=== PATIENT | female | born 1990 | race African-American/Black ===

== ENCOUNTER 2016-09-05 14:21 | Inpatient (IN) | payer OTHER ==
[~2016-09-05] VITALS: Ht 170.2 cm; Wt 63.5 kg
[~2016-09-05 14:21] MED LIST: ACETAMINOPHEN-1 EAC1 ORAL; BENAZEPRIL HCL10 MG ORAL; CIPROFLOXACIN500 M2 ORAL; CYCLOBENZAPRINE10 MG ORAL; DICLOFENAC SODI75 MG ORAL; FERROUS SULFAT325 MG ORAL; FUROSEMIDE20 M1 ORAL; HTN MED; HYDROCHLOROTH12.5 M2 ORAL; HYDROXYCHLOROQ200 M1 PO; IBUPROFEN200 MG ORAL; IBUPROFEN400 MG ORAL; IBUPROFEN600 MG ORAL; IMURAN50 MG PO; LOSARTAN POTASS50 MG ORAL; POTASSIUM CHLO20 ME1 ORAL; POTASSIUM99 M3 PO; PREDNISONE10 MG ORAL; PREDNISONE20 MG ORAL; RANITIDINE HCL150 MG ORAL; VITAMIN D1000 UNI1 ORAL
--- NOTE | 2016-09-05 14:58 | Emergency Room Report ---
History of Present Illness General Chief Complaint: Chest Pain Source: Patient, Family Member Present Illness HPI Patient presents with complaints of chest pain Midsternal Reports that she has a history of lupus and feels that this is flaring up patient also has increased swelling of her feet She has some shortness of breath associated with this Denies any back or flank pain Denies any dysuria frequency denies any recent travel or pleurisy Pain and heaviness is a 4/10 denies any change with exertion or position Allergies: Coded Allergies: SULFA (SULFONAMIDE ANTIBIOTICS) (Verified Allergy, Mild, 05/27/15) Patient History Past Medical History: see triage record Pertinent Family History: none Last Menstrual Period: 2 years ago Reviewed Nursing Documentation: PMH: Agreed, PSxH: Agreed Nursing Documentation-PMH Past Medical History: No History, Except For Hx Hypertension: Yes Hx Cancer: No Hx Gastrointestinal Problems: No Hx Dialysis: Yes - Kidney failure Hx Neurological Problems: No Review of Systems All Other Systems: negative except mentioned in HPI Physical Exam Vital Signs Date Time Temp Pulse Resp B/P Pulse Ox O2 Delivery O2 Flow Rate FiO2 09/05/16 14:28 99.0 109 18 176/111 99 Room Air Sp02 EP Interpretation: reviewed, normal General Appearance: mild distress - Appears uncomfortable and in some pain Head: normocephalic, atraumatic Eyes: bilateral eye EOMI, bilateral eye PERRL ENT: hearing grossly normal, normal pharynx, TMs + canals normal, uvula midline Neck: full range of motion, supple, no meningismus, no bony tend Respiratory: lungs clear, normal breath sounds, no rhonchi, no respiratory distress, no retraction, no accessory muscle use Cardiovascular #1: normal peripheral pulses, regular rate, rhythm, no gallop, no JVD, no murmur Gastrointestinal: normal bowel sounds, non tender, soft, no mass, no organomegaly, non-distended, no guarding, no hernia, no pulsatile mass, no rebound Genitourinary: no CVA tenderness Musculoskeletal: normal inspection Neurologic: oriented x3, responsive, post closing specialist III-XII nml as tested, motor strength/ tone normal, sensory intact Psychiatric: mood/affect normal Skin: warm/dry, other - Minimal dependent edema in both lower extremities Lymphatic: normal inspection, no adenopathy Procedures Critical Care Time Critical Care Time 45 minutes for multiple critical findings Findings concerning for end organ injury and life-threatening pathology Speaking to consultants not including any procedural time Medical Decision Making Diagnostic Impression: Primary Impression: Non-STEMI (non-ST elevated myocardial infarction) Additional Impressions: Lupus Renal failure Hyperkalemia CHF (congestive heart failure) ER Course Patient is a fairly complex patient with multiple differential to consideration including but not limited to cardiac cardiopulmonary and vascular emergencies Patient has risk factors including lupus At this time the patient's blood work is also fairly abnormal with elevated troponin Kidney function is also significantly elevated from previous Potassium was high Patient has required multiple interventions The platelets are low In discussion with cardiology heparin bolus and drip will be held off at this time Patient also received aspirin and is doing better symptomatically Chest x-ray shows some questionable congestion And patient admitted for further inpatient care Labs Test 09/05/16 15:00 White Blood Count 7.8 K/UL (4.8-10.8) Red Blood Count 3.17 M/UL (4.20-5.40) Hemoglobin 7.9 G/DL (12.0-16.0) Hematocrit 26.3 % (37.0-47.0) Mean Corpuscular Volume 83 FL (80-99) Mean Corpuscular Hemoglobin 24.9 PG (27.0-31.0) Mean Corpuscular Hemoglobin Concent 30.1 G/DL (32.0-36.0) Red Cell Distribution Width 20.6 % (11.6-14.8) Platelet Count 127 K/UL (150-450) Mean Platelet Volume 7.2 FL (6.5-10.1) Neutrophils (%) (Auto) % (45.0-75.0) Lymphocytes (%) (Auto) % (20.0-45.0) Monocytes (%) (Auto) % (1.0-10.0) Eosinophils (%) (Auto) % (0.0-3.0) Basophils (%) (Auto) % (0.0-2.0) Differential Total Cells Counted 100 Neutrophils % (Manual) 73 % (45-75) Lymphocytes % (Manual) 23 % (20-45) Monocytes % (Manual) 4 % (1-10) Eosinophils % (Manual) 0 % (0-3) Basophils % (Manual) 0 % (0-2) Band Neutrophils 0 % (0-8) Platelet Estimate Decreased Platelet Morphology Normal Hypochromasia 1+ Anisocytosis 1+ Prothrombin Time 10.7 SEC (9.30-11.50) Prothromb Time International Ratio 1.1 (0.9-1.1) Activated Partial Thromboplast Time 30 SEC (23-33) Sodium Level 132 mEQ/L (135-145) Potassium Level 6.2 mEQ/L (3.4-4.9) Chloride Level 98 mEQ/L (98-107) Carbon Dioxide Level 16 mEQ/L (20-30) Anion Gap 18 (5-15) Blood Urea Nitrogen 73 mg/dL (7-23) Creatinine 4.7 mg/dL (0.5-0.9) Estimat Glomerular Filtration Rate 13.5 mL/min (>60) Glucose Level 80 mg/dL (74-106) Calcium Level 8.4 mg/dL (8.6-10.2) Total Bilirubin 0.3 mg/dL (0.0-1.2) Aspartate Amino Transf (AST/SGOT) 166 U/L (5-40) Alanine Aminotransferase (ALT/SGPT) 108 U/L (3-33) Alkaline Phosphatase 78 U/L (35-104) Total Creatine Kinase 6816 U/L (26-140) Creatine Kinase MB 276.2 ng/mL (< 3.8) Creatine Kinase MB Relative Index 4.0 Troponin I 0.57 ng/mL (<=0.30) Pro-B-Type Natriuretic Peptide 77091 pg/mL (0-125) Total Protein 8.6 g/dL (6.6-8.7) Albumin 2.6 g/dL (3.5-5.2) Globulin 6.0 g/dL Albumin/Globulin Ratio 0.4 (1.0-2.7) Lipase 110 U/L (< 60) EKG Diagnostic Results Rate: normal Rhythm: NSR ST Segments: other Rhythm Strip Diag. Results EP Interpretation: yes Rate: 88 Rhythm: NSR, no PVC's, no ectopy Chest X-Ray Diagnostic Results EP Interpretation: Yes Findings: no pneumothorax, other - Cardiomegaly, pulmonary congestion, right lower lobe increased haziness cannot rule out infiltrate Number of Views: 1 Last Vital Signs Date Time Temp Pulse Resp B/P Pulse Ox O2 Delivery O2 Flow Rate FiO2 09/05/16 14:42 109 18 Room Air 09/05/16 14:28 99.0 176/111 99 Status: improved Disposition: ADMITTED INPATIENT Condition: Critical Referrals: NON PHYSICIAN (PCP) FRANTZ GRUBER D.O. Sep 05, 2016 14:58
[2016-09-05] MEDS ORDERED: DiphenhydrAMINE 50mg/ml Inj IVP ONE (15:00)
[2016-09-05] MEDS ORDERED: HYDROmorphone 1mg/ml Carpuject IVP ONE (15:00)
[2016-09-05 15:05] VITALS: BP 171/118
[2016-09-05 15:11] LABS: MEAN CORPUSCULAR HEMOGLOBIN 24.9 PG (27.0-31.0); MEAN CORPUSCULAR HGB CONC 30.1 G/DL (32.0-36.0); MEAN CORPUSCULAR VOLUME 83 FL (80-99); MEAN PLATELET VOLUME 7.2 FL (6.5-10.1); PLATELET COUNT 127 K/UL (150-450); RED BLOOD COUNT 3.17 M/UL (4.20-5.40); RED CELL DISTRIBUTION WIDTH 20.6 % (11.6-14.8); WHITE BLOOD COUNT 7.8 K/UL (4.8-10.8)
--- NOTE | 2016-09-05 15:14 | Diagnostic Imaging Report ---
Indications: Chest pain Technique: Portable AP chest Findings: Comparison: 10/25/15 Cardiac silhouette has increased in size. Increased interstitial markings have developed in the right lung. Superimposed patchy ovular opacity has developed in the right lung base. Linear densities have developed in both lung bases. Left costophrenic angle now blunted. Right remain sharp. IMPRESSION: Findings most compatible with development of asymmetric congestive heart failure. Superimposed pneumonia right lung base not excludable.
[2016-09-05 15:18] LABS: INR 1.1 (0.9-1.1); PROTHROMBIN TIME 10.7 SEC (9.30-11.50)
[2016-09-05 15:34] LABS: ALBUMIN/GLOBULIN RATIO 0.4 (1.0-2.7); CALCIUM 8.4 mg/dL (8.6-10.2); CREATININE 4.7 mg/dL (0.5-0.9); GLOMERULAR FILTRATION RATE 13.5 mL/min (>60); TOTAL PROTEIN 8.6 g/dL (6.6-8.7)
[2016-09-05 15:43] LABS: TROPONIN I 0.57 ng/mL (<=0.30)
[2016-09-05 15:49] LABS: CKMB 276.2 ng/mL (< 3.8)
[2016-09-05 15:52] LABS: POTASSIUM 6.2 mEQ/L (3.4-4.9)
[2016-09-05] MEDS ORDERED: AMLODIPINE BES2.5 MG ORAL (15:52)
[2016-09-05 15:56] LABS: ANISOCYTOSIS 1+; LYMPHOCYTES % (MANUAL) 23 % (20-45); NEUTROPHILS % (MANUAL) 73 % (45-75); TOTAL CELLS COUNTED 100
[2016-09-05 15:57] LABS: BAND NEUTROPHILS % (MANUAL) 0 % (0-8); BASOPHILS % (MANUAL) 0 % (0-2); EOSINOPHILS % (MANUAL) 0 % (0-3); HYPOCHROMASIA 1+; PLATELET ESTIMATE DECREASED; PLATELET MORPHOLOGY NORMAL
[2016-09-05] MEDS ORDERED: Heparin 5000 units/ml inj IV ONE (16:00)
[2016-09-05] MEDS ORDERED: Heparin 25,000u/D5W 500ml 500 ML IV SCH (16:00)
[2016-09-05] MEDS ORDERED: Sodium Polystyrene Sulfonate 15gm Powder ORAL ONE (16:15)
[2016-09-05] MEDS ORDERED: ALBUTEROL 4 MG ORAL ONE (16:15)
[2016-09-05] MEDS ORDERED: Nitroglycerin 2% oint pkt TOPIC ONE (16:45)
[2016-09-05 17:23] VITALS: BP 171/112
--- NOTE | 2016-09-05 18:13 | History and Physical ---
History of Present Illness General Date patient seen: Sep 05, 2016 Reason for Hospitalization: Chest Pain Present Illness HPI 26 year old female with hx of SLE and recently diagnosed renal disease and chronic pleuritic chest pain presented with complaints of chest pain. She has some shortness of breath associated with this Denies any dysuria frequency denies any recent travel or pleurisy Pain and heaviness is a 4/10 denies any change with exertion or position. She had a positive troponin and hyperkalemia, therefore she is admitted to [facility] for further work up. Allergies: Coded Allergies: SULFA (SULFONAMIDE ANTIBIOTICS) (Verified Allergy, Mild, 05/27/15) Medication History Scheduled Amlodipine Besylate* (Amlodipine Besylate*), 5 MG ORAL DAILY, (Reported) Azathioprine (Azathioprine), 50 MG PO DAILY, (Reported) Benazepril Hcl* (Benazepril Hcl*), 10 MG ORAL DAILY, (Reported) Cholecalciferol (Vitamin D3)* (Vitamin D*), 5,000 UNIT ORAL DAILY, (Reported) Cyclobenzaprine Hcl* (Flexeril*), 10 MG ORAL BID Diclofenac Sod* (Voltaren*), 75 MG ORAL DAILY, (Reported) Ferrous Sulfate* (Ferrous Sulfate*), 325 MG ORAL TWICE A DAY Furosemide* (Lasix*), 20 MG ORAL DAILY, (Reported) Hydrochlorothiazide* (Hydrochlorothiazide*), 12.5 MG ORAL DAILY, (Reported) Hydroxychloroquine Sulfate (Hydroxychloroquine Sulfate), 200 MG PO BID, ( Reported) Losartan Potassium* (Losartan Potassium*), 50 MG ORAL DAILY, (Reported) Potassium Chloride* (K-Dur*), 20 MEQ ORAL DAILY, (Reported) Prednisone* (Prednisone*), 10 MG ORAL DAILY, (Reported) Ranitidine Hcl* (Zantac*), 150 MG ORAL TWICE A DAY Scheduled PRN Acetaminophen With Codeine (T#3) (Tylenol #3 Tab*), 1 TAB ORAL Q4H PRN for For Pain Ibuprofen* (Motrin*), 400 MG ORAL Q8H PRN for For Pain Patient History Healthcare decision maker Resuscitation status Advanced Directive on File Past Medical/Surgical History Past Medical/Surgical History: (1) Polyarticular arthritis (2) Lupus Review of Systems Cardiovascular: Reports: chest pain All Other Systems: negative except mentioned in HPI Physical Exam Lines, tubes and drains: peripheral HEENT: normocephalic, anicteric Neck: non-tender, normal alignment Respiratory/Chest: chest wall non-tender, lungs clear Cardiovascular/Chest: normal peripheral pulses, normal rate Genitourinary/Rectal: normal genital exam Extremities: normal range of motion Last 24 Hour Vital Signs Date Time Temp Pulse Resp B/P Pulse Ox O2 Delivery O2 Flow Rate FiO2 09/05/16 17:23 98.1 108 18 171/112 98 Room Air 09/05/16 17:10 105 09/05/16 16:56 108 29 174/118 99 Room Air 09/05/16 16:50 174/118 09/05/16 15:40 98.9 09/05/16 15:05 105 25 171/118 98 Room Air 09/05/16 14:42 109 18 Room Air 09/05/16 14:28 99.0 109 18 176/111 99 Room Air Laboratory Tests Test 09/05/16 15:00 White Blood Count 7.8 K/UL (4.8-10.8) Red Blood Count 3.17 M/UL (4.20-5.40) L Hemoglobin 7.9 G/DL (12.0-16.0) L Hematocrit 26.3 % (37.0-47.0) L Mean Corpuscular Volume 83 FL (80-99) Mean Corpuscular Hemoglobin 24.9 PG (27.0-31.0) L Mean Corpuscular Hemoglobin Concent 30.1 G/DL (32.0-36.0) L Red Cell Distribution Width 20.6 % (11.6-14.8) H Platelet Count 127 K/UL (150-450) L Mean Platelet Volume 7.2 FL (6.5-10.1) Neutrophils (%) (Auto) % (45.0-75.0) Lymphocytes (%) (Auto) % (20.0-45.0) Monocytes (%) (Auto) % (1.0-10.0) Eosinophils (%) (Auto) % (0.0-3.0) Basophils (%) (Auto) % (0.0-2.0) Differential Total Cells Counted 100 Neutrophils % (Manual) 73 % (45-75) Lymphocytes % (Manual) 23 % (20-45) Monocytes % (Manual) 4 % (1-10) Eosinophils % (Manual) 0 % (0-3) Basophils % (Manual) 0 % (0-2) Band Neutrophils 0 % (0-8) Platelet Estimate Decreased L Platelet Morphology Normal Hypochromasia 1+ Anisocytosis 1+ Prothrombin Time 10.7 SEC (9.30-11.50) Prothromb Time International Ratio 1.1 (0.9-1.1) Activated Partial Thromboplast Time 30 SEC (23-33) Sodium Level 132 mEQ/L (135-145) L Potassium Level 6.2 mEQ/L (3.4-4.9) *H Chloride Level 98 mEQ/L (98-107) Carbon Dioxide Level 16 mEQ/L (20-30) L Anion Gap 18 (5-15) H Blood Urea Nitrogen 73 mg/dL (7-23) H Creatinine 4.7 mg/dL (0.5-0.9) H Estimat Glomerular Filtration Rate 13.5 mL/min (>60) Glucose Level 80 mg/dL (74-106) Calcium Level 8.4 mg/dL (8.6-10.2) L Total Bilirubin 0.3 mg/dL (0.0-1.2) Aspartate Amino Transf (AST/SGOT) 166 U/L (5-40) H Alanine Aminotransferase (ALT/SGPT) 108 U/L (3-33) H Alkaline Phosphatase 78 U/L (35-104) Total Creatine Kinase 6816 U/L (26-140) H Creatine Kinase MB 276.2 ng/mL (< 3.8) H Creatine Kinase MB Relative Index 4.0 Troponin I 0.57 ng/mL (<=0.30) *H Pro-B-Type Natriuretic Peptide 22143 pg/mL (0-125) H Total Protein 8.6 g/dL (6.6-8.7) Albumin 2.6 g/dL (3.5-5.2) L Globulin 6.0 g/dL Albumin/Globulin Ratio 0.4 (1.0-2.7) L Lipase 110 U/L (< 60) H Height (Feet): 5 Height (Inches): 7.00 Weight (Pounds): 140 Medications Current Medications Medications (Trade) Dose Ordered Sig/Brad Route PRN Reason Start Time Stop Time Status Last Admin Dose Admin Acetaminophen (Tylenol) 650 mg Q4H PRN ORAL FEVER 09/05/16 18:15 10/05/16 18:14 UNV Acetaminophen/ Codeine Phosphate (Tylenol #3) 1 tab Q4H PRN ORAL For Pain 09/05/16 18:15 09/12/16 18:14 UNV Albuterol/ Ipratropium (DuoNeb 0.5-3(2.5)mg/3ml) 3 ml EVERY 4 HOURS PRN HHN Shortness of Breath 09/05/16 18:15 09/10/16 18:14 UNV Amlodipine Besylate (Norvasc) 5 mg DAILY ORAL 09/06/16 09:00 10/06/16 08:59 UNV Aspirin (ASA) 162 mg DAILY ORAL 09/06/16 09:00 10/06/16 08:59 UNV Azathioprine (Imuran) 50 mg DAILY ORAL 09/06/16 09:00 10/06/16 08:59 UNV Benazepril HCl (Lotensin) 10 mg DAILY ORAL 09/06/16 09:00 10/06/16 08:59 UNV Diltiazem HCl (Cardizem) 10 mg EVERY HOUR PRN IV heart rate more than 120, 09/05/16 18:15 10/05/16 18:14 UNV Enalaprilat (Vasotec) 2.5 mg EVERY 6 HOURS PRN IV sbp more than 160 09/05/16 18:15 10/05/16 18:14 UNV Heparin Sodium (Porcine) (Heparin 5000 units/ml) 5,000 units EVERY 12 HOURS SUBQ 09/05/16 21:00 10/05/16 20:59 UNV Heparin Sodium/ Dextrose (Heparin) 500 ml @ 15.241 mls/ hr adjust per protocol IV 09/05/16 16:00 10/05/16 15:59 Hydrochlorothiazide (Hydrodiuril) 12.5 mg DAILY ORAL 09/06/16 09:00 10/06/16 08:59 UNV Ketorolac Tromethamine (Toradol 30mg) 30 mg Q6HR PRN IV moderate pain ( 4-6) 09/05/16 18:15 09/10/16 18:14 UNV Morphine Sulfate (Morphine Sulfate) 2 mg EVERY 4 HOURS PRN IVP severe Pain (Pain Scale 7-10) 09/05/16 18:15 09/12/16 18:14 UNV Nitroglycerin (Ntg) 0.4 mg Every 5 Minutes PRN SL Prn Chest Pain 09/05/16 18:15 10/05/16 18:14 UNV Ondansetron HCl (Zofran) 4 mg Q6H PRN IVP Nausea & Vomiting 09/05/16 18:15 10/05/16 18:14 UNV Pantoprazole (Protonix) 40 mg DAILY ORAL 09/06/16 09:00 10/06/16 08:59 UNV Polyethylene Glycol (Miralax) 17 gm DAILYPRN PRN ORAL Constipation 09/05/16 18:15 10/05/16 18:14 UNV Temazepam (Restoril) 15 mg HSPRN PRN ORAL Insomnia 09/05/16 18:15 09/12/16 18:14 UNV Assessment/Plan Problem List: (1) Lupus ICD Codes: M32.9 - Systemic lupus erythematosus, unspecified SNOMED: 82040388 Qualifiers: (2) Non-STEMI (non-ST elevated myocardial infarction) ICD Codes: I21.4 - Non-ST elevation (NSTEMI) myocardial infarction SNOMED: 63809950 (3) Renal failure ICD Codes: N19 - Unspecified kidney failure SNOMED: 55111819 (4) CHF (congestive heart failure) ICD Codes: I50.9 - Heart failure, unspecified SNOMED: 08280098 Qualifiers: Qualified Codes: I50.9 - Heart failure, unspecified Assessment/Plan renal evaluation IV fluids renal us Rheumatology to see echo check electrolytes cardiology to see. PANCHITO BARBOSA Sep 05, 2016 18:13
[2016-09-05] MEDS ORDERED: Tylenol #3 tab (300mg/30mg) ORAL PRN (18:15)
[2016-09-05] MEDS ORDERED: Ketorolac 30mg Inj IV PRN (18:15)
[2016-09-05] MEDS ORDERED: Diltiazem 25mg/5ml IV PRN (18:15)
[2016-09-05] MEDS ORDERED: Nitroglycerin Subl 0.4mg tab (Bottle Of 25) SL PRN (18:15)
[2016-09-05] MEDS ORDERED: Morphine Sulfate 2mg/ml Inj IVP PRN (18:15)
[2016-09-05] MEDS ORDERED: DuoNeb 0.5-3(2.5)mg/3ml neb HHN PRN (18:15)
[2016-09-05] MEDS ORDERED: Enalaprilat 2.5mg/2ml Inj IV PRN (18:15)
[2016-09-05] MEDS ORDERED: Miralax 17gm pkt ORAL PRN (18:15)
[2016-09-05 20:00] VITALS: BP 154/111
[2016-09-05 20:19] LABS: FREE T3 1.4 pg/mL (2.3-4.2); THYROID STIMULATING HORMONE 1.84 uIU/mL (0.300-4.500)
[2016-09-05] MEDS: Heparin 5000 units/ml inj SUBQ SCH (20:50)
[2016-09-05 21:58] LABS: APPEARANCE,URINE CLEAR; KETONES,URINE NEGATIVE (NEGATIVE); LEUKOCYTE ESTERASE ,URINE NEGATIVE (NEGATIVE); NITRITE,URINE NEGATIVE (NEGATIVE); PH,URINE 6 (4.5-8.0); PROTEIN,URINE 4+ (NEGATIVE); UROBILINOGEN,URINE NORMAL MG/DL (0.0-1.0)
[2016-09-05] MEDS ORDERED: Benazepril 10mg tab ORAL SCH (22:00)
[2016-09-05 22:17] LABS: ALANINE AMINOTRANSFERASE 94 U/L (3-33); ALBUMIN/GLOBULIN RATIO 0.4 (1.0-2.7); ANION GAP 18 (5-15); ASPARTATE AMINO TRANSFERASE 141 U/L (5-40); CALCIUM 7.5 mg/dL (8.6-10.2); CARBON DIOXIDE 14 mEQ/L (20-30); CHLORIDE 102 mEQ/L (98-107); CREATININE 4.7 mg/dL (0.5-0.9); GLOMERULAR FILTRATION RATE 13.5 mL/min (>60); HEMOLYSIS 5; MAGNESIUM 1.8 mg/dL (1.7-2.5); PHOSPHORUS 5.4 mg/dL (2.5-4.8); POTASSIUM 5.5 mEQ/L (3.4-4.9); SODIUM 134 mEQ/L (135-145); TOTAL PROTEIN 7.7 g/dL (6.6-8.7)
[2016-09-05 22:19] LABS: TROPONIN I 0.5 ng/mL (<=0.30)
[2016-09-05] MEDS: Benazepril 10mg tab ORAL SCH (22:19)
[2016-09-05 22:21] LABS: BACTERIA,URINE FEW /HPF; SQUAMOUS EPITHELIAL CELL,UR FEW /LPF (NONE/OCC); WBC,URINE 0-2 /HPF (0 - 2)
[2016-09-05 22:23] LABS: CORTISOL 24.6 ug/dL
[2016-09-05 23:34] VITALS: BP 166/108
[2016-09-06] VITALS (7 sets, daily range): BP systolic 155–165; BP diastolic 106–118
[2016-09-06 08:08] LABS: BASOPHILS % (AUTO) 0.6 % (0.0-2.0); EOSINOPHILS % (AUTO) 0.2 % (0.0-3.0); LYMPHOCYTES % (AUTO) 20.2 % (20.0-45.0); MEAN CORPUSCULAR HEMOGLOBIN 25.6 PG (27.0-31.0); MEAN CORPUSCULAR HGB CONC 31.4 G/DL (32.0-36.0); MEAN CORPUSCULAR VOLUME 82 FL (80-99); MEAN PLATELET VOLUME 9.5 FL (6.5-10.1); MONOCYTES % (AUTO) 4.7 % (1.0-10.0); NEUTROPHILS % (AUTO) 74.4 % (45.0-75.0); PLATELET COUNT 113 K/UL (150-450); RED CELL DISTRIBUTION WIDTH 20.9 % (11.6-14.8); WHITE BLOOD COUNT 5.4 K/UL (4.8-10.8)
[2016-09-06] MEDS: Aspirin Baby 81mg ORAL SCH (08:10)
[2016-09-06] MEDS: azaTHIOprine 50 MG TAB ORAL SCH (08:11)
[2016-09-06] MEDS: Benazepril 10mg tab ORAL SCH (08:12)
[2016-09-06] MEDS: Heparin 5000 units/ml inj SUBQ SCH ×2 (08:13→21:00)
[2016-09-06 08:31] LABS: TROPONIN I 0.35 ng/mL (<=0.30)
[2016-09-06 08:32] LABS: CHOLESTEROL/HDL RATIO 6.3 (3.3-4.4); CRP QUANT 5.4 mg/dL (< 0.5)
[2016-09-06 08:36] LABS: INR 1.1 (0.9-1.1); PROTHROMBIN TIME 10.7 SEC (9.30-11.50)
[2016-09-06 08:42] LABS: THYROID STIMULATING HORMONE 1.32 uIU/mL (0.300-4.500)
[2016-09-06] MEDS ORDERED: Benazepril 10mg tab ORAL SCH (09:00)
[2016-09-06] MEDS ORDERED: Pneumococcal Vaccine 25mcg/0.5ml IM ONE (09:00)
[2016-09-06] MEDS ORDERED: Influenza Virus Vaccine 0.5ml IM ONE (09:00)
--- NOTE | 2016-09-06 11:11 | Pulmonology Progress Note ---
Assessment/Plan Problems: (1) Non-STEMI (non-ST elevated myocardial infarction) (2) Hyperkalemia (3) Renal failure (4) Lupus (5) CHF (congestive heart failure) Assessment/Plan K better Dr. Chou has seen the patient Echo, renal us pending DEMETRIA pending symptomatic treatment Subjective ROS Limited/Unobtainable: No Constitutional: Reports: no symptoms HEENT: Repors: no symptoms Allergies: Coded Allergies: SULFA (SULFONAMIDE ANTIBIOTICS) (Verified Allergy, Mild, 05/27/15) Objective Last 24 Hour Vital Signs Date Time Temp Pulse Resp B/P Pulse Ox O2 Delivery O2 Flow Rate FiO2 09/06/16 08:33 97.7 111 18 160/112 96 Room Air 09/06/16 08:12 160/112 09/06/16 08:12 111 160/112 09/06/16 08:00 103 09/06/16 07:55 110 18 Room Air 21 09/06/16 05:00 106 157/111 09/06/16 04:39 98.1 110 20 164/112 94 Room Air 09/06/16 04:00 102 09/06/16 00:15 98.6 114 20 159/106 96 Room Air 09/06/16 00:00 111 09/05/16 23:34 98.8 116 22 166/108 93 Room Air 09/05/16 22:19 166/114 09/05/16 22:13 118 18 Room Air 21 09/05/16 22:00 166/114 09/05/16 21:49 122 166/114 09/05/16 20:00 109 09/05/16 20:00 98.4 114 20 154/111 97 Room Air 09/05/16 18:45 167/110 09/05/16 17:23 98.1 108 18 171/112 98 Room Air 09/05/16 17:10 105 09/05/16 16:56 108 29 174/118 99 Room Air 09/05/16 16:50 174/118 09/05/16 15:40 98.9 09/05/16 15:05 105 25 171/118 98 Room Air 09/05/16 14:42 109 18 Room Air 09/05/16 14:28 99.0 109 18 176/111 99 Room Air Intake and Output 09/05/16 09/06/16 19:00 07:00 Intake Total 550 ml 180 ml Balance 550 ml 180 ml Intake Oral 50 ml 180 ml IV Total 500 ml # Voids 4 General Appearance: WD/WN HEENT: normocephalic Respiratory/Chest: chest wall non-tender, normal breath sounds Cardiovascular: normal peripheral pulses, normal rate Abdomen: normal bowel sounds, soft, non tender Genitourinary: normal external genitalia Extremities: no cyanosis Neurologic/Psychiatric: indian trader II-XII grossly normal Laboratory Tests 09/05/16 15:00: White Blood Count 7.8, Red Blood Count 3.17L, Hemoglobin 7.9L, Hematocrit 26.3L , Mean Corpuscular Volume 83, Mean Corpuscular Hemoglobin 24.9L, Mean Corpuscular Hemoglobin Concent 30.1L, Red Cell Distribution Width 20.6H, Platelet Count 127L, Mean Platelet Volume 7.2, Neutrophils (%) (Auto) , Lymphocytes (%) (Auto) , Monocytes (%) (Auto) , Eosinophils (%) (Auto) , Basophils (%) (Auto) , Differential Total Cells Counted 100, Neutrophils % ( Manual) 73, Lymphocytes % (Manual) 23, Monocytes % (Manual) 4, Eosinophils % ( Manual) 0, Basophils % (Manual) 0, Band Neutrophils 0, Platelet Estimate DecreasedL, Platelet Morphology Normal, Hypochromasia 1+, Anisocytosis 1+, Prothrombin Time 10.7, Prothromb Time International Ratio 1.1, Activated Partial Thromboplast Time 30, Sodium Level 132L, Potassium Level 6.2*H, Chloride Level 98, Carbon Dioxide Level 16L, Anion Gap 18H, Blood Urea Nitrogen 73H, Creatinine 4.7H, Estimat Glomerular Filtration Rate 13.5, Glucose Level 80 , Calcium Level 8.4L, Total Bilirubin 0.3, Aspartate Amino Transf (AST/SGOT) 166H, Alanine Aminotransferase (ALT/SGPT) 108H, Alkaline Phosphatase 78, Total Creatine Kinase 6816H, Creatine Kinase MB 276.2H, Creatine Kinase MB Relative Index 4.0, Troponin I 0.57*H, Pro-B-Type Natriuretic Peptide 68144P, Total Protein 8.6, Albumin 2.6L, Globulin 6.0, Albumin/Globulin Ratio 0.4L, Lipase 110H, Thyroid Stimulating Hormone (TSH) 1.840, Free Thyroxine 0.88, Free Triiodothyronine 1.4L 09/05/16 21:00: Urine Color Pale yellow, Urine Appearance Clear, Urine pH 6, Urine Specific [place] 1.015, Urine Protein 4+H, Urine Glucose (UA) Negative, Urine Ketones Negative, Urine Occult Blood 5+H, Urine Nitrite Negative, Urine Bilirubin Negative, Urine Urobilinogen Normal, Urine Leukocyte Esterase Negative, Urine RBC 2-4H, Urine WBC 0-2, Urine Squamous Epithelial Cells Few, Urine Bacteria Few , Urine Eosinophils None seen, Urine Osmolality [Pending], Urine Random Sodium 61, Urine Random Chloride 44, Urine Potassium Timed 38 09/05/16 21:25: Sodium Level 134L, Potassium Level 5.5H, Chloride Level 102, Carbon Dioxide Level 14L, Anion Gap 18H, Blood Urea Nitrogen 71H, Creatinine 4.7H, Estimat Glomerular Filtration Rate 13.5, Glucose Level 69L, Calcium Level 7.5L, Total Bilirubin 0.3, Aspartate Amino Transf (AST/SGOT) 141H, Alanine Aminotransferase (ALT/SGPT) 94H, Alkaline Phosphatase 69, Total Creatine Kinase 5956H, Troponin I 0.50*H, Total Protein 7.7, Albumin 2.3L, Globulin 5.4, Albumin/Globulin Ratio 0.4L, Osmolality [Pending], Uric Acid 10.0H, Phosphorus Level 5.4H, Magnesium Level 1.8, Cortisol 24.6 09/06/16 07:15: White Blood Count 5.4, Red Blood Count 3.20L, Hemoglobin 8.2L, Hematocrit 26.2L , Mean Corpuscular Volume 82, Mean Corpuscular Hemoglobin 25.6L, Mean Corpuscular Hemoglobin Concent 31.4L, Red Cell Distribution Width 20.9H, Platelet Count 113L, Mean Platelet Volume 9.5, Neutrophils (%) (Auto) 74.4, Lymphocytes (%) (Auto) 20.2, Monocytes (%) (Auto) 4.7, Eosinophils (%) (Auto) 0.2, Basophils (%) (Auto) 0.6, Prothrombin Time 10.7, Prothromb Time International Ratio 1.1, Activated Partial Thromboplast Time 32, Troponin I 0.35 *H, Thyroid Stimulating Hormone (TSH) 1.320, Erythrocyte Sedimentation Rate 119H , C-Reactive Protein, Quantitative 5.4H, Triglycerides Level 234H, Cholesterol Level 133, LDL Cholesterol 65, HDL Cholesterol 21, Cholesterol/HDL Ratio 6.3H, Anti-Nuclear Antibody Screen [Pending] Current Medications Medications (Trade) Dose Ordered Sig/Brad Route PRN Reason Start Time Stop Time Status Last Admin Dose Admin Acetaminophen (Tylenol) 650 mg Q4H PRN ORAL T>100.5 09/05/16 18:15 10/05/16 18:14 09/05/16 21:58 Acetaminophen/ Codeine Phosphate (Tylenol #3) 1 tab Q4H PRN ORAL Moderate Pain (Pain Scale 4-6) 09/05/16 18:15 09/12/16 18:14 Albuterol/ Ipratropium (DuoNeb 0.5-3(2.5)mg/3ml) 3 ml Q4H PRN HHN Shortness of Breath 09/05/16 18:15 09/10/16 18:14 Amlodipine Besylate (Norvasc) 5 mg DAILY ORAL 09/06/16 09:00 10/06/16 08:59 09/06/16 08:12 Aspirin (ASA) 162 mg DAILY ORAL 09/06/16 09:00 10/06/16 08:59 09/06/16 08:10 Azathioprine (Imuran) 50 mg DAILY ORAL 09/06/16 09:00 10/06/16 08:59 09/06/16 08:11 Diltiazem HCl (Cardizem) 10 mg EVERY HOUR PRN IV heart rate more than 120 BPM 09/05/16 18:15 10/05/16 18:14 09/05/16 21:49 Heparin Sodium (Porcine) (Heparin 5000 units/ml) 5,000 units EVERY 12 HOURS SUBQ 09/05/16 21:00 10/05/16 20:59 Morphine Sulfate (Morphine Sulfate) 2 mg EVERY 3 HOURS PRN IVP Severe Pain (Pain Scale 7-10) 09/06/16 12:00 09/13/16 11:59 UNV Nitroglycerin (Ntg) 0.4 mg Q5MIN X 3 DOSES PRN SL Prn Chest Pain 09/05/16 18:15 10/05/16 18:14 Ondansetron HCl (Zofran) 4 mg Q6H PRN IVP Nausea & Vomiting 09/05/16 18:15 10/05/16 18:14 Pantoprazole (Protonix) 40 mg DAILY ORAL 09/06/16 09:00 10/06/16 08:59 09/06/16 08:13 Polyethylene Glycol (Miralax) 17 gm DAILYPRN PRN ORAL Constipation 09/05/16 18:15 10/05/16 18:14 Temazepam (Restoril) 15 mg HSPRN PRN ORAL Insomnia 09/05/16 21:00 09/12/16 20:59 PANCHITO BARBOSA Sep 06, 2016 11:11
--- NOTE | 2016-09-06 12:17 | Consultation ---
DATE OF CONSULTATION: 09/05/2016 NOTE: VERY POOR AUDIO QUALITY RHEUMATOLOGICAL CONSULTATION the patient is a 26-year-old lady because of systemic lupus erythematosus. HISTORY OF PRESENT ILLNESS: The patient is known to me and followed by me in my office. The last time I saw the patient was 22 months ago. Over the last two months according to the patient has been in and out of the hospital. Her last admission was acute renal failure in 06/2016. The patient was discharged on prednisone and Plaquenil as well as diuretics. She was also two days prior to the present admission then she developed exertional angina. Initially, it was tolerable and the patient could control the symptom by cessation of ambulation. However, on the day of admission, she developed severe and sharp knife like that led to severe shortness of breath. She came to [facility] where she was found to have acute renal failure, hyperkalemia, and elevated troponin and the patient was admitted. PAST MEDICAL HISTORY: She is known to have systemic lupus erythematosus for several years, but she has not been followed by director of social work for a long time. Neither was she immunosuppressed for a long time. MEDICATIONS: The patient is on amlodipine 5 mg daily, Imuran 50 mg daily, benazepril 10 mg daily, hydrochlorothiazide 12.5 mg daily, aspirin 162 mg daily, pantoprazole 40 mg daily, temazepam 50 mg daily, heparin 5000 units subcutaneous , albuterol sulfate, ipratropium bromide inhalation therapy every four hours. p.r.n. basis, she is on morphine sulfate 2 mg IV push every 4 hours. She is on ondansetron 4 mg IV push for nausea and vomiting. She is on enalapril IV. She is on diltiazem 10 mg IV every hour for heart rate above 120. ALLERGIES: The patient is allergic to sulfonamide antibiotic. SOCIAL HISTORY: She is single. She was born in [place] for the last 20 years . The patient does not smoke, drink, or use illicit drugs. FAMILY HISTORY: Both parents are alive and in good health. connective tissue disease. She has one sister and two brothers in good health. She has one daughter age 8 in good health. REVIEW OF SYSTEMS: Cardiovascular: The patient has severe retrosternal chest pain as well as . She has no palpitation or dizziness. Pulmonary: The patient has dry cough. No wheezing. No expectoration. GI: Her appetite is moderate. Her weight is stable. She has no dysphagia or dyspepsia. No bowel movement disorder. : The patient denied any dysuria, frequency, incontinence, or nocturia. . She several days. She has no numbness, tingling, seizure disorder, and has no headache. PHYSICAL EXAMINATION: VITAL SIGNS: Blood pressure is 154/111. Her pulse is . Respirations 20, and temperature 98.4 degrees. HEENT: Eyes were normal. Pupils were round, equal, and reactive to light. Sclerae was white. Conjunctiva was pink. Extraocular movements were normal. Temporal arteries were palpable bilaterally. There was no bilateral temporal wasting. Visual mckeon to confrontation were normal and sign was negative. ENT, mucous membranes were not dehydrated. Auditory canals were clear and tympanic membranes could not be visualized. Nasal cavity was not congested. Nasal septum was intact. Soft palate was free of ulceration. free from tonsillar hypertrophy. Uvula agus to phonation. Tongue was moist, midline, and normally . NECK: Supple. There was no goiter. No mass. No lymphadenopathy. There was no jugular venous distention. No bruits. Carotid upstroke was 2+. HEART: PMI was fifth left intercostal space in midclavicular line. There was normal S1 and normal S2. There was no murmur. No arrhythmia. No S3. No S4. No pericardial rub. ABDOMEN: Soft and nontender without organomegaly. There were normal bowel sounds without bruits. There was no guarding. No rebound tenderness. No ascites. No hernia. No CVA tenderness. Liver span was 8 cm, smooth, and nontender, but the patient tenderness more on the right than on the left. EXTREMITIES: No cyanosis. No clubbing. Extremities were warm. There is 0 to 1+ edema. NEUROLOGIC: Reflexes in biceps, triceps, and brachioradialis were present. Patellar retinaculum were present. Plantar were in flexion. symmetric and equal. Cerebellar function, gait . [id number] rapid alternating movements were normal. Romberg sign was negative. There was no tremor. No nystagmus. No extrapyramidal rigidity. Sensory exam to pinprick, cotton touch was grossly normal. Motor strength was 5/5 against resistance in upper and lower extremities in proximal and distal muscles. LABORATORY DATA: Hemoglobin is 7.9, hematocrit 26.3 with MCV of 93, WBC of 7.8, and platelet is 127,000. Her BUN and creatinine 73 and 4.7 respectively. Sodium is 132, potassium is 6.4, chloride 98, CO2 is 16, and glucose . Calcium was 8.4. SGOT and SGPT were respectively. Total CK was 6816 and CK was 276.2. Troponin was 0.67. ProBNP was 21,416. Albumin is 2.6 and total protein of 8.6. Her 110. TSH and free T4 were all normal. INR was 1.1. Chest x-ray showed congestive heart failure and superimposed pneumonia cannot be excluded. IMPRESSION AND PLAN: 1. Unstable angina positive troponin . 2. The patient has hyperkalemia with chronic renal failure. Nephrology consult to be in the management of this case. 3. The patient has pneumonia. Infectious Disease consult was called to assist in the management of this case. 4. The patient autoimmune will be taken. The patient currently is on moderate immunosuppression. Imuran will be increased to 100 mg daily. antibiotic administration and Combivent will be ordered. If the patient did not have she should have renal biopsy. The case will be discussed with the primary care physician. Alisa Chou M.D. DR: RADHA JOB#: [id number] CC:
--- NOTE | 2016-09-06 13:58 | Consultation ---
Consult Note Consult Note Cardiology for Dr. Kelsey full note dictated # [id number] BILL JERNIGAN Sep 06, 2016 13:58
[2016-09-06] MEDS: Metoprolol 25mg tab ORAL SCH ×2 (14:43→21:31)
--- NOTE | 2016-09-06 15:39 | Consultation ---
Consult Note Assessment/Plan Renal consult dictated # [id number] ROSANNE JOHNSON Sep 06, 2016 15:39
[2016-09-06] MEDS: Morphine Sulfate 2mg/ml Inj IVP PRN (16:13)
--- NOTE | 2016-09-06 19:38 | Consultation ---
DATE OF CONSULTATION: 09/06/2016 CARDIOLOGY CONSULTATION REQUESTING PHYSICIAN: Elias Claros M.D. REASON FOR CONSULT: Chest pain. HISTORY OF PRESENT ILLNESS: The patient is a 26-year-old, woman with a history of lupus diagnosed in 2013, treated in the past with prednisone and Plaquenil. She states that prednisone had been stopped about 6 months ago and Plaquenil was to be started on 08/30, however, she did not fill the prescription. She states that over about the past 1 week, she has had episodes of sharp chest pain worse with lying down, improved with sitting, and worse with deep inspiration. The chest pain as described at times as heaviness. She has had no shortness of breath, orthopnea, or PND. She presented to the emergency room where troponin was noted to be mildly elevated at 0.5. EKG showed nonspecific lateral T-wave changes. She was also anemic with a hemoglobin of 7.9, and renal failure with a BUN of 73, creatinine of 4.7, and potassium of 6.2. She was admitted for further treatment. PAST MEDICAL HISTORY: As noted above. Also history of hypertension. MEDICATIONS: Currently Morphine 2 mg q.3 hours p.r.n., amlodipine 5 mg daily, aspirin 162 mg daily, Protonix 40 mg daily, Restoril 15 mg q.h.s. p.r.n., subcutaneous heparin 5000 units q.12 hours, nitroglycerin p.r.n., Tylenol p.r.n., and diltiazem IV p.r.n. ALLERGIES: Sulfa. SOCIAL HISTORY: The patient has previously smoked less than 1 pack per day, but stopped smoking a month ago. There is no history of alcohol or drug use. FAMILY HISTORY: Negative for lupus positive for hypertension in the patient's maternal. REVIEW OF SYSTEMS: As noted per history of present illness. Also history of recent headache. No recent weight gain or loss. History of intermittent heat and cold sensations, but no documented fever. PHYSICAL EXAMINATION: VITAL SIGNS: Blood pressure is 155/108, pulse 116 regular, respiration 18, and afebrile. GENERAL: The patient is a well-developed, female, complaining of pleuritic chest pain. HEENT: Normocephalic and atraumatic. Pupils are equal, round, and reactive to light. Sclerae anicteric. Oral mucosa are moist. NECK: Supple. There is no thyromegaly. No jugular venous distention. Carotid pulses are 2+ bilateral without bruits. LUNGS: Clear to auscultation bilaterally. HEART: Regular. Tachycardic. S1 and S2 with no murmurs, rubs, S3, or S4. PMI is not felt. ABDOMEN: Soft and nontender. No organomegaly or mass. EXTREMITIES: No cyanosis, clubbing, or edema. SKIN: No rashes or lesions. NEUROLOGIC: No focal motor deficits. LABORATORY DATA: Potassium 6.2, sodium 132, chloride 98, bicarbonate 16, BUN 73, and creatinine 4.7. Troponin is 0.5 repeat 0.57, 0.50, and 0.35. Hemoglobin 8.2, hematocrit 26, white blood count 5400, and platelets 113,000. EKG on admission showed sinus tachycardia, rate of 100 beats per minute, low voltage QRS, axis +10 degrees, poor R-wave progression V1 to V3, left atrial enlargement and inverted T-waves in leads 1, aVL, V5, and V6 consistent with repolarization changes. Chest x-ray shows cardiomegaly with no infiltrates, effusions, or edema. ASSESSMENT AND RECOMMENDATIONS: The patient is a 26-year-old woman with a history of lupus, who presents with episodes of sharp pleuritic chest pain over the past several days. She is anemic and in renal failure. Her troponin is mildly elevated, which may be due to renal failure. Her EKG does not show any acute ischemic changes. Her presentation is most consistent with pericarditis in the setting of a lupus flare. She will be evaluated by rheumatology and started on immunosuppressive therapy. With regard to her pericarditis, we will start ibuprofen if approved with nephrology. Colchicine will also be started. An echo will be obtained to evaluate left ventricular function and possible pericardial effusion. Further treatment recommendations will be made based on her clinical course. Her renal failure will be managed per nephrology. Kayexalate will be given for hyperkalemia. Belkis Pryro M.D. DR: CIERRA JOB#: [id number] CC: Elias Claros M.D.; Fax#: [phone]
--- NOTE | 2016-09-06 22:17 | Consultation ---
DATE OF CONSULTATION: NEPHROLOGY CONSULTATION CONSULTING PHYSICIAN: Davi Chris M.D. REFERRING PHYSICIAN: Crystal Woody M.d. REASON FOR CONSULTATION: Renal failure with hyperkalemia. HISTORY OF PRESENT ILLNESS: This is a 26-year-old female, with history of lupus. Apparently, this was diagnosed about a year ago. She had a biopsy in [facility]. She does not know the results. She said that there was no specific treatment initiated. She was followed by an outside flanging operator, but she does not know her baseline serum creatinine. She does not know if she had progressive disease or not. She was admitted with a BUN of 73 and creatinine 4.7 with potassium 6.2 and received some Kayexalate. The repeat potassium yesterday was 5.5, though we do not have any laboratories today. This consultation is for Dr. Wild, who I am covering today. PAST MEDICAL HISTORY: The patient has history of hypertension, lupus, and also Raynaud's phenomenon. She was admitted for chest pain. ALLERGIES: No known drug allergies. SOCIAL HISTORY: The patient lives at home with daughter. No history of smoking or alcohol abuse. REVIEW OF SYSTEMS: The patient says that she makes still a fair amount of urine. PHYSICAL EXAMINATION: GENERAL: The patient is a 26-year-old female, in no acute distress. VITAL SIGNS: Blood pressure is 165/105, pulse 116, temperature 98.2 degrees, and respiratory rate is 18. HEENT: Pale conjunctivae. Anicteric sclerae. NECK: Supple. LUNGS: Clear to auscultation. HEART: S1 and S2 without murmurs or rubs. ABDOMEN: Soft and nontender. EXTREMITIES: No cyanosis or edema. LABORATORY FINDINGS: The CBC as of yesterday shows a WBC of 5.4, hematocrit 26.2, hemoglobin is 8.2, and platelets 113,000. Chemistry panel shows a serum sodium 134, potassium 5.5, chloride 102, BUN 71, creatinine 4.7, calcium 7.5, phosphorus 5.4, and uric acid 10. ASSESSMENT: This is a 26-year-old female, who has a history of lupus, who presents with chest pain. I just had the discussion with Dr. Pryor, who thinks that the patient has pericarditis. 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 Unfortunately, she does not know the original diagnosis. She may have membranous nephropathy or focal proliferative or diffuse proliferative. My guess is membranous nephropathy as her urinalysis does not show any active sediment and just has positive proteinuria. PLAN: The patient's chemistry panels will be repeated. If there is a progression of her renal function, she may need a repeat biopsy. Also if her urine output drops significantly, she may need dialysis. This was all discussed with the patient. We have to check urine output closely. In terms of CKD, she is hypocalcemic and very likely she has vitamin D deficiency. I will start the patient on Rocaltrol. Possibly she is anemic, she will likely need to be on Epogen as an outpatient. Thank you very much for this consultation. Davi Chris M.D. DR: CAITLYN JOB#: [id number] CC: ROSIE
[2016-09-07] VITALS (7 sets, daily range): BP systolic 150–159; BP diastolic 91–108
[2016-09-07 07:32] LABS: MEAN CORPUSCULAR HEMOGLOBIN 25.6 PG (27.0-31.0); MEAN CORPUSCULAR HGB CONC 31.3 G/DL (32.0-36.0); MEAN CORPUSCULAR VOLUME 82 FL (80-99); MEAN PLATELET VOLUME 8.3 FL (6.5-10.1); PLATELET COUNT 114 K/UL (150-450); RED BLOOD COUNT 3.07 M/UL (4.20-5.40); RED CELL DISTRIBUTION WIDTH 21.2 % (11.6-14.8)
[2016-09-07 07:58] LABS: CALCIUM 8.3 mg/dL (8.6-10.2); CREATININE 5.7 mg/dL (0.5-0.9); GLOMERULAR FILTRATION RATE 10.8 mL/min (>60); POTASSIUM 5.6 mEQ/L (3.4-4.9)
[2016-09-07 08:02] LABS: CHOLESTEROL/HDL RATIO 7.8 (3.3-4.4); CRP QUANT 4.7 mg/dL (< 0.5); MAGNESIUM 1.9 mg/dL (1.7-2.5)
[2016-09-07 08:09] LABS: HEMOLYSIS 12; IRON 48 ug/dL (37-145); TOTAL IRON BINDING CAPACITY 160 ug/dL (250-400)
[2016-09-07 08:22] LABS: TROPONIN I < 0.30 ng/mL (<=0.30)
[2016-09-07 08:24] LABS: ANISOCYTOSIS 2+; BAND NEUTROPHILS % (MANUAL) 0 % (0-8); BASOPHILS % (MANUAL) 0 % (0-2); EOSINOPHILS % (MANUAL) 1 % (0-3); HYPOCHROMASIA 1+; LYMPHOCYTES % (MANUAL) 14 % (20-45); NEUTROPHILS % (MANUAL) 80 % (45-75); PLATELET ESTIMATE DECREASED; PLATELET MORPHOLOGY NORMAL; TOTAL CELLS COUNTED 100
[2016-09-07] MEDS: Metoprolol 25mg tab ORAL SCH ×2 (08:50→21:53)
[2016-09-07] MEDS: Aspirin Baby 81mg ORAL SCH (08:53)
[2016-09-07] MEDS: Heparin 5000 units/ml inj SUBQ SCH (08:54)
[2016-09-07 08:56] LABS: ERYTHROCYTE SEDIMENTATION RATE 122 MM/HR (0-20)
[2016-09-07] MEDS ORDERED: Calcitriol 0.5mcg Cap ORAL SCH (09:00)
[2016-09-07] MEDS: azaTHIOprine 50 MG TAB ORAL SCH (09:00)
[2016-09-07] MEDS ORDERED: Sodium Polystyrene Sulfonate 15gm Powder ORAL ONE ×2 (10:00→19:00)
--- NOTE | 2016-09-07 10:16 | Diagnostic Imaging Report ---
Indication: Abnormal renal function tests Technique: Grayscale and duplex images of the kidneys, retroperitoneum, and bladder were obtained. Comparison: Findings: Right kidney measures 11.8 cm in length. Left kidney measures 10.6 cm in length. Both kidneys demonstrate markedly increased echogenicity. Is bilateral renal collecting system fullness, bordering on mild hydronephrosis. No focal abnormality. Normal inferior vena cava. Bladder is empty, demonstrates questionable wall thickening. Trace ascites fluid is demonstrated Impression: Bilateral echogenic kidneys, consistent with medical renal disease. 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 Etiology/significance uncertain, downstream obstruction not excludable. Possible bladder wall thickening, most likely an artifact of under distention, but cystitis not excludable. On clinical findings Trace ascites
--- NOTE | 2016-09-07 14:02 | Cardiology Report ---
APPROVED REPORT EKG Measurement Heart [id number] Sinus tachycardia Possible Left atrial enlargement Anterior infarct, age undetermined T wave abnormality, consider lateral ischemia Abnormal ECG
--- NOTE | 2016-09-07 14:46 | Pulmonology Progress Note ---
Assessment/Plan Problems: (1) Non-STEMI (non-ST elevated myocardial infarction) (2) Hyperkalemia (3) Renal failure (4) Lupus (5) CHF (congestive heart failure) Assessment/Plan renal function worsening check electrolytes chest pain better. Subjective ROS Limited/Unobtainable: No Interval Events: less chest pain Allergies: Coded Allergies: SULFA (SULFONAMIDE ANTIBIOTICS) (Verified Allergy, Mild, 05/27/15) Objective Last 24 Hour Vital Signs Date Time Temp Pulse Resp B/P Pulse Ox O2 Delivery O2 Flow Rate FiO2 09/07/16 14:32 106 18 Room Air 21 09/07/16 12:00 97.9 97 20 152/99 99 Room Air 09/07/16 11:45 98 09/07/16 08:50 96 150/105 09/07/16 08:50 96 150/105 09/07/16 08:19 99 21 Nasal Cannula 2.0 28 09/07/16 08:19 99 21 95 Nasal Cannula 2.0 28 09/07/16 08:04 98 22 95 Nasal Cannula 2.0 28 09/07/16 08:04 28 09/07/16 08:00 97.9 96 20 150/105 100 Room Air 09/07/16 07:46 102 09/07/16 04:00 90 09/07/16 04:00 98.1 94 20 159/91 100 Room Air 09/07/16 00:00 98.2 101 16 150/94 99 Room Air 09/07/16 00:00 101 09/06/16 21:31 99 159/118 09/06/16 20:00 99 09/06/16 20:00 97.8 65 21 159/118 98 Room Air 09/06/16 19:07 172/106 09/06/16 19:00 101 14 Room Air 21 09/06/16 16:43 98.1 09/06/16 16:00 98.1 53 22 165/112 97 Room Air 09/06/16 16:00 94 Intake and Output 09/06/16 09/07/16 19:00 07:00 Intake Total 120 ml 570 ml Output Total 350 ml Balance 120 ml 220 ml Intake Oral 120 ml 570 ml Output Urine Total 350 ml # Voids 2 1 HEENT: normocephalic Respiratory/Chest: chest wall non-tender, normal breath sounds Breasts: no masses Abdomen: normal bowel sounds, soft, non tender Genitourinary: normal external genitalia Skin: no rash Laboratory Tests 09/07/16 05:50: White Blood Count 7.0, Red Blood Count 3.07L, Hemoglobin 7.9L, Hematocrit 25.1L , Mean Corpuscular Volume 82, Mean Corpuscular Hemoglobin 25.6L, Mean Corpuscular Hemoglobin Concent 31.3L, Red Cell Distribution Width 21.2H, Platelet Count 114L, Mean Platelet Volume 8.3, Neutrophils (%) (Auto) , Lymphocytes (%) (Auto) , Monocytes (%) (Auto) , Eosinophils (%) (Auto) , Basophils (%) (Auto) , Differential Total Cells Counted 100, Neutrophils % ( Manual) 80H, Lymphocytes % (Manual) 14L, Monocytes % (Manual) 5, Eosinophils % ( Manual) 1, Basophils % (Manual) 0, Band Neutrophils 0, Platelet Estimate DecreasedL, Platelet Morphology Normal, Hypochromasia 1+, Anisocytosis 2+, Erythrocyte Sedimentation Rate 122H, Sodium Level 134L, Potassium Level 5.6H, Chloride Level 99, Carbon Dioxide Level 13L, Anion Gap 22H, Blood Urea Nitrogen 81H, Creatinine 5.7H, Estimat Glomerular Filtration Rate 10.8, Glucose Level 55L , Calcium Level 8.3L, Calcium (Send out) [Pending], Phosphorus Level 8.0H, Magnesium Level 1.9, Iron Level 48, Total Iron Binding Capacity 160L, Percent Iron Saturation 30, Unsaturated Iron Binding 112, Troponin I < 0.30, C-Reactive Protein, Quantitative 4.7H, Triglycerides Level 271H, Cholesterol Level 156, LDL Cholesterol 82, HDL Cholesterol 20, Cholesterol/HDL Ratio 7.8H, Vitamin D 25 -Hydroxy [Pending], 25-Hydroxy Vitamin D2 [Pending], 25-Hydroxy Vitamin D3 [ Pending], Parathyroid Hormone (Intact) [Pending] Current Medications Medications (Trade) Dose Ordered Sig/Brad Route PRN Reason Start Time Stop Time Status Last Admin Dose Admin Acetaminophen (Tylenol) 650 mg Q4H PRN ORAL T>100.5 09/05/16 18:15 10/05/16 18:14 09/05/16 21:58 Acetaminophen/ Codeine Phosphate (Tylenol #3) 1 tab Q4H PRN ORAL Moderate Pain (Pain Scale 4-6) 12/28/16 18:15 09/12/16 18:14 Albuterol/ Ipratropium (DuoNeb 0.5-3(2.5)mg/3ml) 3 ml Q4H PRN HHN Shortness of Breath 09/05/16 18:15 09/10/16 18:14 Amlodipine Besylate (Norvasc) 10 mg DAILY ORAL 09/07/16 09:00 10/07/16 08:59 09/07/16 08:50 Aspirin (ASA) 162 mg DAILY ORAL 09/06/16 09:00 10/06/16 08:59 09/07/16 08:53 Azathioprine (Imuran) 50 mg DAILY ORAL 09/06/16 09:00 10/06/16 08:59 09/07/16 09:00 Calcitriol (Rocaltrol) 0.5 mcg DAILY ORAL 09/07/16 09:00 10/07/16 08:59 09/07/16 08:50 Clonidine HCl (Catapres) 0.1 mg Q8H PRN ORAL SBP OVER 170 09/06/16 14:00 10/06/16 13:59 09/06/16 19:07 Colchicine (Colchicine) 0.6 mg Q12HR ORAL 09/06/16 14:00 10/06/16 13:59 09/07/16 08:50 Heparin Sodium (Porcine) (Heparin 5000 units/ml) 5,000 units EVERY 12 HOURS SUBQ 09/05/16 21:00 10/05/16 20:59 Metoprolol Tartrate (Lopressor) 25 mg Q12HR ORAL 09/06/16 15:00 10/06/16 14:59 09/07/16 08:50 Morphine Sulfate (Morphine Sulfate) 2 mg Q3H PRN IVP Severe Pain (Pain Scale 7-10) 09/06/16 12:00 09/13/16 11:59 09/06/16 16:13 Nitroglycerin (Ntg) 0.4 mg Q5MIN X 3 DOSES PRN SL Prn Chest Pain 09/05/16 18:15 10/05/16 18:14 Ondansetron HCl (Zofran) 4 mg Q6H PRN IVP Nausea & Vomiting 09/05/16 18:15 10/05/16 18:14 Pantoprazole (Protonix) 40 mg DAILY ORAL 09/06/16 09:00 10/06/16 08:59 09/07/16 08:50 Polyethylene Glycol (Miralax) 17 gm DAILYPRN PRN ORAL Constipation 09/05/16 18:15 10/05/16 18:14 Temazepam (Restoril) 15 mg HSPRN PRN ORAL Insomnia 09/05/16 21:00 09/12/16 20:59 PANCHITO BARBOSA Sep 07, 2016 14:46
[2016-09-07] MEDS: Morphine Sulfate 2mg/ml Inj IVP PRN (16:09)
--- NOTE | 2016-09-07 16:10 | Nephrology Progress Note ---
Assessment/Plan Problem List: (1) Lupus (2) Chest pain (3) CKD (chronic kidney disease) Assessment: with ARF worse Plan follow BMP may need HD soon Check PTH Subjective Subjective In NAD Objective Objective Last 24 Hour Vital Signs Date Time Temp Pulse Resp B/P Pulse Ox O2 Delivery O2 Flow Rate FiO2 09/07/16 14:32 106 18 Room Air 21 09/07/16 12:00 97.9 97 20 152/99 99 Room Air 09/07/16 11:45 98 09/07/16 08:50 96 150/105 09/07/16 08:50 96 150/105 09/07/16 08:19 99 21 Nasal Cannula 2.0 28 09/07/16 08:19 99 21 95 Nasal Cannula 2.0 28 09/07/16 08:04 98 22 95 Nasal Cannula 2.0 28 09/07/16 08:04 28 09/07/16 08:00 97.9 96 20 150/105 100 Room Air 09/07/16 07:46 102 09/07/16 04:00 90 09/07/16 04:00 98.1 94 20 159/91 100 Room Air 09/07/16 00:00 98.2 101 16 150/94 99 Room Air 09/07/16 00:00 101 09/06/16 21:31 99 159/118 09/06/16 20:00 99 09/06/16 20:00 97.8 65 21 159/118 98 Room Air 09/06/16 19:07 172/106 09/06/16 19:00 101 14 Room Air 21 09/06/16 16:43 98.1 Intake and Output 09/06/16 09/07/16 19:00 07:00 Intake Total 120 ml 570 ml Output Total 350 ml Balance 120 ml 220 ml Intake Oral 120 ml 570 ml Output Urine Total 350 ml # Voids 2 1 Laboratory Tests 09/07/16 05:50: White Blood Count 7.0, Red Blood Count 3.07L, Hemoglobin 7.9L, Hematocrit 25.1L , Mean Corpuscular Volume 82, Mean Corpuscular Hemoglobin 25.6L, Mean Corpuscular Hemoglobin Concent 31.3L, Red Cell Distribution Width 21.2H, Platelet Count 114L, Mean Platelet Volume 8.3, Neutrophils (%) (Auto) , Lymphocytes (%) (Auto) , Monocytes (%) (Auto) , Eosinophils (%) (Auto) , Basophils (%) (Auto) , Differential Total Cells Counted 100, Neutrophils % ( Manual) 80H, Lymphocytes % (Manual) 14L, Monocytes % (Manual) 5, Eosinophils % ( Manual) 1, Basophils % (Manual) 0, Band Neutrophils 0, Platelet Estimate DecreasedL, Platelet Morphology Normal, Hypochromasia 1+, Anisocytosis 2+, Erythrocyte Sedimentation Rate 122H, Sodium Level 134L, Potassium Level 5.6H, Chloride Level 99, Carbon Dioxide Level 13L, Anion Gap 22H, Blood Urea Nitrogen 81H, Creatinine 5.7H, Estimat Glomerular Filtration Rate 10.8, Glucose Level 55L , Calcium Level 8.3L, Calcium (Send out) [Pending], Phosphorus Level 8.0H, Magnesium Level 1.9, Iron Level 48, Total Iron Binding Capacity 160L, Percent Iron Saturation 30, Unsaturated Iron Binding 112, Troponin I < 0.30, C-Reactive Protein, Quantitative 4.7H, Triglycerides Level 271H, Cholesterol Level 156, LDL Cholesterol 82, HDL Cholesterol 20, Cholesterol/HDL Ratio 7.8H, Vitamin D 25 -Hydroxy [Pending], 25-Hydroxy Vitamin D2 [Pending], 25-Hydroxy Vitamin D3 [ Pending], Parathyroid Hormone (Intact) [Pending] Height (Feet): 5 Height (Inches): 7.00 Weight (Pounds): 140 Cardiovascular: normal rate Respiratory/Chest: lungs clear Extremities: trace edema ROSANNE JOHNSON Sep 07, 2016 16:10
[2016-09-07] MEDS ORDERED: Nitroglycerin Subl 0.4mg tab (Bottle Of 25) SL PRN (17:45)
[2016-09-07] MEDS ORDERED: DuoNeb 0.5-3(2.5)mg/3ml neb HHN PRN (18:15)
--- NOTE | 2016-09-07 18:32 | Cardiology Progress Note ---
Assessment/Plan Status: stable, unchanged Status Narrative Pt w/ pleuritic CP - c/w pericarditis in setting of active SLE Mild troponin elevation may be due to pericarditis/myocarditis or renal failure. Renal parameters worsening Hyperkalemia due to RF Assessment/Plan Continue colchicine for pericarditis. No NSAIDS in view of renal failure. D/w Dr Chris Agree w/ kayexelate. Management of SLE per Dr. Chou. Subjective ROS Limited/Unobtainable: No Subjective Chest pain is improving. No dyspnea. Events noted. Objective Last 24 Hour Vital Signs Date Time Temp Pulse Resp B/P Pulse Ox O2 Delivery O2 Flow Rate FiO2 09/07/16 16:39 97.9 09/07/16 16:00 98.1 92 14 159/106 98 Room Air 09/07/16 14:32 106 18 Room Air 21 09/07/16 12:00 97.9 97 20 152/99 99 Room Air 09/07/16 11:45 98 09/07/16 08:50 96 150/105 09/07/16 08:50 96 150/105 09/07/16 08:19 99 21 Nasal Cannula 2.0 28 09/07/16 08:19 99 21 95 Nasal Cannula 2.0 28 09/07/16 08:04 98 22 95 Nasal Cannula 2.0 28 09/07/16 08:04 28 09/07/16 08:00 97.9 96 20 150/105 100 Room Air 09/07/16 07:46 102 09/07/16 04:00 90 09/07/16 04:00 98.1 94 20 159/91 100 Room Air 09/07/16 00:00 98.2 101 16 150/94 99 Room Air 09/07/16 00:00 101 09/06/16 21:31 99 159/118 09/06/16 20:00 99 09/06/16 20:00 97.8 65 21 159/118 98 Room Air 09/06/16 19:07 172/106 09/06/16 19:00 101 14 Room Air 21 General Appearance: WD/WN, no apparent distress, alert EENT: PERRL/EOMI Neck: supple, no JVD Rhythm: NSR, ST Cardiovascular: regular rhythm, no gallop/murmur, tachycardia Respiratory/Chest: lungs clear, normal breath sounds Abdomen: non tender, soft Extremities: trace edema - 1+ pedal edema bilat Intake and Output 09/06/16 09/07/16 19:00 07:00 Intake Total 120 ml 570 ml Output Total 350 ml Balance 120 ml 220 ml Intake Oral 120 ml 570 ml Output Urine Total 350 ml # Voids 2 1 Laboratory Tests Test 09/07/16 05:50 White Blood Count 7.0 K/UL (4.8-10.8) Red Blood Count 3.07 M/UL (4.20-5.40) L Hemoglobin 7.9 G/DL (12.0-16.0) L Hematocrit 25.1 % (37.0-47.0) L Mean Corpuscular Volume 82 FL (80-99) Mean Corpuscular Hemoglobin 25.6 PG (27.0-31.0) L Mean Corpuscular Hemoglobin Concent 31.3 G/DL (32.0-36.0) L Red Cell Distribution Width 21.2 % (11.6-14.8) H Platelet Count 114 K/UL (150-450) L Mean Platelet Volume 8.3 FL (6.5-10.1) Neutrophils (%) (Auto) % (45.0-75.0) Lymphocytes (%) (Auto) % (20.0-45.0) Monocytes (%) (Auto) % (1.0-10.0) Eosinophils (%) (Auto) % (0.0-3.0) Basophils (%) (Auto) % (0.0-2.0) Differential Total Cells Counted 100 Neutrophils % (Manual) 80 % (45-75) H Lymphocytes % (Manual) 14 % (20-45) L Monocytes % (Manual) 5 % (1-10) Eosinophils % (Manual) 1 % (0-3) Basophils % (Manual) 0 % (0-2) Band Neutrophils 0 % (0-8) Platelet Estimate Decreased L Platelet Morphology Normal Hypochromasia 1+ Anisocytosis 2+ Erythrocyte Sedimentation Rate 122 MM/HR (0-20) H Sodium Level 134 mEQ/L (135-145) L Potassium Level 5.6 mEQ/L (3.4-4.9) H Chloride Level 99 mEQ/L (98-107) Carbon Dioxide Level 13 mEQ/L (20-30) L Anion Gap 22 (5-15) H Blood Urea Nitrogen 81 mg/dL (7-23) H Creatinine 5.7 mg/dL (0.5-0.9) H Estimat Glomerular Filtration Rate 10.8 mL/min (>60) Glucose Level 55 mg/dL (74-106) L Calcium Level 8.3 mg/dL (8.6-10.2) L Calcium (Send out) Pending Phosphorus Level 8.0 mg/dL (2.5-4.8) H Magnesium Level 1.9 mg/dL (1.7-2.5) Iron Level 48 ug/dL (37-145) Total Iron Binding Capacity 160 ug/dL (250-400) L Percent Iron Saturation 30 % (15-50) Unsaturated Iron Binding 112 ug/dL (112-346) Troponin I < 0.30 ng/mL (<=0.30) C-Reactive Protein, Quantitative 4.7 mg/dL (< 0.5) H Triglycerides Level 271 mg/dL (< 150) H Cholesterol Level 156 mg/dL (< 200) LDL Cholesterol 82 mg/dL (60-99) HDL Cholesterol 20 mg/dL (> 60) Cholesterol/HDL Ratio 7.8 (3.3-4.4) H Vitamin D 25-Hydroxy Pending 25-Hydroxy Vitamin D2 Pending 25-Hydroxy Vitamin D3 Pending Parathyroid Hormone (Intact) Pending BILL JERNIGAN Sep 07, 2016 18:32
[2016-09-07] MEDS ORDERED: Morphine Sulfate 2mg/ml Inj IVP PRN (19:00)
[2016-09-07] MEDS ORDERED: Metoprolol 25mg tab ORAL SCH (21:00)
[2016-09-07] MEDS ORDERED: Heparin 5000 units/ml inj SUBQ SCH (21:00)
--- NOTE | 2016-09-07 23:58 | Progress Note ---
DATE: 09/07/2016 SUBJECTIVE: The patient is afebrile, tachycardic, and short of breath at rest. PHYSICAL EXAMINATION: VITAL SIGNS: Blood pressure 159/106, pulse 97, respirations were 20, and temperature was 98.1 degrees. HEENT: Eyes were normal. ENT, mucous membranes were moist and intact. NECK: Supple. JVD was dilated to 6 cm in the supraclavicular fossa. LUNGS: Clear without rhonchi, rales, or wheezing. HEART: Normal sounds with regular beats. There is tachycardia at rest. ABDOMEN: Soft and nontender with normal bowel sounds. EXTREMITIES: Warm without cyanosis or clubbing. There is 1+ to 2+ edema in lower extremity, which she did not have with . LABORATORY DATA: Hemoglobin 7.9, hematocrit 25.9 with MCV of 82, WBC of 7.0, and platelets is 114,000. Her BUN and creatinine is 81 and 5.7 respectively. Her sodium is 134, potassium 5.6, chloride 99, CO2 was 13, and glucose is 55. Her calcium is 8.2. Her phosphorus is 8. Total bilirubin is 1.9. Iron 248. Her INR capacity is 160 and saturation is 30. Repeat renal ultrasound demonstrated substernal increase in the kidney associated with mild bilateral hydronephrosis. The etiology of the communication system is not clear. Cystitis or expected. The patient underwent 24 hours urine collection today show occult blood 5+; however, urine microscopy revealed RBC 2 to 4 and WBCs of 2. Eosinophils not seen. Sodium is 61, chloride is 44, and potassium is 38. DEMETRIA was 43 and anti-DNA antibody are not available. IMPRESSION: The patient has lupus nephritis. She has hyperkalemia, hypovolemia, thrombocytopenia, and anemia. Renal biopsy should be considered and immunosuppression as well if there is any any reversibility of the process. Repeat laboratory tests will be done in the morning. Alisa Chou M.D. DR: SERGIO JOB#: [id number] CC:
[2016-09-08] VITALS: BP 153/99
[2016-09-08 04:00] VITALS: BP 150/98
[2016-09-08 08:00] VITALS: BP 147/100
[2016-09-08] MEDS ORDERED: Calcitriol 0.5mcg Cap ORAL SCH (09:00)
[2016-09-08] MEDS: azaTHIOprine 50 MG TAB ORAL SCH (09:49)
[2016-09-08] MEDS: Aspirin Baby 81mg ORAL SCH (09:49)
[2016-09-08] MEDS: Metoprolol 25mg tab ORAL SCH ×2 (09:50→21:06)
[2016-09-08 11:09] LABS: CALCIUM 8.2 mg/dL (8.7-10.2); PTH INTACT 84 pg/mL (15-65)
--- NOTE | 2016-09-08 11:28 | Cardiology Progress Note ---
Assessment/Plan Status Narrative Pt w/ pleuritic CP - c/w pericarditis in setting of active SLE. Symptoms have resolved. Mild troponin elevation may be due to pericarditis/myocarditis or renal failure. Renal failure - w/o improvement in parameters since adm Hyperkalemia due to RF Assessment/Plan Continue colchicine for pericarditis. No NSAIDS in view of renal failure. ? need for dialysis - plan per Dr. Aries Ortiz for hyperkalemia - repeat labs pending for today ECHO - results pending. Management of SLE per Dr. Chou. Subjective ROS Limited/Unobtainable: No Subjective Pleuritic CP has resolved. no c/o dyspnea or palpitations Objective Last 24 Hour Vital Signs Date Time Temp Pulse Resp B/P Pulse Ox O2 Delivery O2 Flow Rate FiO2 09/08/16 09:50 85 147/100 09/08/16 09:50 85 147/100 09/08/16 08:00 97.9 85 20 147/100 95 Room Air 09/08/16 07:30 98 18 Room Air 09/08/16 04:00 97.9 89 18 150/98 99 Room Air 09/08/16 00:00 98.1 94 18 153/99 99 Room Air 09/07/16 21:53 103 157/108 09/07/16 21:00 98.1 103 16 157/108 97 Room Air 09/07/16 19:33 95 18 Room Air 09/07/16 17:15 98.1 92 16 156/102 100 Nasal Cannula 2.0 09/07/16 16:39 97.9 09/07/16 16:00 98.1 92 14 159/106 98 Room Air 09/07/16 14:32 106 18 Room Air 21 09/07/16 12:00 97.9 97 20 152/99 99 Room Air 09/07/16 11:45 98 General Appearance: WD/WN, no apparent distress, alert Neck: supple, no JVD Rhythm: NSR Cardiovascular: normal rate, regular rhythm, no gallop/murmur Respiratory/Chest: lungs clear Abdomen: non tender, soft, no mass Extremities: other - pedal edema, 1+ bilat Intake and Output 09/07/16 09/08/16 19:00 07:00 Intake Total 240 ml 1300 ml Output Total 550 ml Balance 240 ml 750 ml Intake Oral 240 ml 1300 ml Output Urine Total 550 ml # Voids 2 2 BILL JERNIGAN Sep 08, 2016 11:28
[2016-09-08 12:00] VITALS: BP 139/94
--- NOTE | 2016-09-08 14:38 | Cardiology Report ---
APPROVED REPORT EXAM: Two-dimensional and M-mode echocardiogram with Doppler and color Doppler. INDICATION LV function M-Mode DIMENSIONS IVSd1.3 (0.7-1.1cm)Aortic Root3.5 (2.0-3.7cm) LVDd4.4 (3.5-5.6cm)Aortic Cusp Exc.1.8 (1.5-2.0cm) IVSs1.8 cm LVDs3.0 (2.5-4.0cm) PWs1.9 cm Normal left ventricular chamber size, systolic function and wall motion. Left ventricular ejection fraction estimated to be 60 %. Borderline mild left ventricular hypertrophy. Anterior Echo-free space, may be due to pericardial fat or effusion. Moderate left atrial enlargement. Right cardiac chamber sizes are within normal limits. Mild focal aortic valve sclerosis with adequate cusp excursion. Mildly thickened mitral valve leaflets with normal excursion. Mild mitral annulus and aortic root calcification. Normal pulmonic valve structure. Normal tricuspid valve structure. IVC at normal size with physiologic collapse. A color flow and spectral Doppler study was performed and revealed: Mild aortic regurgitation. No aortic stenosis. Mild to moderate mitral regurgitation. No mitral stenosis. Mitral inflow indicates normal left ventricular diastolic function. Mild tricuspid regurgitation. Tricuspid systolic velocities suggests peak right ventricular systolic pressure of 50 mmHg, consistent with moderate pulmonary hypertension. No pulmonic regurgitation present.
[2016-09-08 14:39] LABS: ALBUMIN/GLOBULIN RATIO 0.4 (1.0-2.7); CALCIUM 7.9 mg/dL (8.6-10.2); CREATININE 6.4 mg/dL (0.5-0.9); GLOMERULAR FILTRATION RATE 9.5 mL/min (>60); POTASSIUM 4.8 mEQ/L (3.4-4.9); TOTAL PROTEIN 7.3 g/dL (6.6-8.7)
--- NOTE | 2016-09-08 15:30 | General Progress Note ---
Assessment/Plan Status: deteriorating Assessment/Plan Status: (1) Acute on Chronic renal failure- worsening serum Cr ( refer to Dr Davi Chris's consult note) (2) Hyperkalemia on presentation (3) Non-STEMI (non-ST elevated myocardial infarction) (4) Lupus (5) CHF (congestive heart failure) Plan: Phos binder- Adjust BP meds- Monitor renal parameters- laxatives- Avoid nephrotoxics- need HD if Cr rise further Urine for eos Subjective ROS Limited/Unobtainable: No Constitutional: Reports: malaise, weakness Allergies: Coded Allergies: SULFA (SULFONAMIDE ANTIBIOTICS) (Verified Allergy, Mild, 05/27/15) Objective Last 24 Hour Vital Signs Date Time Temp Pulse Resp B/P Pulse Ox O2 Delivery O2 Flow Rate FiO2 09/08/16 12:00 97.7 84 18 139/94 94 Room Air 09/08/16 09:50 85 147/100 09/08/16 09:50 85 147/100 09/08/16 08:00 97.9 85 20 147/100 95 Room Air 09/08/16 07:30 98 18 Room Air 21 09/08/16 04:00 97.9 89 18 150/98 99 Room Air 09/08/16 00:00 98.1 94 18 153/99 99 Room Air 09/07/16 21:53 103 157/108 09/07/16 21:00 98.1 103 16 157/108 97 Room Air 09/07/16 19:33 95 18 Room Air 09/07/16 17:15 98.1 92 16 156/102 100 Nasal Cannula 2.0 09/07/16 16:39 97.9 09/07/16 16:00 98.1 92 14 159/106 98 Room Air Intake and Output 09/07/16 09/08/16 19:00 07:00 Intake Total 240 ml 1300 ml Output Total 550 ml Balance 240 ml 750 ml Intake Oral 240 ml 1300 ml Output Urine Total 550 ml # Voids 2 2 Laboratory Tests 09/08/16 14:00: Sodium Level 132L, Potassium Level 4.8, Chloride Level 97L, Carbon Dioxide Level 17L, Anion Gap 18H, Blood Urea Nitrogen 83H, Creatinine 6.4H, Estimat Glomerular Filtration Rate 9.5, Glucose Level 93, Calcium Level 7.9L, Total Bilirubin 0.2, Aspartate Amino Transf (AST/SGOT) 120H, Alanine Aminotransferase (ALT/SGPT) 89H, Alkaline Phosphatase 65, Total Protein 7.3, Albumin 2.3L, Globulin 5.0, Albumin/Globulin Ratio 0.4L Height (Feet): 5 Height (Inches): 7.00 Weight (Pounds): 140 General Appearance: no apparent distress Cardiovascular: normal rate Respiratory/Chest: lungs clear Abdomen: soft Edema: no edema noted Arm (L), no edema noted Arm (R), no edema noted Leg (L), no edema noted Leg (R), no edema noted Pedal (L), no edema noted Pedal (R), no edema noted Generalized JAMES MONTES Sep 08, 2016 15:30
--- NOTE | 2016-09-08 15:32 | Internal Med Progress Note ---
Subjective Date of Service: Sep 08, 2016 Physician Name Salazar Melton Attending Physician Elias Claros Current Medications Medications (Trade) Dose Ordered Sig/Brad Route PRN Reason Start Time Stop Time Status Last Admin Dose Admin Acetaminophen (Tylenol) 650 mg Q4H PRN ORAL T>100.5 09/07/16 18:15 10/07/16 18:14 Acetaminophen/ Codeine Phosphate (Tylenol #3) 1 tab Q4H PRN ORAL Moderate Pain (Pain Scale 4-6) 09/07/16 18:15 09/14/16 18:14 Albuterol/ Ipratropium (DuoNeb 0.5-3(2.5)mg/3ml) 3 ml Q4H PRN HHN Shortness of Breath 09/07/16 18:15 09/12/16 18:14 Amlodipine Besylate (Norvasc) 10 mg DAILY ORAL 09/08/16 09:00 10/08/16 08:59 09/08/16 09:50 Aspirin (ASA) 162 mg DAILY ORAL 09/08/16 09:00 10/08/16 08:59 09/08/16 09:49 Azathioprine (Imuran) 50 mg DAILY ORAL 09/08/16 09:00 10/08/16 08:59 09/08/16 09:49 Clonidine HCl (Catapres) 0.1 mg EVERY 8 HOURS ORAL 09/08/16 22:00 10/08/16 21:59 UNV Clonidine HCl (Catapres) 0.1 mg Q6H PRN ORAL SBP OVER 170 09/08/16 16:07 10/08/16 16:06 UNV Colchicine (Colchicine) 0.6 mg Q12HR ORAL 09/07/16 21:00 10/07/16 20:59 09/08/16 09:49 Docusate Sodium (Colace) 100 mg THREE TIMES A DAY ORAL 09/08/16 18:00 10/08/16 17:59 UNV Metoprolol Tartrate (Lopressor) 50 mg Q12HR ORAL 09/07/16 21:00 10/07/16 20:59 09/08/16 09:50 Morphine Sulfate (Morphine Sulfate) 2 mg Q3H PRN IVP Severe Pain (Pain Scale 7-10) 09/07/16 19:00 09/14/16 18:59 Nitroglycerin (Ntg) 0.4 mg Q5MIN X 3 DOSES PRN SL Prn Chest Pain 09/07/16 17:45 10/07/16 17:44 Ondansetron HCl (Zofran) 4 mg Q6H PRN IVP Nausea & Vomiting 09/07/16 18:15 10/07/16 18:14 Pantoprazole (Protonix) 40 mg DAILY ORAL 09/08/16 09:00 10/08/16 08:59 09/08/16 09:50 Polyethylene Glycol (Miralax) 17 gm DAILYPRN PRN ORAL Constipation 09/07/16 18:15 10/07/16 18:14 Sevelamer HCl (Renagel) 1,600 mg THREE TIMES A DAY ORAL 09/08/16 18:00 10/08/16 17:59 UNV Temazepam (Restoril) 15 mg HSPRN PRN ORAL Insomnia 09/07/16 21:00 09/14/16 20:59 Allergies: Coded Allergies: SULFA (SULFONAMIDE ANTIBIOTICS) (Verified Allergy, Mild, 05/27/15) ROS Limited/Unobtainable: No Constitutional: Reports: no symptoms HEENT: Reports: no symptoms Cardiovascular: Reports: chest pain Respiratory: Reports: no symptoms Gastrointestinal/Abdominal: Reports: no symptoms Genitourinary: Reports: no symptoms Neurologic/Psychiatric: Reports: no symptoms Subjective Cover for Int Med-Dr Claros Objective Last Vital Signs Date Time Temp Pulse Resp B/P Pulse Ox O2 Delivery O2 Flow Rate FiO2 09/08/16 12:00 97.7 84 18 139/94 94 Room Air 09/08/16 07:30 21 09/07/16 17:15 2.0 General Appearance: WD/WN, no apparent distress, alert EENT: PERRL/EOMI, normal ENT inspection, TMs normal Neck: non-tender, normal alignment, supple Cardiovascular: normal peripheral pulses, normal rate, regular rhythm Respiratory/Chest: chest wall non-tender, lungs clear, normal breath sounds, no respiratory distress, no accessory muscle use Abdomen: normal bowel sounds, non tender, soft, no organomegaly, no mass Extremities: normal range of motion, non-tender Neurologic: atm servicer II-XII grossly normal, no motor/sensory deficits Skin: normal pigmentation, warm/dry Laboratory Tests Test 09/08/16 14:00 Sodium Level 132 mEQ/L (135-145) L Potassium Level 4.8 mEQ/L (3.4-4.9) Chloride Level 97 mEQ/L (98-107) L Carbon Dioxide Level 17 mEQ/L (20-30) L Anion Gap 18 (5-15) H Blood Urea Nitrogen 83 mg/dL (7-23) H Creatinine 6.4 mg/dL (0.5-0.9) H Estimat Glomerular Filtration Rate 9.5 mL/min (>60) Glucose Level 93 mg/dL (74-106) Calcium Level 7.9 mg/dL (8.6-10.2) L Total Bilirubin 0.2 mg/dL (0.0-1.2) Aspartate Amino Transf (AST/SGOT) 120 U/L (5-40) H Alanine Aminotransferase (ALT/SGPT) 89 U/L (3-33) H Alkaline Phosphatase 65 U/L (35-104) Total Protein 7.3 g/dL (6.6-8.7) Albumin 2.3 g/dL (3.5-5.2) L Globulin 5.0 g/dL Albumin/Globulin Ratio 0.4 (1.0-2.7) L Intake and Output 09/07/16 09/08/16 19:00 07:00 Intake Total 240 ml 1300 ml Output Total 550 ml Balance 240 ml 750 ml Intake Oral 240 ml 1300 ml Output Urine Total 550 ml # Voids 2 2 Assessment/Plan Problem List: (1) Elevated troponin (2) Chest pain Assessment & Plan: Pleuritic; concerning for pericarditis in setting of Lupus. See cardiology note. Cont colchicine. (3) Renal failure Assessment & Plan: See nephrology note. (4) CHF (congestive heart failure) Assessment & Plan: Echo EF=60% (5) Lupus (6) Hyperkalemia Assessment & Plan: S/P kayexalate. Status: progressing SALAZAR MELTON Sep 08, 2016 15:32
[2016-09-08 16:00] VITALS: BP 139/84
[2016-09-08] MEDS: Renagel 400mg cap ORAL SCH (17:15)
[2016-09-08] MEDS: Docusate 100mg cap ORAL SCH (17:15)
[2016-09-08 20:00] VITALS: BP 143/75
[2016-09-09] VITALS (9 sets, daily range): BP systolic 130–145; BP diastolic 70–98
[2016-09-09 07:04] LABS: MEAN CORPUSCULAR HGB CONC 30.8 G/DL (32.0-36.0); MEAN CORPUSCULAR VOLUME 81 FL (80-99); MEAN PLATELET VOLUME 8.2 FL (6.5-10.1); PLATELET COUNT 100 K/UL (150-450); RED BLOOD COUNT 2.58 M/UL (4.20-5.40); RED CELL DISTRIBUTION WIDTH 22.2 % (11.6-14.8); WHITE BLOOD COUNT 4.5 K/UL (4.8-10.8)
[2016-09-09 07:06] LABS: ALBUMIN/GLOBULIN RATIO 0.3 (1.0-2.7); CALCIUM 7.9 mg/dL (8.6-10.2); CREATININE 6.5 mg/dL (0.5-0.9); GLOMERULAR FILTRATION RATE 9.2 mL/min (>60); HEMOGLOBIN A1C 4.2 % (< 6.0); POTASSIUM 4.9 mEQ/L (3.4-4.9); TOTAL PROTEIN 7.1 g/dL (6.6-8.7)
[2016-09-09 07:16] LABS: CRP QUANT 2.6 mg/dL (< 0.5); MAGNESIUM 1.8 mg/dL (1.7-2.5); PHOSPHORUS 8.9 mg/dL (2.5-4.8); URIC ACID 12.9 mg/dL (3.0-7.5)
[2016-09-09 08:45] LABS: LYMPHOCYTES % (MANUAL) 20 % (20-45); NEUTROPHILS % (MANUAL) 71 % (45-75); TOTAL CELLS COUNTED 100
[2016-09-09 08:46] LABS: ANISOCYTOSIS 2+; BAND NEUTROPHILS % (MANUAL) 0 % (0-8); BASOPHILS % (MANUAL) 0 % (0-2); EOSINOPHILS % (MANUAL) 0 % (0-3); HYPOCHROMASIA 1+; PLATELET ESTIMATE DECREASED; PLATELET MORPHOLOGY NORMAL
[2016-09-09] MEDS: Aspirin Baby 81mg ORAL SCH (09:20)
[2016-09-09] MEDS: Docusate 100mg cap ORAL SCH ×3 (09:20→17:54)
[2016-09-09] MEDS: Metoprolol 25mg tab ORAL SCH ×2 (09:21→20:55)
[2016-09-09] MEDS: azaTHIOprine 50 MG TAB ORAL SCH (09:21)
[2016-09-09] MEDS: Renagel 400mg cap ORAL SCH (09:22)
[2016-09-09] MEDS ORDERED: Solu-MEDROL 125mg Inj IVP ONE (10:15)
--- NOTE | 2016-09-09 10:25 | Nephrology Progress Note ---
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 Nephrotic syndrome ? (4) Secondary hyperparathyroidism (of renal origin) Plan solumedrol 1 gm IV PermCath for dialysis KEEP ON ROCALTROL Discussed with RN Subjective Subjective In NAD Objective Objective Last 24 Hour Vital Signs Date Time Temp Pulse Resp B/P Pulse Ox O2 Delivery O2 Flow Rate FiO2 09/09/16 09:21 86 133/86 09/09/16 09:00 97.3 86 18 133/84 98 Room Air 09/09/16 07:55 85 20 Room Air 09/09/16 06:07 139/73 09/09/16 04:00 98.2 86 21 135/79 92 Room Air 09/09/16 00:40 97.0 83 18 133/77 100 Room Air 09/08/16 21:06 148/85 09/08/16 21:06 62 148/85 09/08/16 20:00 99.3 86 17 143/75 95 Room Air 09/08/16 19:00 96 18 Room Air 21 09/08/16 16:00 98.2 91 20 139/84 97 Nasal Cannula 2.0 09/08/16 12:00 97.7 84 18 139/94 94 Room Air Intake and Output 09/08/16 09/09/16 19:00 07:00 Intake Total 150 ml 700 ml Output Total 200 ml 400 ml Balance -50 ml 300 ml Intake Oral 150 ml 700 ml Output Urine Total 200 ml 400 ml # Voids 2 # Bowel Movements 1 Laboratory Tests 09/08/16 14:00: Sodium Level 132L, Potassium Level 4.8, Chloride Level 97L, Carbon Dioxide Level 17L, Anion Gap 18H, Blood Urea Nitrogen 83H, Creatinine 6.4H, Estimat Glomerular Filtration Rate 9.5, Glucose Level 93, Calcium Level 7.9L, Total Bilirubin 0.2, Aspartate Amino Transf (AST/SGOT) 120H, Alanine Aminotransferase (ALT/SGPT) 89H, Alkaline Phosphatase 65, Total Protein 7.3, Albumin 2.3L, Globulin 5.0, Albumin/Globulin Ratio 0.4L 09/09/16 03:30: Urine Eosinophils None seen 09/09/16 05:10: Sodium Level 133L, Potassium Level 4.9, Chloride Level 100, Carbon Dioxide Level 17L, Anion Gap 16H, Blood Urea Nitrogen 82H, Creatinine 6.5H, Estimat Glomerular Filtration Rate 9.2, Glucose Level 97, Calcium Level 7.9L, Total Bilirubin 0.2, Aspartate Amino Transf (AST/SGOT) 118H, Alanine Aminotransferase (ALT/SGPT) 84H, Alkaline Phosphatase 61, Total Protein 7.1, Albumin 1.9L, Globulin 5.2, Albumin/Globulin Ratio 0.3L, White Blood Count 4.5L, Red Blood Count 2.58L, Hemoglobin 6.4*L, Hematocrit 20.9L, Mean Corpuscular Volume 81, Mean Corpuscular Hemoglobin 25.0L, Mean Corpuscular Hemoglobin Concent 30.8L, Red Cell Distribution Width 22.2H, Platelet Count 100L, Mean Platelet Volume 8.2 , Neutrophils (%) (Auto) , Lymphocytes (%) (Auto) , Monocytes (%) (Auto) , Eosinophils (%) (Auto) , Basophils (%) (Auto) , Differential Total Cells Counted 100, Neutrophils % (Manual) 71, Lymphocytes % (Manual) 20, Monocytes % ( Manual) 9, Eosinophils % (Manual) 0, Basophils % (Manual) 0, Band Neutrophils 0 , Platelet Estimate DecreasedL, Platelet Morphology Normal, Hypochromasia 1+, Anisocytosis 2+, Hemoglobin A1c 4.2, Uric Acid 12.9H, Phosphorus Level 8.9H, Magnesium Level 1.8, C-Reactive Protein, Quantitative 2.6H, Pro-B-Type Natriuretic Peptide [id number], Vitamin B12 Level 550, Folate [Pending] Height (Feet): 5 Height (Inches): 7.00 Weight (Pounds): 140 Cardiovascular: normal rate Respiratory/Chest: lungs clear Extremities: trace edema ROSANNE JOHNSON Sep 09, 2016 10:25
[2016-09-09] MEDS ORDERED: Calcitriol 0.5mcg Cap ORAL SCH (11:30)
--- NOTE | 2016-09-09 11:38 | Progress Note ---
DATE: 09/08/2016 SUBJECTIVE: The patient's symptoms have improved. Her chest pain resolved. Her sleep is interrupted. She is not short of breath, however, she does have intense dysuria in the end of urination. Her urine volume is now reduced of 550 mL a day. OBJECTIVE: VITAL SIGNS: She is afebrile 2 blood pressure is 147/100, pulse is 85, respirations were 18, and temperature 97.7 degrees. HEENT: Eyes were normal. ENT, mucous membranes were moist and intact. NECK: Supple with no JVD without lymph nodes. LUNGS: Clear. There is no pericardial rub. There is no pleural rub. ABDOMEN: Soft and nontender with normal bowel sounds. EXTREMITIES: Warm without cyanosis, clubbing, or edema. LABORATORY DATA: Hemoglobin is 7.9 and hematocrit 25.9 with MCV. Repeat laboratory tests are not available as they have been taken only recently. since admission has been between 119 to 122. ASSESSMENT AND PLAN: The patient yesterday had hyperkalemia and mild hyponatremia. We will await for the result of the BMP prior to issue from a chronological order. Repeat laboratory tests will be done in the morning. The decision regarding the treatment management is still dependent on the patient's response to . We will have to do possible biopsy and CellCept. Alisa Chou M.D. DR: SERGIO JOB#: [id number] CC:
[2016-09-09] MEDS ORDERED: Renagel 400mg cap ORAL SCH (13:00)
[2016-09-09] MEDS ORDERED: Sodium Polystyrene Sulfonate 15gm Powder ORAL ONE (13:00)
--- NOTE | 2016-09-09 15:27 | Cardiology Progress Note ---
Assessment/Plan Problem List: (1) Hyperkalemia (2) Anemia (3) Tachycardia (4) Renal failure (5) CKD (chronic kidney disease) (6) Elevated troponin (7) Lupus (systemic lupus erythematosus) (8) Chest pain Status: not improved, unchanged Status Narrative Pt w/ pleuritic CP - c/w pericarditis in setting of active SLE. This has resolved with steroids, colchicine Mild troponin elevation may be due to pericarditis/myocarditis or renal failure. Renal failure - worsening renal parameters Hyperkalemia due to RF severe anemia - due to CKD and lupus Assessment/Plan Continue colchicine Kayexelate for hyperkalemia and repeat labs in am Transfuse PRBCs Plan for placement of HD access noted. Immuran, steroids for SLE per Rheumatology. Subjective ROS Limited/Unobtainable: No Subjective Ms. Leonard has no further CP. Objective Last 24 Hour Vital Signs Date Time Temp Pulse Resp B/P Pulse Ox O2 Delivery O2 Flow Rate FiO2 09/09/16 13:14 139/81 09/09/16 12:00 98.1 86 18 139/81 98 Room Air 09/09/16 09:21 86 133/86 09/09/16 09:00 97.3 86 18 133/84 98 Room Air 09/09/16 07:55 85 20 Room Air 09/09/16 06:07 139/73 09/09/16 04:00 98.2 86 21 135/79 92 Room Air 09/09/16 00:40 97.0 83 18 133/77 100 Room Air 09/08/16 21:06 148/85 09/08/16 21:06 62 148/85 09/08/16 20:00 99.3 86 17 143/75 95 Room Air 09/08/16 19:00 96 18 Room Air 21 09/08/16 16:00 98.2 91 20 139/84 97 Nasal Cannula 2.0 General Appearance: WD/WN, no apparent distress, alert EENT: PERRL/EOMI Neck: non-tender, supple, no JVD Rhythm: NSR Cardiovascular: normal rate, regular rhythm, no gallop/murmur Respiratory/Chest: lungs clear Abdomen: non tender, soft Extremities: no swelling Intake and Output 09/08/16 09/09/16 19:00 07:00 Intake Total 150 ml 700 ml Output Total 200 ml 400 ml Balance -50 ml 300 ml Intake Oral 150 ml 700 ml Output Urine Total 200 ml 400 ml # Voids 2 # Bowel Movements 1 Laboratory Tests Test 09/09/16 03:30 09/09/16 05:10 Urine Eosinophils None seen White Blood Count 4.5 K/UL (4.8-10.8) L Red Blood Count 2.58 M/UL (4.20-5.40) L Hemoglobin 6.4 G/DL (12.0-16.0) *L Hematocrit 20.9 % (37.0-47.0) L Mean Corpuscular Volume 81 FL (80-99) Mean Corpuscular Hemoglobin 25.0 PG (27.0-31.0) L Mean Corpuscular Hemoglobin Concent 30.8 G/DL (32.0-36.0) L Red Cell Distribution Width 22.2 % (11.6-14.8) H Platelet Count 100 K/UL (150-450) L Mean Platelet Volume 8.2 FL (6.5-10.1) Neutrophils (%) (Auto) % (45.0-75.0) Lymphocytes (%) (Auto) % (20.0-45.0) Monocytes (%) (Auto) % (1.0-10.0) Eosinophils (%) (Auto) % (0.0-3.0) Basophils (%) (Auto) % (0.0-2.0) Differential Total Cells Counted 100 Neutrophils % (Manual) 71 % (45-75) Lymphocytes % (Manual) 20 % (20-45) Monocytes % (Manual) 9 % (1-10) Eosinophils % (Manual) 0 % (0-3) Basophils % (Manual) 0 % (0-2) Band Neutrophils 0 % (0-8) Platelet Estimate Decreased L Platelet Morphology Normal Hypochromasia 1+ Anisocytosis 2+ Sodium Level 133 mEQ/L (135-145) L Potassium Level 4.9 mEQ/L (3.4-4.9) Chloride Level 100 mEQ/L (98-107) Carbon Dioxide Level 17 mEQ/L (20-30) L Anion Gap 16 (5-15) H Blood Urea Nitrogen 82 mg/dL (7-23) H Creatinine 6.5 mg/dL (0.5-0.9) H Estimat Glomerular Filtration Rate 9.2 mL/min (>60) Glucose Level 97 mg/dL (74-106) Hemoglobin A1c 4.2 % (< 6.0) Uric Acid 12.9 mg/dL (3.0-7.5) H Calcium Level 7.9 mg/dL (8.6-10.2) L Phosphorus Level 8.9 mg/dL (2.5-4.8) H Magnesium Level 1.8 mg/dL (1.7-2.5) Total Bilirubin 0.2 mg/dL (0.0-1.2) Aspartate Amino Transf (AST/SGOT) 118 U/L (5-40) H Alanine Aminotransferase (ALT/SGPT) 84 U/L (3-33) H Alkaline Phosphatase 61 U/L (35-104) C-Reactive Protein, Quantitative 2.6 mg/dL (< 0.5) H Pro-B-Type Natriuretic Peptide 50791 pg/mL (0-125) H Total Protein 7.1 g/dL (6.6-8.7) Albumin 1.9 g/dL (3.5-5.2) L Globulin 5.2 g/dL Albumin/Globulin Ratio 0.3 (1.0-2.7) L Vitamin B12 Level 550 pg/mL (211-946) Folate Pending BILL JERNIGAN Sep 09, 2016 15:27
--- NOTE | 2016-09-09 17:49 | Internal Med Progress Note ---
Subjective Date of Service: Sep 09, 2016 Physician Name Melton,Christa Attending Physician Elias Claros Current Medications Medications (Trade) Dose Ordered Sig/Brad Route PRN Reason Start Time Stop Time Status Last Admin Dose Admin Acetaminophen (Tylenol) 650 mg Q4H PRN ORAL T>100.5 09/07/16 18:15 10/07/16 18:14 Acetaminophen/ Codeine Phosphate (Tylenol #3) 1 tab Q4H PRN ORAL Moderate Pain (Pain Scale 4-6) 09/07/16 18:15 09/14/16 18:14 Albuterol/ Ipratropium (DuoNeb 0.5-3(2.5)mg/3ml) 3 ml Q4H PRN HHN Shortness of Breath 09/07/16 18:15 09/12/16 18:14 Amlodipine Besylate (Norvasc) 10 mg DAILY ORAL 09/08/16 09:00 10/08/16 08:59 09/08/16 09:50 Aspirin (ASA) 162 mg DAILY ORAL 09/08/16 09:00 10/08/16 08:59 09/09/16 09:20 Azathioprine (Imuran) 100 mg DAILY ORAL 09/10/16 09:00 10/10/16 08:59 Clonidine HCl (Catapres) 0.1 mg EVERY 8 HOURS ORAL 09/08/16 22:00 10/08/16 21:59 09/09/16 13:14 Clonidine HCl (Catapres) 0.1 mg Q6H PRN ORAL SBP > 170 09/08/16 15:45 10/08/16 15:44 Docusate Sodium (Colace) 100 mg THREE TIMES A DAY ORAL 09/08/16 18:00 10/08/16 17:59 09/09/16 13:12 Epoetin Pelon (Procrit (for non ESRD use)) 5,000 units SAT-SAT-SAT SUBQ 09/10/16 21:00 10/10/16 20:59 Metoprolol Tartrate (Lopressor) 50 mg Q12HR ORAL 09/07/16 21:00 10/07/16 20:59 09/09/16 09:21 Morphine Sulfate (Morphine Sulfate) 2 mg Q3H PRN IVP Severe Pain (Pain Scale 7-10) 09/07/16 19:00 09/14/16 18:59 Nitroglycerin (Ntg) 0.4 mg Q5MIN X 3 DOSES PRN SL Prn Chest Pain 09/07/16 17:45 10/07/16 17:44 Ondansetron HCl (Zofran) 4 mg Q6H PRN IVP Nausea & Vomiting 09/07/16 18:15 10/07/16 18:14 Pantoprazole (Protonix) 40 mg DAILY ORAL 09/08/16 09:00 10/08/16 08:59 09/09/16 09:21 Polyethylene Glycol (Miralax) 17 gm DAILYPRN PRN ORAL Constipation 09/07/16 18:15 10/07/16 18:14 Sevelamer Carbonate (Renvela) 2,400 mg THREE TIMES A DAY ORAL 09/09/16 18:00 10/09/16 12:59 Temazepam (Restoril) 15 mg HSPRN PRN ORAL Insomnia 09/07/16 21:00 09/14/16 20:59 Allergies: Coded Allergies: SULFA (SULFONAMIDE ANTIBIOTICS) (Verified Allergy, Mild, 05/27/15) ROS Limited/Unobtainable: No Constitutional: Reports: no symptoms HEENT: Reports: no symptoms Cardiovascular: Reports: chest pain Respiratory: Reports: no symptoms Gastrointestinal/Abdominal: Reports: no symptoms Genitourinary: Reports: no symptoms Neurologic/Psychiatric: Reports: no symptoms Subjective Cover for Int Med-Dr Claros. S/P transfusion Objective Last Vital Signs Date Time Temp Pulse Resp B/P Pulse Ox O2 Delivery O2 Flow Rate FiO2 09/09/16 17:03 98.4 72 18 136/98 98 Room Air 09/08/16 19:00 21 09/08/16 16:00 2.0 Laboratory Tests Test 09/09/16 03:30 09/09/16 05:10 Urine Eosinophils None seen White Blood Count 4.5 K/UL (4.8-10.8) L Red Blood Count 2.58 M/UL (4.20-5.40) L Hemoglobin 6.4 G/DL (12.0-16.0) *L Hematocrit 20.9 % (37.0-47.0) L Mean Corpuscular Volume 81 FL (80-99) Mean Corpuscular Hemoglobin 25.0 PG (27.0-31.0) L Mean Corpuscular Hemoglobin Concent 30.8 G/DL (32.0-36.0) L Red Cell Distribution Width 22.2 % (11.6-14.8) H Platelet Count 100 K/UL (150-450) L Mean Platelet Volume 8.2 FL (6.5-10.1) Neutrophils (%) (Auto) % (45.0-75.0) Lymphocytes (%) (Auto) % (20.0-45.0) Monocytes (%) (Auto) % (1.0-10.0) Eosinophils (%) (Auto) % (0.0-3.0) Basophils (%) (Auto) % (0.0-2.0) Differential Total Cells Counted 100 Neutrophils % (Manual) 71 % (45-75) Lymphocytes % (Manual) 20 % (20-45) Monocytes % (Manual) 9 % (1-10) Eosinophils % (Manual) 0 % (0-3) Basophils % (Manual) 0 % (0-2) Band Neutrophils 0 % (0-8) Platelet Estimate Decreased L Platelet Morphology Normal Hypochromasia 1+ Anisocytosis 2+ Sodium Level 133 mEQ/L (135-145) L Potassium Level 4.9 mEQ/L (3.4-4.9) Chloride Level 100 mEQ/L (98-107) Carbon Dioxide Level 17 mEQ/L (20-30) L Anion Gap 16 (5-15) H Blood Urea Nitrogen 82 mg/dL (7-23) H Creatinine 6.5 mg/dL (0.5-0.9) H Estimat Glomerular Filtration Rate 9.2 mL/min (>60) Glucose Level 97 mg/dL (74-106) Hemoglobin A1c 4.2 % (< 6.0) Uric Acid 12.9 mg/dL (3.0-7.5) H Calcium Level 7.9 mg/dL (8.6-10.2) L Phosphorus Level 8.9 mg/dL (2.5-4.8) H Magnesium Level 1.8 mg/dL (1.7-2.5) Total Bilirubin 0.2 mg/dL (0.0-1.2) Aspartate Amino Transf (AST/SGOT) 118 U/L (5-40) H Alanine Aminotransferase (ALT/SGPT) 84 U/L (3-33) H Alkaline Phosphatase 61 U/L (35-104) C-Reactive Protein, Quantitative 2.6 mg/dL (< 0.5) H Pro-B-Type Natriuretic Peptide 49669 pg/mL (0-125) H Total Protein 7.1 g/dL (6.6-8.7) Albumin 1.9 g/dL (3.5-5.2) L Globulin 5.2 g/dL Albumin/Globulin Ratio 0.3 (1.0-2.7) L Vitamin B12 Level 550 pg/mL (211-946) Folate Pending Intake and Output 09/08/16 09/09/16 19:00 07:00 Intake Total 150 ml 700 ml Output Total 200 ml 400 ml Balance -50 ml 300 ml Intake Oral 150 ml 700 ml Output Urine Total 200 ml 400 ml # Voids 2 # Bowel Movements 1 Objective General Appearance: WD/WN, no apparent distress, alert EENT: PERRL/EOMI, normal ENT inspection, TMs normal Neck: non-tender, normal alignment, supple Cardiovascular: normal peripheral pulses, normal rate, regular rhythm Respiratory/Chest: chest wall non-tender, lungs clear, normal breath sounds, no respiratory distress, no accessory muscle use Abdomen: normal bowel sounds, non tender, soft, no organomegaly, no mass Extremities: normal range of motion, non-tender 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 See cardiology note. Cont colchicine. (3) Renal failure Assessment & Plan: See nephrology note. (4) CHF (congestive heart failure) Assessment & Plan: Echo EF=60% (5) Lupus (6) Hyperkalemia Assessment & Plan: S/P kayexalate. (7) Anemia Assessment & Plan: S/P transfusion today Status: not improved CHRISTA MELTON Sep 09, 2016 17:49
[2016-09-10] VITALS: BP 141/88
[2016-09-10 04:00] VITALS: BP 136/77
--- NOTE | 2016-09-10 04:28 | Progress Note ---
DATE: 09/09/2016 SUBJECTIVE: The patient is awake, alert, afebrile, and hemodynamically stable. She denied any chest pain, shortness of breath, palpitations, or dizziness. She thinks that the urine volume is find out the total urine volume yesterday was 600 mL. PHYSICAL EXAMINATION: VITAL SIGNS: Blood pressure is 139/81, pulse is 86, respirations were 18, and temperature 98.1 degrees. HEENT: Eyes were normal. ENT, mucous membranes were moist and intact. NECK: Supple with no JVD without lymph nodes. LUNGS: Clear. HEART: Normal sounds with regular beats. There is no pericardial rub. There is no pleural rub. ABDOMEN: Soft and nontender with normal bowel sounds. EXTREMITIES: Warm without cyanosis or clubbing. There is 0 to 1+ edema. LABORATORY DATA: Hemoglobin is 6.4, hematocrit 20.9 with MCV of 81, WBC of 4.5, and platelets is 100,000. Her BUN and creatinine is 82 and 6.5 respectively. Her sodium is 133, potassium 4.9, chloride 100, and CO2 is 17. Her glucose is 97. Her calcium is 7.9. Her phosphorus is 8.9. Her uric acid is 12.9. Her CRP is 2.6. Her ProBNP is 16,000. Urinalysis shows 0.2 WBC per high-power field and 2.4 RBC per high-power field, however, she has 4+ proteinuria. IMPRESSION: The patient had systemic lupus erythematosus at the present time manifested by anemia, leukopenia, thrombocytopenia, and renal failure. At the present time, the is reduced. However, she does have 4+ proteinuria . The patient has nephrotic syndrome or membranous nephropathy. The patient at the present time had dropped her hemoglobin and hematocrit and will need two units of packed RBCs. In addition, heptoglobin will need to be assessed as well as reticulocyte count. The patient's immunosuppressant at the present time include methylprednisolone 1 mg a day and 50 mg a day. This can be done to 100 mg daily and exploration of the mechanism of drop in hemoglobin and hematocrit should be requested as well. Repeat laboratory tests will be done in the morning. Alisa Chou M.D. DR: KLAUS JOB#: [id number] CC:
[2016-09-10 07:35] LABS: BASOPHILS % (AUTO) 0.3 % (0.0-2.0); LYMPHOCYTES % (AUTO) 22.5 % (20.0-45.0); MEAN CORPUSCULAR HEMOGLOBIN 27.1 PG (27.0-31.0); MEAN CORPUSCULAR HGB CONC 32.1 G/DL (32.0-36.0); MEAN CORPUSCULAR VOLUME 84 FL (80-99); MEAN PLATELET VOLUME 7.9 FL (6.5-10.1); MONOCYTES % (AUTO) 1.4 % (1.0-10.0); NEUTROPHILS % (AUTO) 75.7 % (45.0-75.0); PLATELET COUNT 121 K/UL (150-450); RED CELL DISTRIBUTION WIDTH 20.1 % (11.6-14.8); WHITE BLOOD COUNT 3.6 K/UL (4.8-10.8)
[2016-09-10 07:57] LABS: ALANINE AMINOTRANSFERASE 93 U/L (3-33); ALBUMIN/GLOBULIN RATIO 0.3 (1.0-2.7); ANION GAP 20 (5-15); ASPARTATE AMINO TRANSFERASE 116 U/L (5-40); CALCIUM 8.1 mg/dL (8.6-10.2); CARBON DIOXIDE 16 mEQ/L (20-30); CHLORIDE 95 mEQ/L (98-107); CREATININE 7.1 mg/dL (0.5-0.9); GLOMERULAR FILTRATION RATE 8.4 mL/min (>60); HEMOLYSIS 6; POTASSIUM 5.3 mEQ/L (3.4-4.9); SODIUM 131 mEQ/L (135-145); TOTAL PROTEIN 8.2 g/dL (6.6-8.7)
[2016-09-10 08:00] VITALS: BP 143/88
[2016-09-10 08:03] LABS: HEMOLYSIS 7; IRON 48 ug/dL (37-145); TOTAL IRON BINDING CAPACITY 158 ug/dL (250-400)
[2016-09-10] MEDS: Docusate 100mg cap ORAL SCH ×3 (08:34→17:43)
[2016-09-10] MEDS: Metoprolol 25mg tab ORAL SCH ×2 (08:34→21:05)
[2016-09-10] MEDS: Aspirin Baby 81mg ORAL SCH (08:35)
[2016-09-10] MEDS: azaTHIOprine 50 MG TAB ORAL SCH (08:35)
[2016-09-10 10:05] LABS: OSMOLALITY SERUM 313 mOsm/kg (278-305)
--- NOTE | 2016-09-10 11:51 | General Progress Note ---
Assessment/Plan Status: stable Assessment/Plan Status: (1) Acute on Chronic renal failure- worsening serum Cr ( refer to Dr Davi Chris's consult note) (2) Hyperkalemia on presentation (3) Non-STEMI (non-ST elevated myocardial infarction) (4) Lupus (5) CHF (congestive heart failure) Plan: discussed the need for HD - Patient egreeable- Acess in am- HD in am- Kayexelate now- Change Norvasc to Procardia Phos binder- Adjust BP meds- Monitor renal parameters- laxatives- Avoid nephrotoxics- need HD if Cr rise further Urine for eos Subjective ROS Limited/Unobtainable: No Constitutional: Reports: malaise, weakness Allergies: Coded Allergies: SULFA (SULFONAMIDE ANTIBIOTICS) (Verified Allergy, Mild, 05/27/15) Objective Last 24 Hour Vital Signs Date Time Temp Pulse Resp B/P Pulse Ox O2 Delivery O2 Flow Rate FiO2 09/10/16 08:35 72 143/88 09/10/16 08:34 73 145/88 09/10/16 08:00 97.3 72 18 143/88 95 Room Air 09/10/16 07:35 84 16 Room Air 09/10/16 06:11 143/86 09/10/16 04:00 97.7 65 20 136/77 100 09/10/16 00:00 97.3 77 18 141/88 98 Room Air 09/09/16 22:30 145/94 09/09/16 22:27 72 145/94 09/09/16 20:55 82 130/70 09/09/16 20:32 97.9 82 18 130/70 96 Room Air 09/09/16 19:10 87 20 Room Air 09/09/16 17:03 98.4 72 18 136/98 98 Room Air 09/09/16 16:32 98.1 86 20 136/88 98 Room Air 09/09/16 16:20 98.1 81 19 135/86 95 Room Air 09/09/16 13:14 139/81 09/09/16 12:00 98.1 86 18 139/81 98 Room Air Intake and Output 09/09/16 09/10/16 19:00 07:00 Intake Total 200 ml 400 ml Output Total 180 ml 430 ml Balance 20 ml -30 ml Intake Oral 200 ml 400 ml Output Urine Total 180 ml 430 ml # Voids 2 3 Laboratory Tests 09/10/16 04:00: Urine Eosinophils None seen 09/10/16 05:50: White Blood Count 3.6L, Red Blood Count 3.50L, Hemoglobin 9.5#L, Hematocrit 29.5 #L, Mean Corpuscular Volume 84, Mean Corpuscular Hemoglobin 27.1, Mean Corpuscular Hemoglobin Concent 32.1, Red Cell Distribution Width 20.1H, Platelet Count 121L, Mean Platelet Volume 7.9, Neutrophils (%) (Auto) 75.7H, Lymphocytes (%) (Auto) 22.5, Monocytes (%) (Auto) 1.4, Eosinophils (%) (Auto) 0.0, Basophils (%) (Auto) 0.3, Reticulocyte Count 1.3, Haptoglobin 147, Sodium Level 131L, Potassium Level 5.3H, Chloride Level 95L, Carbon Dioxide Level 16L, Anion Gap 20H, Blood Urea Nitrogen 89H, Creatinine 7.1H, Estimat Glomerular Filtration Rate 8.4, Glucose Level 119H, Calcium Level 8.1L, Iron Level 48, Total Iron Binding Capacity 158L, Percent Iron Saturation 30, Unsaturated Iron Binding 110L, Ferritin 169H, Total Bilirubin < 0.2, Aspartate Amino Transf (AST/ SGOT) 116H, Alanine Aminotransferase (ALT/SGPT) 93H, Alkaline Phosphatase 66, Total Protein 8.2, Albumin 2.2L, Globulin 6.0, Albumin/Globulin Ratio 0.3L Height (Feet): 5 Height (Inches): 7.00 Weight (Pounds): 140 General Appearance: no apparent distress JAMES MONTES Sep 10, 2016 11:51
[2016-09-10 12:00] VITALS: BP 139/72
[2016-09-10] MEDS ORDERED: Sodium Polystyrene Sulfonate 15gm Powder ORAL ONE (12:30)
--- NOTE | 2016-09-10 15:18 | Pulmonology Progress Note ---
Assessment/Plan Problems: (1) Non-STEMI (non-ST elevated myocardial infarction) (2) Hyperkalemia (3) Renal failure (4) Lupus (5) CHF (congestive heart failure) Assessment/Plan renal function worsening Hd access in am HD in am check electrolytes chest pain better. all notes reviewed. Subjective ROS Limited/Unobtainable: No Allergies: Coded Allergies: SULFA (SULFONAMIDE ANTIBIOTICS) (Verified Allergy, Mild, 05/27/15) Objective Last 24 Hour Vital Signs Date Time Temp Pulse Resp B/P Pulse Ox O2 Delivery O2 Flow Rate FiO2 09/10/16 14:17 139/72 09/10/16 12:00 97.3 76 16 139/72 100 Room Air 09/10/16 08:35 72 143/88 09/10/16 08:34 73 145/88 09/10/16 08:00 97.3 72 18 143/88 95 Room Air 09/10/16 07:35 84 16 Room Air 09/10/16 06:11 143/86 09/10/16 04:00 97.7 65 20 136/77 100 09/10/16 00:00 97.3 77 18 141/88 98 Room Air 09/09/16 22:30 145/94 09/09/16 22:27 72 145/94 09/09/16 20:55 82 130/70 09/09/16 20:32 97.9 82 18 130/70 96 Room Air 09/09/16 19:10 87 20 Room Air 09/09/16 17:03 98.4 72 18 136/98 98 Room Air 09/09/16 16:32 98.1 86 20 136/88 98 Room Air 09/09/16 16:20 98.1 81 19 135/86 95 Room Air Intake and Output 09/09/16 09/10/16 19:00 07:00 Intake Total 200 ml 400 ml Output Total 180 ml 430 ml Balance 20 ml -30 ml Intake Oral 200 ml 400 ml Output Urine Total 180 ml 430 ml # Voids 2 3 General Appearance: WD/WN HEENT: normocephalic, atraumatic Respiratory/Chest: chest wall non-tender, lungs clear Breasts: no masses Cardiovascular: normal peripheral pulses Abdomen: normal bowel sounds, no scars Skin: no rash 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 Laboratory Tests 09/10/16 04:00: Urine Eosinophils None seen 09/10/16 05:50: White Blood Count 3.6L, Red Blood Count 3.50L, Hemoglobin 9.5#L, Hematocrit 29.5 #L, Mean Corpuscular Volume 84, Mean Corpuscular Hemoglobin 27.1, Mean Corpuscular Hemoglobin Concent 32.1, Red Cell Distribution Width 20.1H, Platelet Count 121L, Mean Platelet Volume 7.9, Neutrophils (%) (Auto) 75.7H, Lymphocytes (%) (Auto) 22.5, Monocytes (%) (Auto) 1.4, Eosinophils (%) (Auto) 0.0, Basophils (%) (Auto) 0.3, Reticulocyte Count 1.3, Haptoglobin 147, Sodium Level 131L, Potassium Level 5.3H, Chloride Level 95L, Carbon Dioxide Level 16L, Anion Gap 20H, Blood Urea Nitrogen 89H, Creatinine 7.1H, Estimat Glomerular Filtration Rate 8.4, Glucose Level 119H, Calcium Level 8.1L, Phosphorus Level 10.9H, Iron Level 48, Total Iron Binding Capacity 158L, Percent Iron Saturation 30, Unsaturated Iron Binding 110L, Ferritin 169H, Total Bilirubin < 0.2, Aspartate Amino Transf (AST/SGOT) 116H, Alanine Aminotransferase (ALT/SGPT) 93H , Alkaline Phosphatase 66, Total Protein 8.2, Albumin 2.2L, Globulin 6.0, Albumin/Globulin Ratio 0.3L Current Medications Medications (Trade) Dose Ordered Sig/Brad Route PRN Reason Start Time Stop Time Status Last Admin Dose Admin Acetaminophen (Tylenol) 650 mg Q4H PRN ORAL T>100.5 09/07/16 18:15 10/07/16 18:14 Acetaminophen/ Codeine Phosphate (Tylenol #3) 1 tab Q4H PRN ORAL Moderate Pain (Pain Scale 4-6) 09/07/16 18:15 09/14/16 18:14 Albuterol/ Ipratropium (DuoNeb 0.5-3(2.5)mg/3ml) 3 ml Q4H PRN HHN Shortness of Breath 09/07/16 18:15 09/12/16 18:14 Aspirin (ASA) 162 mg DAILY ORAL 09/08/16 09:00 10/08/16 08:59 09/10/16 08:35 Azathioprine (Imuran) 100 mg DAILY ORAL 09/10/16 09:00 10/10/16 08:59 09/10/16 08:35 Clonidine HCl (Catapres) 0.1 mg EVERY 8 HOURS ORAL 09/08/16 22:00 10/08/16 21:59 09/10/16 14:17 Clonidine HCl (Catapres) 0.1 mg Q6H PRN ORAL SBP > 170 09/08/16 15:45 10/08/16 15:44 Docusate Sodium (Colace) 100 mg THREE TIMES A DAY ORAL 09/08/16 18:00 10/08/16 17:59 09/10/16 12:38 Epoetin Pelon (Procrit (for non ESRD use)) 5,000 units SAT- SUBQ 09/10/16 21:00 10/10/16 20:59 Metoprolol Tartrate (Lopressor) 50 mg Q12HR ORAL 09/07/16 21:00 10/07/16 20:59 09/10/16 08:34 Morphine Sulfate (Morphine Sulfate) 2 mg Q3H PRN IVP Severe Pain (Pain Scale 7-10) 09/07/16 19:00 09/14/16 18:59 Nifedipine (Procardia XL) 60 mg BID ORAL 09/10/16 18:00 10/10/16 17:59 Nitroglycerin (Ntg) 0.4 mg Q5MIN X 3 DOSES PRN SL Prn Chest Pain 09/07/16 17:45 10/07/16 17:44 Ondansetron HCl (Zofran) 4 mg Q6H PRN IVP Nausea & Vomiting 09/07/16 18:15 10/07/16 18:14 Pantoprazole (Protonix) 40 mg DAILY ORAL 09/08/16 09:00 10/08/16 08:59 09/10/16 08:34 Polyethylene Glycol (Miralax) 17 gm DAILYPRN PRN ORAL Constipation 09/07/16 18:15 10/07/16 18:14 Sevelamer Carbonate (Renvela) 2,400 mg THREE TIMES A DAY ORAL 09/09/16 18:00 10/09/16 12:59 09/10/16 12:53 Temazepam (Restoril) 15 mg HSPRN PRN ORAL Insomnia 09/07/16 21:00 09/14/16 20:59 PANCHITO BARBOSA Sep 10, 2016 15:18
[2016-09-10 16:14] VITALS: BP 139/72
[2016-09-10] MEDS ORDERED: Tubing IV Secondary IV ONE (17:01)
[2016-09-10] MEDS ORDERED: NS 275ml ONE (17:01)
[2016-09-10] MEDS ORDERED: Tubing Blood Filter IV ONE (17:01)
--- NOTE | 2016-09-10 17:24 | Cardiology Progress Note ---
Assessment/Plan Assessment/Plan Hyperkalemia Anemia Tachycardia Lupus (systemic lupus erythematosus) Chest pain c/w pericarditis in setting of active SLE. This has resolved with steroids, colchicine Mild troponin elevation may be due to renal failure. Renal failure - worsening renal parameters Hyperkalemia due to RF severe anemia - due to CKD and lupus not aon any steroids and colchisine nwo dialsysis planned for tomorrow sister had questions not seem to have rub and any pain at this time ekg noted Subjective Cardiovascular: Denies: chest pain Respiratory: Reports: shortness of breath, Denies: orthopnea Gastrointestinal/Abdominal: Denies: abdominal pain Genitourinary: Denies: burning Objective Last 24 Hour Vital Signs Date Time Temp Pulse Resp B/P Pulse Ox O2 Delivery O2 Flow Rate FiO2 09/10/16 16:14 97.3 77 19 139/72 98 Nasal Cannula 2.0 09/10/16 14:17 139/72 09/10/16 12:00 97.3 76 16 139/72 100 Room Air 09/10/16 08:35 72 143/88 09/10/16 08:34 73 145/88 09/10/16 08:00 97.3 72 18 143/88 95 Room Air 09/10/16 07:35 84 16 Room Air 09/10/16 06:11 143/86 09/10/16 04:00 97.7 65 20 136/77 100 09/10/16 00:00 97.3 77 18 141/88 98 Room Air 09/09/16 22:30 145/94 09/09/16 22:27 72 145/94 09/09/16 20:55 82 130/70 09/09/16 20:32 97.9 82 18 130/70 96 Room Air 09/09/16 19:10 87 20 Room Air General Appearance: alert Neck: no JVD Cardiovascular: normal rate, regular rhythm Respiratory/Chest: lungs clear, normal breath sounds Abdomen: normal bowel sounds, non tender, soft Extremities: trace edema Intake and Output 09/09/16 09/10/16 19:00 07:00 Intake Total 200 ml 400 ml Output Total 180 ml 430 ml Balance 20 ml -30 ml Intake Oral 200 ml 400 ml Output Urine Total 180 ml 430 ml # Voids 2 3 Laboratory Tests Test 09/10/16 04:00 09/10/16 05:50 Urine Eosinophils None seen White Blood Count 3.6 K/UL (4.8-10.8) L Red Blood Count 3.50 M/UL (4.20-5.40) L Hemoglobin 9.5 G/DL (12.0-16.0) #L Hematocrit 29.5 % (37.0-47.0) #L Mean Corpuscular Volume 84 FL (80-99) Mean Corpuscular Hemoglobin 27.1 PG (27.0-31.0) Mean Corpuscular Hemoglobin Concent 32.1 G/DL (32.0-36.0) Red Cell Distribution Width 20.1 % (11.6-14.8) H Platelet Count 121 K/UL (150-450) L Mean Platelet Volume 7.9 FL (6.5-10.1) Neutrophils (%) (Auto) 75.7 % (45.0-75.0) H Lymphocytes (%) (Auto) 22.5 % (20.0-45.0) Monocytes (%) (Auto) 1.4 % (1.0-10.0) Eosinophils (%) (Auto) 0.0 % (0.0-3.0) Basophils (%) (Auto) 0.3 % (0.0-2.0) Reticulocyte Count 1.3 % (0.0-2.0) Haptoglobin 147 mg/dL (30-200) Sodium Level 131 mEQ/L (135-145) L Potassium Level 5.3 mEQ/L (3.4-4.9) H Chloride Level 95 mEQ/L (98-107) L Carbon Dioxide Level 16 mEQ/L (20-30) L Anion Gap 20 (5-15) H Blood Urea Nitrogen 89 mg/dL (7-23) H Creatinine 7.1 mg/dL (0.5-0.9) H Estimat Glomerular Filtration Rate 8.4 mL/min (>60) Glucose Level 119 mg/dL (74-106) H Calcium Level 8.1 mg/dL (8.6-10.2) L Phosphorus Level 10.9 mg/dL (2.5-4.8) H Iron Level 48 ug/dL (37-145) Total Iron Binding Capacity 158 ug/dL (250-400) L Percent Iron Saturation 30 % (15-50) Unsaturated Iron Binding 110 ug/dL (112-346) L Ferritin 169 ng/mL (13-150) H Total Bilirubin < 0.2 mg/dL (0.0-1.2) Aspartate Amino Transf (AST/SGOT) 116 U/L (5-40) H Alanine Aminotransferase (ALT/SGPT) 93 U/L (3-33) H Alkaline Phosphatase 66 U/L (35-104) Total Protein 8.2 g/dL (6.6-8.7) Albumin 2.2 g/dL (3.5-5.2) L Globulin 6.0 g/dL Albumin/Globulin Ratio 0.3 (1.0-2.7) L RADHA LEONARD Sep 10, 2016 17:24
[2016-09-10] MEDS: Miralax 17gm pkt ORAL PRN (17:47)
[2016-09-10 20:30] VITALS: BP 140/70
[2016-09-10] MEDS: Epogen (for non ESRD use) SUBQ SCH (21:06)
[2016-09-11] VITALS (13 sets, daily range): BP systolic 119–138; BP diastolic 55–83
--- NOTE | 2016-09-11 05:28 | Progress Note ---
DATE: 09/10/2016 SUBJECTIVE: The patient is afebrile, hemodynamically stable, and denied any pain. She appeared depressed and has no appetite. PHYSICAL EXAMINATION: VITAL SIGNS: Blood pressure 140/70, pulse is 77, respirations were 20, and temperature 98.1 degrees. HEENT: Eyes were normal. ENT, mucous membranes were moist and intact. NECK: Supple with no JVD without lymph nodes. LUNGS: Clear. HEART: Normal sounds with regular beats. There is no pleural rub or pericardial rub. ABDOMEN: Soft and nontender with normal bowel sounds. EXTREMITIES: Warm without cyanosis, clubbing, or edema. Her urine output yesterday was 660, which has had increased as compared to previous days. LABORATORY DATA: Her hemoglobin is 9.5, hematocrit 29.5, MCV of 84, WBC of 3.6, and platelets 121,000. Her BUN and creatinine is 89 and 7.1 respectively. Her sodium is 131, potassium 5.3, chloride 95, and CO2 is 16. Her calcium was 8.1. Her iron saturation is . Her phosphorus increased to 10.9. IMPRESSION: The patient has had progressive decline in renal function associated with hyperuricemia and . The patient was found to have non-ST elevation myocardial infarction. She is scheduled to undergo renal biopsy in the morning. Perm-A-Cath will be inserted in the morning and the patient will undergo dialysis in the morning. Repeat laboratory tests will be done in the morning. Alisa Chou M.D. DR: SERGIO JOB#: [id number] CC:
[2016-09-11 07:18] LABS: PROTHROMBIN TIME 10.5 SEC (9.30-11.50)
[2016-09-11 07:26] LABS: BASOPHILS % (AUTO) 0.4 % (0.0-2.0); LYMPHOCYTES % (AUTO) 10.1 % (20.0-45.0); MEAN CORPUSCULAR VOLUME 84 FL (80-99); MEAN PLATELET VOLUME 8.5 FL (6.5-10.1); NEUTROPHILS % (AUTO) 83.4 % (45.0-75.0); PLATELET COUNT 180 K/UL (150-450); RED BLOOD COUNT 3.39 M/UL (4.20-5.40); RED CELL DISTRIBUTION WIDTH 19.8 % (11.6-14.8); WHITE BLOOD COUNT 8.8 K/UL (4.8-10.8)
[2016-09-11 07:35] LABS: ALANINE AMINOTRANSFERASE 81 U/L (3-33); ALBUMIN/GLOBULIN RATIO 0.4 (1.0-2.7); ANION GAP 22 (5-15); ASPARTATE AMINO TRANSFERASE 86 U/L (5-40); CALCIUM 7.8 mg/dL (8.6-10.2); CARBON DIOXIDE 16 mEQ/L (20-30); CHLORIDE 92 mEQ/L (98-107); CREATININE 7.6 mg/dL (0.5-0.9); CRP QUANT 1.4 mg/dL (< 0.5); GLOMERULAR FILTRATION RATE 7.8 mL/min (>60); HEMOLYSIS 7; MAGNESIUM 1.8 mg/dL (1.7-2.5); PHOSPHORUS 11.2 mg/dL (2.5-4.8); POTASSIUM 4.5 mEQ/L (3.4-4.9); SODIUM 130 mEQ/L (135-145); TOTAL PROTEIN 7.6 g/dL (6.6-8.7); URIC ACID 15.8 mg/dL (3.0-7.5)
[2016-09-11] MEDS: Metoprolol 25mg tab ORAL SCH ×2 (09:00→21:09)
[2016-09-11] MEDS: Aspirin Baby 81mg ORAL SCH (09:00)
[2016-09-11] MEDS: azaTHIOprine 50 MG TAB ORAL SCH (09:00)
[2016-09-11] MEDS: Docusate 100mg cap ORAL SCH ×3 (09:00→17:57)
[2016-09-11] MEDS ORDERED: Heparin Sod 1000 units/ml 10ml INJ ONE (10:00)
[2016-09-11] MEDS ORDERED: Sodium Bicarbonate 8.4% 50ml Inj IV ONE (10:00)
[2016-09-11] MEDS ORDERED: ceFAZolin 1gm/50ml Premix 50 ML IV ONE ×2 (10:00→10:10)
[2016-09-11] MEDS ORDERED: Lidocaine 2% 20mg/ml/Epi 0.005mg/ml 20ml vial INJ ONE (10:00)
[2016-09-11] MEDS ORDERED: Heparin 2000 units/Ns 1000ml INJ ONE (10:00)
[2016-09-11] MEDS ORDERED: Heparin 2000 units/Ns 1000ml 1,000 ML ONE (10:10)
[2016-09-11] MEDS ORDERED: LORazepam Inj 2mg/ml 1ml IV ONE (10:30)
--- NOTE | 2016-09-11 14:52 | Diagnostic Imaging Report ---
Indication: Patient requires long-term hemodialysis. Findings: After the indications, procedure, risks, complications, and alternatives of the procedure were explained, written informed consent was obtained. Patient was brought to the angio-fluoroscopic suite and placed supine on the table. All elements of maximum sterile barrier technique were followed including use of a cap and mask, sterile gown, sterile gloves, and a large sterile sheet. Alcohol used to prep the skin. 1% lidocaine was used to anesthetize the skin and subcutaneous tissue. Sonographic evaluation of the the right jugular vein was performed demonstrating a patent and compressible vein. Access using an 18 gauge needle was obtained under real-time ultrasound guidance and digital image was saved in archive. An 035 wire was then advanced into the vein and negotiated fluoroscopically into the inferior vena cava. Lidocaine infiltration of the right anterior chest wall was then performed followed by dermatotomy. A tunnel of lidocaine was then made between this site and the venous puncture site. A 14.5 bhutanese 19 cm dual-lumen catheter was then tunneled through the tract. The wire within the jugular vein was then exchanged for a dilator. Serial dilatations were performed. The catheter was then inserted into the last dilator/peel-away sheath such that the tip resides in the SVC. The dilator/peel-away sheath and wire were removed and the catheter was completely buried under the skin. Proximal portion of the catheter was secured to the skin using 2-0 Prolene suture. Both ports aspirate and flush easily. Both dermatotomy sites were closed with Dermabond. Total fluoroscopic time 1.2 minutes Impression: Successful placement of tunneled right jugular hemodialysis catheter. No complications.
--- NOTE | 2016-09-11 15:17 | General Progress Note ---
Assessment/Plan Status: unchanged, deteriorating Status Narrative currently on HD tolerating well. Assessment/Plan Status: (1) Acute on Chronic renal failure- worsening serum Cr ( refer to Dr Davi Chris's consult note) (2) Hyperkalemia on presentation (3) Non-STEMI (non-ST elevated myocardial infarction) (4) Lupus (5) CHF (congestive heart failure) Plan: discussed the need for HD - Patient egreeable- currently on HD Change Norvasc to Procardia- adjust BP meds- Phos binder- Monitor renal parameters- laxatives- Avoid nephrotoxics- Urine for eos Hepatitis Panel Subjective ROS Limited/Unobtainable: No Constitutional: Reports: malaise, weakness Allergies: Coded Allergies: SULFA (SULFONAMIDE ANTIBIOTICS) (Verified Allergy, Mild, 05/27/15) Objective Last 24 Hour Vital Signs Date Time Temp Pulse Resp B/P Pulse Ox O2 Delivery O2 Flow Rate FiO2 09/11/16 13:51 Room Air 2.0 21 09/11/16 13:37 Room Air 09/11/16 13:27 119/67 09/11/16 12:45 97.7 78 25 119/67 98 Room Air 2.0 21 09/11/16 11:39 78 25 119/67 98 Room Air 09/11/16 11:35 78 21 126/68 99 Room Air 09/11/16 11:30 76 12 124/68 99 Room Air 09/11/16 11:25 75 15 129/83 100 Room Air 09/11/16 11:20 72 15 131/81 97 09/11/16 11:15 73 12 122/80 100 09/11/16 11:10 73 12 09/11/16 09:00 73 119/55 09/11/16 09:00 73 119/55 09/11/16 07:37 97.7 73 20 119/55 98 Room Air 09/11/16 05:47 128/61 09/11/16 05:25 97.5 72 18 128/61 98 Room Air 09/11/16 00:00 97.5 69 18 133/63 98 Room Air 09/10/16 21:05 140/70 09/10/16 21:05 80 140/70 09/10/16 20:30 98.1 80 20 140/70 97 Room Air 09/10/16 19:00 77 14 Room Air 09/10/16 17:44 77 139/72 09/10/16 16:14 97.3 77 19 139/72 98 Nasal Cannula 2.0 Intake and Output 09/10/16 09/11/16 18:59 06:59 Intake Total 650 ml 540 ml Output Total 200 ml 350 ml Balance 450 ml 190 ml Intake Oral 650 ml 540 ml Output Urine Total 200 ml 350 ml # Voids 2 1 Laboratory Tests 09/11/16 05:30: Urine Eosinophils None seen 09/11/16 05:45: White Blood Count 8.8#, Red Blood Count 3.39L, Hemoglobin 9.2L, Hematocrit 28.6L , Mean Corpuscular Volume 84, Mean Corpuscular Hemoglobin 27.0, Mean Corpuscular Hemoglobin Concent 32.0, Red Cell Distribution Width 19.8H, Platelet Count 180, Mean Platelet Volume 8.5, Neutrophils (%) (Auto) 83.4H, Lymphocytes (%) (Auto) 10.1L, Monocytes (%) (Auto) 6.0, Eosinophils (%) (Auto) 0.0, Basophils (%) (Auto) 0.4, Prothrombin Time 10.5, Prothromb Time International Ratio 1.0, Activated Partial Thromboplast Time 27, Sodium Level 130L, Potassium Level 4.5, Chloride Level 92L, Carbon Dioxide Level 16L, Anion Gap 22H, Blood Urea Nitrogen 100H, Creatinine 7.6H, Estimat Glomerular Filtration Rate 7.8, Glucose Level 86, Uric Acid 15.8H, Calcium Level 7.8L, Phosphorus Level 11.2H, Magnesium Level 1.8, Total Bilirubin < 0.2, Gamma Glutamyl Transpeptidase 23, Aspartate Amino Transf (AST/SGOT) 86H, Alanine Aminotransferase (ALT/SGPT) 81H, Alkaline Phosphatase 59, C-Reactive Protein, Quantitative 1.4H, Pro-B-Type Natriuretic Peptide 93771F, Total Protein 7.6, Albumin 2.2L, Globulin 5.4, Albumin/Globulin Ratio 0.4L, Human Chorionic Gonadotropin, Quant 2 Height (Feet): 5 Height (Inches): 7.00 Weight (Pounds): 140 General Appearance: no apparent distress Objective other PE not changed JAMES MONTES Sep 11, 2016 15:17
--- NOTE | 2016-09-11 17:45 | Pulmonology Progress Note ---
Assessment/Plan Problems: (1) Non-STEMI (non-ST elevated myocardial infarction) (2) Hyperkalemia (3) Renal failure (4) Lupus (5) CHF (congestive heart failure) Assessment/Plan renal function worsening Hd access in am HD in am check electrolytes chest pain better. all notes reviewed. Subjective Constitutional: Reports: anorexia, fatigue Allergies: Coded Allergies: SULFA (SULFONAMIDE ANTIBIOTICS) (Verified Allergy, Mild, 05/27/15) Objective Last 24 Hour Vital Signs Date Time Temp Pulse Resp B/P Pulse Ox O2 Delivery O2 Flow Rate FiO2 09/11/16 16:18 Room Air 09/11/16 16:00 98.1 80 21 138/75 97 Room Air 09/11/16 15:18 71 18 Room Air 21 09/11/16 13:51 Room Air 2.0 09/11/16 13:37 Room Air 09/11/16 13:27 119/67 09/11/16 12:45 97.7 78 25 119/67 98 Room Air 2.0 09/11/16 11:39 78 25 119/67 98 Room Air 09/11/16 11:35 78 21 126/68 99 Room Air 09/11/16 11:30 76 12 124/68 99 Room Air 09/11/16 11:25 75 15 129/83 100 Room Air 09/11/16 11:20 72 15 131/81 97 Room Air 09/11/16 11:15 73 12 122/80 100 Room Air 09/11/16 11:10 73 12 09/11/16 09:00 73 119/55 09/11/16 09:00 73 119/55 09/11/16 07:37 97.7 73 20 119/55 98 Room Air 09/11/16 05:47 128/61 09/11/16 05:25 97.5 72 18 128/61 98 Room Air 09/11/16 00:00 97.5 69 18 133/63 98 Room Air 09/10/16 21:05 140/70 09/10/16 21:05 80 140/70 09/10/16 20:30 98.1 80 20 140/70 97 Room Air 09/10/16 19:00 77 14 Room Air Intake and Output 09/10/16 09/11/16 19:00 07:00 Intake Total 650 ml 540 ml Output Total 200 ml 350 ml Balance 450 ml 190 ml Intake Oral 650 ml 540 ml Output Urine Total 200 ml 350 ml # Voids 2 1 General Appearance: no acute distress HEENT: normocephalic, atraumatic, PERRL Respiratory/Chest: chest wall non-tender, lungs clear, normal breath sounds Breasts: no masses Cardiovascular: normal peripheral pulses, normal rate, regular rhythm, no JVD Abdomen: normal bowel sounds, soft, non tender, no organomegaly, non distended , no mass Genitourinary: normal external genitalia Extremities: no cyanosis Skin: no rash 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, no motor/sensory deficits Laboratory Tests 09/11/16 05:30: Urine Eosinophils None seen 09/11/16 05:45: White Blood Count 8.8#, Red Blood Count 3.39L, Hemoglobin 9.2L, Hematocrit 28.6L , Mean Corpuscular Volume 84, Mean Corpuscular Hemoglobin 27.0, Mean Corpuscular Hemoglobin Concent 32.0, Red Cell Distribution Width 19.8H, Platelet Count 180, Mean Platelet Volume 8.5, Neutrophils (%) (Auto) 83.4H, Lymphocytes (%) (Auto) 10.1L, Monocytes (%) (Auto) 6.0, Eosinophils (%) (Auto) 0.0, Basophils (%) (Auto) 0.4, Prothrombin Time 10.5, Prothromb Time International Ratio 1.0, Activated Partial Thromboplast Time 27, Sodium Level 130L, Potassium Level 4.5, Chloride Level 92L, Carbon Dioxide Level 16L, Anion Gap 22H, Blood Urea Nitrogen 100H, Creatinine 7.6H, Estimat Glomerular Filtration Rate 7.8, Glucose Level 86, Uric Acid 15.8H, Calcium Level 7.8L, Phosphorus Level 11.2H, Magnesium Level 1.8, Total Bilirubin < 0.2, Gamma Glutamyl Transpeptidase 23, Aspartate Amino Transf (AST/SGOT) 86H, Alanine Aminotransferase (ALT/SGPT) 81H, Alkaline Phosphatase 59, C-Reactive Protein, Quantitative 1.4H, Pro-B-Type Natriuretic Peptide 78672I, Total Protein 7.6, Albumin 2.2L, Globulin 5.4, Albumin/Globulin Ratio 0.4L, Human Chorionic Gonadotropin, Quant 2, Hepatitis B Surface Antigen [Pending], Hepatitis B Surface Antibody, Quant [Pending], Hepatitis C Antibody [Pending] Current Medications Medications (Trade) Dose Ordered Sig/Brad Route PRN Reason Start Time Stop Time Status Last Admin Dose Admin Acetaminophen (Tylenol) 650 mg Q4H PRN ORAL T>100.5 09/07/16 18:15 10/07/16 18:14 Acetaminophen/ Codeine Phosphate (Tylenol #3) 1 tab Q4H PRN ORAL Moderate Pain (Pain Scale 4-6) 09/07/16 18:15 09/14/16 18:14 Albuterol/ Ipratropium (DuoNeb 0.5-3(2.5)mg/3ml) 3 ml Q4H PRN HHN Shortness of Breath 09/07/16 18:15 09/12/16 18:14 Aspirin (ASA) 162 mg DAILY ORAL 09/08/16 09:00 10/08/16 08:59 09/10/16 08:35 Azathioprine (Imuran) 100 mg DAILY ORAL 09/10/16 09:00 10/10/16 08:59 09/10/16 08:35 Clonidine HCl (Catapres) 0.1 mg EVERY 8 HOURS ORAL 09/08/16 22:00 10/08/16 21:59 09/11/16 05:47 Clonidine HCl (Catapres) 0.1 mg Q6H PRN ORAL SBP > 170 09/08/16 15:45 10/08/16 15:44 Docusate Sodium (Colace) 100 mg THREE TIMES A DAY ORAL 09/08/16 18:00 10/08/16 17:59 09/10/16 17:43 Epoetin Pelon (Procrit (for non ESRD use)) 5,000 units SAT-SAT-SAT SUBQ 09/10/16 21:00 10/10/16 20:59 09/10/16 21:06 Hydromorphone HCl (Dilaudid) 1 mg ONCE ONCE IVP 09/11/16 17:45 09/11/16 17:46 UNV Metoprolol Tartrate (Lopressor) 50 mg Q12HR ORAL 09/07/16 21:00 10/07/16 20:59 09/10/16 21:05 Morphine Sulfate (Morphine Sulfate) 2 mg Q3H PRN IVP Severe Pain (Pain Scale 7-10) 09/07/16 19:00 09/14/16 18:59 Nifedipine (Procardia XL) 30 mg DAILY ORAL 09/12/16 09:00 10/12/16 08:59 Nitroglycerin (Ntg) 0.4 mg Q5MIN X 3 DOSES PRN SL Prn Chest Pain 09/07/16 17:45 10/07/16 17:44 Ondansetron HCl (Zofran) 4 mg Q6H PRN IVP Nausea & Vomiting 09/07/16 18:15 10/07/16 18:14 Pantoprazole (Protonix) 40 mg DAILY ORAL 09/08/16 09:00 10/08/16 08:59 09/10/16 08:34 Polyethylene Glycol (Miralax) 17 gm DAILYPRN PRN ORAL Constipation 09/07/16 18:15 10/07/16 18:14 09/10/16 17:47 Sevelamer Carbonate (Renvela) 2,400 mg THREE TIMES A DAY ORAL 09/09/16 18:00 10/09/16 12:59 09/10/16 17:44 Temazepam (Restoril) 15 mg HSPRN PRN ORAL Insomnia 09/07/16 21:00 09/14/16 20:59 PANCHITO BARBOSA Sep 11, 2016 17:45
[2016-09-11] MEDS ORDERED: HYDROmorphone 1mg/ml Carpuject IVP ONE (18:00)
--- NOTE | 2016-09-11 20:18 | Progress Note ---
DATE: 09/11/2016 SUBJECTIVE: The patient is in pain and underwent renal biopsy. She will receive Dilaudid 1 mg IV push. PHYSICAL EXAMINATION: VITAL SIGNS: Blood pressure is 138/75, pulse 80, respirations 21, and temperature 98.1. HEENT: Eyes were normal. ENT, mucous membranes were moist and intact. NECK: Supple with no JVD without lymph nodes. LUNGS: Clear. HEART: Normal sounds with regular beats. ABDOMEN: Soft and nontender with normal bowel sounds. EXTREMITIES: Warm without cyanosis, clubbing, or edema. LABORATORY DATA: Hemoglobin is 9.2, hematocrit 28.3 with MCV of 84, WBC of 8.8, and platelet is 180,000. Her BUN and creatinine is 100 and 7.6 respectively. Her sodium is 130, potassium 4.5, chloride 92, CO2 was 16, uric acid is 15.8, calcium is 7.8, phosphorus is 11.2, CRP is 1.4, proBNP is 15,235. Albumin is 2.2. Total protein is 7.6. Urinalysis . IMPRESSION: Procedure was uneventful. The patient tolerated the procedure well. The patient underwent hemodialysis today as well. repeat laboratory test will be done in the a.m. Alisa Chou M.D. DR: Heather JOB#: [id number] CC:
[2016-09-11] MEDS: HYDROmorphone 1mg/ml Carpuject IVP PRN (23:04)
[2016-09-12] VITALS: BP 130/74
[2016-09-12 04:00] VITALS: BP 130/82
[2016-09-12 06:27] LABS: BASOPHILS % (AUTO) 0.3 % (0.0-2.0); EOSINOPHILS % (AUTO) 0.2 % (0.0-3.0); LYMPHOCYTES % (AUTO) 11.8 % (20.0-45.0); MEAN CORPUSCULAR HGB CONC 31.2 G/DL (32.0-36.0); MEAN CORPUSCULAR VOLUME 87 FL (80-99); MEAN PLATELET VOLUME 8.4 FL (6.5-10.1); MONOCYTES % (AUTO) 6.9 % (1.0-10.0); NEUTROPHILS % (AUTO) 80.7 % (45.0-75.0); PLATELET COUNT 144 K/UL (150-450); RED BLOOD COUNT 3.01 M/UL (4.20-5.40); RED CELL DISTRIBUTION WIDTH 20.8 % (11.6-14.8)
[2016-09-12 06:34] LABS: ALANINE AMINOTRANSFERASE 68 U/L (3-33); ALBUMIN/GLOBULIN RATIO 0.4 (1.0-2.7); ANION GAP 14 (5-15); ASPARTATE AMINO TRANSFERASE 78 U/L (5-40); CALCIUM 7.3 mg/dL (8.6-10.2); CARBON DIOXIDE 25 mEQ/L (20-30); CHLORIDE 96 mEQ/L (98-107); CREATININE 5.6 mg/dL (0.5-0.9); CRP QUANT 1.2 mg/dL (< 0.5); HEMOLYSIS 4; MAGNESIUM 1.7 mg/dL (1.7-2.5); PHOSPHORUS 6.6 mg/dL (2.5-4.8); POTASSIUM 3.7 mEQ/L (3.4-4.9); SODIUM 135 mEQ/L (135-145); TOTAL PROTEIN 6.9 g/dL (6.6-8.7); URIC ACID 10.1 mg/dL (3.0-7.5)
[2016-09-12 07:38] LABS: FOLIC ACID 15.9 ng/mL (3.1-17.5)
[2016-09-12 08:00] VITALS: BP 130/85
--- NOTE | 2016-09-12 08:07 | Cardiology Report ---
APPROVED REPORT EXAM: Two-dimensional and M-mode echocardiogram with Doppler and color Doppler. INDICATION Acute pericarditis M-Mode DIMENSIONS IVSd1.1 (0.7-1.1cm)Left Atrium (MM)4.1 (1.6-4.0cm) LVDd5.3 (3.5-5.6cm)Aortic Root2.6 (2.0-3.7cm) PWd1.2 (0.7-1.1cm)Aortic Cusp Exc.1.9 (1.5-2.0cm) LVDs3.3 (2.5-4.0cm) PWs1.2 cm Normal left ventricular chamber size, systolic function and wall motion. Left ventricular ejection fraction estimated to be 60-65 %. Moderate left ventricular hypertrophy. No evidence of pericardial fat or effusion. Mild left atrial enlargement by 2D. Right cardiac chamber sizes are within normal limits. Focal aortic valve sclerosis with adequate cusp excursion Mildly thickened mitral valve leaflets with normal excursion. Mild mitral annulus and aortic root calcification. Pulmonic valve is well visualized. Normal tricuspid valve structure. IVC is normal in size with physiologic collapse. No pericardial effusion. A color flow and spectral Doppler study was performed and revealed: No aortic regurgitation. Mild mitral regurgitation. Normal left ventricular diastolic dysfunction. Moderate tricuspid regurgitation. Tricuspid systolic velocities suggests peak right ventricular systolic pressure of 40 mmHg Consistent with mild pulmonary hypertension.
[2016-09-12] MEDS: Docusate 100mg cap ORAL SCH ×3 (08:26→17:17)
[2016-09-12] MEDS: Aspirin Baby 81mg ORAL SCH (08:27)
[2016-09-12] MEDS: Metoprolol 25mg tab ORAL SCH ×2 (08:27→22:10)
[2016-09-12] MEDS: azaTHIOprine 50 MG TAB ORAL SCH (08:31)
[2016-09-12 10:32] LABS: VITAMIN D 25-OH TOTAL 15 ng/mL (.)
[2016-09-12 11:15] VITALS: BP 128/81
--- NOTE | 2016-09-12 12:50 | General Progress Note ---
Assessment/Plan Status: unchanged Assessment/Plan Status: (1) Acute on Chronic renal failure- worsening serum Cr ( refer to Dr Davi Chris's consult note) (2) Hyperkalemia on presentation (3) Non-STEMI (non-ST elevated myocardial infarction) (4) Lupus (5) CHF (congestive heart failure) Plan: next HD 09/13 Change Norvasc to Procardia- adjust BP meds- Phos binder- Monitor renal parameters- laxatives- Avoid nephrotoxics- Urine for eos Hepatitis Panel Subjective ROS Limited/Unobtainable: No Constitutional: Reports: malaise, weakness Allergies: Coded Allergies: SULFA (SULFONAMIDE ANTIBIOTICS) (Verified Allergy, Mild, 05/27/15) Objective Last 24 Hour Vital Signs Date Time Temp Pulse Resp B/P Pulse Ox O2 Delivery O2 Flow Rate FiO2 09/12/16 11:15 97.9 63 20 128/81 95 Room Air 09/12/16 09:45 80 18 Room Air 21 09/12/16 08:27 69 130/85 09/12/16 08:26 69 130/85 09/12/16 08:00 97.9 69 20 130/85 97 Room Air 09/12/16 05:38 131/81 09/12/16 04:00 98.1 76 18 130/82 99 Room Air 09/12/16 00:00 97.5 73 18 130/74 99 Room Air 09/11/16 21:09 130/75 09/11/16 21:09 76 130/75 09/11/16 20:02 97.5 76 20 130/75 94 Room Air 09/11/16 19:59 76 18 Room Air 21 09/11/16 16:18 Room Air 09/11/16 16:00 98.1 80 21 138/75 97 Room Air 09/11/16 15:18 71 18 Room Air 21 09/11/16 13:51 Room Air 2.0 21 09/11/16 13:37 Room Air 09/11/16 13:27 119/67 Intake and Output 09/11/16 09/12/16 19:00 07:00 Intake Total 320 ml 540 ml Output Total 1300 ml 550 ml Balance -980 ml -10 ml Intake Oral 320 ml 540 ml Output Urine Total 150 ml 550 ml Hemodialysis UF 1150 ml # Voids 3 Laboratory Tests 09/12/16 05:10: White Blood Count 8.0, Red Blood Count 3.01L, Hemoglobin 8.1L, Hematocrit 26.0L , Mean Corpuscular Volume 87, Mean Corpuscular Hemoglobin 27.0, Mean Corpuscular Hemoglobin Concent 31.2L, Red Cell Distribution Width 20.8H, Platelet Count 144L, Mean Platelet Volume 8.4, Neutrophils (%) (Auto) 80.7H, Lymphocytes (%) (Auto) 11.8L, Monocytes (%) (Auto) 6.9, Eosinophils (%) (Auto) 0.2, Basophils (%) (Auto) 0.3, Erythrocyte Sedimentation Rate 117H, Sodium Level 135, Potassium Level 3.7, Chloride Level 96L, Carbon Dioxide Level 25, Anion Gap 14, Blood Urea Nitrogen 66#H, Creatinine 5.6H, Estimat Glomerular Filtration Rate 11.0, Glucose Level 78, Uric Acid 10.1H, Calcium Level 7.3L, Phosphorus Level 6.6H, Magnesium Level 1.7, Total Bilirubin < 0.2, Gamma Glutamyl Transpeptidase 22, Aspartate Amino Transf (AST/SGOT) 78H, Alanine Aminotransferase (ALT/SGPT) 68H, Alkaline Phosphatase 59, C-Reactive Protein, Quantitative 1.2H, Pro-B-Type Natriuretic Peptide 15233Q, Total Protein 6.9, Albumin 2.0L, Globulin 4.9, Albumin/Globulin Ratio 0.4L Height (Feet): 5 Height (Inches): 7.00 Weight (Pounds): 140 General Appearance: no apparent distress Objective other PE not changed JAMES MONTES Sep 12, 2016 12:50
[2016-09-12 16:00] VITALS: BP 135/79
[2016-09-12] MEDS: Miralax 17gm pkt ORAL PRN (17:17)
--- NOTE | 2016-09-12 18:15 | Pulmonology Progress Note ---
Assessment/Plan Problems: (1) Non-STEMI (non-ST elevated myocardial infarction) (2) Hyperkalemia (3) Renal failure (4) Lupus (5) CHF (congestive heart failure) Assessment/Plan renal function worsening Hd access in am HD in am check electrolytes chest pain better. all notes reviewed. Subjective ROS Limited/Unobtainable: No Constitutional: Reports: anorexia, fatigue Allergies: Coded Allergies: SULFA (SULFONAMIDE ANTIBIOTICS) (Verified Allergy, Mild, 05/27/15) Objective Last 24 Hour Vital Signs Date Time Temp Pulse Resp B/P Pulse Ox O2 Delivery O2 Flow Rate FiO2 09/12/16 16:00 98.2 20 135/79 99 Room Air 09/12/16 13:48 128/81 09/12/16 11:15 97.9 63 20 128/81 95 Room Air 09/12/16 09:45 80 18 Room Air 21 09/12/16 08:27 69 130/85 09/12/16 08:26 69 130/85 09/12/16 08:00 97.9 69 20 130/85 97 Room Air 09/12/16 05:38 131/81 09/12/16 04:00 98.1 76 18 130/82 99 Room Air 09/12/16 00:00 97.5 73 18 130/74 99 Room Air 09/11/16 21:09 130/75 09/11/16 21:09 76 130/75 09/11/16 20:02 97.5 76 20 130/75 94 Room Air 09/11/16 19:59 76 18 Room Air 21 Intake and Output 09/11/16 09/12/16 19:00 07:00 Intake Total 320 ml 540 ml Output Total 1300 ml 550 ml Balance -980 ml -10 ml Intake Oral 320 ml 540 ml Output Urine Total 150 ml 550 ml Hemodialysis UF 1150 ml # Voids 3 General Appearance: no acute distress HEENT: normocephalic, atraumatic, anicteric, PERRL Respiratory/Chest: chest wall non-tender, lungs clear Breasts: no masses Cardiovascular: normal peripheral pulses, normal rate, regular rhythm Abdomen: normal bowel sounds, soft, non tender, no organomegaly Genitourinary: normal external genitalia Extremities: no cyanosis Skin: no rash, no lesions 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, no motor/sensory deficits Laboratory Tests 09/12/16 05:10: White Blood Count 8.0, Red Blood Count 3.01L, Hemoglobin 8.1L, Hematocrit 26.0L , Mean Corpuscular Volume 87, Mean Corpuscular Hemoglobin 27.0, Mean Corpuscular Hemoglobin Concent 31.2L, Red Cell Distribution Width 20.8H, Platelet Count 144L, Mean Platelet Volume 8.4, Neutrophils (%) (Auto) 80.7H, Lymphocytes (%) (Auto) 11.8L, Monocytes (%) (Auto) 6.9, Eosinophils (%) (Auto) 0.2, Basophils (%) (Auto) 0.3, Erythrocyte Sedimentation Rate 117H, Sodium Level 135, Potassium Level 3.7, Chloride Level 96L, Carbon Dioxide Level 25, Anion Gap 14, Blood Urea Nitrogen 66#H, Creatinine 5.6H, Estimat Glomerular Filtration Rate 11.0, Glucose Level 78, Uric Acid 10.1H, Calcium Level 7.3L, Phosphorus Level 6.6H, Magnesium Level 1.7, Total Bilirubin < 0.2, Gamma Glutamyl Transpeptidase 22, Aspartate Amino Transf (AST/SGOT) 78H, Alanine Aminotransferase (ALT/SGPT) 68H, Alkaline Phosphatase 59, C-Reactive Protein, Quantitative 1.2H, Pro-B-Type Natriuretic Peptide 25659T, Total Protein 6.9, Albumin 2.0L, Globulin 4.9, Albumin/Globulin Ratio 0.4L Current Medications Medications (Trade) Dose Ordered Sig/Brad Route PRN Reason Start Time Stop Time Status Last Admin Dose Admin Acetaminophen (Tylenol) 650 mg Q4H PRN ORAL T>100.5 09/07/16 18:15 10/07/16 18:14 Acetaminophen/ Codeine Phosphate (Tylenol #3) 1 tab Q4H PRN ORAL Moderate Pain (Pain Scale 4-6) 09/07/16 18:15 09/14/16 18:14 Aspirin (ASA) 162 mg DAILY ORAL 09/08/16 09:00 10/08/16 08:59 09/12/16 08:27 Azathioprine (Imuran) 100 mg DAILY ORAL 09/10/16 09:00 10/10/16 08:59 09/12/16 08:31 Clonidine HCl (Catapres) 0.1 mg EVERY 8 HOURS ORAL 09/08/16 22:00 10/08/16 21:59 09/12/16 13:48 Clonidine HCl (Catapres) 0.1 mg Q6H PRN ORAL SBP > 170 09/08/16 15:45 10/08/16 15:44 Docusate Sodium (Colace) 100 mg THREE TIMES A DAY ORAL 09/08/16 18:00 10/08/16 17:59 09/12/16 17:17 Epoetin Pelon (Procrit (for non ESRD use)) 5,000 units SAT-SAT-SAT SUBQ 09/10/16 21:00 10/10/16 20:59 09/10/16 21:06 Hydromorphone HCl (Dilaudid) 1 mg EVERY 4 HOURS PRN IVP Severe Pain (Pain Scale 7-10) 09/11/16 22:00 09/18/16 21:59 09/11/16 23:04 Metoprolol Tartrate (Lopressor) 50 mg Q12HR ORAL 09/07/16 21:00 10/07/16 20:59 09/12/16 08:27 Nifedipine (Procardia XL) 30 mg DAILY ORAL 09/12/16 09:00 10/12/16 08:59 09/12/16 08:26 Nitroglycerin (Ntg) 0.4 mg Q5MIN X 3 DOSES PRN SL Prn Chest Pain 09/07/16 17:45 10/07/16 17:44 Ondansetron HCl (Zofran) 4 mg Q6H PRN IVP Nausea & Vomiting 09/07/16 18:15 10/07/16 18:14 Pantoprazole (Protonix) 40 mg DAILY ORAL 09/08/16 09:00 10/08/16 08:59 09/12/16 08:27 Polyethylene Glycol (Miralax) 17 gm DAILYPRN PRN ORAL Constipation 09/07/16 18:15 10/07/16 18:14 09/12/16 17:17 Sevelamer Carbonate (Renvela) 2,400 mg THREE TIMES A DAY ORAL 09/09/16 18:00 10/09/16 12:59 09/12/16 17:17 Temazepam (Restoril) 15 mg HSPRN PRN ORAL Insomnia 09/07/16 21:00 09/14/16 20:59 PANCHITO BARBOSA Sep 12, 2016 18:15
[2016-09-12] MEDS: HYDROmorphone 1mg/ml Carpuject IVP PRN (18:25)
[2016-09-12 20:00] VITALS: BP 123/68
[2016-09-12] MEDS: Epogen (for non ESRD use) SUBQ SCH (22:15)
[2016-09-13] VITALS (7 sets, daily range): BP systolic 129–146; BP diastolic 68–87
[2016-09-13 04:58] LABS: ALBUMIN/GLOBULIN RATIO 0.4 (1.0-2.7); CALCIUM 7.8 mg/dL (8.6-10.2); CREATININE 6.1 mg/dL (0.5-0.9); GLOMERULAR FILTRATION RATE 9.9 mL/min (>60); PHOSPHORUS 6.5 mg/dL (2.5-4.8); POTASSIUM 3.7 mEQ/L (3.4-4.9); TOTAL PROTEIN 7.4 g/dL (6.6-8.7); URIC ACID 10.5 mg/dL (3.0-7.5)
[2016-09-13 05:05] LABS: MEAN CORPUSCULAR HEMOGLOBIN 27.9 PG (27.0-31.0); MEAN CORPUSCULAR VOLUME 87 FL (80-99); MEAN PLATELET VOLUME 8.3 FL (6.5-10.1); PLATELET COUNT 128 K/UL (150-450); RED BLOOD COUNT 2.81 M/UL (4.20-5.40); RED CELL DISTRIBUTION WIDTH 20.5 % (11.6-14.8); WHITE BLOOD COUNT 6.8 K/UL (4.8-10.8)
[2016-09-13 05:28] LABS: ANISOCYTOSIS 2+; BAND NEUTROPHILS % (MANUAL) 0 % (0-8); BASOPHILS % (MANUAL) 1 % (0-2); EOSINOPHILS % (MANUAL) 0 % (0-3); HYPOCHROMASIA 3+; LYMPHOCYTES % (MANUAL) 12 % (20-45); NEUTROPHILS % (MANUAL) 83 % (45-75); PLATELET ESTIMATE DECREASED; PLATELET MORPHOLOGY NORMAL; TOTAL CELLS COUNTED 100
[2016-09-13] MEDS: HYDROmorphone 1mg/ml Carpuject IVP PRN (05:47)
[2016-09-13] MEDS: Aspirin Baby 81mg ORAL SCH (08:33)
[2016-09-13] MEDS: Docusate 100mg cap ORAL SCH ×3 (08:34→17:52)
--- NOTE | 2016-09-13 09:57 | Progress Note ---
DATE: 09/12/2016 NOTE: POOR AUDIO QUALITY SUBJECTIVE: The patient is awake, alert, afebrile, and in pain because of the dialysis catheter that was inserted in the test. She did not have any renal biopsy. The patient currently is insufficiently immunosuppressed. PHYSICAL EXAMINATION: VITAL SIGNS: Blood pressure 135/79, her pulse is 63, respirations were 20, and temperature 98.2 degrees. HEENT: Eyes were normal. ENT, mucous membranes were moist and intact. NECK: Supple with no JVD without lymph nodes. LUNGS: Clear. HEART: Normal sounds with regular beat. There is no S3, S4, or pericardial rub. ABDOMEN: Soft and nontender with normal bowel sounds. EXTREMITIES: Warm without cyanosis, clubbing, or edema. LABORATORY DATA: Hemoglobin is 8.1, hematocrit 26.2 with MCV of 87, WBC 8.0, and platelets are 144,000. Sed rate remained above 100 to 117 even though the patient is on Imuran 100 mg daily. Her BUN and creatinine is 66 and 5.6 respectively. Her sodium is 135, potassium 3.7, chloride 96, and CO2 is 25. Her uric acid is 10.1. It was 15.8 on 09/11/2016. Her phosphorus was 6.6. It was 11.2 on 09/11/2016. The liver function tests are elevated. SGOT is 78 and SGPT is 68. Her BNP is 11,306, was 15,000 yesterday. IMAGING STUDIES: There was no new imaging study. IMPRESSION AND PLAN: The patient is now on dialysis. Her urine output is 500 to 700 a day lesion in the kidney, it can be suppressed. The patient was scheduled to undergo renal biopsy yesterday immunosuppression. The patient permanently end-stage renal failure. Repeat laboratory tests will be done in the morning. Alisa Chou M.D. DR: SERGIO JOB#: [id number] CC:
--- NOTE | 2016-09-13 10:08 | General Progress Note ---
Assessment/Plan Status: unchanged Assessment/Plan Status: (1) Acute on Chronic renal failure- worsening serum Cr ( refer to Dr Davi Chris's consult note) (2) Hyperkalemia on presentation (3) Non-STEMI (non-ST elevated myocardial infarction) (4) Lupus (5) CHF (congestive heart failure) Plan: next HD 09/13 due shortly Change Norvasc to Procardia- adjust BP meds- Phos binder- Monitor renal parameters- laxatives- Avoid nephrotoxics- Urine for eos Hepatitis Panel Subjective ROS Limited/Unobtainable: No Constitutional: Reports: malaise, weakness Allergies: Coded Allergies: SULFA (SULFONAMIDE ANTIBIOTICS) (Verified Allergy, Mild, 05/27/15) Objective Last 24 Hour Vital Signs Date Time Temp Pulse Resp B/P Pulse Ox O2 Delivery O2 Flow Rate FiO2 09/13/16 07:30 98.1 72 18 130/83 93 Room Air 09/13/16 05:46 141/85 09/13/16 04:00 98.1 64 22 141/85 95 Room Air 09/13/16 00:00 98.2 71 20 129/77 100 Room Air 09/12/16 22:10 123/68 09/12/16 22:10 69 123/68 09/12/16 20:49 65 16 Room Air 21 09/12/16 20:00 98.1 20 123/68 100 Room Air 09/12/16 16:00 98.2 75 20 135/79 99 Room Air 09/12/16 13:48 128/81 09/12/16 11:15 97.9 63 20 128/81 95 Room Air Intake and Output 09/12/16 09/13/16 19:00 07:00 Intake Total 350 ml 440 ml Output Total 100 ml 110 ml Balance 250 ml 330 ml Intake Oral 350 ml 440 ml Output Urine Total 100 ml 110 ml # Voids 2 1 Laboratory Tests 09/13/16 04:00: White Blood Count 6.8, Red Blood Count 2.81L, Hemoglobin 7.8L, Hematocrit 24.5L , Mean Corpuscular Volume 87, Mean Corpuscular Hemoglobin 27.9, Mean Corpuscular Hemoglobin Concent 32.0, Red Cell Distribution Width 20.5H, Platelet Count 128L, Mean Platelet Volume 8.3, Neutrophils (%) (Auto) , Lymphocytes (%) (Auto) , Monocytes (%) (Auto) , Eosinophils (%) (Auto) , Basophils (%) (Auto) , Differential Total Cells Counted 100, Neutrophils % ( Manual) 83H, Lymphocytes % (Manual) 12L, Monocytes % (Manual) 4, Eosinophils % ( Manual) 0, Basophils % (Manual) 1, Band Neutrophils 0, Platelet Estimate DecreasedL, Platelet Morphology Normal, Hypochromasia 3+, Anisocytosis 2+, Sodium Level 132L, Potassium Level 3.7, Chloride Level 95L, Carbon Dioxide Level 25, Anion Gap 12, Blood Urea Nitrogen 67H, Creatinine 6.1H, Estimat Glomerular Filtration Rate 9.9, Glucose Level 83, Uric Acid 10.5H, Calcium Level 7.8L, Phosphorus Level 6.5H, Total Bilirubin 0.2, Aspartate Amino Transf ( AST/SGOT) 82H, Alanine Aminotransferase (ALT/SGPT) 60H, Alkaline Phosphatase 61 , Total Protein 7.4, Albumin 2.2L, Globulin 5.2, Albumin/Globulin Ratio 0.4L Height (Feet): 5 Height (Inches): 7.00 Weight (Pounds): 140 General Appearance: no apparent distress Objective other PE not changed JAMES MONTES Sep 13, 2016 10:08
[2016-09-13 11:00] LABS: HEPATITIS C VIRUS AB/CEDARS 0.71 S/CO (<0.80)
[2016-09-13] MEDS: azaTHIOprine 50 MG TAB ORAL SCH (13:34)
[2016-09-13] MEDS: Tylenol #3 tab (300mg/30mg) ORAL PRN (15:29)
--- NOTE | 2016-09-13 18:46 | Pulmonology Progress Note ---
Assessment/Plan Problems: (1) Non-STEMI (non-ST elevated myocardial infarction) (2) Hyperkalemia (3) Renal failure (4) Lupus (5) CHF (congestive heart failure) Assessment/Plan renal function worsening Hd access in am HD in am check electrolytes chest pain better. all notes reviewed. Subjective ROS Limited/Unobtainable: Yes Constitutional: Reports: anorexia, fatigue Musculoskeletal: Reports: pain, stiffness Allergies: Coded Allergies: SULFA (SULFONAMIDE ANTIBIOTICS) (Verified Allergy, Mild, 05/27/15) Objective Last 24 Hour Vital Signs Date Time Temp Pulse Resp B/P Pulse Ox O2 Delivery O2 Flow Rate FiO2 09/13/16 17:53 97.9 09/13/16 16:01 97.9 78 19 146/87 98 Room Air 09/13/16 14:00 144/83 09/13/16 13:35 60 144/83 09/13/16 12:15 Room Air 09/13/16 12:15 98.0 60 18 144/83 98 Room Air 09/13/16 09:05 Room Air 09/13/16 09:05 98.1 68 18 137/85 98 Room Air 09/13/16 07:30 98.1 72 18 130/83 93 Room Air 09/13/16 05:46 141/85 09/13/16 04:00 98.1 64 22 141/85 95 Room Air 09/13/16 00:00 98.2 71 20 129/77 100 Room Air 09/12/16 22:10 123/68 09/12/16 22:10 69 123/68 09/12/16 20:49 65 16 Room Air 21 09/12/16 20:00 98.1 20 123/68 100 Room Air Intake and Output 09/12/16 09/13/16 19:00 07:00 Intake Total 350 ml 440 ml Output Total 100 ml 110 ml Balance 250 ml 330 ml Intake Oral 350 ml 440 ml Output Urine Total 100 ml 110 ml # Voids 2 1 General Appearance: WD/WN HEENT: normocephalic, atraumatic, PERRL Respiratory/Chest: chest wall non-tender, lungs clear, normal breath sounds Breasts: no masses Cardiovascular: normal peripheral pulses, normal rate, regular rhythm Abdomen: normal bowel sounds, soft, non tender, no organomegaly Genitourinary: normal external genitalia Extremities: no cyanosis Skin: no rash, lesions Neurologic/Psychiatric: design drafter II-XII grossly normal, no motor/sensory deficits Laboratory Tests 09/13/16 04:00: White Blood Count 6.8, Red Blood Count 2.81L, Hemoglobin 7.8L, Hematocrit 24.5L , Mean Corpuscular Volume 87, Mean Corpuscular Hemoglobin 27.9, Mean Corpuscular Hemoglobin Concent 32.0, Red Cell Distribution Width 20.5H, Platelet Count 128L, Mean Platelet Volume 8.3, Neutrophils (%) (Auto) , Lymphocytes (%) (Auto) , Monocytes (%) (Auto) , Eosinophils (%) (Auto) , Basophils (%) (Auto) , Differential Total Cells Counted 100, Neutrophils % ( Manual) 83H, Lymphocytes % (Manual) 12L, Monocytes % (Manual) 4, Eosinophils % ( Manual) 0, Basophils % (Manual) 1, Band Neutrophils 0, Platelet Estimate DecreasedL, Platelet Morphology Normal, Hypochromasia 3+, Anisocytosis 2+, Sodium Level 132L, Potassium Level 3.7, Chloride Level 95L, Carbon Dioxide Level 25, Anion Gap 12, Blood Urea Nitrogen 67H, Creatinine 6.1H, Estimat Glomerular Filtration Rate 9.9, Glucose Level 83, Uric Acid 10.5H, Calcium Level 7.8L, Phosphorus Level 6.5H, Total Bilirubin 0.2, Aspartate Amino Transf ( AST/SGOT) 82H, Alanine Aminotransferase (ALT/SGPT) 60H, Alkaline Phosphatase 61 , Total Protein 7.4, Albumin 2.2L, Globulin 5.2, Albumin/Globulin Ratio 0.4L Current Medications Medications (Trade) Dose Ordered Sig/Brad Route PRN Reason Start Time Stop Time Status Last Admin Dose Admin Acetaminophen (Tylenol) 650 mg Q4H PRN ORAL T>100.5 09/07/16 18:15 10/07/16 18:14 Acetaminophen/ Codeine Phosphate (Tylenol #3) 1 tab Q4H PRN ORAL Moderate Pain (Pain Scale 4-6) 09/07/16 18:15 09/14/16 18:14 09/13/16 15:29 Aspirin (ASA) 162 mg DAILY ORAL 09/08/16 09:00 10/08/16 08:59 09/13/16 08:33 Azathioprine (Imuran) 100 mg DAILY ORAL 09/10/16 09:00 10/10/16 08:59 09/13/16 13:34 Clonidine HCl (Catapres) 0.1 mg EVERY 8 HOURS ORAL 09/08/16 22:00 10/08/16 21:59 09/13/16 05:46 Clonidine HCl (Catapres) 0.1 mg Q6H PRN ORAL SBP > 170 09/08/16 15:45 10/08/16 15:44 Docusate Sodium (Colace) 100 mg THREE TIMES A DAY ORAL 09/08/16 18:00 10/08/16 17:59 09/13/16 17:52 Epoetin Pelon (Procrit (for non ESRD use)) 5,000 units SAT-SAT-SAT SUBQ 09/10/16 21:00 10/10/16 20:59 09/12/16 22:15 Metoprolol Tartrate (Lopressor) 25 mg Q12HR ORAL 09/13/16 21:00 10/13/16 20:59 Nifedipine (Procardia XL) 30 mg DAILY ORAL 09/12/16 09:00 10/12/16 08:59 09/13/16 13:35 Nitroglycerin (Ntg) 0.4 mg Q5MIN X 3 DOSES PRN SL Prn Chest Pain 09/07/16 17:45 10/07/16 17:44 Ondansetron HCl (Zofran) 4 mg Q6H PRN IVP Nausea & Vomiting 09/07/16 18:15 10/07/16 18:14 Pantoprazole (Protonix) 40 mg DAILY ORAL 09/08/16 09:00 10/08/16 08:59 09/13/16 08:33 Polyethylene Glycol (Miralax) 17 gm DAILYPRN PRN ORAL Constipation 09/07/16 18:15 10/07/16 18:14 09/12/16 17:17 Sevelamer Carbonate (Renvela) 2,400 mg THREE TIMES A DAY ORAL 09/09/16 18:00 10/09/16 12:59 09/13/16 17:53 Temazepam (Restoril) 15 mg HSPRN PRN ORAL Insomnia 09/07/16 21:00 09/14/16 20:59 PANCHITO BARBOSA Sep 13, 2016 18:46
[2016-09-13 20:23] LABS: MEAN CORPUSCULAR HEMOGLOBIN 27.2 PG (27.0-31.0); MEAN CORPUSCULAR HGB CONC 30.9 G/DL (32.0-36.0); MEAN CORPUSCULAR VOLUME 88 FL (80-99); MEAN PLATELET VOLUME 8.6 FL (6.5-10.1); PLATELET COUNT 137 K/UL (150-450); RED BLOOD COUNT 2.92 M/UL (4.20-5.40); RED CELL DISTRIBUTION WIDTH 20.3 % (11.6-14.8); WHITE BLOOD COUNT 6.7 K/UL (4.8-10.8)
[2016-09-13 20:29] LABS: BASOPHILS % (AUTO) 0.7 % (0.0-2.0); EOSINOPHILS % (AUTO) 0.3 % (0.0-3.0); LYMPHOCYTES % (AUTO) 13.3 % (20.0-45.0); MONOCYTES % (AUTO) 5.7 % (1.0-10.0); NEUTROPHILS % (AUTO) 80.1 % (45.0-75.0)
[2016-09-13] MEDS: Metoprolol 25mg tab ORAL SCH (21:12)
[2016-09-14] VITALS (7 sets, daily range): BP systolic 118–165; BP diastolic 65–98
--- NOTE | 2016-09-14 00:18 | Progress Note ---
DATE: 09/13/2016 SUBJECTIVE: The patient is awake, alert, afebrile, and feels better than in previous days. PHYSICAL EXAMINATION: VITAL SIGNS: Blood pressure 144/83, her pulse is 60, respirations were 18, and temperature was 98 degrees. HEENT: Eyes, were normal. ENT, mucous membranes were moist and intact. NECK: Supple with no JVD without lymph nodes. LUNGS: Clear. Hemodialysis catheter on the right chest, site is tender. ABDOMEN: Soft and nontender with normal bowel sounds. EXTREMITIES: Warm without cyanosis, clubbing, or edema. LABORATORY AND DIAGNOSTIC DATA: Hemoglobin is 7.8, hematocrit 24.5 with MCV of 87, WBC of 6.8 and platelets is 128,000. Platelets were 180,000 on September 10, 140,000 on September 12 and 120,000 on September 13. BUN and creatinine is 67 and 6.1 respectively. Sodium is 132, potassium 3.7, chloride 95, and CO2 is 25. Her uric acid is 10.5. Her calcium is 7.8. Phosphorus declined from 11.2 on 09/11/2016 to 6.5 on 09/13/2016. Magnesium was 1.8 and 1.7. SGOT and SGPT of 82 and 60 respectively. Her albumin is 2.2 and total protein is 7.4. IMPRESSION: The patient underwent hemodialysis every other day. The BUN and creatinine are improving. has remained below 10. This will put into question the need for renal biopsy, however, the patient's urine output was 500 to 600 about 48 hours ago and at least for a while being on dialysis. Repeat laboratory tests will be done in the morning. Alisa Chou M.D. DR: RUBIN JOB#: [id number] CC:
--- NOTE | 2016-09-14 08:12 | Pulmonology Progress Note ---
Assessment/Plan Assessment/Plan ASSESSMENT acute on chronic renal failure new start on HD SLE likely lupus nephritis mildly elevated troponin ( likely 2 to renal failure) HTN CHF mild pulmonary HTN moderate TR anemia of chronic disease elevated transaminase PLAN OF CARE MS floor monitor renal parameters, lytes started on HD as per nephro, follows avoid nephrotoxic acute renal failure likely 2 to lupus nephritis renal US with bilateral echogenic kidneys c/w medical renal disease cardio follows, mild elevation in troponin likely due to renal failure as r cardio ECHO with EF 60-65% and RVSP of 40 c/w mild pulmonary HTN, also evidence of moderate TR BP management with CCB ( procardia) and BB and optimize as needed monitor HH , transfuse prn,on EPO monitor LFT started on Imuran per animal biologist, follows GI prophylaxis O2, HHN prn, stable on RA case discussed and evaluated by supervising physician Subjective Allergies: Coded Allergies: SULFA (SULFONAMIDE ANTIBIOTICS) (Verified Allergy, Mild, 05/27/15) Subjective awake, alert, admits to generalized weakness started on HD no SOB, no chest pain, no palpitations, no dizziness Objective Last 24 Hour Vital Signs Date Time Temp Pulse Resp B/P Pulse Ox O2 Delivery O2 Flow Rate FiO2 09/14/16 05:29 141/98 09/14/16 04:00 97.9 72 18 141/98 95 Room Air 09/14/16 00:00 98.2 75 19 140/95 95 Room Air 09/13/16 22:24 132/68 09/13/16 21:12 80 132/68 09/13/16 20:37 98.8 80 18 132/68 95 Room Air 09/13/16 17:53 97.9 09/13/16 16:01 97.9 78 19 146/87 98 Room Air 09/13/16 14:00 144/83 09/13/16 13:35 60 144/83 09/13/16 12:15 Room Air 09/13/16 12:15 98.0 60 18 144/83 98 Room Air 09/13/16 09:05 Room Air 09/13/16 09:05 98.1 68 18 137/85 98 Room Air Intake and Output 09/13/16 09/14/16 19:00 07:00 Intake Total 360 ml 290 ml Output Total 1070 ml Balance -710 ml 290 ml Intake Oral 360 ml 290 ml Hemodialysis UF 1070 ml # Voids 1 2 # Bowel Movements 1 General Appearance: no acute distress HEENT: normocephalic, atraumatic, anicteric, mucous membranes moist Respiratory/Chest: chest wall non-tender, lungs clear, normal breath sounds, no accessory muscle use, other - R jugular HD catheter, intact Cardiovascular: regular rhythm, no JVD Abdomen: normal bowel sounds, soft, non tender, non distended Genitourinary: normal external genitalia Extremities: pedal pulses normal, other - tarce edema BLE Neurologic/Psychiatric: no motor/sensory deficits, alert, oriented x 3, responsive, normal mood/affect Lymphatic: no neck adenopathy Musculoskeletal: normal muscle bulk Laboratory Tests 09/13/16 19:50: White Blood Count 6.7, Red Blood Count 2.92L, Hemoglobin 7.9L, Hematocrit 25.7L , Mean Corpuscular Volume 88, Mean Corpuscular Hemoglobin 27.2, Mean Corpuscular Hemoglobin Concent 30.9L, Red Cell Distribution Width 20.3H, Platelet Count 137L, Mean Platelet Volume 8.6, Neutrophils (%) (Auto) 80.1H, Lymphocytes (%) (Auto) 13.3L, Monocytes (%) (Auto) 5.7, Eosinophils (%) (Auto) 0.3, Basophils (%) (Auto) 0.7 Current Medications Medications (Trade) Dose Ordered Sig/Brad Route PRN Reason Start Time Stop Time Status Last Admin Dose Admin Acetaminophen (Tylenol) 650 mg Q4H PRN ORAL T>100.5 09/07/16 18:15 10/07/16 18:14 Acetaminophen/ Codeine Phosphate (Tylenol #3) 1 tab Q4H PRN ORAL Moderate Pain (Pain Scale 4-6) 09/07/16 18:15 09/14/16 18:14 09/13/16 15:29 Aspirin (ASA) 162 mg DAILY ORAL 09/08/16 09:00 10/08/16 08:59 09/13/16 08:33 Azathioprine (Imuran) 100 mg DAILY ORAL 09/10/16 09:00 10/10/16 08:59 09/13/16 13:34 Clonidine HCl (Catapres) 0.1 mg EVERY 8 HOURS ORAL 09/08/16 22:00 10/08/16 21:59 09/14/16 05:29 Clonidine HCl (Catapres) 0.1 mg Q6H PRN ORAL SBP > 170 09/08/16 15:45 10/08/16 15:44 Docusate Sodium (Colace) 100 mg THREE TIMES A DAY ORAL 09/08/16 18:00 10/08/16 17:59 09/13/16 17:52 Epoetin Pelon (Procrit (for non ESRD use)) 5,000 units SAT-SAT-SAT SUBQ 09/10/16 21:00 10/10/16 20:59 09/12/16 22:15 Metoprolol Tartrate (Lopressor) 25 mg Q12HR ORAL 09/13/16 21:00 10/13/16 20:59 09/13/16 21:12 Nifedipine (Procardia XL) 30 mg DAILY ORAL 09/12/16 09:00 10/12/16 08:59 09/13/16 13:35 Nitroglycerin (Ntg) 0.4 mg Q5MIN X 3 DOSES PRN SL Prn Chest Pain 09/07/16 17:45 10/07/16 17:44 Ondansetron HCl (Zofran) 4 mg Q6H PRN IVP Nausea & Vomiting 09/07/16 18:15 10/07/16 18:14 Pantoprazole (Protonix) 40 mg DAILY ORAL 09/08/16 09:00 10/08/16 08:59 09/13/16 08:33 Polyethylene Glycol (Miralax) 17 gm DAILYPRN PRN ORAL Constipation 09/07/16 18:15 10/07/16 18:14 09/12/16 17:17 Sevelamer Carbonate (Renvela) 2,400 mg THREE TIMES A DAY ORAL 09/09/16 18:00 10/09/16 12:59 09/13/16 17:53 Temazepam (Restoril) 15 mg HSPRN PRN ORAL Insomnia 09/07/16 21:00 09/14/16 20:59 Zoe Lora NP (Vanchtein) Sep 14, 2016 08:12
[2016-09-14] MEDS: Docusate 100mg cap ORAL SCH ×3 (09:02→17:31)
[2016-09-14] MEDS: Metoprolol 25mg tab ORAL SCH ×2 (09:04→21:08)
[2016-09-14] MEDS: azaTHIOprine 50 MG TAB ORAL SCH (09:15)
[2016-09-14] MEDS: Aspirin Baby 81mg ORAL SCH (09:16)
[2016-09-14] MEDS: Tylenol #3 tab (300mg/30mg) ORAL PRN (09:18)
[2016-09-14 11:07] LABS: GLOMERULAR FILTRATION RATE 12.6 mL/min (>60); POTASSIUM 3.8 mEQ/L (3.4-4.9)
--- NOTE | 2016-09-14 13:06 | General Progress Note ---
Assessment/Plan Status: stable Assessment/Plan Status: (1) Acute on Chronic renal failure- worsening serum Cr ( refer to Dr Davi Chris's consult note) (2) Hyperkalemia on presentation (3) Non-STEMI (non-ST elevated myocardial infarction) (4) Lupus (5) CHF (congestive heart failure) Plan: Next HD 09/15 and DC - continue OP Dialysis M W Fr On Procardia- adjust BP meds- Phos binders- Monitor renal parameters- laxatives- Avoid nephrotoxics- Urine for eos Hepatitis Panel Subjective ROS Limited/Unobtainable: No Constitutional: Reports: malaise, weakness Allergies: Coded Allergies: SULFA (SULFONAMIDE ANTIBIOTICS) (Verified Allergy, Mild, 05/27/15) Objective Last 24 Hour Vital Signs Date Time Temp Pulse Resp B/P Pulse Ox O2 Delivery O2 Flow Rate FiO2 09/14/16 12:00 Nasal Cannula 2.0 09/14/16 12:00 96.4 76 18 127/65 Nasal Cannula 2.0 09/14/16 09:04 69 134/89 09/14/16 09:03 69 134/87 09/14/16 08:50 97.2 70 18 165/66 96 Nasal Cannula 2.0 09/14/16 08:00 97.9 69 20 134/89 95 Room Air 09/14/16 05:29 141/98 09/14/16 04:00 97.9 72 18 141/98 95 Room Air 09/14/16 00:00 98.2 75 19 140/95 95 Room Air 09/13/16 22:24 132/68 09/13/16 21:12 80 132/68 09/13/16 20:37 98.8 80 18 132/68 95 Room Air 09/13/16 17:53 97.9 09/13/16 16:01 97.9 78 19 146/87 98 Room Air 09/13/16 14:00 144/83 09/13/16 13:35 60 144/83 Intake and Output 09/13/16 09/14/16 19:00 07:00 Intake Total 360 ml 290 ml Output Total 1070 ml Balance -710 ml 290 ml Intake Oral 360 ml 290 ml Hemodialysis UF 1070 ml # Voids 1 2 # Bowel Movements 1 Current Medications Medications (Trade) Dose Ordered Sig/Brad Route PRN Reason Start Time Stop Time Status Last Admin Dose Admin Acetaminophen (Tylenol) 650 mg Q4H PRN ORAL T>100.5 09/07/16 18:15 10/07/16 18:14 Acetaminophen/ Codeine Phosphate (Tylenol #3) 1 tab Q4H PRN ORAL Moderate Pain (Pain Scale 4-6) 09/07/16 18:15 09/14/16 18:14 09/14/16 09:18 Aspirin (ASA) 162 mg DAILY ORAL 09/08/16 09:00 10/08/16 08:59 09/14/16 09:16 Azathioprine (Imuran) 100 mg DAILY ORAL 09/10/16 09:00 10/10/16 08:59 09/14/16 09:15 Clonidine HCl (Catapres) 0.1 mg EVERY 8 HOURS ORAL 09/08/16 22:00 10/08/16 21:59 09/14/16 05:29 Clonidine HCl (Catapres) 0.1 mg Q6H PRN ORAL SBP > 170 09/08/16 15:45 10/08/16 15:44 Docusate Sodium (Colace) 100 mg THREE TIMES A DAY ORAL 09/08/16 18:00 10/08/16 17:59 09/14/16 09:02 Epoetin Pelon (Procrit (for non ESRD use)) 5,000 units SAT-SAT-SAT SUBQ 09/10/16 21:00 10/10/16 20:59 09/12/16 22:15 Metoprolol Tartrate (Lopressor) 25 mg Q12HR ORAL 09/13/16 21:00 10/13/16 20:59 09/14/16 09:04 Nifedipine (Procardia XL) 30 mg DAILY ORAL 09/12/16 09:00 10/12/16 08:59 09/14/16 09:03 Nitroglycerin (Ntg) 0.4 mg Q5MIN X 3 DOSES PRN SL Prn Chest Pain 09/07/16 17:45 10/07/16 17:44 Ondansetron HCl (Zofran) 4 mg Q6H PRN IVP Nausea & Vomiting 09/07/16 18:15 10/07/16 18:14 Pantoprazole (Protonix) 40 mg DAILY ORAL 09/08/16 09:00 10/08/16 08:59 09/14/16 09:02 Polyethylene Glycol (Miralax) 17 gm DAILYPRN PRN ORAL Constipation 09/07/16 18:15 10/07/16 18:14 09/12/16 17:17 Sevelamer Carbonate (Renvela) 2,400 mg THREE TIMES A DAY ORAL 09/09/16 18:00 10/09/16 12:59 09/14/16 09:01 Temazepam (Restoril) 15 mg HSPRN PRN ORAL Insomnia 09/07/16 21:00 09/14/16 20:59 Laboratory Tests 09/13/16 19:50: White Blood Count 6.7, Red Blood Count 2.92L, Hemoglobin 7.9L, Hematocrit 25.7L , Mean Corpuscular Volume 88, Mean Corpuscular Hemoglobin 27.2, Mean Corpuscular Hemoglobin Concent 30.9L, Red Cell Distribution Width 20.3H, Platelet Count 137L, Mean Platelet Volume 8.6, Neutrophils (%) (Auto) 80.1H, Lymphocytes (%) (Auto) 13.3L, Monocytes (%) (Auto) 5.7, Eosinophils (%) (Auto) 0.3, Basophils (%) (Auto) 0.7 09/14/16 10:10: Sodium Level 132L, Potassium Level 3.8, Chloride Level 91L, Carbon Dioxide Level 26, Anion Gap 15, Blood Urea Nitrogen 43H, Creatinine 5.0H, Estimat Glomerular Filtration Rate 12.6, Glucose Level 143H, Calcium Level 8.0L Height (Feet): 5 Height (Inches): 7.00 Weight (Pounds): 140 General Appearance: no apparent distress Objective other PE not changed JAMES MONTES Sep 14, 2016 13:06
[2016-09-14] MEDS: Miralax 17gm pkt ORAL PRN (17:31)
[2016-09-14] MEDS: Epogen (for non ESRD use) SUBQ SCH (21:09)
--- NOTE | 2016-09-14 22:28 | Progress Note ---
DATE: 09/14/2016 SUBJECTIVE: The patient is awake, alert, afebrile, and hemodynamically stable. PHYSICAL EXAMINATION: VITAL SIGNS: Blood pressure 154/89, her pulse is 69, respirations were 18, and temperature 97.9 degrees. HEENT: Eyes were normal. ENT, mucous membranes were moist and intact. NECK: Supple with no JVD and without lymph nodes. LUNGS: Clear without rales. HEART: Normal sounds with regular beat. ABDOMEN: Soft and nontender with normal bowel sounds. EXTREMITIES: Warm without cyanosis, clubbing, or edema. LABORATORY DATA: Hemoglobin is 7.9, hematocrit 25.7, MCV of 88, WBC of 6.7 and platelet is 137,000. are still pending as well as BMP. IMPRESSION: The patient clinically has substantially improved with hemodialysis, lupus are now quiescent. However, due to indication of very high CRP and ESR, the patient will require renal biopsy the patient remain on hemodialysis . Repeat laboratory tests will be done in the morning. Alisa Chou M.D. DR: Kandice JOB#: [id number] CC:
[2016-09-15 06:24] VITALS: BP 120/72
[2016-09-15 06:49] LABS: MEAN CORPUSCULAR HEMOGLOBIN 27.3 PG (27.0-31.0); MEAN CORPUSCULAR HGB CONC 30.3 G/DL (32.0-36.0); MEAN CORPUSCULAR VOLUME 90 FL (80-99); MEAN PLATELET VOLUME 8.4 FL (6.5-10.1); PLATELET COUNT 164 K/UL (150-450); RED BLOOD COUNT 2.82 M/UL (4.20-5.40); RED CELL DISTRIBUTION WIDTH 20.2 % (11.6-14.8); WHITE BLOOD COUNT 6.5 K/UL (4.8-10.8)
[2016-09-15 07:02] LABS: CALCIUM 7.6 mg/dL (8.6-10.2); CREATININE 5.5 mg/dL (0.5-0.9); GLOMERULAR FILTRATION RATE 11.3 mL/min (>60)
[2016-09-15 08:00] VITALS: BP 113/80
[2016-09-15 09:05] LABS: ERYTHROCYTE SEDIMENTATION RATE 103 MM/HR (0-20)
[2016-09-15 09:36] LABS: LYMPHOCYTES % (MANUAL) 15 % (20-45); NEUTROPHILS % (MANUAL) 76 % (45-75); TOTAL CELLS COUNTED 100
[2016-09-15 09:37] LABS: ANISOCYTOSIS 2+; BAND NEUTROPHILS % (MANUAL) 0 % (0-8); BASOPHILS % (MANUAL) 0 % (0-2); EOSINOPHILS % (MANUAL) 0 % (0-3); HYPOCHROMASIA 1+; PLATELET ESTIMATE ADEQUATE; PLATELET MORPHOLOGY NORMAL
[2016-09-15 09:40] VITALS: BP 126/69
[2016-09-15] MEDS: Docusate 100mg cap ORAL SCH ×3 (09:52→17:40)
[2016-09-15] MEDS: Aspirin Baby 81mg ORAL SCH (09:53)
[2016-09-15] MEDS: Miralax 17gm pkt ORAL PRN (09:53)
--- NOTE | 2016-09-15 09:53 | General Progress Note ---
Assessment/Plan Status: stable Assessment/Plan Status: (1) Acute on Chronic renal failure- worsening serum Cr ( refer to Dr Davi Chris's consult note) (2) Hyperkalemia on presentation (3) Non-STEMI (non-ST elevated myocardial infarction) (4) Lupus (5) CHF (congestive heart failure) Plan: Next HD 09/15 and DC - continue OP Dialysis M W Fr Max UF due to swelling- On Procardia- adjust BP meds- Phos binders- Monitor renal parameters- laxatives- Avoid nephrotoxics- Urine for eos Hepatitis Panel Subjective ROS Limited/Unobtainable: No Constitutional: Reports: malaise, weakness Allergies: Coded Allergies: SULFA (SULFONAMIDE ANTIBIOTICS) (Verified Allergy, Mild, 05/27/15) Objective Last 24 Hour Vital Signs Date Time Temp Pulse Resp B/P Pulse Ox O2 Delivery O2 Flow Rate FiO2 09/15/16 06:24 97.5 18 120/72 94 Room Air 09/15/16 06:24 120/72 09/14/16 21:08 74 122/76 09/14/16 21:07 122/76 09/14/16 20:00 97.7 74 18 122/76 99 Nasal Cannula 2.0 09/14/16 16:00 98.1 75 18 118/67 100 Room Air 09/14/16 14:26 131/74 09/14/16 12:00 Nasal Cannula 2.0 09/14/16 12:00 96.4 76 18 127/65 Nasal Cannula 2.0 Intake and Output 09/14/16 09/15/16 19:00 07:00 Intake Total 680 ml 170 ml Output Total 2130 ml 0 ml Balance -1450 ml 170 ml Intake Oral 680 ml 170 ml Output Urine Total 70 ml 0 ml Hemodialysis UF 2060 ml # Voids 1 Current Medications Medications (Trade) Dose Ordered Sig/Brad Route PRN Reason Start Time Stop Time Status Last Admin Dose Admin Acetaminophen (Tylenol) 650 mg Q4H PRN ORAL T>100.5 09/07/16 18:15 10/07/16 18:14 Aspirin (ASA) 162 mg DAILY ORAL 09/08/16 09:00 10/08/16 08:59 09/14/16 09:16 Azathioprine (Imuran) 100 mg DAILY ORAL 09/10/16 09:00 10/10/16 08:59 09/14/16 09:15 Clonidine HCl (Catapres) 0.1 mg EVERY 8 HOURS ORAL 09/08/16 22:00 10/08/16 21:59 09/15/16 06:24 Clonidine HCl (Catapres) 0.1 mg Q6H PRN ORAL SBP > 170 09/08/16 15:45 10/08/16 15:44 Docusate Sodium (Colace) 100 mg THREE TIMES A DAY ORAL 09/08/16 18:00 10/08/16 17:59 09/14/16 17:31 Epoetin Pelon (Procrit (for non ESRD use)) 5,000 units SAT-SAT-SAT SUBQ 09/10/16 21:00 10/10/16 20:59 09/14/16 21:09 Metoprolol Tartrate (Lopressor) 25 mg Q12HR ORAL 09/13/16 21:00 10/13/16 20:59 09/14/16 21:08 Nifedipine (Procardia XL) 30 mg DAILY ORAL 09/12/16 09:00 10/12/16 08:59 09/14/16 09:03 Nitroglycerin (Ntg) 0.4 mg Q5MIN X 3 DOSES PRN SL Prn Chest Pain 09/07/16 17:45 10/07/16 17:44 Ondansetron HCl (Zofran) 4 mg Q6H PRN IVP Nausea & Vomiting 09/07/16 18:15 10/07/16 18:14 Pantoprazole (Protonix) 40 mg DAILY ORAL 09/08/16 09:00 10/08/16 08:59 09/14/16 09:02 Polyethylene Glycol (Miralax) 17 gm DAILYPRN PRN ORAL Constipation 09/07/16 18:15 10/07/16 18:14 09/14/16 17:31 Sevelamer Carbonate (Renvela) 2,400 mg THREE TIMES A DAY ORAL 09/09/16 18:00 10/09/16 12:59 09/14/16 17:31 Laboratory Tests 09/14/16 10:10: Sodium Level 132L, Potassium Level 3.8, Chloride Level 91L, Carbon Dioxide Level 26, Anion Gap 15, Blood Urea Nitrogen 43H, Creatinine 5.0H, Estimat Glomerular Filtration Rate 12.6, Glucose Level 143H, Uric Acid 7.4, Calcium Level 8.0L, Phosphorus Level 6.4H 09/15/16 06:20: Sodium Level 131L, Potassium Level 4.0, Chloride Level 92L, Carbon Dioxide Level 28, Anion Gap 11, Blood Urea Nitrogen 52H, Creatinine 5.5H, Estimat Glomerular Filtration Rate 11.3, Glucose Level 85, Calcium Level 7.6L, White Blood Count 6.5, Red Blood Count 2.82L, Hemoglobin 7.7L, Hematocrit 25.4L, Mean Corpuscular Volume 90, Mean Corpuscular Hemoglobin 27.3, Mean Corpuscular Hemoglobin Concent 30.3L, Red Cell Distribution Width 20.2H, Platelet Count 164 , Mean Platelet Volume 8.4, Neutrophils (%) (Auto) , Lymphocytes (%) (Auto) , Monocytes (%) (Auto) , Eosinophils (%) (Auto) , Basophils (%) (Auto) , Differential Total Cells Counted 100, Neutrophils % (Manual) 76H, Lymphocytes % (Manual) 15L, Monocytes % (Manual) 9, Eosinophils % (Manual) 0, Basophils % ( Manual) 0, Band Neutrophils 0, Platelet Estimate Adequate, Platelet Morphology Normal, Hypochromasia 1+, Anisocytosis 2+, Erythrocyte Sedimentation Rate 103H Height (Feet): 5 Height (Inches): 7.00 Weight (Pounds): 140 General Appearance: no apparent distress, lethargic Cardiovascular: normal rate Respiratory/Chest: lungs clear Abdomen: soft Edema: 2+ Arm (L), 2+ Arm (R), 2+ Leg (L), 2+ Leg (R), 2+ Pedal (L), 2+ Pedal ( R), 2+ Generalized Objective other PE not changed JAMES MONTES Sep 15, 2016 09:53
--- NOTE | 2016-09-15 10:57 | Pulmonology Progress Note ---
Assessment/Plan Assessment/Plan ASSESSMENT acute on chronic renal failure new start on HD SLE likely lupus nephritis mildly elevated troponin ( likely 2 to renal failure) HTN CHF mild pulmonary HTN moderate TR anemia of chronic disease elevated transaminase PLAN OF CARE MS floor monitor renal parameters, lytes started on HD as per nephro, nephro follows next HD today, 09/15 avoid nephrotoxic will need arrangement of outpt HD acute renal failure likely 2 to lupus nephritis renal US with bilateral echogenic kidneys c/w medical renal disease cardio follows, mild elevation in troponin likely due to renal failure as r cardio ECHO with EF 60-65% and RVSP of 40 c/w mild pulmonary HTN, also evidence of moderate TR BP management with CCB ( Procardia) and BB and optimize as needed monitor HH , transfuse today with HD on EPO monitor LFT on Imuran per it help desk manager, follows per rheumo due to high ESR and CRP recommends renal biopsy GI prophylaxis O2, HHN prn, stable on RA case discussed and evaluated by supervising physician Subjective Allergies: Coded Allergies: SULFA (SULFONAMIDE ANTIBIOTICS) (Verified Allergy, Mild, 05/27/15) Subjective awake, alert, admits to generalized weakness started on HD, next today, 09/15 no SOB, no chest pain, no palpitations, no dizziness Objective Last 24 Hour Vital Signs Date Time Temp Pulse Resp B/P Pulse Ox O2 Delivery O2 Flow Rate FiO2 09/15/16 06:24 97.5 18 120/72 94 Room Air 09/15/16 06:24 120/72 09/14/16 21:08 74 122/76 09/14/16 21:07 122/76 09/14/16 20:00 97.7 74 18 122/76 99 Nasal Cannula 2.0 09/14/16 16:00 98.1 75 18 118/67 100 Room Air 09/14/16 14:26 131/74 09/14/16 12:00 Nasal Cannula 2.0 09/14/16 12:00 96.4 76 18 127/65 Nasal Cannula 2.0 Intake and Output 09/14/16 09/15/16 19:00 07:00 Intake Total 680 ml 170 ml Output Total 2130 ml 0 ml Balance -1450 ml 170 ml Intake Oral 680 ml 170 ml Output Urine Total 70 ml 0 ml Hemodialysis UF 2060 ml # Voids 1 Objective General Appearance: no acute distress HEENT: normocephalic, atraumatic, anicteric, mucous membranes moist Respiratory/Chest: chest wall non-tender, lungs clear, normal breath sounds, no accessory muscle use, other - R jugular HD catheter, intact Cardiovascular: regular rhythm, no JVD Abdomen: normal bowel sounds, soft, non tender, non distended Genitourinary: normal external genitalia Extremities: pedal pulses normal, other - tarce edema BLE Neurologic/Psychiatric: no motor/sensory deficits, alert, oriented x 3, responsive, normal mood/affect Lymphatic: no neck adenopathy Musculoskeletal: normal muscle bulk Laboratory Tests 09/15/16 06:20: White Blood Count 6.5, Red Blood Count 2.82L, Hemoglobin 7.7L, Hematocrit 25.4L , Mean Corpuscular Volume 90, Mean Corpuscular Hemoglobin 27.3, Mean Corpuscular Hemoglobin Concent 30.3L, Red Cell Distribution Width 20.2H, Platelet Count 164, Mean Platelet Volume 8.4, Neutrophils (%) (Auto) , Lymphocytes (%) (Auto) , Monocytes (%) (Auto) , Eosinophils (%) (Auto) , Basophils (%) (Auto) , Differential Total Cells Counted 100, Neutrophils % ( Manual) 76H, Lymphocytes % (Manual) 15L, Monocytes % (Manual) 9, Eosinophils % ( Manual) 0, Basophils % (Manual) 0, Band Neutrophils 0, Platelet Estimate Adequate, Platelet Morphology Normal, Hypochromasia 1+, Anisocytosis 2+, Erythrocyte Sedimentation Rate 103H, Sodium Level 131L, Potassium Level 4.0, Chloride Level 92L, Carbon Dioxide Level 28, Anion Gap 11, Blood Urea Nitrogen 52H, Creatinine 5.5H, Estimat Glomerular Filtration Rate 11.3, Glucose Level 85 , Calcium Level 7.6L Current Medications Medications (Trade) Dose Ordered Sig/Brad Route PRN Reason Start Time Stop Time Status Last Admin Dose Admin Acetaminophen (Tylenol) 650 mg Q4H PRN ORAL T>100.5 09/07/16 18:15 10/07/16 18:14 Aspirin (ASA) 162 mg DAILY ORAL 09/08/16 09:00 10/08/16 08:59 09/15/16 09:53 Azathioprine (Imuran) 100 mg DAILY ORAL 09/10/16 09:00 10/10/16 08:59 09/14/16 09:15 Clonidine HCl (Catapres) 0.1 mg EVERY 12 HOURS ORAL 09/15/16 21:00 10/15/16 20:59 Clonidine HCl (Catapres) 0.1 mg Q6H PRN ORAL SBP > 170 09/08/16 15:45 10/08/16 15:44 Docusate Sodium (Colace) 100 mg THREE TIMES A DAY ORAL 09/08/16 18:00 10/08/16 17:59 09/15/16 09:52 Epoetin Pelon (Procrit (for non ESRD use)) 5,000 units SAT- SUBQ 09/10/16 21:00 10/10/16 20:59 09/14/16 21:09 Metoprolol Tartrate (Lopressor) 25 mg Q12HR ORAL 09/13/16 21:00 10/13/16 20:59 09/14/16 21:08 Nifedipine (Procardia XL) 30 mg DAILY ORAL 09/12/16 09:00 10/12/16 08:59 09/14/16 09:03 Nitroglycerin (Ntg) 0.4 mg Q5MIN X 3 DOSES PRN SL Prn Chest Pain 09/07/16 17:45 10/07/16 17:44 Ondansetron HCl (Zofran) 4 mg Q6H PRN IVP Nausea & Vomiting 09/07/16 18:15 10/07/16 18:14 Pantoprazole (Protonix) 40 mg DAILY ORAL 09/08/16 09:00 10/08/16 08:59 09/15/16 09:57 Polyethylene Glycol (Miralax) 17 gm DAILYPRN PRN ORAL Constipation 09/07/16 18:15 10/07/16 18:14 09/15/16 09:53 Sevelamer Carbonate (Renvela) 3,200 mg THREE TIMES A DAY ORAL 09/15/16 13:00 10/15/16 12:59 [facility] Hospital[facility] NP Sep 15, 2016 10:57
[2016-09-15 12:00] VITALS: BP 134/80
[2016-09-15] MEDS ORDERED: Docusate 100mg cap ORAL SCH (13:00)
[2016-09-15] MEDS: azaTHIOprine 50 MG TAB ORAL SCH (14:11)
[2016-09-15] MEDS: Metoprolol 25mg tab ORAL SCH ×2 (14:12→22:27)
[2016-09-15 16:00] VITALS: BP 146/90
[2016-09-15] MEDS: Norco 10mg/325mg tab ORAL PRN ×2 (17:40→22:29)
--- NOTE | 2016-09-15 19:17 | Progress Note ---
DATE: 09/15/2016 SUBJECTIVE: The patient is awake, alert, afebrile, and hemodynamically stable PHYSICAL EXAMINATION: VITAL SIGNS: Blood pressure 120/72, pulse 74, respirations 18, and temperature 97.5. HEENT: Eyes were normal. ENT, mucous membranes were moist and intact. NECK: Supple with no JVD and without lymph nodes. LUNGS: Clear. HEART: Normal sounds with regular beat. ABDOMEN: Soft and nontender with normal bowel sounds. EXTREMITIES: Warm without cyanosis, clubbing, or edema. LABORATORY DATA: Hemoglobin 7.7, hematocrit 25.4, WBC of 6.5, and platelet is 164,000. The patient was ordered type and cross of two units of packed RBCs however no blood matching at [facility] was found and the patient's request for blood was given to [place]. BUN and creatinine is 52 and 5.5 respectively. Sodium is 131, potassium 4.0, chloride 92, CO2 28. 76. Sedimentation rate 103. IMPRESSION: The patient is in stable condition, is scheduled to undergo hemodialysis today and plan of outpatient hemodialysis on Saturday, Saturday, and Saturday. The patient will be discharged. She will be followed by her regular brass sorter as an outpatient setting. The patient will be discharged mg daily. Alisa Chou M.D. DR: Radu JOB#: [id number] CC:
[2016-09-15 20:00] VITALS: BP 129/83
[2016-09-16] VITALS: BP 120/74
[2016-09-16 07:56] VITALS: BP 140/90
[2016-09-16] MEDS: Metoprolol 25mg tab ORAL SCH ×2 (08:50→20:26)
[2016-09-16] MEDS: azaTHIOprine 50 MG TAB ORAL SCH (08:51)
[2016-09-16] MEDS: Docusate 100mg cap ORAL SCH ×3 (08:51→17:42)
[2016-09-16] MEDS: Aspirin Baby 81mg ORAL SCH (08:51)
--- NOTE | 2016-09-16 09:48 | General Progress Note ---
Assessment/Plan Status: stable - from renal stand Assessment/Plan Status: (1) Acute on Chronic renal failure- worsening serum Cr ( refer to Dr Davi Chris's consult note) (2) Hyperkalemia on presentation (3) Non-STEMI (non-ST elevated myocardial infarction) (4) Lupus (5) CHF (congestive heart failure) Plan: HD 09/15 Done - continue OP Dialysis M W Fr when discharged Max UF due to swelling- On Procardia- adjust BP meds- Phos binders- Monitor renal parameters- laxatives- Avoid nephrotoxics- Urine for eos Hepatitis Panel Subjective ROS Limited/Unobtainable: No Constitutional: Reports: malaise, other - pain in legs, weakness Allergies: Coded Allergies: SULFA (SULFONAMIDE ANTIBIOTICS) (Verified Allergy, Mild, 05/27/15) Objective Last 24 Hour Vital Signs Date Time Temp Pulse Resp B/P Pulse Ox O2 Delivery O2 Flow Rate FiO2 09/16/16 08:51 140/90 09/16/16 08:50 78 140/90 09/16/16 08:50 78 140/90 09/16/16 07:56 97.9 78 17 140/90 99 Room Air 09/16/16 00:00 97.7 63 16 120/74 96 Room Air 09/15/16 23:28 97.9 09/15/16 22:28 128/63 09/15/16 22:27 74 128/63 09/15/16 20:00 97.7 74 20 129/83 96 Room Air 09/15/16 16:00 97.2 71 20 146/90 98 Room Air 09/15/16 14:12 56 134/80 09/15/16 13:33 Room Air 2.0 21 09/15/16 13:30 Room Air 2.0 21 09/15/16 12:00 97.9 56 18 134/80 97 Room Air Intake and Output 09/15/16 09/16/16 19:00 07:00 Intake Total 560 ml 440 ml Output Total 3300 ml 0 ml Balance -2740 ml 440 ml Intake Oral 560 ml 440 ml Output Urine Total 300 ml 0 ml Hemodialysis UF 3000 ml # Bowel Movements 2 1 Height (Feet): 5 Height (Inches): 7.00 Weight (Pounds): 140 General Appearance: no apparent distress Objective other PE not changed JAMES MONTES Sep 16, 2016 09:48
[2016-09-16 10:13] LABS: MEAN CORPUSCULAR HEMOGLOBIN 28.6 PG (27.0-31.0); MEAN CORPUSCULAR VOLUME 92 FL (80-99); MEAN PLATELET VOLUME 8.1 FL (6.5-10.1); PLATELET COUNT 116 K/UL (150-450); RED BLOOD COUNT 3.67 M/UL (4.20-5.40); RED CELL DISTRIBUTION WIDTH 18.5 % (11.6-14.8); WHITE BLOOD COUNT 8.1 K/UL (4.8-10.8)
[2016-09-16 10:35] LABS: ALBUMIN/GLOBULIN RATIO 0.4 (1.0-2.7); ANISOCYTOSIS 1+; BAND NEUTROPHILS % (MANUAL) 1 % (0-8); CREATININE 4.7 mg/dL (0.5-0.9); GLOMERULAR FILTRATION RATE 13.5 mL/min (>60); LYMPHOCYTES % (MANUAL) 6 % (20-45); NEUTROPHILS % (MANUAL) 89 % (45-75); PHOSPHORUS 4.7 mg/dL (2.5-4.8); POTASSIUM 3.7 mEQ/L (3.4-4.9); TOTAL CELLS COUNTED 100; TOTAL PROTEIN 7.4 g/dL (6.6-8.7)
[2016-09-16 10:36] LABS: BASOPHILS % (MANUAL) 0 % (0-2); EOSINOPHILS % (MANUAL) 0 % (0-3); HYPOCHROMASIA 1+; PLATELET ESTIMATE DECREASED; PLATELET MORPHOLOGY NORMAL
--- NOTE | 2016-09-16 11:38 | Pulmonology Progress Note ---
Assessment/Plan Assessment/Plan ASSESSMENT acute on chronic renal failure new start on HD SLE likely lupus nephritis mildly elevated troponin ( likely 2 to renal failure) HTN CHF mild pulmonary HTN moderate TR anemia of chronic disease s/p blood transfusion elevated transaminase PLAN OF CARE MS floor monitor renal parameters, lytes started on HD as per nephro, nephro follows avoid nephrotoxic will need arrangement of outpt HD acute renal failure likely 2 to lupus nephritis renal US with bilateral echogenic kidneys c/w medical renal disease cardio follows, mild elevation in troponin likely due to renal failure as r cardio ECHO with EF 60-65% and RVSP of 40 c/w mild pulmonary HTN, also evidence of moderate TR BP management with CCB ( Procardia) and BB and optimize as needed monitor HH , better after transfusion 09/15 on EPO monitor LFT , with trend up today, check in am on Imuran per tour driver, follows per rheumo due to high ESR and CRP recommends renal biopsy GI prophylaxis O2, HHN prn, stable on RA dc plan when outpt HD arranged and recommendation from rheumo re further management of lupus i.e ? continue Imuran case discussed and evaluated by supervising physician Subjective Allergies: Coded Allergies: SULFA (SULFONAMIDE ANTIBIOTICS) (Verified Allergy, Mild, 05/27/15) Subjective awake, alert, admits to generalized weakness started on HD, last HD 09/15 HH better after blood transfusion no SOB, no chest pain, no palpitations, no dizziness LFT trending up Objective Last 24 Hour Vital Signs Date Time Temp Pulse Resp B/P Pulse Ox O2 Delivery O2 Flow Rate FiO2 09/16/16 08:51 140/90 09/16/16 08:50 78 140/90 09/16/16 08:50 78 140/90 09/16/16 07:56 97.9 78 17 140/90 99 Room Air 09/16/16 00:00 97.7 63 16 120/74 96 Room Air 09/15/16 23:28 97.9 09/15/16 22:28 128/63 09/15/16 22:27 74 128/63 09/15/16 20:00 97.7 74 20 129/83 96 Room Air 09/15/16 16:00 97.2 71 20 146/90 98 Room Air 09/15/16 14:12 56 134/80 09/15/16 13:33 Room Air 2.0 21 09/15/16 13:30 Room Air 2.0 21 09/15/16 12:00 97.9 56 18 134/80 97 Room Air Intake and Output 09/15/16 09/16/16 19:00 07:00 Intake Total 560 ml 440 ml Output Total 3300 ml 0 ml Balance -2740 ml 440 ml Intake Oral 560 ml 440 ml Output Urine Total 300 ml 0 ml Hemodialysis UF 3000 ml # Bowel Movements 2 1 Objective General Appearance: no acute distress HEENT: normocephalic, atraumatic, anicteric, mucous membranes moist Respiratory/Chest: chest wall non-tender, lungs clear, normal breath sounds, no accessory muscle use, other - R jugular HD catheter, intact Cardiovascular: regular rhythm, no JVD Abdomen: normal bowel sounds, soft, non tender, non distended Genitourinary: normal external genitalia Extremities: pedal pulses normal, other - trace edema BLE Neurologic/Psychiatric: no motor/sensory deficits, alert, oriented x 3, responsive, normal mood/affect Lymphatic: no neck adenopathy Musculoskeletal: normal muscle bulk Laboratory Tests 09/16/16 09:45: White Blood Count 8.1, Red Blood Count 3.67L, Hemoglobin 10.5#L, Hematocrit 33.9 #L, Mean Corpuscular Volume 92, Mean Corpuscular Hemoglobin 28.6, Mean Corpuscular Hemoglobin Concent 31.0L, Red Cell Distribution Width 18.5H, Platelet Count 116L, Mean Platelet Volume 8.1, Neutrophils (%) (Auto) , Lymphocytes (%) (Auto) , Monocytes (%) (Auto) , Eosinophils (%) (Auto) , Basophils (%) (Auto) , Differential Total Cells Counted 100, Neutrophils % ( Manual) 89H, Lymphocytes % (Manual) 6L, Monocytes % (Manual) 4, Eosinophils % ( Manual) 0, Basophils % (Manual) 0, Band Neutrophils 1, Platelet Estimate DecreasedL, Platelet Morphology Normal, Hypochromasia 1+, Anisocytosis 1+, Sodium Level 133L, Potassium Level 3.7, Chloride Level 92L, Carbon Dioxide Level 31H, Anion Gap 10, Blood Urea Nitrogen 38H, Creatinine 4.7H, Estimat Glomerular Filtration Rate 13.5, Glucose Level 86, Calcium Level 8.0L, Phosphorus Level 4.7, Total Bilirubin 0.4, Aspartate Amino Transf (AST/SGOT) 123H, Alanine Aminotransferase (ALT/SGPT) 54H, Alkaline Phosphatase 65, Total Protein 7.4, Albumin 2.2L, Globulin 5.2, Albumin/Globulin Ratio 0.4L Current Medications Medications (Trade) Dose Ordered Sig/Brad Route PRN Reason Start Time Stop Time Status Last Admin Dose Admin Acetaminophen (Tylenol) 650 mg Q4H PRN ORAL T>100.5 09/07/16 18:15 10/07/16 18:14 Acetaminophen/ Hydrocodone Bitart ([place] 10/325) 1 ea Q4H PRN ORAL For Pain 09/15/16 17:00 09/22/16 16:59 09/15/16 22:29 Aspirin (ASA) 162 mg DAILY ORAL 09/08/16 09:00 10/08/16 08:59 09/16/16 08:51 Azathioprine (Imuran) 100 mg DAILY ORAL 09/10/16 09:00 10/10/16 08:59 09/16/16 08:51 Clonidine HCl (Catapres) 0.1 mg EVERY 12 HOURS ORAL 09/15/16 21:00 10/15/16 20:59 09/16/16 08:51 Clonidine HCl (Catapres) 0.1 mg Q6H PRN ORAL SBP > 170 09/08/16 15:45 10/08/16 15:44 Docusate Sodium (Colace) 100 mg THREE TIMES A DAY ORAL 09/08/16 18:00 10/08/16 17:59 09/16/16 08:51 Epoetin Pelon (Procrit (for non ESRD use)) 5,000 units SAT-SAT-SAT SUBQ 09/10/16 21:00 10/10/16 20:59 09/14/16 21:09 Metoprolol Tartrate (Lopressor) 25 mg Q12HR ORAL 09/13/16 21:00 10/13/16 20:59 09/16/16 08:50 Nifedipine (Procardia XL) 30 mg DAILY ORAL 09/12/16 09:00 10/12/16 08:59 09/16/16 08:50 Nitroglycerin (Ntg) 0.4 mg Q5MIN X 3 DOSES PRN SL Prn Chest Pain 09/07/16 17:45 10/07/16 17:44 Ondansetron HCl (Zofran) 4 mg Q6H PRN IVP Nausea & Vomiting 09/07/16 18:15 10/07/16 18:14 Pantoprazole (Protonix) 40 mg DAILY ORAL 09/08/16 09:00 10/08/16 08:59 09/16/16 08:51 Polyethylene Glycol (Miralax) 17 gm DAILYPRN PRN ORAL Constipation 09/07/16 18:15 10/07/16 18:14 09/15/16 09:53 Sevelamer Carbonate (Renvela) 3,200 mg THREE TIMES A DAY ORAL 09/15/16 13:00 10/15/16 12:59 09/16/16 08:50 Guido ([facility])Zoe NP Sep 16, 2016 11:38
[2016-09-16 12:00] VITALS: BP 136/72
[2016-09-16] MEDS: Norco 10mg/325mg tab ORAL PRN ×2 (12:11→20:25)
[2016-09-16 16:01] VITALS: BP 129/69
[2016-09-16] MEDS ORDERED: Tubing Blood Filter IV ONE (16:47)
[2016-09-16] MEDS ORDERED: NS 275ml ONE (16:47)
[2016-09-16 20:32] VITALS: BP 130/70
[2016-09-17] VITALS: BP 128/72
--- NOTE | 2016-09-17 02:38 | Progress Note ---
DATE: 09/16/2016 SUBJECTIVE: The patient is awake alert, afebrile, and hemodynamically stable. PHYSICAL EXAMINATION: VITAL SIGNS: Blood pressure 130/70, pulse is 80, respiration rate 19, and temperature of 97.9. EYES: Normal. ENT: Mucous membranes were moist and intact. NECK: Supple. No JVD without lymph nodes. LUNGS: Clear. HEART: Normal sounds with regular beats. ABDOMEN: Soft and nontender with normal bowel sounds. EXTREMITIES: Warm. No cyanosis, clubbing, or edema. LABORATORY DATA: Hemoglobin 10.5, hematocrit 33.9 with MCV of 92, WBC of 8.1, and platelet is 116,000. Her BUN and creatinine 38 and 4.7 respectively. Sodium is 133, potassium 3.7, chloride 92, and CO2 is 31, estimated GFR is 13.5. Potassium 6.0. Phosphorus is 4.7. SGPT 123, SGOT 54, albumin 2.2, and total protein is 7.4. IMPRESSION: The patient is not on hemodialysis. the patient to have chronic hemodialysis. A planned biopsy will be done during this admission . Her 2D echo revealed the patient has mild pulmonary hypertension. A ejection fraction of 55% to 60%. Repeat laboratory tests . Alisa Chou M.D. DR: Heather JOB#: [id number] CC:
[2016-09-17 08:00] VITALS: BP 153/92
[2016-09-17 08:20] LABS: MEAN CORPUSCULAR HEMOGLOBIN 30.1 PG (27.0-31.0); MEAN CORPUSCULAR HGB CONC 32.5 G/DL (32.0-36.0); MEAN CORPUSCULAR VOLUME 93 FL (80-99); MEAN PLATELET VOLUME 9.6 FL (6.5-10.1); PLATELET COUNT 114 K/UL (150-450); RED BLOOD COUNT 3.76 M/UL (4.20-5.40); RED CELL DISTRIBUTION WIDTH 18.2 % (11.6-14.8); WHITE BLOOD COUNT 9.1 K/UL (4.8-10.8)
[2016-09-17 08:41] LABS: ALBUMIN/GLOBULIN RATIO 0.4 (1.0-2.7); CALCIUM 8.6 mg/dL (8.6-10.2); CREATININE 5.8 mg/dL (0.5-0.9); GLOMERULAR FILTRATION RATE 10.7 mL/min (>60); POTASSIUM 3.5 mEQ/L (3.4-4.9); TOTAL PROTEIN 7.4 g/dL (6.6-8.7)
[2016-09-17] MEDS: Aspirin Baby 81mg ORAL SCH (08:43)
[2016-09-17] MEDS: Norco 10mg/325mg tab ORAL PRN ×2 (08:43→14:20)
[2016-09-17] MEDS: Docusate 100mg cap ORAL SCH ×3 (08:44→17:58)
[2016-09-17] MEDS: Metoprolol 25mg tab ORAL SCH ×2 (08:44→20:34)
[2016-09-17] MEDS: azaTHIOprine 50 MG TAB ORAL SCH (08:44)
[2016-09-17 10:10] VITALS: BP 149/88
--- NOTE | 2016-09-17 10:40 | General Progress Note ---
Assessment/Plan Status: stable Assessment/Plan Status: (1) Acute on Chronic renal failure- worsening serum Cr ( refer to Dr Davi Chris's consult note) (2) Hyperkalemia on presentation (3) Non-STEMI (non-ST elevated myocardial infarction) (4) Lupus (5) CHF (congestive heart failure) Plan: HD 09/15 Done - continue OP Dialysis M W Fr when discharged Due HD today- then ? DC- Max UF due to swelling- On Procardia- adjust BP meds- Phos binders- Monitor renal parameters- laxatives- Avoid nephrotoxics- Urine for eos Hepatitis Panel Subjective ROS Limited/Unobtainable: No Constitutional: Reports: malaise, weakness Allergies: Coded Allergies: SULFA (SULFONAMIDE ANTIBIOTICS) (Verified Allergy, Mild, 05/27/15) Objective Last 24 Hour Vital Signs Date Time Temp Pulse Resp B/P Pulse Ox O2 Delivery O2 Flow Rate FiO2 09/17/16 08:45 92 153/92 09/17/16 08:44 92 153/92 09/17/16 08:43 153/92 09/17/16 08:00 98.2 92 18 153/92 94 Nasal Cannula 2.0 09/17/16 00:00 98.1 77 18 128/72 97 Room Air 09/16/16 21:24 97.9 09/16/16 20:32 97.9 80 19 130/70 99 Room Air 09/16/16 20:26 80 130/70 09/16/16 17:42 129/69 09/16/16 16:01 98.6 74 18 129/69 98 Room Air 09/16/16 12:00 98.1 87 17 136/72 100 Room Air Intake and Output 09/16/16 09/17/16 19:00 07:00 Intake Total 260 ml 440 ml Output Total 200 ml 150 ml Balance 60 ml 290 ml Intake Oral 260 ml 440 ml Output Urine Total 100 ml 150 ml Emesis 100 ml # Voids 2 Laboratory Tests 09/17/16 07:35: White Blood Count 9.1, Red Blood Count 3.76L, Hemoglobin 11.3L, Hematocrit 34.9L , Mean Corpuscular Volume 93, Mean Corpuscular Hemoglobin 30.1, Mean Corpuscular Hemoglobin Concent 32.5, Red Cell Distribution Width 18.2H, Platelet Count 114L, Mean Platelet Volume 9.6, Neutrophils (%) (Auto) , Lymphocytes (%) (Auto) , Monocytes (%) (Auto) , Eosinophils (%) (Auto) , Basophils (%) (Auto) , Neutrophils % (Manual) [Pending], Lymphocytes % (Manual) [Pending], Platelet Estimate [Pending], Platelet Morphology [Pending], Sodium Level 132L, Potassium Level 3.5, Chloride Level 89L, Carbon Dioxide Level 27, Anion Gap 16H, Blood Urea Nitrogen 47H, Creatinine 5.8H, Estimat Glomerular Filtration Rate 10.7, Glucose Level 73L, Calcium Level 8.6, Total Bilirubin 0.4 , Aspartate Amino Transf (AST/SGOT) 120H, Alanine Aminotransferase (ALT/SGPT) 51H, Alkaline Phosphatase 68, Total Protein 7.4, Albumin 2.2L, Globulin 5.2, Albumin/Globulin Ratio 0.4L Height (Feet): 5 Height (Inches): 7.00 Weight (Pounds): 140 General Appearance: no apparent distress Objective other PE not changed JAMES MONTES Sep 17, 2016 10:40
[2016-09-17 11:28] LABS: ANISOCYTOSIS 2+; BAND NEUTROPHILS % (MANUAL) 0 % (0-8); BASOPHILS % (MANUAL) 0 % (0-2); EOSINOPHILS % (MANUAL) 0 % (0-3); HYPOCHROMASIA 1+; LYMPHOCYTES % (MANUAL) 8 % (20-45); NEUTROPHILS % (MANUAL) 90 % (45-75); PLATELET ESTIMATE DECREASED; PLATELET MORPHOLOGY NORMAL; TOTAL CELLS COUNTED 100
[2016-09-17] MEDS ORDERED: ASPIRIN81 MG ORAL (13:34)
[2016-09-17] MEDS ORDERED: NIFEDICAL XL30 MG ORAL (13:34)
[2016-09-17] MEDS ORDERED: LOPRESSOR25 M1 ORAL (13:34)
[2016-09-17] MEDS ORDERED: RENVELA800 MG ORAL (13:34)
[2016-09-17 15:01] VITALS: BP 138/88
[2016-09-17] MEDS: Morphine Sulfate 2mg/ml Inj SUBQ PRN ×2 (15:42→20:37)
[2016-09-17 16:00] VITALS: BP 155/93
[2016-09-17 20:00] VITALS: BP 160/114
[2016-09-17] MEDS: Epogen (for non ESRD use) SUBQ SCH (21:03)
[2016-09-18] VITALS: BP 151/82
[2016-09-18] MEDS: Norco 10mg/325mg tab ORAL PRN (00:27)
[2016-09-18 04:00] VITALS: BP 139/78
[2016-09-18 08:00] VITALS: BP 136/82
[2016-09-18] MEDS: Metoprolol 25mg tab ORAL SCH (09:00)
[2016-09-18] MEDS: Docusate 100mg cap ORAL SCH (09:00)
[2016-09-18] MEDS: Aspirin Baby 81mg ORAL SCH (09:00)
[2016-09-18] MEDS: azaTHIOprine 50 MG TAB ORAL SCH (09:00)
--- NOTE | 2016-09-18 14:43 | Pulmonology Progress Note ---
Assessment/Plan Problems: (1) Non-STEMI (non-ST elevated myocardial infarction) (2) Hyperkalemia (3) Renal failure (4) Lupus (5) CHF (congestive heart failure) Assessment/Plan renal function worsening Hd access in am HD in am check electrolytes chest pain better. all notes reviewed. Subjective ROS Limited/Unobtainable: Yes Cardiovascular: Reports: chest pain, palpitations Allergies: Coded Allergies: SULFA (SULFONAMIDE ANTIBIOTICS) (Verified Allergy, Mild, 05/27/15) Objective Last 24 Hour Vital Signs Date Time Temp Pulse Resp B/P Pulse Ox O2 Delivery O2 Flow Rate FiO2 09/18/16 08:00 98.2 78 17 136/82 96 Room Air 09/18/16 04:00 98.6 78 18 139/78 98 Room Air 09/18/16 00:00 99.5 79 18 151/82 95 Room Air 09/17/16 20:34 160/114 09/17/16 20:34 89 160/114 09/17/16 20:00 98.6 89 17 160/114 97 Room Air 09/17/16 16:00 99.1 88 17 155/93 97 Room Air 09/17/16 15:01 97.5 89 17 138/88 Room Air 09/17/16 14:58 Room Air 2.0 21 Intake and Output 09/17/16 09/18/16 19:00 07:00 Intake Total 200 ml 420 ml Output Total 3000 ml 100 ml Balance -2800 ml 320 ml Intake Oral 200 ml 420 ml Output Urine Total 0 ml Emesis 100 ml Hemodialysis UF 3000 ml # Voids 1 General Appearance: no acute distress HEENT: normocephalic, atraumatic, PERRL Respiratory/Chest: chest wall non-tender, decreased breath sounds, accessory muscle use Breasts: no masses Cardiovascular: normal peripheral pulses, normal rate, regular rhythm, no JVD Abdomen: normal bowel sounds, soft, non tender, no organomegaly, non distended Genitourinary: normal external genitalia Extremities: no cyanosis Skin: no rash Neurologic/Psychiatric: wood experimental mechanic II-XII grossly normal, no motor/sensory deficits PANCHITO BARBOSA Sep 18, 2016 14:43
--- NOTE | 2016-09-19 09:33 | Discharge Summary ---
Discharge Summary Hospital Course Date of Admission Sep 05, 2016 at 15:45 Date of Discharge Sep 18, 2016 at 10:55 Admitting Diagnosis ACS HPI Denae Leonard is a 26 year old female who was admitted on Sep 05, 2016 at 15: 45 for Acute Coronary Syndrome Hospital Course dc summary #[id number] Discharge Medications New Medications: Aspirin* (Aspirin*) 81 Mg Tab.chew 162 MG ORAL DAILY for 30 Days, TAB Metoprolol Tartrate (Metoprolol Tartrate) 25 Mg Tablet 25 MG ORAL Q12HR for 30 Days, TAB Nifedipine Xl* (Procardia Xl*) 30 Mg Tab.er.24 30 MG ORAL DAILY for 30 Days, TAB Sevelamer Carbonate (Renvela) 800 Mg Tablet 3200 MG ORAL THREE TIMES A DAY for 30 Days, TAB Continued Medications: Azathioprine (Azathioprine) 50 Mg Tab 50 MG PO DAILY, TAB Hydroxychloroquine Sulfate (Hydroxychloroquine Sulfate) 200 Mg Tablet 200 MG PO BID, TAB Prednisone* (Prednisone*) 10 Mg Tablet 10 MG ORAL DAILY, TAB 0 Refills Ranitidine Hcl* (Zantac*) 150 Mg Tab 150 MG ORAL TWICE A DAY, #60 TAB Discharge Discharge Disposition Patient was discharged to Home (01) Discharge Diagnoses: Guido ([facility])Zoe NP Sep 19, 2016 09:33
--- NOTE | 2016-09-20 06:07 | Discharge Summary 2 SIG ---
DATE OF ADMISSION: 09/05/2016 DATE OF DISCHARGE: 09/18/2016 REASON FOR HOSPITALIZATION: 26-year-old female with a history of lupus presented with complaint of the midsternal chest pain. The patient also reported increased swelling in her feet. She has associated shortness of breath. No back pain. No flank pain. No dysuria or frequency. No recent traveling. No abdominal pain. No fevers. No chills. Workup in the emergency room revealed elevated troponin, acute renal failure as well as hyperkalemia. The patient received aspirin. The emergency room doctor spoke with instructor watch assembly, heparin bolus and drip were hold at that time until cardiology would see the patient. The patient transferred to telemetry floor for further management. ADMITTING DIAGNOSES: Included: 1. Chest pain, r/o ACS 2. Lupus flare. 3. Acute renal failure. 4. Hyperkalemia. 5. Congestive heart failure. HOSPITAL STAY: Sand Screener Operator seen the patient. Per Cardiology, mild elevation in troponin likely secondary to renal failure as well as the description of chest pain is consistent with pleuritic chest pain consistent with pericarditis in setting of the acute exacerbation of subcutaneous lupus erythematosus. Chest pain resolved with the steroids and colchicine. Echocardiogram revealed preserved ejection fraction of 60% to 65%, right ventricular systolic pressure of 40 consistent with mild pulmonary hypertension and evidence of moderate tricuspid regurgitation. Pulmonary hypertension likely secondary to autoimmune disorder. Blood pressure was managed with calcium channel scooby and beta scooby. The patient required transfusion of packed red blood cells. The patient started on Epogen. Manager Of Software Development seen the patient. The patient is currently on Imuran. The renal function was not improving with IV hydration. Product Management Manager seen the patient. Hemodialysis catheter was placed, and the patient was started on hemodialysis. Supplemental oxygen and pulmonary toilet provided. Chest x-ray, prior to initiating hemodialysis revealed mild CHF. Per sample cutter, due to the high ESR and CRP, recommended renal biopsy and continue Imuran. The certified income tax preparer recommended to follow up with outpatient dialysis and avoid nephrotoxic. No further issues with the chest pain, resolved, again to reiterate - chest pain - pleuritic consistent with pericarditis and resolved with steroids and colchicine. The patient was stable for discharge. Follow up with the primary medical doctor, outpatient HD as arranged and sample cutter. . FINAL DIAGNOSES: Include: 1. Pleuritic chest pain, resolved. 2. Acute on chronic renal failure, new- started of hemodialysis. 3. 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 4. Likely lupus nephritis. 5. Hypertension. 6. Diastolic congestive heart failure. 7. Mild pulmonary hypertension 2 to autoimmune disease. 8. Moderate tricuspid regurgitation. 9. Anemia of chronic disease ,status post blood transfusion. 10.Elevated transaminase. DISCHARGE MEDICATIONS: see medications reconciliation list DISCHARGE INSTRUCTIONS: The patient discharged home. F Follow up with primary medical doctor , sample cutter and outpatient hemodialysis. Elias Claros M.D. I have been assigned to dictate discharge summary on this account and I was not involved in the patient's management. Zoe RodriguesSamaritan Medical Centerkeren N.PSamantha DR: ARIEL JOB#: [id number] CC: ROSIE
[2016-09-24 10:46] LABS: HEPATITIS BE ANTIGEN/CEDARS REACTIVE (NONREACTIVE)
== END 2016-09-18 10:55 | disposition home or self-care (01) | DRG 346 ==
LOC: ENRESERV → ENRESERVDT → ENRESERVTM → EMR 14:54 → EDBEDREQ 15:43 → 2W 15:45 → EDBEDREQ 15:55 → EDBEDREQTM 16:01 → EDBEDREQSVC 16:01 → EDBEDREQ 16:01 → 2E 23:54 → 3E 09-07 17:00
PROC: 30233N1 Transfusion of Nonautologous Red Blood Cells into Peripheral Vein, Percutaneous Approach (ICD-10-PCS; principal; 2016-09-09)
PROC: 05HM33Z Insertion of Infusion Device into Right Internal Jugular Vein, Percutaneous Approach (ICD-10-PCS; 2016-09-11)
PROC: B5131ZA Fluoroscopy of Right Jugular Veins using Low Osmolar Contrast, Guidance (ICD-10-PCS; 2016-09-11)
PROC: 5A1D60Z (ICD-10-PCS; 2016-09-12)
DX: M32.12 Pericarditis in systemic lupus erythematosus (principal); N17.9 Acute kidney failure, unspecified; I50.30 Unspecified diastolic (congestive) heart failure; N25.81 Secondary hyperparathyroidism of renal origin; D69.6 Thrombocytopenia, unspecified; I27.2 Other secondary pulmonary hypertension; E87.1 Hypo-osmolality and hyponatremia; E87.5 Hyperkalemia; I36.1 Nonrheumatic tricuspid (valve) insufficiency; M32.9 Systemic lupus erythematosus, unspecified; M32.14 Glomerular disease in systemic lupus erythematosus; D63.8 Anemia in other chronic diseases classified elsewhere; I12.9 Hypertensive chronic kidney disease with stage 1 through stage 4 chronic kidney disease, or unspecified chronic kidney disease; N18.9 Chronic kidney disease, unspecified; Z87.891 Personal history of nicotine dependence; D63.1 Anemia in chronic kidney disease
CPT/HCPCS: 36415; 71010; 76000; 76775; 80048; 80053; 80061; 81001; 82306; 82436; 82533; 82550; 82553; 82607; 82728; 82746; 82977; 83010; 83036; 83540; 83550; 83690; 83735; 83880; 83930; 83935; 83970; 84100; 84133; 84300; 84439; 84443; 84481; 84484; 84550; 84702; 85007; 85025; 85044; 85610; 85651; 85730; 86039; 86140; 86706; 86707; 86803; 86850; 86870; 86880; 86900; 86901; 86904; 86920; 87081; 89050; 93005; 93306; 94640; 94664; J2405

== ENCOUNTER 2016-11-05 12:33 | Inpatient (IN) | payer OTHER ==
[~2016-11-05] VITALS: Ht 170.2 cm; Wt 59.0 kg
[2016-11-05] VITALS (9 sets, daily range): BP systolic 178–197; BP diastolic 116–138
[~2016-11-05 12:33] MED LIST changes: +AMLODIPINE BES2.5 MG ORAL; +ASPIRIN81 MG ORAL; +LOPRESSOR25 M1 ORAL; +NIFEDICAL XL30 MG ORAL; +RENVELA800 MG ORAL
[2016-11-05] MEDS ORDERED: Morphine Sulfate 4mg/ml Inj IVP ONE (13:30)
[2016-11-05 14:19] LABS: BASOPHILS % (AUTO) 0.6 % (0.0-2.0); EOSINOPHILS % (AUTO) 0.2 % (0.0-3.0); LYMPHOCYTES % (AUTO) 18.5 % (20.0-45.0); MEAN CORPUSCULAR HEMOGLOBIN 27.7 PG (27.0-31.0); MEAN CORPUSCULAR HGB CONC 30.4 G/DL (32.0-36.0); MEAN CORPUSCULAR VOLUME 91 FL (80-99); MEAN PLATELET VOLUME 9.3 FL (6.5-10.1); MONOCYTES % (AUTO) 5.6 % (1.0-10.0); NEUTROPHILS % (AUTO) 75.1 % (45.0-75.0); PLATELET COUNT 182 K/UL (150-450); RED BLOOD COUNT 4.34 M/UL (4.20-5.40); RED CELL DISTRIBUTION WIDTH 16.2 % (11.6-14.8); WHITE BLOOD COUNT 8.6 K/UL (4.8-10.8)
[2016-11-05 14:35] LABS: ALBUMIN/GLOBULIN RATIO 0.5 (1.0-2.7); CALCIUM 9.5 mg/dL (8.6-10.2); CREATININE 8.4 mg/dL (0.5-0.9); GLOMERULAR FILTRATION RATE 6.9 mL/min (>60); POTASSIUM 5.3 mEQ/L (3.4-4.9); TOTAL PROTEIN 9.1 g/dL (6.6-8.7)
[2016-11-05 14:38] LABS: TROPONIN I 0.33 ng/mL (<=0.30)
--- NOTE | 2016-11-05 14:40 | Diagnostic Imaging Report ---
Indications: Chest pain, dizziness Technique: Portable AP chest Findings: Comparison: 08/28/16 Cardiomegaly, bilateral interstitial infiltrates, left and probable right basal pleural effusion is again noted. Right-sided hemodialysis catheter now in place. No other interval change. IMPRESSION: Findings most compatible with congestive heart failure, persistent versus recurrent since previous scan Interval placement of hemodialysis catheter
[2016-11-05 14:45] LABS: CKMB 38.6 ng/mL (< 3.8)
[2016-11-05] MEDS: Nitroglycerin Subl 0.4mg tab (Bottle Of 25) SL PRN ×2 (14:56→15:49)
[2016-11-05] MEDS ORDERED: LORazepam Inj 2mg/ml 1ml IV ONE (15:45)
--- NOTE | 2016-11-05 17:08 | Emergency Room Report ---
History of Present Illness General Chief Complaint: Flu Like Symptoms Source: Patient Present Illness HPI 26-year-old female presents ED for evaluation. Patient states for 2 days she's had bodyaches and chills. Pain is throbbing, 8/10, nonradiating. No other aggravating or relieving factors. Patient states that she gets dialysis Wednesdays and Fridays. missed dialysis today because of her pain. Hypertensive on arrival. Denies chest pain. Denies drug use. No other aggravating or relieving factors. Denies any other associated symptom Allergies: Coded Allergies: SULFA (SULFONAMIDE ANTIBIOTICS) (Verified Allergy, Mild, 05/27/15) Patient History Past Medical History: HTN, renal disease, dialysis Past Surgical History: none Pertinent Family History: none Social History: Denies: alcohol use, drug use, smoking Last Menstrual Period: 2013 Now: No Immunizations: UTD Reviewed Nursing Documentation: PMH: Agreed, PSxH: Agreed Nursing Documentation-PMH Hx Cardiac Problems: Yes - Raynaud's disease Hx Hypertension: Yes Hx Cancer: No Hx Gastrointestinal Problems: No Hx Dialysis: Yes - Kidney failure Hx Neurological Problems: No Review of Systems All Other Systems: negative except mentioned in HPI Physical Exam Vital Signs Date Time Temp Pulse Resp B/P Pulse Ox O2 Delivery O2 Flow Rate FiO2 11/05/16 12:27 98.6 92 16 186/124 99 Nasal Cannula 4.0 Sp02 EP Interpretation: reviewed, normal General Appearance: alert, GCS 15, non-toxic, mild distress Head: normocephalic, atraumatic Eyes: bilateral eye PERRL, bilateral eye normal inspection ENT: hearing grossly normal, normal pharynx, no angioedema, normal voice Neck: full range of motion, supple/symm/no masses Respiratory: chest non-tender, lungs clear, normal breath sounds, speaking full sentences Cardiovascular #1: regular rate, rhythm, no edema Cardiovascular #2: 2+ carotid (R), 2+ carotid (L), 2+ radial (R), 2+ radial (L) , 2+ dorsalis pedis (R), 2+ dorsalis pedis (L) Gastrointestinal: normal bowel sounds, non tender, soft, non-distended, no guarding, no rebound Rectal: deferred Genitourinary: normal inspection, no CVA tenderness Musculoskeletal: back normal, gait/station normal, normal range of motion, non- tender Neurologic: alert, oriented x3, responsive, motor strength/tone normal, sensory intact, speech normal Psychiatric: judgement/insight normal, memory normal, mood/affect normal, no suicidal/homicidal ideation Reflexes: 3+ bicep (R), 3+ bicep (L), 3+ tricep (R), 3+ tricep (L), 3+ knee (R) , 3+ knee (L) Skin: normal color, no rash, warm/dry, well hydrated Lymphatic: no adenopathy Procedures Critical Care Time Critical Care Time i. I feel this is a highly complex case requiring extensive working including EKG/Rhythm strip, Xray/CT/US, Blood/urine lab work, repeat exams while in ED, and administration of strong opiates/narcotics for pain control, admission to hospital or close patient follow up. Total time: 30 min bedside evaluation and treatment excludes procedures (EKG). Reason for critical care: Hypertensive urgency, elevated troponin Possible complications: hypotension, hypertension, NE, shock, arrhythmias, metabolic acidosis, end organ damage, respiratory failure. Interventions: Labs, EKG, chest x-ray, nitroglycerin, Ativan, Lopressor, aspirin Course: Patient brought in with bodyaches, hypertensive. missed dialysis today. Troponin elevated. History of troponin leak. EKG shows no ischemic changes. Given aspirin. Given nitroglycerin x3. Given Lopressor Consultations: nursing staff, EMS, family Performed by: Dr Hooper Tolerated well condition = serious j. because of unstable vital signs this patient had a condition that could potentially threaten life or limb. I feel this is a critical patient who required my full attention while patient was considered critical. Total Critical Care Time excluding procedures was greater than 35 minutes Medical Decision Making Diagnostic Impression: Primary Impression: Hypertensive urgency Additional Impressions: ESRD on dialysis Elevated troponin ER Course Hospital Course 26-year-old female presents ED complaining of bodyaches, missed dialysis today, hypertensive Differential diagnoses include: NE/unstable angina, hyperkalemia, hypertensive urgency Clinical course Patient placed on stretcher. on cardiac surgeon. After initial history and physical I ordered labs, EKG, chest x-ray, pain meds labs reviewed- no leukocytosis, hemoglobin/hematocrit stable, BUN/Cr elevated, trop 0.33 Chest x-ray- cardiomegaly. dialysis catheter in chest EKG - NSR, no acute ischemic changes Patient has been admitted here in the past. Documented have troponin leak. Given aspirin. Given nitroglycerin x3. Given Lopressor for blood pressure control Case discussed with Dr. Claros and he agreed to accept the patient to his service for further care and support I. I feel this is a highly complex case requiring extensive working including EKG/Rhythm strip, Xray/CT/US, Blood/urine lab work, repeat exams while in ED, and administration of strong opiates/narcotics for pain control, admission to hospital or close patient follow up. Diagnosis - hypertensive urgency, ESRD on dialysis, elevated troponin admitted to telemetry in serious condition Labs Test 11/05/16 14:00 White Blood Count 8.6 K/UL (4.8-10.8) Red Blood Count 4.34 M/UL (4.20-5.40) Hemoglobin 12.0 G/DL (12.0-16.0) Hematocrit 39.6 % (37.0-47.0) Mean Corpuscular Volume 91 FL (80-99) Mean Corpuscular Hemoglobin 27.7 PG (27.0-31.0) Mean Corpuscular Hemoglobin Concent 30.4 G/DL (32.0-36.0) Red Cell Distribution Width 16.2 % (11.6-14.8) Platelet Count 182 K/UL (150-450) Mean Platelet Volume 9.3 FL (6.5-10.1) Neutrophils (%) (Auto) 75.1 % (45.0-75.0) Lymphocytes (%) (Auto) 18.5 % (20.0-45.0) Monocytes (%) (Auto) 5.6 % (1.0-10.0) Eosinophils (%) (Auto) 0.2 % (0.0-3.0) Basophils (%) (Auto) 0.6 % (0.0-2.0) Sodium Level 133 mEQ/L (135-145) Potassium Level 5.3 mEQ/L (3.4-4.9) Chloride Level 88 mEQ/L (98-107) Carbon Dioxide Level 30 mEQ/L (20-30) Anion Gap 15 (5-15) Blood Urea Nitrogen 45 mg/dL (7-23) Creatinine 8.4 mg/dL (0.5-0.9) Estimat Glomerular Filtration Rate 6.9 mL/min (>60) Glucose Level 72 mg/dL (74-106) Lactic Acid Level 1.10 mmol/L (0.66-2.22) Calcium Level 9.5 mg/dL (8.6-10.2) Total Bilirubin 0.3 mg/dL (0.0-1.2) Aspartate Amino Transf (AST/SGOT) 70 U/L (5-40) Alanine Aminotransferase (ALT/SGPT) 34 U/L (3-33) Alkaline Phosphatase 83 U/L (35-104) Total Creatine Kinase 1820 U/L (26-140) Creatine Kinase MB 38.6 ng/mL (< 3.8) Creatine Kinase MB Relative Index 2.1 Troponin I 0.33 ng/mL (<=0.30) Pro-B-Type Natriuretic Peptide 90021 pg/mL (0-125) Total Protein 9.1 g/dL (6.6-8.7) Albumin 3.2 g/dL (3.5-5.2) Globulin 5.9 g/dL Albumin/Globulin Ratio 0.5 (1.0-2.7) EKG Diagnostic Results Rate: normal Rhythm: NSR ST Segments: no acute changes ASA given to the pt in ED: No Rhythm Strip Diag. Results EP Interpretation: yes Rhythm: NSR, no PVC's, no ectopy Chest X-Ray Diagnostic Results EP Interpretation: No Findings: no pneumothorax, no acute cardiopulmonary disease, other - permacath in place. cardiomegaly Number of Views: 1 Last Vital Signs Date Time Temp Pulse Resp B/P Pulse Ox O2 Delivery O2 Flow Rate FiO2 11/05/16 15:49 189/135 11/05/16 14:28 102 16 99 Nasal Cannula 4.0 11/05/16 12:27 98.6 Status: improved Disposition: ADMITTED INPATIENT Condition: Serious Referrals: [facility],REFERR[facility] (PCP) NELDA HOOPER M.D. Nov 05, 2016 17:08
[2016-11-05] MEDS: Metoprolol 5mg/5ml Inj IVP SCH ×3 (17:14→17:47)
[2016-11-05] MEDS ORDERED: Miralax 17gm pkt ORAL PRN (17:15)
[2016-11-05] MEDS ORDERED: DuoNeb 0.5-3(2.5)mg/3ml neb HHN PRN (17:15)
[2016-11-05] MEDS ORDERED: Enalaprilat 2.5mg/2ml Inj IV PRN (17:15)
[2016-11-05] MEDS ORDERED: Labetalol 5mg/ml 20ml vial IV PRN (17:15)
[2016-11-05] MEDS ORDERED: Mylanta II UD 30ml ORAL PRN (17:15)
[2016-11-05] MEDS ORDERED: Zolpidem 5mg tab ORAL PRN (17:15)
[2016-11-05] MEDS ORDERED: Calcium Gluconate 1gm/10ml vial IVP ONE (17:15)
--- NOTE | 2016-11-05 18:08 | Consultation ---
Consult Note Consult Note fever , chills , vomiting 26-year-old female presents ED for evaluation. Patient states for 2 days she's had bodyaches and chills. Pain is throbbing, 8/10, nonradiating. No other aggravating or relieving factors. Patient states that she gets dialysis Wednesdays and Fridays. missed dialysis today because of her pain. Hypertensive on arrival. Denies chest pain. Denies drug use. No other aggravating or relieving factors. Denies any other associated symptom SULFA (SULFONAMIDE ANTIBIOTICS) (Verified Allergy, Mild, 05/27/15) Past Medical History: HTN, renal disease, dialysis Past Surgical History: none Pertinent Family History: none Social History: Denies: alcohol use, drug use, smoking Last Menstrual Period: 2013 Hx Cardiac Problems: Yes - Raynaud's disease Hx Hypertension: Yes Hx Cancer: No Hx Gastrointestinal Problems: No Hx Dialysis: Yes - Kidney failure Hx Neurological Problems: No Interviewed , examined , data reviewed . Assessment/Plan Status: 1) ESRD on HD (2) Hyperkalemia on presentation (3) h/o Non-STEMI (non-ST elevated myocardial infarction) (4) SLE / Lupus , RA (5) CHF (congestive heart failure) (6) HTN OOC / Emergency (7) ? Line sepsis Plan: Per orders- BP control- Cultures- Vanco- adjust bp meds with PRNs Reglan for vomiting- IV Protonix Per cardiology JAMES MONTES Nov 05, 2016 18:08
--- NOTE | 2016-11-05 18:39 | Cardiology Progress Note ---
Assessment/Plan Assessment/Plan htn urgency chf esrd on hd sle ra fibrmylagia abn trop may be related to skeletal musch injury ekg min chage for prio ? lead placment need icu for bp contol with iv meds rosalina need laron meds as well as dialysis echo repat trop [id number] Objective Last 24 Hour Vital Signs Date Time Temp Pulse Resp B/P Pulse Ox O2 Delivery O2 Flow Rate FiO2 11/05/16 18:33 98.6 11/05/16 18:27 108 16 178/132 97 Room Air 11/05/16 17:47 101 181/132 11/05/16 17:30 102 187/133 11/05/16 17:14 111 186/132 11/05/16 17:05 111 16 186/138 95 Room Air 11/05/16 15:49 189/135 11/05/16 14:56 196/135 11/05/16 14:28 102 16 197/135 99 Nasal Cannula 4.0 11/05/16 13:14 92 16 Nasal Cannula 4.0 11/05/16 12:27 98.6 92 16 186/124 99 Nasal Cannula 4.0 Laboratory Tests Test 11/05/16 14:00 White Blood Count 8.6 K/UL (4.8-10.8) Red Blood Count 4.34 M/UL (4.20-5.40) Hemoglobin 12.0 G/DL (12.0-16.0) Hematocrit 39.6 % (37.0-47.0) Mean Corpuscular Volume 91 FL (80-99) Mean Corpuscular Hemoglobin 27.7 PG (27.0-31.0) Mean Corpuscular Hemoglobin Concent 30.4 G/DL (32.0-36.0) L Red Cell Distribution Width 16.2 % (11.6-14.8) H Platelet Count 182 K/UL (150-450) Mean Platelet Volume 9.3 FL (6.5-10.1) Neutrophils (%) (Auto) 75.1 % (45.0-75.0) H Lymphocytes (%) (Auto) 18.5 % (20.0-45.0) L Monocytes (%) (Auto) 5.6 % (1.0-10.0) Eosinophils (%) (Auto) 0.2 % (0.0-3.0) Basophils (%) (Auto) 0.6 % (0.0-2.0) Sodium Level 133 mEQ/L (135-145) L Potassium Level 5.3 mEQ/L (3.4-4.9) H Chloride Level 88 mEQ/L (98-107) L Carbon Dioxide Level 30 mEQ/L (20-30) Anion Gap 15 (5-15) Blood Urea Nitrogen 45 mg/dL (7-23) H Creatinine 8.4 mg/dL (0.5-0.9) H Estimat Glomerular Filtration Rate 6.9 mL/min (>60) Glucose Level 72 mg/dL (74-106) L Lactic Acid Level 1.10 mmol/L (0.66-2.22) Calcium Level 9.5 mg/dL (8.6-10.2) Total Bilirubin 0.3 mg/dL (0.0-1.2) Aspartate Amino Transf (AST/SGOT) 70 U/L (5-40) H Alanine Aminotransferase (ALT/SGPT) 34 U/L (3-33) H Alkaline Phosphatase 83 U/L (35-104) Total Creatine Kinase 1820 U/L (26-140) H Creatine Kinase MB 38.6 ng/mL (< 3.8) H Creatine Kinase MB Relative Index 2.1 Troponin I 0.33 ng/mL (<=0.30) *H Pro-B-Type Natriuretic Peptide 01491 pg/mL (0-125) H Total Protein 9.1 g/dL (6.6-8.7) H Albumin 3.2 g/dL (3.5-5.2) L Globulin 5.9 g/dL Albumin/Globulin Ratio 0.5 (1.0-2.7) L Microbiology Date/Time Source Procedure Growth Status 11/05/16 14:00 Nasal Nares Influenza Types A,B Antigen (KIAA) - Final Complete RADHA LEONARD Nov 05, 2016 18:39
[2016-11-05] MEDS ORDERED: Sodium Polystyrene Sulfonate 15gm Powder ORAL ONE (19:00)
[2016-11-05] MEDS ORDERED: Metoprolol 25mg tab ORAL SCH (21:00)
[2016-11-05] MEDS ORDERED: Minoxidil 2.5mg tab ORAL PRN (21:00)
[2016-11-05] MEDS ORDERED: Metoclopramide 10mg/2ml Inj IVP PRN (21:15)
[2016-11-05] MEDS ORDERED: Lisinopril 10mg tab ORAL ONE (21:30)
[2016-11-05] MEDS ORDERED: Vancomycin 1 GM in D5W 275 ML IVPB ONE (22:00)
[2016-11-05] MEDS: Pantoprazole Inj IVP SCH (22:14)
[2016-11-05] MEDS: Carvedilol 25mg Tab ORAL SCH (22:15)
[2016-11-05] MEDS: cloNIDine 0.2mg Tab ORAL SCH (22:15)
[2016-11-05] MEDS: Heparin 5000 units/ml inj SUBQ SCH (22:16)
--- NOTE | 2016-11-05 23:45 | History and Physical ---
History of Present Illness General Date patient seen: Nov 05, 2016 Reason for Hospitalization: Flu Like Symptoms Present Illness HPI 26-year-old female with hx of ESRF, HTN, on HD presented to ED with CC of body-aches and chills. Pain is throbbing, 8/10, nonradiating. She gets dialysis Wednesdays and Fridays. missed dialysis today because of her pain. Hypertensive on arrival. Her SBP was 190 on arrival, Denies chest pain. Her troponin was high as well. She is admitted to ICU for hypertensive crisis and pulmonary edema. Allergies: Coded Allergies: SULFA (SULFONAMIDE ANTIBIOTICS) (Verified Allergy, Mild, 05/27/15) Medication History Scheduled Amlodipine Besylate* (Amlodipine Besylate*), 5 MG ORAL DAILY, (Reported) Aspirin* (Aspirin*), 162 MG ORAL DAILY Azathioprine (Azathioprine), 50 MG PO DAILY, (Reported) Benazepril Hcl* (Benazepril Hcl*), 10 MG ORAL DAILY, (Reported) Cholecalciferol (Vitamin D3)* (Vitamin D*), 5,000 UNIT ORAL DAILY, (Reported) Diclofenac Sod* (Voltaren*), 75 MG ORAL DAILY, (Reported) Furosemide* (Lasix*), 20 MG ORAL DAILY, (Reported) Hydrochlorothiazide* (Hydrochlorothiazide*), 12.5 MG ORAL DAILY, (Reported) Hydroxychloroquine Sulfate (Hydroxychloroquine Sulfate), 200 MG PO BID, ( Reported) Losartan Potassium* (Losartan Potassium*), 50 MG ORAL DAILY, (Reported) Metoprolol Tartrate (Metoprolol Tartrate), 25 MG ORAL Q12HR Nifedipine Xl* (Procardia Xl*), 30 MG ORAL DAILY Potassium Chloride* (K-Dur*), 20 MEQ ORAL DAILY, (Reported) Prednisone* (Prednisone*), 10 MG ORAL DAILY, (Reported) Ranitidine Hcl* (Zantac*), 150 MG ORAL TWICE A DAY Sevelamer Carbonate (Renvela), 3,200 MG ORAL THREE TIMES A DAY Scheduled PRN Acetaminophen With Codeine (T#3) (Tylenol #3 Tab*), 1 TAB ORAL Q4H PRN for For Pain Discontinued Medications Cyclobenzaprine Hcl* (Flexeril*), 10 MG ORAL BID Discontinued Reason: Therapy completed Ferrous Sulfate* (Ferrous Sulfate*), 325 MG ORAL TWICE A DAY Discontinued Reason: Therapy completed Ibuprofen* (Motrin*), 400 MG ORAL Q8H PRN for For Pain Discontinued Reason: Therapy completed Patient History Healthcare decision maker Resuscitation status Chemical (Meds Only) Advanced Directive on File Past Medical/Surgical History Past Medical/Surgical History: (1) Lupus (2) Anemia (3) ESRD on dialysis Review of Systems All Other Systems: negative except mentioned in HPI Physical Exam General Appearance: WD/WN Lines, tubes and drains: peripheral HEENT: normocephalic Neck: non-tender, normal alignment Respiratory/Chest: chest wall non-tender Cardiovascular/Chest: normal peripheral pulses, normal rate Abdomen: normal bowel sounds Genitourinary/Rectal: normal genital exam Last 24 Hour Vital Signs Date Time Temp Pulse Resp B/P Pulse Ox O2 Delivery O2 Flow Rate FiO2 11/05/16 23:00 109 15 184/129 98 Room Air 11/05/16 22:17 178/126 11/05/16 22:15 178/126 11/05/16 22:15 110 178/126 11/05/16 22:15 110 178/126 11/05/16 22:13 99.3 110 15 178/126 98 Room Air 11/05/16 22:00 110 15 178/116 98 Room Air 11/05/16 21:49 110 11/05/16 21:40 99.3 107 15 186/134 98 Room Air 11/05/16 21:28 101 16 179/134 96 Room Air 11/05/16 20:31 98.6 102 16 178/130 96 Room Air 11/05/16 19:48 99 16 181/128 96 Room Air 11/05/16 18:33 98.6 11/05/16 18:27 108 16 178/132 97 Room Air 11/05/16 17:47 101 181/132 11/05/16 17:30 102 187/133 11/05/16 17:14 111 186/132 11/05/16 17:05 111 16 186/138 95 Room Air 11/05/16 15:49 189/135 11/05/16 14:56 196/135 11/05/16 14:28 102 16 197/135 99 Nasal Cannula 4.0 11/05/16 13:14 92 16 Nasal Cannula 4.0 2/27/17 12:27 98.6 92 16 186/124 99 Nasal Cannula 4.0 Laboratory Tests Test 11/05/16 14:00 White Blood Count 8.6 K/UL (4.8-10.8) Red Blood Count 4.34 M/UL (4.20-5.40) Hemoglobin 12.0 G/DL (12.0-16.0) Hematocrit 39.6 % (37.0-47.0) Mean Corpuscular Volume 91 FL (80-99) Mean Corpuscular Hemoglobin 27.7 PG (27.0-31.0) Mean Corpuscular Hemoglobin Concent 30.4 G/DL (32.0-36.0) L Red Cell Distribution Width 16.2 % (11.6-14.8) H Platelet Count 182 K/UL (150-450) Mean Platelet Volume 9.3 FL (6.5-10.1) Neutrophils (%) (Auto) 75.1 % (45.0-75.0) H Lymphocytes (%) (Auto) 18.5 % (20.0-45.0) L Monocytes (%) (Auto) 5.6 % (1.0-10.0) Eosinophils (%) (Auto) 0.2 % (0.0-3.0) Basophils (%) (Auto) 0.6 % (0.0-2.0) Sodium Level 133 mEQ/L (135-145) L Potassium Level 5.3 mEQ/L (3.4-4.9) H Chloride Level 88 mEQ/L (98-107) L Carbon Dioxide Level 30 mEQ/L (20-30) Anion Gap 15 (5-15) Blood Urea Nitrogen 45 mg/dL (7-23) H Creatinine 8.4 mg/dL (0.5-0.9) H Estimat Glomerular Filtration Rate 6.9 mL/min (>60) Glucose Level 72 mg/dL (74-106) L Lactic Acid Level 1.10 mmol/L (0.66-2.22) Calcium Level 9.5 mg/dL (8.6-10.2) Total Bilirubin 0.3 mg/dL (0.0-1.2) Aspartate Amino Transf (AST/SGOT) 70 U/L (5-40) H Alanine Aminotransferase (ALT/SGPT) 34 U/L (3-33) H Alkaline Phosphatase 83 U/L (35-104) Total Creatine Kinase 1820 U/L (26-140) H Creatine Kinase MB 38.6 ng/mL (< 3.8) H Creatine Kinase MB Relative Index 2.1 Troponin I 0.33 ng/mL (<=0.30) *H Pro-B-Type Natriuretic Peptide 87599 pg/mL (0-125) H Total Protein 9.1 g/dL (6.6-8.7) H Albumin 3.2 g/dL (3.5-5.2) L Globulin 5.9 g/dL Albumin/Globulin Ratio 0.5 (1.0-2.7) L Microbiology Date/Time Source Procedure Growth Status 11/05/16 14:00 Nasal Nares Influenza Types A,B Antigen ([facility]) - Final Complete Height (Feet): 5 Height (Inches): 7.00 Weight (Pounds): 130 Medications Current Medications Medications (Trade) Dose Ordered Sig/Brad Route PRN Reason Start Time Stop Time Status Last Admin Dose Admin Acetaminophen (Tylenol) 650 mg Q4H PRN ORAL fever 11/05/16 17:15 12/05/16 17:14 Albuterol/ Ipratropium (DuoNeb 0.5-3(2.5)mg/3ml) 3 ml Q6H PRN HHN dyspnea 11/05/16 17:15 11/10/16 17:14 Carvedilol (Coreg) 25 mg Q12HR ORAL 11/05/16 22:00 12/05/16 21:59 11/05/16 22:15 Clonidine HCl (Catapres) 0.2 mg Q8HR ORAL 11/05/16 22:00 12/05/16 21:59 11/05/16 22:15 Dextrose (Dextrose 50%) STAT PRN IV Hypoglycemia 11/05/16 17:15 12/05/16 17:14 Heparin Sodium (Porcine) (Heparin 5000 units/ml) 5,000 units EVERY 12 HOURS SUBQ 11/05/16 22:00 12/05/16 21:59 11/05/16 22:16 Lisinopril (Zestril) 10 mg DAILY ORAL 11/06/16 09:00 12/06/16 08:59 Metoclopramide HCl (Reglan) 10 mg Q6H PRN IVP Nausea & Vomiting 11/05/16 21:15 12/05/16 21:14 Minoxidil (Loniten) 2.5 mg Q4H PRN ORAL BP over 170 syst 11/05/16 21:00 12/05/16 20:59 Morphine Sulfate (Morphine Sulfate) 1 mg Q4H PRN IVP For Pain 11/05/16 17:15 11/12/16 17:14 Nifedipine (Procardia XL) 60 mg Q12HR ORAL 11/05/16 22:00 12/05/16 21:59 11/05/16 22:15 Nitroglycerin (Ntg) 0.4 mg Q5M PRN SL Prn Chest Pain 11/05/16 15:00 11/05/16 15:49 Pantoprazole (Protonix) 40 mg EVERY 12 HOURS IVP 11/05/16 21:30 12/05/16 21:29 11/05/16 22:14 Polyethylene Glycol (Miralax) 17 gm HSPRN PRN ORAL Constipation 11/05/16 17:15 12/05/16 17:14 Sevelamer Carbonate (Renvela) 3,200 mg THREE TIMES A DAY ORAL 11/05/16 22:00 12/05/16 21:59 11/05/16 22:15 Zolpidem Tartrate (Ambien) 5 mg HSPRN PRN ORAL Insomnia 11/05/16 17:15 12/05/16 17:14 Assessment/Plan Problem List: (1) Hypertensive urgency ICD Codes: I16.0 - Hypertensive urgency SNOMED: 145250365 (2) ESRD on dialysis ICD Codes: N18.6 - End stage renal disease; Z99.2 - Dependence on renal dialysis SNOMED: 204342693 (3) Anemia (4) Lupus ICD Codes: M32.9 - Systemic lupus erythematosus, unspecified SNOMED: 52171248 Respiratory: monitor respiratory rate, adjust FIO2 Cardiac: continue to monitor HR/BP Renal: F/U I&O, other - HD by nephrology Infectious Disease: check cultures Gastrointestinal: continue feedings/current rate Endocrine: monitor blood sugar Hematologic: monitor H/H, transfuse if hgb<8.5 Neurologic: PRN Ativan, PRN Morphine, keep patient comfortable Affect: PRN ativan Disposition: keep in ICU Notes Reviewed: cardio, renal Discussed with: nurses, consultants, rn field case manager PANCHITO BARBOSA Nov 05, 2016 23:45
[2016-11-06] VITALS (24 sets, daily range): BP systolic 104–176; BP diastolic 62–123
--- NOTE | 2016-11-06 00:18 | Consultation ---
DATE OF CONSULTATION: 11/05/2016 CARDIOLOGY CONSULTATION: REFERRING PHYSICIAN: Elias Claros M.D. REASON FOR REFERRAL: Abnormal cardiac enzymes. HISTORY OF PRESENT ILLNESS: This is a 26-year-old female with history of lupus, rheumatoid arthritis, and end-stage renal disease, secondary to dialysis who presented to the hospital not being able to take the dialysis because of fevers, body aches, pains, flu-like symptoms ,sore throat, cough nonproductive, and some shortness of breath as well. She has had shortness of breath on exertion for the past two weeks. no PND. She is unable to lay down flat because of pain, and she does not have any dizziness or lightheadedness on standing as well . No significant palpitation. PAST MEDICAL HISTORY: Positive for high blood pressures, difficult to control, no history of heart attack. She has history of congestive heart failure. No cancer, stroke, hepatitis, or tuberculosis. No history of asthma or emphysema. No ulcers. End-stage renal disease, on hemodialysis. No liver problems. No thyroid problems. She has had history of anemia and she has history of rheumatoid arthritis and lupus as well as fibromyalgia as well. There is no blood clots. There is no narrowing of vessels. A few months ago, she was hospitalized and she was seen by o and m supervisor was to perform a stress test, but she never did. She lost the paper, but she was told that she has congestive heart failure. ALLERGIES: She has no known drug allergies. SOCIAL HISTORY: She does not smoke. Does not drink. She quit smoking one or two years ago. She occasionally drinks alcoholic beverages. REVIEW OF SYSTEMS: Gastrointestinal: Negative. Genitourinary: Negative. Pulmonary: Positive for coughing. Constitutional: Positive for fevers. Neurologic: Negative. Musculoskeletal: Body aches and pains. PHYSICAL EXAMINATION: GENERAL: Shows to be young female, in no apparent respiratory distress. NECK: Supple. There is no jugular venous distention. LUNGS: Bilateral crackles noted in the bases. CARDIAC: Regular rate and rhythm. No heaves or thrills noted. ABDOMEN: Soft and nontender. Positive bowel sounds. EXTREMITIES: Trace edema in the lower extremities bilaterally. NEUROLOGIC: She is awake, alert, and responsive, in no apparent respiratory distress. LABORATORY VALUES: White count of 8.6 with a hemoglobin 12 and platelet count of 182,000. Sodium is 132, potassium 5.3, chloride 88, bicarbonate 30, BUN 45, creatinine 8.4, and glucose 72. Lactic acid 1.1. Calcium 9.5. Her AST and ALT 70 and 34. Her total CK was 1820 and CK-MB of 38. Troponin is 0.33, she has had levels of 0.35, 0.50, 0.57 on previous occasions. ProBNP is 47,000, this is the highest she has had previously in September of this year, 11,000 previously as well. EKG shows borderline sinus tachycardia. There is some T-wave inversion in I and aVL. There is delay in R-wave progression. These EKG changes are more pronounced than she has had on a prior EKG at [facility], which had basically similar pattern with QS waves in V1 through V3 and now extending to V4. I suspect this may be actually lead placement in origin. ASSESSMENT: 1. Upper respiratory tract infection. 2. Congestive heart failure probably diastolic in origin. 3. History of lupus erythematosus. 4. Rheumatoid arthritis. 5. Fibromyalgia. 6. End-stage renal disease, on hemodialysis. 7. Abnormal cardiac enzymes likely secondary to renal failure and cannot exclude a component of myopathy skeletal in origin with elevated CPK and history of rheumatologic abnormalities. PLAN: Dr. Claros, this patient was seen in cardiac consultation, reviewed and concur with getting dialysis and she failed the dialysis session today. She should be back on some medication for blood pressure control which is quite elevated at time of my evaluation in the emergency room with blood pressures anywhere between 178/132 to 186/138. She should be possibly on some intravenous beta-blockers in the intensive care unit for control of blood pressure. At this time, dialysis may help with blood pressure as well. An echocardiogram will be ordered. However, the last echocardiogram she had done here at [place] on 09/08/2016 showed ejection fraction of 60% to 65%. No significant valvular lesions with mild pulmonary hypertension. Her cardiac enzymes will be repeated. Her troponins have been minimally elevated for some time now including one at [facility] data, which I reviewed, minimal change in the EKG. Echocardiogram may also be helpful to make sure there is no cardiomyopathy that may have ensued in the interim, which I doubt. Rigoberto Kelsey M.D. DR: Jaleel JOB#: [id number] CC:
[2016-11-06] MEDS: Morphine Sulfate 2mg/ml Inj IVP PRN ×2 (01:31→10:08)
[2016-11-06] MEDS: cloNIDine 0.2mg Tab ORAL SCH (05:31)
[2016-11-06 06:05] LABS: BASOPHILS % (AUTO) 0.7 % (0.0-2.0); EOSINOPHILS % (AUTO) 1.4 % (0.0-3.0); LYMPHOCYTES % (AUTO) 16.2 % (20.0-45.0); MEAN CORPUSCULAR VOLUME 90 FL (80-99); MONOCYTES % (AUTO) 4.2 % (1.0-10.0); NEUTROPHILS % (AUTO) 77.6 % (45.0-75.0); PLATELET COUNT 208 K/UL (150-450); RED BLOOD COUNT 4.36 M/UL (4.20-5.40); RED CELL DISTRIBUTION WIDTH 15.9 % (11.6-14.8); WHITE BLOOD COUNT 7.6 K/UL (4.8-10.8)
[2016-11-06 06:34] LABS: HEMOGLOBIN A1C 3.9 % (< 6.0)
[2016-11-06 06:51] LABS: ALBUMIN/GLOBULIN RATIO 0.4 (1.0-2.7); CALCIUM 9.4 mg/dL (8.6-10.2); CREATININE 9.4 mg/dL (0.5-0.9); GLOMERULAR FILTRATION RATE 6.1 mL/min (>60); POTASSIUM 5.6 mEQ/L (3.4-4.9); THYROID STIMULATING HORMONE 1.35 uIU/mL (0.300-4.500); TOTAL PROTEIN 8.4 g/dL (6.6-8.7)
--- NOTE | 2016-11-06 08:50 | Pulmonolgy Critical Care Note ---
Critical Care - Asmt/Plan Problems: (1) Non-ST elevation (NSTEMI) myocardial infarction (2) Anemia (3) ESRD on dialysis (4) Hypertensive urgency (5) Lupus (systemic lupus erythematosus) Respiratory: monitor respiratory rate, CXR Cardiac: continue to monitor HR/BP Renal: F/U I&O, other - HD Infectious Disease: check cultures, continue antibiotics Gastrointestinal: continue feedings/current rate Endocrine: monitor blood sugar, continue sliding scale insulin Hematologic: monitor H/H, transfuse if hgb<8.5 Neurologic: PRN Ativan, keep patient comfortable Affect: PRN ativan Notes Reviewed: lead pony 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, 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, renal Discussed with: nurses, consultants, bilingual case managerglobal sourcing manager - Objective Last 24 Hour Vital Signs Date Time Temp Pulse Resp B/P Pulse Ox O2 Delivery O2 Flow Rate FiO2 11/06/16 07:43 107 16 Room Air 21 11/06/16 07:00 107 27 104/72 98 Room Air 11/06/16 06:00 107 22 140/92 98 Room Air 11/06/16 05:40 98.8 113 20 140/90 99 Room Air 11/06/16 05:40 Room Air 11/06/16 05:31 148/101 11/06/16 05:00 112 25 136/90 95 Room Air 11/06/16 04:00 98.1 107 20 131/91 98 Room Air 11/06/16 04:00 106 11/06/16 03:00 103 25 132/92 94 Room Air 11/06/16 02:00 99 23 145/109 93 Room Air 11/06/16 01:00 102 27 160/119 95 Room Air 11/06/16 00:09 176/123 11/06/16 00:00 98.3 102 27 176/123 98 Room Air 11/06/16 00:00 114 11/05/16 23:00 109 15 184/129 98 Room Air 11/05/16 22:17 178/126 11/05/16 22:15 178/126 11/05/16 22:15 110 178/126 11/05/16 22:15 110 178/126 11/05/16 22:13 99.3 110 15 178/126 98 Room Air 11/05/16 22:00 110 15 178/116 98 Room Air 11/05/16 21:49 110 11/05/16 21:40 99.3 107 15 186/134 98 Room Air 11/05/16 21:28 101 16 179/134 96 Room Air 11/05/16 20:31 98.6 102 16 178/130 96 Room Air 11/05/16 19:48 99 16 181/128 96 Room Air 11/05/16 18:33 98.6 11/05/16 18:27 108 16 178/132 97 Room Air 11/05/16 17:47 101 181/132 11/05/16 17:30 102 187/133 11/05/16 17:14 111 186/132 11/05/16 17:05 111 16 186/138 95 Room Air 11/05/16 15:49 189/135 11/05/16 14:56 196/135 11/05/16 14:28 102 16 197/135 99 Nasal Cannula 4.0 11/05/16 13:14 92 16 Nasal Cannula 4.0 11/05/16 12:27 98.6 92 16 186/124 99 Nasal Cannula 4.0 Status: awake Condition: improving HEENT: atraumatic, normocephalic Neck: full ROM Lungs: clear Heart: HR/BP stable, regular Abdomen: soft, non-tender Extremities: no C/C/E, edema Decubiti: location Micro: Microbiology Date/Time Source Procedure Growth Status 11/05/16 14:00 Nasal Nares Influenza Types A,B Antigen (KAIA) - Final Complete Accucheck: 81 Critical Care - Subjective ROS Limited/Unobtainable: No ICU Day: c/o headache Condition: critical EKG Rhythm: Sinus Rhythm FI02: 21 Sputum Amount: Small Secretions: small I&O: Intake and Output 11/05/16 11/06/16 19:00 07:00 Intake Total 0 ml 450 ml Output Total 0 ml Balance 0 ml 450 ml Intake Oral 0 ml 390 ml IV Total 60 ml Output Urine Total 0 ml CXR: pulmonary edema Labs: Laboratory Tests Test 11/05/16 14:00 11/06/16 05:20 White Blood Count 8.6 K/UL (4.8-10.8) 7.6 K/UL (4.8-10.8) Red Blood Count 4.34 M/UL (4.20-5.40) 4.36 M/UL (4.20-5.40) Hemoglobin 12.0 G/DL (12.0-16.0) 12.2 G/DL (12.0-16.0) Hematocrit 39.6 % (37.0-47.0) 39.4 % (37.0-47.0) Mean Corpuscular Volume 91 FL (80-99) 90 FL (80-99) Mean Corpuscular Hemoglobin 27.7 PG (27.0-31.0) 28.0 PG (27.0-31.0) Mean Corpuscular Hemoglobin Concent 30.4 G/DL (32.0-36.0) L 31.0 G/DL (32.0-36.0) L Red Cell Distribution Width 16.2 % (11.6-14.8) H 15.9 % (11.6-14.8) H Platelet Count 182 K/UL (150-450) 208 K/UL (150-450) Mean Platelet Volume 9.3 FL (6.5-10.1) 9.0 FL (6.5-10.1) Neutrophils (%) (Auto) 75.1 % (45.0-75.0) H 77.6 % (45.0-75.0) H Lymphocytes (%) (Auto) 18.5 % (20.0-45.0) L 16.2 % (20.0-45.0) L Monocytes (%) (Auto) 5.6 % (1.0-10.0) 4.2 % (1.0-10.0) Eosinophils (%) (Auto) 0.2 % (0.0-3.0) 1.4 % (0.0-3.0) Basophils (%) (Auto) 0.6 % (0.0-2.0) 0.7 % (0.0-2.0) Sodium Level 133 mEQ/L (135-145) L 129 mEQ/L (135-145) L Potassium Level 5.3 mEQ/L (3.4-4.9) H 5.6 mEQ/L (3.4-4.9) H Chloride Level 88 mEQ/L (98-107) L 86 mEQ/L (98-107) L Carbon Dioxide Level 30 mEQ/L (20-30) 26 mEQ/L (20-30) Anion Gap 15 (5-15) 17 (5-15) H Blood Urea Nitrogen 45 mg/dL (7-23) H 55 mg/dL (7-23) H Creatinine 8.4 mg/dL (0.5-0.9) H 9.4 mg/dL (0.5-0.9) H Estimat Glomerular Filtration Rate 6.9 mL/min (>60) 6.1 mL/min (>60) Glucose Level 72 mg/dL (74-106) L 80 mg/dL (74-106) Lactic Acid Level 1.10 mmol/L (0.66-2.22) Calcium Level 9.5 mg/dL (8.6-10.2) 9.4 mg/dL (8.6-10.2) Total Bilirubin 0.3 mg/dL (0.0-1.2) 0.3 mg/dL (0.0-1.2) Aspartate Amino Transf (AST/SGOT) 70 U/L (5-40) H 58 U/L (5-40) H Alanine Aminotransferase (ALT/SGPT) 34 U/L (3-33) H 29 U/L (3-33) Alkaline Phosphatase 83 U/L (35-104) 73 U/L (35-104) Total Creatine Kinase 1820 U/L (26-140) H Creatine Kinase MB 38.6 ng/mL (< 3.8) H Creatine Kinase MB Relative Index 2.1 Troponin I 0.33 ng/mL (<=0.30) *H Pro-B-Type Natriuretic Peptide 54869 pg/mL (0-125) H Total Protein 9.1 g/dL (6.6-8.7) H 8.4 g/dL (6.6-8.7) Albumin 3.2 g/dL (3.5-5.2) L 2.7 g/dL (3.5-5.2) L Globulin 5.9 g/dL 5.7 g/dL Albumin/Globulin Ratio 0.5 (1.0-2.7) L 0.4 (1.0-2.7) L Hemoglobin A1c 3.9 % (< 6.0) Thyroid Stimulating Hormone (TSH) 1.350 uIU/mL (0.300-4.500) PANCHITO BARBOSA Nov 06, 2016 08:50
[2016-11-06] MEDS ORDERED: Lisinopril 10mg tab ORAL SCH (09:00)
[2016-11-06] MEDS ORDERED: Diclofenac 75mg tab ORAL SCH (09:00)
[2016-11-06] MEDS ORDERED: Benazepril 10mg tab ORAL SCH (09:00)
[2016-11-06] MEDS: Carvedilol 25mg Tab ORAL SCH ×2 (09:32→20:14)
[2016-11-06] MEDS: Pantoprazole Inj IVP SCH ×2 (09:33→20:15)
[2016-11-06] MEDS: Heparin 5000 units/ml inj SUBQ SCH ×2 (09:37→20:20)
--- NOTE | 2016-11-06 10:22 | General Progress Note ---
Assessment/Plan Status: stable Status Narrative had HD this am with over 2 liters UF BP controlled Assessment/Plan status: 1) ESRD on HD (2) Hyperkalemia on presentation (3) h/o Non-STEMI (non-ST elevated myocardial infarction) (4) SLE / Lupus , RA (5) CHF (congestive heart failure) (6) HTN OOC / Emergency (7) ? Line sepsis Plan: Per orders- BP control- adjust BP meds- Cultures- Vanco- adjust bp meds with PRNs Reglan for vomiting- IV Protonix Per cardiology Subjective ROS Limited/Unobtainable: No Constitutional: Reports: other - feels better Allergies: Coded Allergies: SULFA (SULFONAMIDE ANTIBIOTICS) (Verified Allergy, Mild, 05/27/15) Objective Last 24 Hour Vital Signs Date Time Temp Pulse Resp B/P Pulse Ox O2 Delivery O2 Flow Rate FiO2 11/06/16 09:32 123/78 11/06/16 09:32 114 123/75 11/06/16 09:29 Room Air 11/06/16 09:27 98.6 100 22 120/80 Room Air 11/06/16 09:20 109 120/80 11/06/16 09:00 98.6 102 19 122/76 98 Room Air 11/06/16 08:00 102 11/06/16 08:00 98.6 100 20 120/78 98 Room Air 11/06/16 07:43 107 16 Room Air 21 11/06/16 07:00 107 27 104/72 98 Room Air 11/06/16 06:00 107 22 140/92 98 Room Air 11/06/16 05:40 98.8 113 20 140/90 99 Room Air 11/06/16 05:40 Room Air 11/06/16 05:31 148/101 11/06/16 05:00 112 25 136/90 95 Room Air 11/06/16 04:00 98.1 107 20 131/91 98 Room Air 11/06/16 04:00 106 11/06/16 03:00 103 25 132/92 94 Room Air 11/06/16 02:00 99 23 145/109 93 Room Air 11/06/16 01:00 102 27 160/119 95 Room Air 11/06/16 00:09 176/123 11/06/16 00:00 98.3 102 27 176/123 98 Room Air 11/06/16 00:00 114 11/05/16 23:00 109 15 184/129 98 Room Air 11/05/16 22:17 178/126 11/05/16 22:15 178/126 11/05/16 22:15 110 178/126 11/05/16 22:15 110 178/126 11/05/16 22:13 99.3 110 15 178/126 98 Room Air 11/05/16 22:00 110 15 178/116 98 Room Air 11/05/16 21:49 110 11/05/16 21:40 99.3 107 15 186/134 98 Room Air 11/05/16 21:28 101 16 179/134 96 Room Air 11/05/16 20:31 98.6 102 16 178/130 96 Room Air 11/05/16 19:48 99 16 181/128 96 Room Air 11/05/16 18:33 98.6 11/05/16 18:27 108 16 178/132 97 Room Air 11/05/16 17:47 101 181/132 11/05/16 17:30 102 187/133 11/05/16 17:14 111 186/132 11/05/16 17:05 111 16 186/138 95 Room Air 11/05/16 15:49 189/135 11/05/16 14:56 196/135 11/05/16 14:28 102 16 197/135 99 Nasal Cannula 4.0 11/05/16 13:14 92 16 Nasal Cannula 4.0 11/05/16 12:27 98.6 92 16 186/124 99 Nasal Cannula 4.0 Intake and Output 11/05/16 11/06/16 19:00 07:00 Intake Total 0 ml 450 ml Output Total 0 ml Balance 0 ml 450 ml Intake Oral 0 ml 390 ml IV Total 60 ml Output Urine Total 0 ml Laboratory Tests 11/05/16 14:00: White Blood Count 8.6, Red Blood Count 4.34, Hemoglobin 12.0, Hematocrit 39.6, Mean Corpuscular Volume 91, Mean Corpuscular Hemoglobin 27.7, Mean Corpuscular Hemoglobin Concent 30.4L, Red Cell Distribution Width 16.2H, Platelet Count 182 , Mean Platelet Volume 9.3, Neutrophils (%) (Auto) 75.1H, Lymphocytes (%) (Auto ) 18.5L, Monocytes (%) (Auto) 5.6, Eosinophils (%) (Auto) 0.2, Basophils (%) ( Auto) 0.6, Sodium Level 133L, Potassium Level 5.3H, Chloride Level 88L, Carbon Dioxide Level 30, Anion Gap 15, Blood Urea Nitrogen 45H, Creatinine 8.4H, Estimat Glomerular Filtration Rate 6.9, Glucose Level 72L, Lactic Acid Level 1.10, Calcium Level 9.5, Total Bilirubin 0.3, Aspartate Amino Transf (AST/SGOT) 70H, Alanine Aminotransferase (ALT/SGPT) 34H, Alkaline Phosphatase 83, Total Creatine Kinase 1820H, Creatine Kinase MB 38.6H, Creatine Kinase MB Relative Index 2.1, Troponin I 0.33*H, Pro-B-Type Natriuretic Peptide 91312F, Total Protein 9.1H, Albumin 3.2L, Globulin 5.9, Albumin/Globulin Ratio 0.5L 11/06/16 05:20: White Blood Count 7.6, Red Blood Count 4.36, Hemoglobin 12.2, Hematocrit 39.4, Mean Corpuscular Volume 90, Mean Corpuscular Hemoglobin 28.0, Mean Corpuscular Hemoglobin Concent 31.0L, Red Cell Distribution Width 15.9H, Platelet Count 208 , Mean Platelet Volume 9.0, Neutrophils (%) (Auto) 77.6H, Lymphocytes (%) (Auto ) 16.2L, Monocytes (%) (Auto) 4.2, Eosinophils (%) (Auto) 1.4, Basophils (%) ( Auto) 0.7, Sodium Level 129L, Potassium Level 5.6H, Chloride Level 86L, Carbon Dioxide Level 26, Anion Gap 17H, Blood Urea Nitrogen 55H, Creatinine 9.4H, Estimat Glomerular Filtration Rate 6.1, Glucose Level 80, Calcium Level 9.4, Total Bilirubin 0.3, Aspartate Amino Transf (AST/SGOT) 58H, Alanine Aminotransferase (ALT/SGPT) 29, Alkaline Phosphatase 73, Total Creatine Kinase [ Pending], Total Protein 8.4, Albumin 2.7L, Globulin 5.7, Albumin/Globulin Ratio 0.4L, Hemoglobin A1c 3.9, Uric Acid [Pending], Phosphorus Level [Pending], Magnesium Level [Pending], Gamma Glutamyl Transpeptidase [Pending], C-Reactive Protein, Quantitative [Pending], Thyroid Stimulating Hormone (TSH) 1.350 Height (Feet): 5 Height (Inches): 7.00 Weight (Pounds): 130 General Appearance: no apparent distress Cardiovascular: tachycardia Respiratory/Chest: decreased breath sounds Abdomen: soft JAMES MONTES Nov 06, 2016 10:22
--- NOTE | 2016-11-06 10:23 | Consultation ---
Consult Note Consult Note ID Dic # [id number] JOSS FLORES M.D. Nov 06, 2016 10:23
[2016-11-06 10:27] LABS: CRP QUANT 4.7 mg/dL (< 0.5); PHOSPHORUS 3.4 mg/dL (2.5-4.8); URIC ACID 7.6 mg/dL (3.0-7.5)
[2016-11-06] MEDS ORDERED: Metoclopramide 10mg/2ml Inj IVP PRN ×2 (10:30→19:30)
[2016-11-06] MEDS ORDERED: HYDROmorphone 1mg/ml Carpuject IVP PRN ×2 (18:30→22:30)
[2016-11-06] MEDS ORDERED: Nitroglycerin Subl 0.4mg tab (Bottle Of 25) SL PRN (19:00)
[2016-11-06] MEDS ORDERED: Miralax 17gm pkt ORAL PRN (19:30)
[2016-11-06] MEDS ORDERED: Morphine Sulfate 2mg/ml Inj IVP PRN ×2 (19:30→21:15)
[2016-11-06] MEDS ORDERED: Zolpidem 5mg tab ORAL PRN (19:30)
[2016-11-06] MEDS ORDERED: DuoNeb 0.5-3(2.5)mg/3ml neb HHN PRN (19:30)
[2016-11-06] MEDS ORDERED: Minoxidil 2.5mg tab ORAL PRN (19:30)
[2016-11-06] MEDS: HYDROmorphone 1mg/ml Carpuject IVP PRN (20:14)
--- NOTE | 2016-11-06 20:48 | Consultation ---
DATE OF CONSULTATION: INFECTIOUS DISEASE CONSULTATION CONSULTING PHYSICIAN: Wan Gee M.D REFERRING PHYSICIAN: Elias Claros M.D. REASON FOR CONSULTATION: Evaluation of the patient for sepsis, possible bacteremia, and antibiotic management. HISTORY OF PRESENT ILLNESS: The patient is a pleasant 26-year-old old female with past medical history as mentioned above who was admitted to this medical center with fever and chills. The patient still has been complaining of having cough. Infectious Disease consultation has been requested for further evaluation of the patient's antibiotic management. PAST MEDICAL HISTORY: 1. Hypertension. 2. History of asthma. 3. History of end-stage renal disease, on hemodialysis. 4. Status post hemodialysis catheter placement three months ago. 5. Anemia. ALLERGIES: Sulfa. FAMILY HISTORY: Noncontributory. REVIEW OF SYSTEMS: HEENT: No history of runny nose or sore throat. Pulmonary: As mentioned above. Cardiovascular: No chest pain or palpitations. Gastrointestinal/Abdomen: No nausea or vomiting. Genitourinary: The patient does not make any urine, on dialysis. Musculoskeletal: No pain in extremities. MEDICATIONS: The patient received one dose of vancomycin in the emergency room. PHYSICAL EXAMINATION: VITAL SIGNS: Temperature 98.6, pulse 86, respiratory rate 18, and blood pressure 123/75. HEENT: Mild pale conjunctivae. No icterus. NECK: No lymphadenopathy. CHEST: Coarse breathing sounds. HEART: S1 and S2. ABDOMEN: Soft and nontender. EXTREMITIES: No cyanosis. SKIN: The patient has hemodialysis catheter. There is no erythema or discharge. LABORATORY DATA: BUN 55, creatinine 9.4. AST 70, ALT 34, and alkaline phosphatase 83. White blood cells 7.6, hemoglobin 12, and platelets 208,000. Rapid influenza test is negative. ASSESSMENT: The patient is a 26-year-old old female, who came to the hospital. The patient has scant cough. Chest x-ray shows some congestive heart failure findings, although community-acquired pneumonia is in differential. In view of the patient being on hemodialysis, the patient is at risk of bacteremia, especially to Staphylococcus aureus. PLAN: 1. Restart the patient on IV vancomycin and Levaquin. 2. Monitor CBC. 3. Monitor cultures. 4. We sent blood cultures. 5. Monitor chest x-ray. 6. Based on the patient's clinical course and laboratories, we will do further recommendations. Thank you, for allowing me to participate in the care of this patient. I will follow the patient with you during this hospitalization. Wan Gee M.D. DR: LACI JOB#: [id number] CC:
[2016-11-06] MEDS ORDERED: Vancomycin 750 MG in D5W 275 ML IVPB ONE (21:00)
[2016-11-06] MEDS ORDERED: Vancomycin 750mg/D5W 275ml IVPB ONE ×2 (21:00)
[2016-11-07] VITALS: BP 124/82
[2016-11-07] MEDS: HYDROmorphone 1mg/ml Carpuject IVP PRN ×2 (02:03→13:59)
[2016-11-07 04:00] VITALS: BP 120/58
[2016-11-07 06:26] LABS: BASOPHILS % (AUTO) 0.6 % (0.0-2.0); EOSINOPHILS % (AUTO) 3.1 % (0.0-3.0); LYMPHOCYTES % (AUTO) 16.2 % (20.0-45.0); MEAN CORPUSCULAR HEMOGLOBIN 27.9 PG (27.0-31.0); MEAN CORPUSCULAR HGB CONC 31.1 G/DL (32.0-36.0); MEAN CORPUSCULAR VOLUME 90 FL (80-99); MONOCYTES % (AUTO) 3.6 % (1.0-10.0); NEUTROPHILS % (AUTO) 76.6 % (45.0-75.0); PLATELET COUNT 121 K/UL (150-450); RED BLOOD COUNT 3.68 M/UL (4.20-5.40); RED CELL DISTRIBUTION WIDTH 16.6 % (11.6-14.8); WHITE BLOOD COUNT 4.5 K/UL (4.8-10.8)
[2016-11-07 07:12] LABS: ALBUMIN/GLOBULIN RATIO 0.5 (1.0-2.7); CREATININE 7.2 mg/dL (0.5-0.9); GLOMERULAR FILTRATION RATE 8.2 mL/min (>60); PHOSPHORUS 3.5 mg/dL (2.5-4.8); POTASSIUM 4.5 mEQ/L (3.4-4.9); URIC ACID 5.3 mg/dL (3.0-7.5)
[2016-11-07 08:00] VITALS: BP 123/77
[2016-11-07] MEDS: Pantoprazole Inj IVP SCH (08:18)
[2016-11-07] MEDS: Carvedilol 25mg Tab ORAL SCH ×2 (08:19→20:38)
[2016-11-07] MEDS: Heparin 5000 units/ml inj SUBQ SCH ×2 (08:20→21:00)
[2016-11-07] MEDS ORDERED: Lisinopril 10mg tab ORAL SCH (09:00)
--- NOTE | 2016-11-07 09:51 | Infectious Diseases Prog Note ---
Assessment/Plan Assessment/Plan A: The patient is a pleasant 26-year-old Sepsis, possible bacteremia SP Chills Cough probable CAP . Bronchitis Fever , SP Flu Neg HTN Asthma. ESRD on hemodialysis Anemia PLAN: Cont IV vancomycin and Levaquin. d# 2 Monitor CBC / BMP Monitor cultures. Monitor chest x-ray Subjective Constitutional: Denies: anorexia, chills, drenching sweats, fatigue, fever, no symptoms, other Allergies: Coded Allergies: SULFA (SULFONAMIDE ANTIBIOTICS) (Verified Allergy, Mild, 05/27/15) Objective Vital Signs Last 24 Hour Vital Signs Date Time Temp Pulse Resp B/P Pulse Ox O2 Delivery O2 Flow Rate FiO2 11/07/16 08:19 123/62 11/07/16 08:19 85 123/62 11/07/16 08:18 85 123/62 11/07/16 08:00 96.3 88 20 123/77 96 Room Air 11/07/16 05:59 123/62 11/07/16 04:00 98.2 85 21 120/58 96 Room Air 11/07/16 02:33 97.9 11/07/16 00:00 97.9 91 19 124/82 97 Room Air 11/06/16 22:22 130/84 11/06/16 20:27 99.7 99 19 116/80 95 Room Air 11/06/16 20:15 99 116/80 11/06/16 20:14 99 116/80 11/06/16 20:00 99.7 99 18 116/80 95 Room Air 11/06/16 19:52 100 16 Room Air 21 11/06/16 19:00 99.9 99 20 116/80 95 Room Air 11/06/16 18:33 98.1 11/06/16 18:00 98.1 99 20 121/87 100 Room Air 11/06/16 17:00 106 16 119/81 99 Room Air 11/06/16 16:00 100.0 112 26 122/76 98 Room Air 11/06/16 16:00 106 11/06/16 15:00 107 18 120/71 98 Room Air 11/06/16 14:00 103 18 113/69 98 Room Air 11/06/16 13:47 113/69 11/06/16 13:00 102 20 120/77 98 Room Air 11/06/16 12:00 98.8 96 19 105/62 98 Room Air 11/06/16 12:00 96 11/06/16 11:00 101 20 104/64 98 Room Air 11/06/16 10:00 105 20 116/62 98 Room Air Height (Feet): 5 Height (Inches): 7.00 Weight (Pounds): 130 HEENT: anicteric Respiratory/Chest: lungs clear Cardiovascular: regular rhythm Abdomen: non distended Microbiology Date/Time Source Procedure Growth Status 11/05/16 14:00 Blood Blood Culture - Preliminary NO GROWTH AFTER 24 HOURS Resulted 11/05/16 13:45 Blood Blood Culture - Preliminary NO GROWTH AFTER 24 HOURS Resulted 11/05/16 14:00 Nasal Nares Influenza Types A,B Antigen (KAIA) - Final Complete Laboratory Tests Test 11/07/16 04:50 White Blood Count 4.5 K/UL (4.8-10.8) L Red Blood Count 3.68 M/UL (4.20-5.40) L Hemoglobin 10.3 G/DL (12.0-16.0) L Hematocrit 33.0 % (37.0-47.0) L Mean Corpuscular Volume 90 FL (80-99) Mean Corpuscular Hemoglobin 27.9 PG (27.0-31.0) Mean Corpuscular Hemoglobin Concent 31.1 G/DL (32.0-36.0) L Red Cell Distribution Width 16.6 % (11.6-14.8) H Platelet Count 121 K/UL (150-450) L Mean Platelet Volume 9.0 FL (6.5-10.1) Neutrophils (%) (Auto) 76.6 % (45.0-75.0) H Lymphocytes (%) (Auto) 16.2 % (20.0-45.0) L Monocytes (%) (Auto) 3.6 % (1.0-10.0) Eosinophils (%) (Auto) 3.1 % (0.0-3.0) H Basophils (%) (Auto) 0.6 % (0.0-2.0) Sodium Level 131 mEQ/L (135-145) L Potassium Level 4.5 mEQ/L (3.4-4.9) Chloride Level 87 mEQ/L (98-107) L Carbon Dioxide Level 31 mEQ/L (20-30) H Anion Gap 13 (5-15) Blood Urea Nitrogen 37 mg/dL (7-23) H Creatinine 7.2 mg/dL (0.5-0.9) H Estimat Glomerular Filtration Rate 8.2 mL/min (>60) Glucose Level 86 mg/dL (74-106) Uric Acid 5.3 mg/dL (3.0-7.5) Calcium Level 9.0 mg/dL (8.6-10.2) Phosphorus Level 3.5 mg/dL (2.5-4.8) Total Bilirubin 0.2 mg/dL (0.0-1.2) Aspartate Amino Transf (AST/SGOT) 56 U/L (5-40) H Alanine Aminotransferase (ALT/SGPT) 27 U/L (3-33) Alkaline Phosphatase 63 U/L (35-104) C-Reactive Protein, Quantitative 4.0 mg/dL (< 0.5) H Pro-B-Type Natriuretic Peptide 40535 pg/mL (0-125) H Total Protein 8.0 g/dL (6.6-8.7) Albumin 2.8 g/dL (3.5-5.2) L Globulin 5.2 g/dL Albumin/Globulin Ratio 0.5 (1.0-2.7) L Current Medications Medications (Trade) Dose Ordered Sig/Brad Route PRN Reason Start Time Stop Time Status Last Admin Dose Admin Acetaminophen (Tylenol) 650 mg Q4H PRN ORAL fever 11/06/16 19:30 12/06/16 19:29 Albuterol/ Ipratropium (DuoNeb 0.5-3(2.5)mg/3ml) 3 ml Q6H PRN HHN dyspnea 11/06/16 19:30 11/11/16 19:29 Carvedilol (Coreg) 25 mg Q12HR ORAL 11/06/16 21:00 12/06/16 20:59 11/07/16 08:19 Clonidine HCl (Catapres) 0.1 mg Q8HR ORAL 11/06/16 22:00 12/06/16 21:59 11/06/16 22:22 Dextrose (Dextrose 50%) STAT PRN IV Hypoglycemia 11/06/16 19:30 12/06/16 19:29 Heparin Sodium (Porcine) (Heparin 5000 units/ml) 5,000 units EVERY 12 HOURS SUBQ 11/06/16 21:00 12/06/16 20:59 11/06/16 20:20 Hydromorphone HCl (Dilaudid) 0.5 mg Q4H PRN IVP Severe Pain (Pain Scale 7-10) 11/06/16 19:30 11/13/16 19:29 11/07/16 02:03 Levofloxacin (Levaquin) 50 ml @ 50 mls/hr Q48H IVPB 11/08/16 12:00 11/15/16 11:59 Lisinopril (Zestril) 10 mg DAILY ORAL 11/07/16 09:00 12/07/16 08:59 11/07/16 08:19 Metoclopramide HCl (Reglan) 5 mg Q6H PRN IVP Nausea & Vomiting 11/06/16 19:30 12/06/16 19:29 Minoxidil (Loniten) 2.5 mg Q4H PRN ORAL BP over 170 syst 11/06/16 19:30 12/06/16 19:29 Morphine Sulfate (Morphine Sulfate) 1 mg Q4H PRN IVP Mild Pain (Pain Scale 1-3) 11/06/16 19:30 11/13/16 19:29 Nifedipine (Procardia XL) 30 mg Q12HR ORAL 11/06/16 21:00 12/06/16 20:59 11/07/16 08:18 Nitroglycerin (Ntg) 0.4 mg Q5M PRN SL Prn Chest Pain 11/06/16 19:00 Pantoprazole (Protonix) 40 mg EVERY 12 HOURS IVP 11/06/16 21:00 12/06/16 20:59 11/07/16 08:18 Polyethylene Glycol (Miralax) 17 gm HSPRN PRN ORAL Constipation 11/06/16 19:30 12/06/16 19:29 Sevelamer Carbonate (Renvela) 3,200 mg THREE TIMES A DAY ORAL 11/07/16 09:00 12/07/16 08:59 11/07/16 08:19 Vancomycin HCl (Vanco rx to dose) 1 ea DAILY PRN MISC Per rx protocol 11/06/16 19:30 12/06/16 19:29 Zolpidem Tartrate (Ambien) 5 mg HSPRN PRN ORAL Insomnia 11/06/16 19:30 12/06/16 19:29 JOSS FLORES M.D. Nov 07, 2016 09:51
[2016-11-07 12:00] VITALS: BP 126/90
--- NOTE | 2016-11-07 13:16 | General Progress Note ---
Assessment/Plan Status: stable Assessment/Plan status: 1) ESRD on HD M W Fr (2) Hyperkalemia on presentation (3) h/o Non-STEMI (non-ST elevated myocardial infarction) (4) SLE / Lupus , RA (5) CHF (congestive heart failure) (6) HTN OOC / Emergency- now controlled (7) ? Line sepsis, cultures negative Plan: Hd today- BP control- adjust BP meds- Cultures- neg adjust bp meds with PRNs Reglan for vomiting- IV Protonix to PO Per cardiology Subjective ROS Limited/Unobtainable: No Allergies: Coded Allergies: SULFA (SULFONAMIDE ANTIBIOTICS) (Verified Allergy, Mild, 05/27/15) Objective Last 24 Hour Vital Signs Date Time Temp Pulse Resp B/P Pulse Ox O2 Delivery O2 Flow Rate FiO2 11/07/16 08:19 123/62 11/07/16 08:19 85 123/62 11/07/16 08:18 85 123/62 11/07/16 08:00 96.3 88 20 123/77 96 Room Air 11/07/16 06:47 98 16 Room Air 11/07/16 05:59 123/62 11/07/16 04:00 98.2 85 21 120/58 96 Room Air 11/07/16 02:33 97.9 11/07/16 00:00 97.9 91 19 124/82 97 Room Air 11/06/16 22:22 130/84 11/06/16 20:27 99.7 99 19 116/80 95 Room Air 11/06/16 20:15 99 116/80 11/06/16 20:14 99 116/80 11/06/16 20:00 99.7 99 18 116/80 95 Room Air 11/06/16 19:52 100 16 Room Air 21 11/06/16 19:00 99.9 99 20 116/80 95 Room Air 11/06/16 18:33 98.1 11/06/16 18:00 98.1 99 20 121/87 100 Room Air 11/06/16 17:00 106 16 119/81 99 Room Air 11/06/16 16:00 100.0 112 26 122/76 98 Room Air 11/06/16 16:00 106 11/06/16 15:00 107 18 120/71 98 Room Air 11/06/16 14:00 103 18 113/69 98 Room Air 11/06/16 13:47 113/69 Intake and Output 11/06/16 11/07/16 19:00 07:00 Intake Total 800 ml 60 ml Output Total 2400 ml Balance -1600 ml 60 ml Intake Oral 650 ml 60 ml IV Total 100 ml Other 50 ml Output Urine Total 0 ml Hemodialysis UF 2400 ml Current Medications Medications (Trade) Dose Ordered Sig/Brad Route PRN Reason Start Time Stop Time Status Last Admin Dose Admin Acetaminophen (Tylenol) 650 mg Q4H PRN ORAL fever 11/06/16 19:30 12/06/16 19:29 Albuterol/ Ipratropium (DuoNeb 0.5-3(2.5)mg/3ml) 3 ml Q6H PRN HHN dyspnea 11/06/16 19:30 11/11/16 19:29 Carvedilol (Coreg) 25 mg Q12HR ORAL 11/06/16 21:00 12/06/16 20:59 11/07/16 08:19 Dextrose (Dextrose 50%) STAT PRN IV Hypoglycemia 11/06/16 19:30 12/06/16 19:29 Heparin Sodium (Porcine) (Heparin 5000 units/ml) 5,000 units EVERY 12 HOURS SUBQ 11/06/16 21:00 12/06/16 20:59 11/06/16 20:20 Hydromorphone HCl (Dilaudid) 0.5 mg Q4H PRN IVP Severe Pain (Pain Scale 7-10) 11/06/16 19:30 11/13/16 19:29 11/07/16 02:03 Levofloxacin (Levaquin) 50 ml @ 50 mls/hr Q48H IVPB 11/08/16 12:00 11/15/16 11:59 Lisinopril (Zestril) 20 mg BID ORAL 11/07/16 18:00 12/07/16 17:59 UNV Metoclopramide HCl (Reglan) 5 mg Q6H PRN IVP Nausea & Vomiting 11/06/16 19:30 12/06/16 19:29 Minoxidil (Loniten) 2.5 mg Q4H PRN ORAL BP over 170 syst 11/06/16 19:30 12/06/16 19:29 Morphine Sulfate (Morphine Sulfate) 1 mg Q4H PRN IVP Mild Pain (Pain Scale 1-3) 11/06/16 19:30 11/13/16 19:29 Nifedipine (Procardia XL) 30 mg Q12HR ORAL 11/06/16 21:00 12/06/16 20:59 11/07/16 08:18 Nitroglycerin (Ntg) 0.4 mg Q5M PRN SL Prn Chest Pain 11/06/16 19:00 Pantoprazole (Protonix) 40 mg EVERY 12 HOURS IVP 11/06/16 21:00 12/06/16 20:59 11/07/16 08:18 Polyethylene Glycol (Miralax) 17 gm HSPRN PRN ORAL Constipation 11/06/16 19:30 12/06/16 19:29 Sevelamer Carbonate (Renvela) 3,200 mg THREE TIMES A DAY ORAL 11/07/16 09:00 12/07/16 08:59 11/07/16 08:19 Vancomycin HCl (Vanco rx to dose) 1 ea DAILY PRN MISC Per rx protocol 11/06/16 19:30 12/06/16 19:29 Zolpidem Tartrate (Ambien) 5 mg HSPRN PRN ORAL Insomnia 11/06/16 19:30 12/06/16 19:29 Laboratory Tests 11/07/16 04:50: White Blood Count 4.5L, Red Blood Count 3.68L, Hemoglobin 10.3L, Hematocrit 33.0L, Mean Corpuscular Volume 90, Mean Corpuscular Hemoglobin 27.9, Mean Corpuscular Hemoglobin Concent 31.1L, Red Cell Distribution Width 16.6H, Platelet Count 121L, Mean Platelet Volume 9.0, Neutrophils (%) (Auto) 76.6H, Lymphocytes (%) (Auto) 16.2L, Monocytes (%) (Auto) 3.6, Eosinophils (%) (Auto) 3.1H, Basophils (%) (Auto) 0.6, Sodium Level 131L, Potassium Level 4.5, Chloride Level 87L, Carbon Dioxide Level 31H, Anion Gap 13, Blood Urea Nitrogen 37H, Creatinine 7.2H, Estimat Glomerular Filtration Rate 8.2, Glucose Level 86, Uric Acid 5.3, Calcium Level 9.0, Phosphorus Level 3.5, Total Bilirubin 0.2, Aspartate Amino Transf (AST/SGOT) 56H, Alanine Aminotransferase (ALT/SGPT) 27, Alkaline Phosphatase 63, C-Reactive Protein, Quantitative 4.0H, Pro-B-Type Natriuretic Peptide 80441M, Total Protein 8.0, Albumin 2.8L, Globulin 5.2, Albumin/Globulin Ratio 0.5L Height (Feet): 5 Height (Inches): 7.00 Weight (Pounds): 130 General Appearance: no apparent distress Cardiovascular: regular rhythm Respiratory/Chest: lungs clear Abdomen: soft JAMES MONTES Nov 07, 2016 13:16
[2016-11-07 16:00] VITALS: BP 125/86
[2016-11-07] MEDS ORDERED: NS 275ml ONE (17:21)
[2016-11-07] MEDS: Lisinopril 20mg tab ORAL SCH (17:52)
--- NOTE | 2016-11-07 18:43 | Cardiology Progress Note ---
Assessment/Plan Assessment/Plan 1. Upper respiratory tract infection. 2. Congestive heart failure probably diastolic in origin related to poolry controlled htn 3. History of lupus erythematosus. 4. Rheumatoid arthritis. 5. Fibromyalgia. 6. End-stage renal disease, on hemodialysis. 7. Abnormal cardiac enzymes likely secondary to renal failure and myopathy skeletal in origin with elevated CPK and history of rheumatologic abnormalities. 8. skeletal myopathy ??? 9. PUlm htn bp has improved on multiple meds still has crackles left base but nto seem to be symptomatic ambulating room prelim echo noted good lv function some pulm htn cxr tele reviwed now on med surg floor Subjective Cardiovascular: Denies: chest pain, irregular heart rate, lightheadedness, palpitations Respiratory: Denies: SOB with excertion, shortness of breath Gastrointestinal/Abdominal: Denies: abdominal pain Genitourinary: Denies: burning Objective Last 24 Hour Vital Signs Date Time Temp Pulse Resp B/P Pulse Ox O2 Delivery O2 Flow Rate FiO2 11/07/16 17:52 125/86 11/07/16 16:00 97.9 18 18 125/86 96 Room Air 11/07/16 12:00 97.9 84 17 126/90 97 Room Air 11/07/16 08:19 123/62 11/07/16 08:19 85 123/62 11/07/16 08:18 85 123/62 11/07/16 08:00 96.3 88 20 123/77 96 Room Air 11/07/16 06:47 98 16 Room Air 11/07/16 05:59 123/62 11/07/16 04:00 98.2 85 21 120/58 96 Room Air 11/07/16 02:33 97.9 11/07/16 00:00 97.9 91 19 124/82 97 Room Air 11/06/16 22:22 130/84 11/06/16 20:27 99.7 99 19 116/80 95 Room Air 11/06/16 20:15 99 116/80 11/06/16 20:14 99 116/80 11/06/16 20:00 99.7 99 18 116/80 95 Room Air 11/06/16 19:52 100 16 Room Air 21 11/06/16 19:00 99.9 99 20 116/80 95 Room Air General Appearance: no apparent distress, alert Cardiovascular: normal rate, regular rhythm Respiratory/Chest: crackles/rales - left base Abdomen: non tender, soft Extremities: no swelling Intake and Output 11/06/16 11/07/16 19:00 07:00 Intake Total 800 ml 60 ml Output Total 2400 ml Balance -1600 ml 60 ml Intake Oral 650 ml 60 ml IV Total 100 ml Other 50 ml Output Urine Total 0 ml Hemodialysis UF 2400 ml Laboratory Tests Test 11/07/16 04:50 White Blood Count 4.5 K/UL (4.8-10.8) L Red Blood Count 3.68 M/UL (4.20-5.40) L Hemoglobin 10.3 G/DL (12.0-16.0) L Hematocrit 33.0 % (37.0-47.0) L Mean Corpuscular Volume 90 FL (80-99) Mean Corpuscular Hemoglobin 27.9 PG (27.0-31.0) Mean Corpuscular Hemoglobin Concent 31.1 G/DL (32.0-36.0) L Red Cell Distribution Width 16.6 % (11.6-14.8) H Platelet Count 121 K/UL (150-450) L Mean Platelet Volume 9.0 FL (6.5-10.1) Neutrophils (%) (Auto) 76.6 % (45.0-75.0) H Lymphocytes (%) (Auto) 16.2 % (20.0-45.0) L Monocytes (%) (Auto) 3.6 % (1.0-10.0) Eosinophils (%) (Auto) 3.1 % (0.0-3.0) H Basophils (%) (Auto) 0.6 % (0.0-2.0) Sodium Level 131 mEQ/L (135-145) L Potassium Level 4.5 mEQ/L (3.4-4.9) Chloride Level 87 mEQ/L (98-107) L Carbon Dioxide Level 31 mEQ/L (20-30) H Anion Gap 13 (5-15) Blood Urea Nitrogen 37 mg/dL (7-23) H Creatinine 7.2 mg/dL (0.5-0.9) H Estimat Glomerular Filtration Rate 8.2 mL/min (>60) Glucose Level 86 mg/dL (74-106) Uric Acid 5.3 mg/dL (3.0-7.5) Calcium Level 9.0 mg/dL (8.6-10.2) Phosphorus Level 3.5 mg/dL (2.5-4.8) Total Bilirubin 0.2 mg/dL (0.0-1.2) Aspartate Amino Transf (AST/SGOT) 56 U/L (5-40) H Alanine Aminotransferase (ALT/SGPT) 27 U/L (3-33) Alkaline Phosphatase 63 U/L (35-104) C-Reactive Protein, Quantitative 4.0 mg/dL (< 0.5) H Pro-B-Type Natriuretic Peptide 78415 pg/mL (0-125) H Total Protein 8.0 g/dL (6.6-8.7) Albumin 2.8 g/dL (3.5-5.2) L Globulin 5.2 g/dL Albumin/Globulin Ratio 0.5 (1.0-2.7) L Microbiology Date/Time Source Procedure Growth Status 11/05/16 14:00 Blood Blood Culture - Preliminary NO GROWTH AFTER 24 HOURS Resulted 11/05/16 13:45 Blood Blood Culture - Preliminary NO GROWTH AFTER 24 HOURS Resulted 11/05/16 14:00 Nasal Nares Influenza Types A,B Antigen ([facility]) - Final Complete RADHA LEONARD Nov 07, 2016 18:43
[2016-11-07 20:00] VITALS: BP 125/61
[2016-11-07] MEDS: Hydromorphone 0.5mg/0.5ml inj IVP PRN (20:38)
--- NOTE | 2016-11-07 23:34 | Cardiology Report ---
APPROVED REPORT EKG Measurement Heart [id number] CT 124P33 [id number] Normal sinus rhythm Possible Left atrial enlargement Low voltage QRS Cannot rule out Anterior infarct, age undetermined Abnormal ECG
[2016-11-08] VITALS: BP 128/71
[2016-11-08] MEDS: Hydromorphone 0.5mg/0.5ml inj IVP PRN (02:05)
[2016-11-08 04:49] VITALS: BP 115/83
[2016-11-08 05:00] VITALS: BP 134/85
[2016-11-08] MEDS: Carvedilol 25mg Tab ORAL SCH (08:34)
[2016-11-08] MEDS: Lisinopril 20mg tab ORAL SCH (08:35)
[2016-11-08 08:41] VITALS: BP 138/82
--- NOTE | 2016-11-08 08:45 | Cardiology Report ---
APPROVED REPORT EXAM: Two-dimensional and M-mode echocardiogram with Doppler and color Doppler. INDICATION Congestive Heart Failure M-Mode DIMENSIONS IVSd1.3 (0.7-1.1cm)Left Atrium (MM)3.2 (1.6-4.0cm) LVDd4.9 (3.5-5.6cm)Aortic Root3.5 (2.0-3.7cm) PWd1.5 (0.7-1.1cm)Aortic Cusp Exc.1.8 (1.5-2.0cm) LVDs3.3 (2.5-4.0cm) PWs2.2 cm Normal left ventricular chamber size, systolic function and wall motion. Left ventricular ejection fraction estimated to be 60-65 %. Significant left ventricular hypertrophy. Anterior Echo-free space, may be due to pericardial fat or effusion. Mild left atrial enlargement. Right cardiac chamber sizes are within normal limits. Mild focal aortic valve sclerosis with adequate cusp excursion. Mildly thickened mitral valve leaflets with normal excursion. Mild mitral annulus and aortic root calcification. Normal pulmonic valve structure. Normal tricuspid valve structure. IVC at normal size with physiologic collapse. A color flow and spectral Doppler study was performed and revealed: Mild mitral regurgitation. Mitral inflow indicates normal left ventricular diastolic function. Mild to moderate tricuspid regurgitation. Tricuspid systolic velocities suggests peak right ventricular systolic pressure of 45 mmHg, consistent with borderline moderate pulmonary hypertension.
[2016-11-08] MEDS: Heparin 5000 units/ml inj SUBQ SCH (09:00)
--- NOTE | 2016-11-08 09:14 | General Progress Note ---
Assessment/Plan Status: stable Status Narrative dialysed this morning Assessment/Plan status: 1) ESRD on HD M W Fr (2) Hyperkalemia on presentation (3) h/o Non-STEMI (non-ST elevated myocardial infarction) (4) SLE / Lupus , RA (5) CHF (congestive heart failure) (6) HTN OOC / Emergency- now controlled (7) ? Line sepsis, cultures negative Plan: HD done BP control- adjust BP meds- Cultures- neg adjust bp meds with PRNs Reglan for vomiting- IV Protonix to PO Per cardiology OK to DC Subjective ROS Limited/Unobtainable: No Constitutional: Reports: no symptoms, other - anxious to go home Allergies: Coded Allergies: SULFA (SULFONAMIDE ANTIBIOTICS) (Verified Allergy, Mild, 05/27/15) Objective Last 24 Hour Vital Signs Date Time Temp Pulse Resp B/P Pulse Ox O2 Delivery O2 Flow Rate FiO2 11/08/16 08:42 Room Air 11/08/16 08:41 97.2 88 18 138/82 98 Room Air 11/08/16 08:35 134/85 11/08/16 08:34 86 134/85 11/08/16 08:34 86 134/85 11/08/16 05:00 Room Air 11/08/16 05:00 97.2 86 20 134/85 98 Room Air 11/08/16 04:49 98.6 94 21 115/83 93 Room Air 11/08/16 02:35 98.6 11/08/16 00:00 98.6 99 18 128/71 90 Room Air 11/07/16 20:38 80 133/78 11/07/16 20:38 80 133/78 11/07/16 20:00 98.1 96 18 125/61 97 Room Air 11/07/16 19:30 98 20 Room Air 21 11/07/16 17:52 125/86 11/07/16 16:00 97.9 18 18 125/86 96 Room Air 11/07/16 12:00 97.9 84 17 126/90 97 Room Air Intake and Output 11/07/16 11/08/16 19:00 07:00 Intake Total 480 ml 420 ml Balance 480 ml 420 ml Intake Oral 480 ml 420 ml # Voids 3 2 Current Medications Medications (Trade) Dose Ordered Sig/Brad Route PRN Reason Start Time Stop Time Status Last Admin Dose Admin Acetaminophen (Tylenol) 650 mg Q4H PRN ORAL fever 11/06/16 19:30 12/06/16 19:29 Albuterol/ Ipratropium (DuoNeb 0.5-3(2.5)mg/3ml) 3 ml Q6H PRN HHN dyspnea 11/06/16 19:30 11/11/16 19:29 Carvedilol (Coreg) 25 mg Q12HR ORAL 11/06/16 21:00 12/06/16 20:59 11/08/16 08:34 Dextrose (Dextrose 50%) STAT PRN IV Hypoglycemia 11/06/16 19:30 12/06/16 19:29 Heparin Sodium (Porcine) (Heparin 5000 units/ml) 5,000 units EVERY 12 HOURS SUBQ 11/06/16 21:00 12/06/16 20:59 11/06/16 20:20 Hydromorphone HCl (Dilaudid) 0.5 mg Q4H PRN IVP Severe Pain (Pain Scale 7-10) 11/07/16 14:15 11/14/16 14:14 11/08/16 02:05 Levofloxacin (Levaquin) 50 ml @ 50 mls/hr Q48H IVPB 11/08/16 12:00 11/15/16 11:59 Lisinopril (Prinivil) 20 mg BID ORAL 11/07/16 18:00 12/07/16 17:59 11/08/16 08:35 Metoclopramide HCl (Reglan) 5 mg Q6H PRN IVP Nausea & Vomiting 11/06/16 19:30 12/06/16 19:29 Minoxidil (Loniten) 2.5 mg Q4H PRN ORAL BP over 170 syst 11/06/16 19:30 12/06/16 19:29 Morphine Sulfate (Morphine Sulfate) 1 mg Q4H PRN IVP Mild Pain (Pain Scale 1-3) 11/06/16 19:30 11/13/16 19:29 Nifedipine (Procardia XL) 30 mg Q12HR ORAL 11/06/16 21:00 12/06/16 20:59 11/08/16 08:34 Nitroglycerin (Ntg) 0.4 mg Q5M PRN SL Prn Chest Pain 11/06/16 19:00 Pantoprazole (Protonix) 40 mg DAILY ORAL 11/08/16 09:00 12/08/16 08:59 11/08/16 08:35 Polyethylene Glycol (Miralax) 17 gm HSPRN PRN ORAL Constipation 11/06/16 19:30 12/06/16 19:29 Sevelamer Carbonate (Renvela) 2,400 mg THREE TIMES A DAY ORAL 11/07/16 18:00 12/07/16 17:59 11/08/16 08:34 Vancomycin HCl (Vanco rx to dose) 1 ea DAILY PRN MISC Per rx protocol 11/06/16 19:30 12/06/16 19:29 Zolpidem Tartrate (Ambien) 5 mg HSPRN PRN ORAL Insomnia 11/06/16 19:30 12/06/16 19:29 Laboratory Tests 11/07/16 20:45: Random Vancomycin Level 31.5 Height (Feet): 5 Height (Inches): 7.00 Weight (Pounds): 130 General Appearance: no apparent distress JAMES MONTES 2, 2017 09:14
[2016-11-08] MEDS ORDERED: Tubing IV Secondary IV ONE (09:29)
[2016-11-08] MEDS ORDERED: NS 275ml ONE (09:29)
[2016-11-08] MEDS ORDERED: Levofloxacin 250mg/D5W 50ml IVPB SCH (12:00)
--- NOTE | 2016-11-09 11:10 | Discharge Summary ---
Discharge Summary Hospital Course Date of Admission Nov 05, 2016 at 16:00 Date of Discharge Nov 08, 2016 at 09:30 Admitting Diagnosis ACS HPI Denae Leonard is a 26 year old female who was admitted on Nov 05, 2016 at 16: 00 for Acute Coronary Syndrome Hospital Course [id number] Discharge Discharge Disposition Patient was discharged to Home (01) Discharge Diagnoses: Paula Hernandez NP Nov 09, 2016 11:10
--- NOTE | 2016-11-10 01:08 | Discharge Summary 2 SIG ---
DATE OF ADMISSION: 11/05/2016 DATE OF DISCHARGE: 11/08/2016 CONSULTANTS: 1. Jason Wild M.D. 2. Rigoberto Kelsey M.D. 3. Wan Gee M.D. BRIEF HOSPITAL COURSE: The patient is a 26-year-old female with history of end-stage renal failure and hypertension, presented to ED complaining of body aches and chills. She is on hemodialysis every Saturday, Saturday, and Saturday and missed her dialysis because of her pain. On evaluation at ED, systolic blood pressure was 190. Troponin was 0.33. Creatinine 8.4. She was given aspirin and nitroglycerin. The patient was admitted to ICU and was ordered stat hemodialysis and blood pressure control with IV medications. EKG showed T-wave inversion in leads 1 and aVL and delay in R-wave progression. EKG changes were more pronounced compared to prior EKG at [facility]. Total CK was 1820 and CK-MB of 38. Echocardiogram showed good left ventricular function with some pulmonary hypertension, abnormal cardiac enzymes likely secondary to renal failure, and myopathy, skeletal in origin as evidenced by elevated CPK and history of rheumatologic abnormalities. Blood pressure improved on multiple medications. She was also seen by infectious disease specialist for fever, chills, possible bacteremia, and sepsis. She was given IV vancomycin and Levaquin. The patient has been complaining of cough. Chest x-ray with congestive changes, although community-acquired pneumonia is in differential. Rapid influenza test was negative. Blood culture did not isolate any growth and the patient was eventually discharged home. FINAL DIAGNOSES: 1. Hypertensive emergency. 2. End-stage renal disease, on hemodialysis. 3. Hyperkalemia, on presentation. 4. Abnormal cardiac enzymes secondary to renal failure and myopathy. 5. Acute on chronic diastolic congestive heart failure, related to poorly controlled hypertension. 6. Systemic lupus erythematosus. 7. Rheumatoid arthritis. 8. Fibromyalgia. 9. Pulmonary hypertension. 10. Sepsis. 11. Anemia. 12. Possible bacteremia. Elias Claros M.D. I have been assigned to dictate discharge summary on this account and I was not involved in the patient's management. Paula Hernandez N.P. DR: KENDALL JOB#: [id number] CC: ROSIE
== END 2016-11-08 09:30 | disposition home or self-care (01) | DRG 720 ==
LOC: EDBD 12:33 → EMR 13:30 → ICU 16:00 → EDBEDREQSVC 20:01 → EDBEDREQ 20:01 → ICU 21:15 → 4W 11-06 18:40
PROC: 5A1D60Z (ICD-10-PCS; principal; 2016-11-06)
DX: A41.9 Sepsis, unspecified organism (principal); I50.33 Acute on chronic diastolic (congestive) heart failure; J18.9 Pneumonia, unspecified organism; N18.6 End stage renal disease; M32.9 Systemic lupus erythematosus, unspecified; I27.2 Other secondary pulmonary hypertension; I13.2 Hypertensive heart and chronic kidney disease with heart failure and with stage 5 chronic kidney disease, or end stage renal disease; E87.5 Hyperkalemia; Z99.2 Dependence on renal dialysis; D64.9 Anemia, unspecified; Z88.2 Allergy status to sulfonamides; I16.1 Hypertensive emergency; M06.9 Rheumatoid arthritis, unspecified; M79.7 Fibromyalgia; I25.2 Old myocardial infarction
CPT/HCPCS: 36415; 71010; 80053; 80202; 82550; 82553; 82962; 82977; 83036; 83605; 83735; 83880; 84100; 84443; 84484; 84550; 85025; 86140; 86710; 87040; 87081; 93005; 93306; 94664; J2765

== ENCOUNTER 2017-07-07 18:51 | Inpatient (IN) | payer MEDICARE, OTHER ==
[~2017-07-07] VITALS: Ht 170.2 cm; Wt 60.3 kg
[2017-07-07 19:05] VITALS: BP 180/130
[2017-07-07] MEDS ORDERED: Vancomycin 1 GM in NS 275 ML IV ONE (19:30)
[2017-07-07] MEDS ORDERED: Vancomycin 1gm inj IVPB ONE (19:32)
--- NOTE | 2017-07-07 19:34 | Emergency Room Report ---
History of Present Illness General Chief Complaint: Pain Source: Patient Present Illness HPI 27YOF BIBEMS with pain to HD site on left side. States RN "went in at 90 degrees on Saturday" to access for HD Has had pain/swelling since. Had HD and yesterday as well Usually goes MWF Denies fever/chills. Denies chest pain, SOB. PMHx: ESRD on HD, HTN, SLE, RA, fibromyalgia, pulm HTN, anemia Blood Cx from admission were negative Allergies: Coded Allergies: SULFA (SULFONAMIDE ANTIBIOTICS) (Verified Allergy, Mild, 05/27/15) Patient History Past Medical History: other - see hpi Past Surgical History: other - see hpi Pertinent Family History: none Social History: Denies: smoking, alcohol use, drug use Last Menstrual Period: 2013 W/U has been done Now: No Immunizations: UTD Reviewed Nursing Documentation: PMH: Agreed, PSxH: Agreed Nursing Documentation-PMH Hx Hypertension: Yes Hx Cancer: No Hx Gastrointestinal Problems: No Hx Dialysis: Yes - -W- last 07/05/17 Hx Neurological Problems: No Review of Systems All Other Systems: negative except mentioned in HPI Physical Exam Vital Signs Date Time Temp Pulse Resp B/P (MAP) Pulse Ox O2 Delivery O2 Flow Rate FiO2 07/07/17 18:55 90 20 190/141 Room Air Sp02 EP Interpretation: reviewed, normal General Appearance: normal inspection, well appearing, no apparent distress, alert Head: atraumatic ENT: normal ENT inspection, hearing grossly normal, normal voice Neck: normal inspection, full range of motion, supple, no bony tend Respiratory: normal inspection, lungs clear, normal breath sounds, no respiratory distress, no retraction, no wheezing Cardiovascular #1: regular rate, rhythm, no edema Gastrointestinal: normal inspection, normal bowel sounds, non tender, soft, no guarding, no hernia Genitourinary: no CVA tenderness Musculoskeletal: normal inspection, back normal, normal range of motion, Sahrona' s Sign negative, other - Left AV fistula site: Palpable ttp. ?mild warmth. Unable to extend elbow d/t pain. No erythema or sign of infection Neurologic: normal inspection, alert, oriented x3, responsive, tie knitter helper III-XII nml as tested, speech normal Psychiatric: normal inspection, judgement/insight normal, mood/affect normal Skin: normal inspection, normal color, no rash Medical Decision Making Diagnostic Impression: Primary Impression: Hematoma of arm Qualified Codes: S40.022A - Contusion of left upper arm, initial encounter Additional Impression: Pain from arteriovenous fistula ER Course Pain at leftsided HD site Afebrile Palpable thrill No obvious sign of infection Possible hematoma Labs: No luek.s H&H stabe. Serum Cr 10.2 Close to baseline. Doubt LESLEE on CKD as just had HD Th and yesterday. K normal. CXR negative for pulm edema Blood Cx pending Empiric abx given Endorsed Dr Claros 830pm Tele admit EKG Diagnostic Results Rate: normal Rhythm: NSR ST Segments: no acute changes ASA given to the pt in ED: No Rhythm Strip Diag. Results EP Interpretation: yes Rate: 95 Rhythm: NSR, no PVC's, no ectopy Chest X-Ray Diagnostic Results Chest X-Ray Diagnostic Results : Chest X-Ray Ordered: Yes # of Views/Limited/Complete: 1 View Indication: Other - Admission EP Interpretation: Yes Interpretation: no consolidation, no effusion, no pneumothorax, no acute cardiopulmonary disease Impression: No acute disease Electronically Signed by: Dr Alf Galvin MD Last Vital Signs Date Time Temp Pulse Resp B/P (MAP) Pulse Ox O2 Delivery O2 Flow Rate FiO2 07/07/17 18:55 90 20 190/141 Room Air Status: improved Disposition: ADMITTED INPATIENT Condition: ALF Mendiola M.D. Jul 07, 2017 19:34
[2017-07-07 19:50] VITALS: BP 178/112
[2017-07-07] MEDS ORDERED: DiphenhydrAMINE 50mg/ml Inj IVP ONE ×2 (20:15→22:45)
[2017-07-07] MEDS ORDERED: oxyCODONE HCL/Acetaminophen 5/325mg ORAL ONE (20:15)
[2017-07-07 20:18] LABS: BASOPHILS % (AUTO) 0.6 % (0.0-2.0); EOSINOPHILS % (AUTO) 1.4 % (0.0-3.0); HEMATOCRIT 36.6 % (37.0-47.0); HEMOGLOBIN 11.6 G/DL (12.0-16.0); LYMPHOCYTES % (AUTO) 19.3 % (20.0-45.0); MEAN CORPUSCULAR VOLUME 102 FL (80-99); MONOCYTES % (AUTO) 3.7 % (1.0-10.0); NEUTROPHILS % (AUTO) 75.1 % (45.0-75.0); PLATELET COUNT 157 K/UL (150-450); RED BLOOD COUNT 3.59 M/UL (4.20-5.40); RED CELL DISTRIBUTION WIDTH 24.6 % (11.6-14.8); WHITE BLOOD COUNT 6.1 K/UL (4.8-10.8)
[2017-07-07 20:55] VITALS: BP 172/120
[2017-07-07 20:56] LABS: ALANINE AMINOTRANSFERASE 11 U/L (12-78); ALBUMIN 3.9 G/DL (3.4-5.0); ALBUMIN/GLOBULIN RATIO 0.9 (1.0-2.7); ALKALINE PHOSPHATASE 122 U/L (46-116); ANION GAP 8 mmol/L (5-15); ASPARTATE AMINO TRANSFERASE 18 U/L (15-37); BILIRUBIN,TOTAL 0.3 MG/DL (0.2-1.0); BLOOD UREA NITROGEN 58 mg/dL (7-18); CALCIUM 9.1 MG/DL (8.5-10.1); CARBON DIOXIDE 33 MMOL/L (21-32); CHLORIDE 97 MMOL/L (98-107); CREATININE 10.2 MG/DL (0.55-1.30); POTASSIUM 4.4 MMOL/L (3.5-5.1); SODIUM 138 MMOL/L (136-145)
[2017-07-07 22:00] VITALS: BP 165/122
[2017-07-07] MEDS ORDERED: Albuterol/Ipratropium 3ml neb HHN PRN (22:15)
[2017-07-07] MEDS ORDERED: Miralax 17gm pkt ORAL PRN (22:15)
[2017-07-07] MEDS ORDERED: Amikacin Rx to dose MISC PRN (22:15)
[2017-07-07 23:05] VITALS: BP 154/98
[2017-07-07 23:10] VITALS: BP 180/101
[2017-07-08] VITALS (7 sets, daily range): BP systolic 148–188; BP diastolic 100–128
[2017-07-08] MEDS ORDERED: Zosyn 3.375gm/50ml Premix 50 ML IVPB SCH
[2017-07-08] MEDS ORDERED: AMIKACIN IV ONE (01:00)
[2017-07-08] MEDS ORDERED: NS IV ONE (01:00)
[2017-07-08] MEDS ORDERED: Zosyn 2.25gm inj ONE (01:15)
[2017-07-08] MEDS: Zosyn 2.25 gm in D5W 55ml IV SCH ×3 (01:22→18:30)
[2017-07-08] MEDS: Aspirin Baby 81mg ORAL SCH (08:41)
[2017-07-08] MEDS: Heparin 5000 units/ml inj SUBQ SCH ×2 (08:44→21:00)
[2017-07-08] MEDS ORDERED: Losartan 50mg tab ORAL SCH (09:00)
[2017-07-08] MEDS: AMIKACIN IV ONE ×2 (09:00→10:45)
[2017-07-08] MEDS: NS IV ONE ×2 (09:00→10:45)
[2017-07-08] MEDS ORDERED: Benazepril 10mg tab ORAL SCH (09:00)
[2017-07-08] MEDS: Morphine Sulfate 4mg/ml Inj IVP PRN ×3 (10:44→21:31)
--- NOTE | 2017-07-08 10:46 | Diagnostic Imaging Report ---
Indication: SOB Technique: One view of the chest Comparison: 11/05/2016 Findings: Interim removal of previously demonstrated tunneled dialysis catheter. Previously demonstrated bilateral basilar infiltrates are no longer evident. There are atelectatic changes at both lung bases. The heart size is normal Impression: Bilateral basilar atelectasis No acute process otherwise
--- NOTE | 2017-07-08 11:30 | Consultation ---
History of Present Illness General Date patient seen: Jul 08, 2017 Time patient seen: 11:47 Chief Complaint: Pain Present Illness HPI 27 y/o F with hx of SLE, ESRD on HD 2ry to Lupus Nephritis, HTN, RA, fibromyalgia, pulm HTN, anemia presents to ED on 07/07 with pain and TTP on L AVF site. C/o of 1 week of pain and swelling on the area. she first noticed after HD last Saturday. Last HD Prio to admission was on Thursday 07/05. Denies f/c, CP, SOB afebrile, no leukocytosis. Started on IV Vanco, zosyn and amikacin Allergies: Coded Allergies: SULFA (SULFONAMIDE ANTIBIOTICS) (Verified Allergy, Mild, 05/27/15) Medication History Scheduled Amlodipine Besylate* (Amlodipine Besylate*), 5 MG ORAL DAILY, (Reported) Azathioprine (Azathioprine), 50 MG PO DAILY, (Reported) Hydrochlorothiazide* (Hydrochlorothiazide*), 12.5 MG ORAL DAILY, (Reported) Hydroxychloroquine Sulfate (Hydroxychloroquine Sulfate), 200 MG PO BID, ( Reported) Metoprolol Tartrate (Metoprolol Tartrate), 25 MG ORAL Q12HR Prednisone* (Prednisone*), 10 MG ORAL DAILY, (Reported) Sevelamer Carbonate (Renvela), 3,200 MG ORAL THREE TIMES A DAY Discontinued Medications Acetaminophen With Codeine (T#3) (Tylenol #3 Tab*), 1 TAB ORAL Q4H PRN for For Pain Discontinued Reason: Pt stopped taking med Aspirin* (Aspirin*), 162 MG ORAL DAILY Discontinued Reason: discontinued med Benazepril Hcl* (Benazepril Hcl*), 10 MG ORAL DAILY, (Reported) Discontinued Reason: MD discontinued med Cholecalciferol (Vitamin D3)* (Vitamin D*), 5,000 UNIT ORAL DAILY, (Reported) Discontinued Reason: discontinued med Diclofenac Sod* (Voltaren*), 75 MG ORAL DAILY, (Reported) Discontinued Reason: MD discontinued med Furosemide* (Lasix*), 20 MG ORAL DAILY, (Reported) Discontinued Reason: MD discontinued med Losartan Potassium* (Losartan Potassium*), 50 MG ORAL DAILY, (Reported) Discontinued Reason: discontinued med Nifedipine Xl* (Procardia Xl*), 30 MG ORAL DAILY Discontinued Reason: MD discontinued med Potassium Chloride* (K-Dur*), 20 MEQ ORAL DAILY, (Reported) Discontinued Reason: discontinued med Ranitidine Hcl* (Zantac*), 150 MG ORAL TWICE A DAY Discontinued Reason: MD discontinued med Patient History Healthcare decision maker Resuscitation status Full Code Advanced Directive on File Patient History Narrative PMhx:as above SHx:Denies: smoking, alcohol use, drug use Fhx: non contributory Review of Systems All Other Systems: negative except mentioned in HPI Physical Exam Respiratory/Chest: no respiratory distress Physical Exam Narrative General Appearance: normal inspection, well appearing, no apparent distress, alert HEENT: atraumatic, PERRL, no oral lesions Neck: normal inspection, supple Respiratory: normal inspection, lungs clear, normal breath sounds, Cardiovascular : regular rate, rhythm, no edema Gastrointestinal: normal inspection, normal bowel sounds, non tender, soft, no guarding, no hernia Musculoskeletal: - Left AV fistula site:+ swelling, exquisite TTP Neurologic: normal inspection, alert, oriented x3, responsive, quantitative developer III-XII nml as tested, speech normal Skin: normal inspection, normal color, no rash Last 24 Hour Vital Signs Date Time Temp Pulse Resp B/P (MAP) Pulse Ox O2 Delivery O2 Flow Rate FiO2 07/08/17 08:42 95 166/120 07/08/17 08:00 99.1 97 20 166/120 97 Room Air 07/08/17 04:00 90 07/08/17 04:00 98.2 90 20 148/100 98 Room Air 07/08/17 00:20 98.4 106 20 155/104 97 Room Air 07/08/17 00:00 130 07/07/17 23:10 123 07/07/17 23:10 99.0 84 16 154/98 100 Room Air 07/07/17 23:10 97.7 123 24 180/101 95 Room Air 07/07/17 23:05 99.0 84 16 154/98 100 Room Air 07/07/17 22:31 165/112 07/07/17 22:01 172/120 07/07/17 22:00 99.0 88 16 165/122 100 Room Air 07/07/17 21:21 99.0 07/07/17 20:55 99.1 9 16 172/120 98 Room Air 07/07/17 20:27 178/112 07/07/17 19:50 99.0 88 16 178/112 100 Room Air 07/07/17 19:05 99.0 92 20 180/130 99 Room Air 07/07/17 18:55 90 20 190/141 Room Air Laboratory Tests Test 07/07/17 19:50 White Blood Count 6.1 K/UL (4.8-10.8) Red Blood Count 3.59 M/UL (4.20-5.40) L Hemoglobin 11.6 G/DL (12.0-16.0) L Hematocrit 36.6 % (37.0-47.0) L Mean Corpuscular Volume 102 FL (80-99) H Mean Corpuscular Hemoglobin 32.4 PG (27.0-31.0) H Mean Corpuscular Hemoglobin Concent 31.7 G/DL (32.0-36.0) L Red Cell Distribution Width 24.6 % (11.6-14.8) H Platelet Count 157 K/UL (150-450) Mean Platelet Volume 8.9 FL (6.5-10.1) Neutrophils (%) (Auto) 75.1 % (45.0-75.0) H Lymphocytes (%) (Auto) 19.3 % (20.0-45.0) L Monocytes (%) (Auto) 3.7 % (1.0-10.0) Eosinophils (%) (Auto) 1.4 % (0.0-3.0) Basophils (%) (Auto) 0.6 % (0.0-2.0) Sodium Level 138 MMOL/L (136-145) Potassium Level 4.4 MMOL/L (3.5-5.1) Chloride Level 97 MMOL/L (98-107) L Carbon Dioxide Level 33 MMOL/L (21-32) H Anion Gap 8 mmol/L (5-15) Blood Urea Nitrogen 58 mg/dL (7-18) H Creatinine 10.2 MG/DL (0.55-1.30) H Estimat Glomerular Filtration Rate 5.5 mL/min (>60) Glucose Level 94 MG/DL (74-106) Calcium Level 9.1 MG/DL (8.5-10.1) Total Bilirubin 0.3 MG/DL (0.2-1.0) Aspartate Amino Transf (AST/SGOT) 18 U/L (15-37) Alanine Aminotransferase (ALT/SGPT) 11 U/L (12-78) L Alkaline Phosphatase 122 U/L (46-116) H Creatine Kinase MB 8.0 NG/ML (0.0-3.6) H Total Protein 8.4 G/DL (6.4-8.2) H Albumin 3.9 G/DL (3.4-5.0) Globulin 4.5 g/dL Albumin/Globulin Ratio 0.9 (1.0-2.7) L reviewed Height (Feet): 5 Height (Inches): 7.00 Weight (Pounds): 129 Medications Current Medications Medications (Trade) Dose Ordered Sig/Brad Route PRN Reason Start Time Stop Time Status Last Admin Dose Admin Acetaminophen (Tylenol) 650 mg Q4H PRN ORAL Fever 07/07/17 22:15 08/06/17 22:14 07/08/17 08:46 Albuterol/ Ipratropium (Albuterol/ Ipratropium) 3 ml Q4H PRN HHN Shortness of Breath 07/07/17 22:15 07/12/17 22:14 Amikacin Protocol (Amikacin pharmacy to dose) 1 ea DAILY PRN MISC Per rx protocol 07/07/17 22:15 08/06/17 22:14 Amlodipine Besylate (Norvasc) 5 mg DAILY ORAL 07/08/17 09:00 08/07/17 08:59 07/08/17 08:42 Aspirin (ASA) 162 mg DAILY ORAL 07/08/17 09:00 08/07/17 08:59 07/08/17 08:41 Dextrose (Dextrose 50%) STAT PRN IV Hypoglycemia 07/07/17 22:15 08/06/17 22:14 Heparin Sodium (Porcine) (Heparin 5000 units/ml) 5,000 units EVERY 12 HOURS SUBQ 07/08/17 09:00 08/07/17 08:59 07/08/17 08:44 Hydroxychloroquine Sulfate (Plaquenil) 200 mg BID ORAL 07/08/17 09:00 08/07/17 08:59 07/08/17 10:45 Morphine Sulfate (Morphine Sulfate) 4 mg Q4H PRN IVP For Pain 07/08/17 10:45 07/15/17 10:44 07/08/17 10:44 Ondansetron HCl (Zofran) 4 mg Q6H PRN IVP Nausea & Vomiting 07/07/17 22:15 08/06/17 22:14 07/07/17 23:58 Piperacillin Sod/ Tazobactam Sod 2.25 gm/Dextrose 55 ml @ 110 mls/hr Q8H IV 07/08/17 00:00 07/15/17 00:00 07/08/17 08:40 Polyethylene Glycol (Miralax) 17 gm DAILYPRN PRN ORAL Constipation 07/07/17 22:15 08/06/17 22:14 Sevelamer Carbonate (Renvela) 3,200 mg THREE TIMES A DAY ORAL 07/08/17 09:00 08/07/17 08:59 07/08/17 08:41 Temazepam (Restoril) 15 mg HSPRN PRN ORAL Insomnia 07/07/17 22:15 07/14/17 22:14 Vancomycin HCl (Vanco rx to dose) 1 ea DAILY PRN MISC Per rx protocol 07/07/17 22:15 08/06/17 22:14 Vancomycin HCl 500 mg/Dextrose 110 ml @ 110 mls/hr ONCE ONCE IVPB 07/08/17 18:00 07/08/17 18:59 Assessment/Plan Assessment/Plan Abx: IV Vancomycin 07/07- Amikacin 07/07- Zosyn 07/08- Assesment: AVF site TTP/swelling -r/o infection vs clotting vs combination of both Afebrile, no leukocytosis s/p CXR: Bilateral basilar atelectasis SLE, ESRD on HD 2ry to Lupus Nephritis, HTN, RA, fibromyalgia, pulm HTN, anemia Plan: -D/c IV Amikacin #2 -Continue IV Vanco #2, Zosyn #1 pending Bcx -Discussed with Renal team which is the best imaging modality to evaluate her AVF to both asses clots and infection -Monitor CBC/BMP, temperatures Thank you for this consultation. Will continue to follow along with you. Discussed with Chelsey Rouse M.D. Jul 08, 2017 11:30
--- NOTE | 2017-07-08 12:32 | History and Physical ---
History of Present Illness General Date patient seen: Jul 07, 2017 Reason for Hospitalization: Pain Present Illness HPI 27 year old female with hx of SLe, ESRF on Hd, HTN, SLE, RA, fibromyalgia, pulm HTN, anemia brought in by paramedics with pain to HD site on left side. States RN "went in at 90 degrees on Saturday" to access for HD. she is admitted for possible HD access dysfunction and/or infection Allergies: Coded Allergies: SULFA (SULFONAMIDE ANTIBIOTICS) (Verified Allergy, Mild, 05/27/15) Medication History Scheduled Amlodipine Besylate* (Amlodipine Besylate*), 5 MG ORAL DAILY, (Reported) Azathioprine (Azathioprine), 50 MG PO DAILY, (Reported) Hydrochlorothiazide* (Hydrochlorothiazide*), 12.5 MG ORAL DAILY, (Reported) Hydroxychloroquine Sulfate (Hydroxychloroquine Sulfate), 200 MG PO BID, ( Reported) Metoprolol Tartrate (Metoprolol Tartrate), 25 MG ORAL Q12HR Prednisone* (Prednisone*), 10 MG ORAL DAILY, (Reported) Sevelamer Carbonate (Renvela), 3,200 MG ORAL THREE TIMES A DAY Discontinued Medications Acetaminophen With Codeine (T#3) (Tylenol #3 Tab*), 1 TAB ORAL Q4H PRN for For Pain Discontinued Reason: Pt stopped taking med Aspirin* (Aspirin*), 162 MG ORAL DAILY Discontinued Reason: discontinued med Benazepril Hcl* (Benazepril Hcl*), 10 MG ORAL DAILY, (Reported) Discontinued Reason: discontinued med Cholecalciferol (Vitamin D3)* (Vitamin D*), 5,000 UNIT ORAL DAILY, (Reported) Discontinued Reason: discontinued med Diclofenac Sod* (Voltaren*), 75 MG ORAL DAILY, (Reported) Discontinued Reason: discontinued med Furosemide* (Lasix*), 20 MG ORAL DAILY, (Reported) Discontinued Reason: discontinued med Losartan Potassium* (Losartan Potassium*), 50 MG ORAL DAILY, (Reported) Discontinued Reason: discontinued med Nifedipine Xl* (Procardia Xl*), 30 MG ORAL DAILY Discontinued Reason: discontinued med Potassium Chloride* (K-Dur*), 20 MEQ ORAL DAILY, (Reported) Discontinued Reason: discontinued med Ranitidine Hcl* (Zantac*), 150 MG ORAL TWICE A DAY Discontinued Reason: MD discontinued med Patient History Healthcare decision maker Resuscitation status Full Code Advanced Directive on File Past Medical/Surgical History Past Medical/Surgical History: (1) Polyarticular arthritis (2) Lupus Review of Systems Constitutional: Reports: no symptoms Eye: Reports: no symptoms Physical Exam General Appearance: WD/WN Lines, tubes and drains: peripheral HEENT: normocephalic, atraumatic Neck: non-tender, normal alignment Respiratory/Chest: chest wall non-tender, lungs clear Breasts: no masses Cardiovascular/Chest: normal peripheral pulses Abdomen: normal bowel sounds, non tender Genitourinary/Rectal: normal genital exam, heme negative stool Extremities: normal range of motion, non-tender Skin Exam: normal pigmentation Last 24 Hour Vital Signs Date Time Temp Pulse Resp B/P (MAP) Pulse Ox O2 Delivery O2 Flow Rate FiO2 07/08/17 12:00 98.6 85 20 176/124 97 Room Air 07/08/17 08:42 95 166/120 07/08/17 08:00 99.1 97 20 166/120 97 Room Air 07/08/17 04:00 90 07/08/17 04:00 98.2 90 20 148/100 98 Room Air 07/08/17 00:20 98.4 106 20 155/104 97 Room Air 07/08/17 00:00 130 07/07/17 23:10 123 07/07/17 23:10 99.0 84 16 154/98 100 Room Air 07/07/17 23:10 97.7 123 24 180/101 95 Room Air 07/07/17 23:05 99.0 84 16 154/98 100 Room Air 07/07/17 22:31 165/112 07/07/17 22:01 172/120 07/07/17 22:00 99.0 88 16 165/122 100 Room Air 07/07/17 21:21 99.0 07/07/17 20:55 99.1 9 16 172/120 98 Room Air 07/07/17 20:27 178/112 07/07/17 19:50 99.0 88 16 178/112 100 Room Air 07/07/17 19:05 99.0 92 20 180/130 99 Room Air 07/07/17 18:55 90 20 190/141 Room Air Laboratory Tests Test 07/07/17 19:50 White Blood Count 6.1 K/UL (4.8-10.8) Red Blood Count 3.59 M/UL (4.20-5.40) L Hemoglobin 11.6 G/DL (12.0-16.0) L Hematocrit 36.6 % (37.0-47.0) L Mean Corpuscular Volume 102 FL (80-99) H Mean Corpuscular Hemoglobin 32.4 PG (27.0-31.0) H Mean Corpuscular Hemoglobin Concent 31.7 G/DL (32.0-36.0) L Red Cell Distribution Width 24.6 % (11.6-14.8) H Platelet Count 157 K/UL (150-450) Mean Platelet Volume 8.9 FL (6.5-10.1) Neutrophils (%) (Auto) 75.1 % (45.0-75.0) H Lymphocytes (%) (Auto) 19.3 % (20.0-45.0) L Monocytes (%) (Auto) 3.7 % (1.0-10.0) Eosinophils (%) (Auto) 1.4 % (0.0-3.0) Basophils (%) (Auto) 0.6 % (0.0-2.0) Sodium Level 138 MMOL/L (136-145) Potassium Level 4.4 MMOL/L (3.5-5.1) Chloride Level 97 MMOL/L (98-107) L Carbon Dioxide Level 33 MMOL/L (21-32) H Anion Gap 8 mmol/L (5-15) Blood Urea Nitrogen 58 mg/dL (7-18) H Creatinine 10.2 MG/DL (0.55-1.30) H Estimat Glomerular Filtration Rate 5.5 mL/min (>60) Glucose Level 94 MG/DL (74-106) Calcium Level 9.1 MG/DL (8.5-10.1) Total Bilirubin 0.3 MG/DL (0.2-1.0) Aspartate Amino Transf (AST/SGOT) 18 U/L (15-37) Alanine Aminotransferase (ALT/SGPT) 11 U/L (12-78) L Alkaline Phosphatase 122 U/L (46-116) H Creatine Kinase MB 8.0 NG/ML (0.0-3.6) H Total Protein 8.4 G/DL (6.4-8.2) H Albumin 3.9 G/DL (3.4-5.0) Globulin 4.5 g/dL Albumin/Globulin Ratio 0.9 (1.0-2.7) L Height (Feet): 5 Height (Inches): 7.00 Weight (Pounds): 129 Medications Current Medications Medications (Trade) Dose Ordered Sig/Brad Route PRN Reason Start Time Stop Time Status Last Admin Dose Admin Acetaminophen (Tylenol) 650 mg Q4H PRN ORAL Fever 07/07/17 22:15 08/06/17 22:14 07/08/17 08:46 Albuterol/ Ipratropium (Albuterol/ Ipratropium) 3 ml Q4H PRN HHN Shortness of Breath 07/07/17 22:15 07/12/17 22:14 Amlodipine Besylate (Norvasc) 5 mg DAILY ORAL 07/08/17 09:00 08/07/17 08:59 07/08/17 08:42 Aspirin (ASA) 162 mg DAILY ORAL 07/08/17 09:00 08/07/17 08:59 07/08/17 08:41 Dextrose (Dextrose 50%) STAT PRN IV Hypoglycemia 07/07/17 22:15 08/06/17 22:14 Heparin Sodium (Porcine) (Heparin 5000 units/ml) 5,000 units EVERY 12 HOURS SUBQ 07/08/17 09:00 08/07/17 08:59 07/08/17 08:44 Hydroxychloroquine Sulfate (Plaquenil) 200 mg BID ORAL 07/08/17 09:00 08/07/17 08:59 07/08/17 10:45 Morphine Sulfate (Morphine Sulfate) 4 mg Q4H PRN IVP For Pain 07/08/17 10:45 07/15/17 10:44 07/08/17 10:44 Ondansetron HCl (Zofran) 4 mg Q6H PRN IVP Nausea & Vomiting 07/07/17 22:15 08/06/17 22:14 07/07/17 23:58 Piperacillin Sod/ Tazobactam Sod 2.25 gm/Dextrose 55 ml @ 110 mls/hr Q8H IV 07/08/17 00:00 07/15/17 00:00 07/08/17 08:40 Polyethylene Glycol (Miralax) 17 gm DAILYPRN PRN ORAL Constipation 07/07/17 22:15 08/06/17 22:14 Sevelamer Carbonate (Renvela) 3,200 mg THREE TIMES A DAY ORAL 07/08/17 09:00 08/07/17 08:59 07/08/17 08:41 Temazepam (Restoril) 15 mg HSPRN PRN ORAL Insomnia 07/07/17 22:15 07/14/17 22:14 Vancomycin HCl (Vanco rx to dose) 1 ea DAILY PRN MISC Per rx protocol 07/07/17 22:15 08/06/17 22:14 Vancomycin HCl 500 mg/Dextrose 110 ml @ 110 mls/hr ONCE ONCE IVPB 07/08/17 18:00 07/08/17 18:59 Assessment/Plan Problem List: (1) ESRF (end stage renal failure) ICD Codes: N18.6 - End stage renal disease SNOMED: 35071702 (2) Anemia ICD Codes: D64.9 - Anemia SNOMED: 762113388 (3) Lupus (systemic lupus erythematosus) ICD Codes: M32.9 - Systemic lupus erythematosus, unspecified SNOMED: 24412368, 464935775 (4) Hemodialysis graft malfunction ICD Codes: T82.41XA - Breakdown (mechanical) of vascular dialysis catheter, initial encounter SNOMED: 663066732 Assessment/Plan vascular, nephrology to see check cultures symptomatic treatment PANCHITO BARBOSA Jul 08, 2017 12:32
--- NOTE | 2017-07-08 12:34 | Pulmonology Progress Note ---
Assessment/Plan Problems: (1) ESRF (end stage renal failure) (2) Anemia (3) Lupus (systemic lupus erythematosus) (4) Hemodialysis graft malfunction Assessment/Plan bonner culture ID consult appreciated awaiting renal evaluation. Subjective ROS Limited/Unobtainable: No Constitutional: Reports: no symptoms HEENT: Repors: no symptoms Allergies: Coded Allergies: SULFA (SULFONAMIDE ANTIBIOTICS) (Verified Allergy, Mild, 05/27/15) Objective Last 24 Hour Vital Signs Date Time Temp Pulse Resp B/P (MAP) Pulse Ox O2 Delivery O2 Flow Rate FiO2 07/08/17 12:00 98.6 85 20 176/124 97 Room Air 07/08/17 08:42 95 166/120 07/08/17 08:00 99.1 97 20 166/120 97 Room Air 07/08/17 04:00 90 07/08/17 04:00 98.2 90 20 148/100 98 Room Air 07/08/17 00:20 98.4 106 20 155/104 97 Room Air 07/08/17 00:00 130 07/07/17 23:10 123 07/07/17 23:10 99.0 84 16 154/98 100 Room Air 07/07/17 23:10 97.7 123 24 180/101 95 Room Air 07/07/17 23:05 99.0 84 16 154/98 100 Room Air 07/07/17 22:31 165/112 07/07/17 22:01 172/120 07/07/17 22:00 99.0 88 16 165/122 100 Room Air 07/07/17 21:21 99.0 07/07/17 20:55 99.1 9 16 172/120 98 Room Air 07/07/17 20:27 178/112 07/07/17 19:50 99.0 88 16 178/112 100 Room Air 07/07/17 19:05 99.0 92 20 180/130 99 Room Air 07/07/17 18:55 90 20 190/141 Room Air General Appearance: WD/WN HEENT: normocephalic, anicteric Respiratory/Chest: chest wall non-tender, lungs clear Cardiovascular: normal peripheral pulses, normal rate, regular rhythm Abdomen: normal bowel sounds, soft, non tender Genitourinary: normal external genitalia Extremities: no cyanosis Skin: no rash Laboratory Tests 07/07/17 19:50: White Blood Count 6.1, Red Blood Count 3.59L, Hemoglobin 11.6L, Hematocrit 36.6L , Mean Corpuscular Volume 102H, Mean Corpuscular Hemoglobin 32.4H, Mean Corpuscular Hemoglobin Concent 31.7L, Red Cell Distribution Width 24.6H, Platelet Count 157, Mean Platelet Volume 8.9, Neutrophils (%) (Auto) 75.1H, Lymphocytes (%) (Auto) 19.3L, Monocytes (%) (Auto) 3.7, Eosinophils (%) (Auto) 1.4, Basophils (%) (Auto) 0.6, Sodium Level 138, Potassium Level 4.4, Chloride Level 97L, Carbon Dioxide Level 33H, Anion Gap 8, Blood Urea Nitrogen 58H, Creatinine 10.2H, Estimat Glomerular Filtration Rate 5.5, Glucose Level 94, Calcium Level 9.1, Total Bilirubin 0.3, Aspartate Amino Transf (AST/SGOT) 18, Alanine Aminotransferase (ALT/SGPT) 11L, Alkaline Phosphatase 122H, Creatine Kinase MB 8.0H, Total Protein 8.4H, Albumin 3.9, Globulin 4.5, Albumin/Globulin Ratio 0.9L Current Medications Medications (Trade) Dose Ordered Sig/Brad Route PRN Reason Start Time Stop Time Status Last Admin Dose Admin Acetaminophen (Tylenol) 650 mg Q4H PRN ORAL Fever 07/07/17 22:15 08/06/17 22:14 07/08/17 08:46 Albuterol/ Ipratropium (Albuterol/ Ipratropium) 3 ml Q4H PRN HHN Shortness of Breath 07/07/17 22:15 07/12/17 22:14 Amlodipine Besylate (Norvasc) 5 mg DAILY ORAL 07/08/17 09:00 08/07/17 08:59 07/08/17 08:42 Aspirin (ASA) 162 mg DAILY ORAL 07/08/17 09:00 08/07/17 08:59 07/08/17 08:41 Dextrose (Dextrose 50%) STAT PRN IV Hypoglycemia 07/07/17 22:15 08/06/17 22:14 Heparin Sodium (Porcine) (Heparin 5000 units/ml) 5,000 units EVERY 12 HOURS SUBQ 07/08/17 09:00 08/07/17 08:59 07/08/17 08:44 Hydroxychloroquine Sulfate (Plaquenil) 200 mg BID ORAL 07/08/17 09:00 08/07/17 08:59 07/08/17 10:45 Morphine Sulfate (Morphine Sulfate) 4 mg Q4H PRN IVP For Pain 07/08/17 10:45 07/15/17 10:44 07/08/17 10:44 Ondansetron HCl (Zofran) 4 mg Q6H PRN IVP Nausea & Vomiting 07/07/17 22:15 08/06/17 22:14 07/07/17 23:58 Piperacillin Sod/ Tazobactam Sod 2.25 gm/Dextrose 55 ml @ 110 mls/hr Q8H IV 07/08/17 00:00 07/15/17 00:00 07/08/17 08:40 Polyethylene Glycol (Miralax) 17 gm DAILYPRN PRN ORAL Constipation 07/07/17 22:15 08/06/17 22:14 Sevelamer Carbonate (Renvela) 3,200 mg THREE TIMES A DAY ORAL 07/08/17 09:00 08/07/17 08:59 07/08/17 08:41 Temazepam (Restoril) 15 mg HSPRN PRN ORAL Insomnia 07/07/17 22:15 07/14/17 22:14 Vancomycin HCl (Vanco rx to dose) 1 ea DAILY PRN MISC Per rx protocol 07/07/17 22:15 08/06/17 22:14 Vancomycin HCl 500 mg/Dextrose 110 ml @ 110 mls/hr ONCE ONCE IVPB 07/08/17 18:00 07/08/17 18:59 PANCHITO BARBOSA Jul 08, 2017 12:34
[2017-07-08 12:49] LABS: BASOPHILS % (AUTO) 0.5 % (0.0-2.0); EOSINOPHILS % (AUTO) 0.9 % (0.0-3.0); HEMATOCRIT 38.7 % (37.0-47.0); HEMOGLOBIN 12.3 G/DL (12.0-16.0); LYMPHOCYTES % (AUTO) 21.2 % (20.0-45.0); MEAN CORPUSCULAR VOLUME 99 FL (80-99); MONOCYTES % (AUTO) 4.8 % (1.0-10.0); NEUTROPHILS % (AUTO) 72.6 % (45.0-75.0); PLATELET COUNT 148 K/UL (150-450); RED BLOOD COUNT 3.91 M/UL (4.20-5.40); WHITE BLOOD COUNT 4.5 K/UL (4.8-10.8)
[2017-07-08 13:20] LABS: ALANINE AMINOTRANSFERASE 18 U/L (12-78); ALBUMIN 3.5 G/DL (3.4-5.0); ALBUMIN/GLOBULIN RATIO 0.8 (1.0-2.7); ALKALINE PHOSPHATASE 108 U/L (46-116); ANION GAP 10 mmol/L (5-15); ASPARTATE AMINO TRANSFERASE 16 U/L (15-37); BILIRUBIN,TOTAL 0.4 MG/DL (0.2-1.0); BLOOD UREA NITROGEN 70 mg/dL (7-18); CALCIUM 9.7 MG/DL (8.5-10.1); CARBON DIOXIDE 31 MMOL/L (21-32); CHLORIDE 95 MMOL/L (98-107); CREATININE 11.5 MG/DL (0.55-1.30); POTASSIUM 4.4 MMOL/L (3.5-5.1); SODIUM 136 MMOL/L (136-145)
[2017-07-08] MEDS: DiphenhydrAMINE 50mg/ml Inj IVP PRN ×2 (14:54→21:51)
[2017-07-08] MEDS ORDERED: Tubing IV Secondary IV ONE (15:56)
[2017-07-08] MEDS ORDERED: NS 275ml ONE (15:56)
[2017-07-08] MEDS ORDERED: HydrALAZINE 25mg tab ORAL PRN (16:30)
--- NOTE | 2017-07-08 16:35 | Consultation ---
Consult Note Consult Note asked to eval for renal failure- 27YOF BIBEMS with pain to HD site on left side. States RN "went in at 90 degrees on Saturday" to access for HD Has had pain/swelling since. Had HD and yesterday as well Usually goes MWF Denies fever/chills. Denies chest pain, SOB. PMHx: ESRD on HD, HTN, SLE, RA, fibromyalgia, pulm HTN, anemia Blood Cx from admission were negative Allergies: Coded Allergies: SULFA (SULFONAMIDE ANTIBIOTICS) (Verified Allergy, Mild, 05/27/15) interviewed and examined Assessment/Plan ESRD Infected hematoma left arm around fistula HTN OOC SLE Anemia Fibromyalgia HD Vasc surgical eval- called adjust BP meds antibiotics JAMES MONTES Jul 08, 2017 16:35
[2017-07-08] MEDS ORDERED: Sennosides 8.6mg ORAL PRN (16:45)
[2017-07-08] MEDS ORDERED: Docusate 100mg cap ORAL SCH (18:00)
[2017-07-08] MEDS ORDERED: Vancomycin 500mg/D5W 110ml IVPB ONE ×4 (18:00→22:00)
[2017-07-08] MEDS: Docusate 100mg cap ORAL SCH (18:32)
[2017-07-08] MEDS: Revatio 20mg tab ORAL SCH (18:33)
[2017-07-08] MEDS ORDERED: Metoprolol 25mg tab ORAL SCH (21:00)
[2017-07-08] MEDS ORDERED: Vitamin A&D Oint 2oz Tube TOPIC SCH (21:00)
[2017-07-08] MEDS: Carvedilol 25mg Tab ORAL SCH (21:15)
[2017-07-09] VITALS (11 sets, daily range): BP systolic 110–150; BP diastolic 55–98
[2017-07-09] MEDS: Zosyn 2.25 gm in D5W 55ml IV SCH ×3 (00:09→16:43)
[2017-07-09] MEDS: Morphine Sulfate 4mg/ml Inj IVP PRN ×3 (05:58→18:56)
[2017-07-09 06:59] LABS: ALANINE AMINOTRANSFERASE 13 U/L (12-78); ALBUMIN 3.2 G/DL (3.4-5.0); ALBUMIN/GLOBULIN RATIO 0.7 (1.0-2.7); ALKALINE PHOSPHATASE 102 U/L (46-116); ANION GAP 13 mmol/L (5-15); ASPARTATE AMINO TRANSFERASE 30 U/L (15-37); BILIRUBIN,TOTAL 0.6 MG/DL (0.2-1.0); BLOOD UREA NITROGEN 69 mg/dL (7-18); CALCIUM 9.5 MG/DL (8.5-10.1); CARBON DIOXIDE 29 MMOL/L (21-32); CHLORIDE 95 MMOL/L (98-107); CHOLESTEROL 213 MG/DL (< 200); CREATINE KINASE 124 U/L (26-308); CREATININE 12.6 MG/DL (0.55-1.30); GAMMA GLUTAMYL TRANSPEPTIDASE 5 U/L (5-85); HDL CHOLESTEROL 35 MG/DL (40-60); PHOSPHORUS 6.7 MG/DL (2.5-4.9); POTASSIUM 5.7 MMOL/L (3.5-5.1); SODIUM 137 MMOL/L (136-145); TRIGLYCERIDES 246 MG/DL (0-200)
[2017-07-09 08:20] LABS: BASOPHILS % (AUTO) 0.7 % (0.0-2.0); EOSINOPHILS % (AUTO) 2.2 % (0.0-3.0); HEMATOCRIT 40.6 % (37.0-47.0); HEMOGLOBIN 12.6 G/DL (12.0-16.0); MEAN CORPUSCULAR VOLUME 98 FL (80-99); MONOCYTES % (AUTO) 5.2 % (1.0-10.0); NEUTROPHILS % (AUTO) 70.9 % (45.0-75.0); PLATELET COUNT 147 K/UL (150-450); RED BLOOD COUNT 4.12 M/UL (4.20-5.40); RED CELL DISTRIBUTION WIDTH 24.1 % (11.6-14.8); WHITE BLOOD COUNT 3.9 K/UL (4.8-10.8)
--- NOTE | 2017-07-09 08:41 | Infectious Diseases Prog Note ---
Assessment/Plan Assessment/Plan A: 27 y/o F with Pain and TTP on L AVF site-r/o infection vs clotting vs combination of both Afebrile, no leukocytosis SLE ESRD on HD 2ry to Lupus Nephritis HTN RA Fibromyalgia Pulm HTN Anemia Plan: -Continue IV Vanco # 3, Zosyn # 2 07/08 SP IV Amikacin #2 -Monitor CBC/BMP - monitor Cultures - going for Perm Cath placement Subjective Constitutional: Denies: no symptoms, fever, chills, fatigue, anorexia, drenching sweats, other Allergies: Coded Allergies: SULFA (SULFONAMIDE ANTIBIOTICS) (Verified Allergy, Mild, 05/27/15) Objective Vital Signs Last 24 Hour Vital Signs Date Time Temp Pulse Resp B/P (MAP) Pulse Ox O2 Delivery O2 Flow Rate FiO2 07/09/17 05:54 136/94 07/09/17 04:00 82 07/09/17 04:00 98.4 84 18 140/91 98 Room Air 07/09/17 00:00 87 07/09/17 00:00 98.4 80 20 150/86 94 Room Air 07/08/17 21:24 188/128 07/08/17 21:15 97 188/128 07/08/17 20:00 97.9 97 20 188/128 98 Room Air 07/08/17 20:00 109 07/08/17 18:32 86 174/111 07/08/17 16:00 84 07/08/17 16:00 98.2 86 20 174/111 98 Room Air 07/08/17 12:00 89 07/08/17 12:00 98.6 85 20 176/124 97 Room Air 07/08/17 08:42 95 166/120 Height (Feet): 5 Height (Inches): 7.00 Weight (Pounds): 135 HEENT: mucous membranes moist Respiratory/Chest: no respiratory distress Cardiovascular: regularly irregular Abdomen: no organomegaly Microbiology Date/Time Source Procedure Growth Status 07/07/17 19:50 Blood Blood Culture - Preliminary NO GROWTH AFTER 24 HOURS Resulted 07/07/17 19:50 Blood Blood Culture - Preliminary NO GROWTH AFTER 24 HOURS Resulted Laboratory Tests Test 07/08/17 12:35 07/09/17 06:00 07/09/17 07:45 White Blood Count 4.5 K/UL (4.8-10.8) L 3.9 K/UL (4.8-10.8) L Red Blood Count 3.91 M/UL (4.20-5.40) L 4.12 M/UL (4.20-5.40) L Hemoglobin 12.3 G/DL (12.0-16.0) 12.6 G/DL (12.0-16.0) Hematocrit 38.7 % (37.0-47.0) 40.6 % (37.0-47.0) Mean Corpuscular Volume 99 FL (80-99) 98 FL (80-99) Mean Corpuscular Hemoglobin 31.4 PG (27.0-31.0) H 30.5 PG (27.0-31.0) Mean Corpuscular Hemoglobin Concent 31.8 G/DL (32.0-36.0) L 31.0 G/DL (32.0-36.0) L Red Cell Distribution Width 25.0 % (11.6-14.8) H 24.1 % (11.6-14.8) H Platelet Count 148 K/UL (150-450) L 147 K/UL (150-450) L Mean Platelet Volume 9.7 FL (6.5-10.1) 9.8 FL (6.5-10.1) Neutrophils (%) (Auto) 72.6 % (45.0-75.0) 70.9 % (45.0-75.0) Lymphocytes (%) (Auto) 21.2 % (20.0-45.0) 21.0 % (20.0-45.0) Monocytes (%) (Auto) 4.8 % (1.0-10.0) 5.2 % (1.0-10.0) Eosinophils (%) (Auto) 0.9 % (0.0-3.0) 2.2 % (0.0-3.0) Basophils (%) (Auto) 0.5 % (0.0-2.0) 0.7 % (0.0-2.0) Sodium Level 136 MMOL/L (136-145) 137 MMOL/L (136-145) Potassium Level 4.4 MMOL/L (3.5-5.1) 5.7 MMOL/L (3.5-5.1) H Chloride Level 95 MMOL/L (98-107) L 95 MMOL/L (98-107) L Carbon Dioxide Level 31 MMOL/L (21-32) 29 MMOL/L (21-32) Anion Gap 10 mmol/L (5-15) 13 mmol/L (5-15) Blood Urea Nitrogen 70 mg/dL (7-18) H 69 mg/dL (7-18) H Creatinine 11.5 MG/DL (0.55-1.30) H 12.6 MG/DL (0.55-1.30) H Estimat Glomerular Filtration Rate 4.7 mL/min (>60) 4.4 mL/min (>60) Glucose Level 102 MG/DL (74-106) 80 MG/DL (74-106) Calcium Level 9.7 MG/DL (8.5-10.1) 9.5 MG/DL (8.5-10.1) Total Bilirubin 0.4 MG/DL (0.2-1.0) 0.6 MG/DL (0.2-1.0) Aspartate Amino Transf (AST/SGOT) 16 U/L (15-37) 30 U/L (15-37) Alanine Aminotransferase (ALT/SGPT) 18 U/L (12-78) 13 U/L (12-78) Alkaline Phosphatase 108 U/L (46-116) 102 U/L (46-116) Total Protein 7.7 G/DL (6.4-8.2) 7.7 G/DL (6.4-8.2) Albumin 3.5 G/DL (3.4-5.0) 3.2 G/DL (3.4-5.0) L Globulin 4.2 g/dL 4.5 g/dL Albumin/Globulin Ratio 0.8 (1.0-2.7) L 0.7 (1.0-2.7) L Uric Acid 6.2 MG/DL (2.6-7.2) Phosphorus Level 6.7 MG/DL (2.5-4.9) H Magnesium Level 2.1 MG/DL (1.8-2.4) Gamma Glutamyl Transpeptidase 5 U/L (5-85) Total Creatine Kinase 124 U/L (26-308) C-Reactive Protein, Quantitative 2.3 mg/dL (0.00-0.90) H Pro-B-Type Natriuretic Peptide 94222 pg/mL (0-125) H Triglycerides Level 246 MG/DL (0-200) H Cholesterol Level 213 MG/DL (< 200) H LDL Cholesterol 125 mg/dL (<100) H HDL Cholesterol 35 MG/DL (40-60) L Cholesterol/HDL Ratio 6.1 (3.3-4.4) H Thyroid Stimulating Hormone (TSH) 0.505 uiU/mL (0.360-3.740) Prothrombin Time 10.1 SEC (9.30-11.50) Prothromb Time International Ratio 1.0 (0.9-1.1) Activated Partial Thromboplast Time 29 SEC (23-33) Current Medications Medications (Trade) Dose Ordered Sig/Brad Route PRN Reason Start Time Stop Time Status Last Admin Dose Admin Acetaminophen (Tylenol) 650 mg Q4H PRN ORAL Fever 07/07/17 22:15 08/06/17 22:14 07/08/17 08:46 Albuterol/ Ipratropium (Albuterol/ Ipratropium) 3 ml Q4H PRN HHN Shortness of Breath 07/07/17 22:15 07/12/17 22:14 Aspirin (ASA) 162 mg DAILY ORAL 07/08/17 09:00 08/07/17 08:59 07/08/17 08:41 Carvedilol (Coreg) 25 mg EVERY 12 HOURS ORAL 07/08/17 21:00 08/07/17 20:59 07/08/17 21:15 Clonidine HCl (Catapres) 0.2 mg EVERY 8 HOURS ORAL 07/08/17 22:00 08/07/17 21:59 07/09/17 05:54 Dextrose (Dextrose 50%) STAT PRN IV Hypoglycemia 07/07/17 22:15 08/06/17 22:14 Diphenhydramine HCl (Benadryl) 25 mg Q4H PRN IVP Itching 07/08/17 14:15 08/07/17 14:14 07/08/17 21:51 Docusate Sodium (Colace) 100 mg TID ORAL 07/08/17 18:00 08/07/17 17:59 07/08/17 18:32 Heparin Sodium (Porcine) (Heparin 5000 units/ml) 5,000 units EVERY 12 HOURS SUBQ 07/08/17 09:00 08/07/17 08:59 07/08/17 08:44 Hydralazine HCl (Apresoline) 25 mg Q4H PRN ORAL bp of 160 and abovse 07/08/17 16:30 08/07/17 16:29 Hydroxychloroquine Sulfate (Plaquenil) 200 mg DAILY ORAL 07/09/17 09:00 08/07/17 08:59 Lisinopril (Zestril) 10 mg DAILY ORAL 07/09/17 09:00 08/08/17 08:59 Morphine Sulfate (Morphine Sulfate) 4 mg Q4H PRN IVP For Pain 07/08/17 10:45 07/15/17 10:44 07/09/17 05:58 Nifedipine (Procardia XL) 60 mg DAILY ORAL 07/08/17 17:00 08/07/17 16:59 07/08/17 18:32 Ondansetron HCl (Zofran) 4 mg Q6H PRN IVP Nausea & Vomiting 07/07/17 22:15 08/06/17 22:14 07/08/17 21:31 Piperacillin Sod/ Tazobactam Sod 2.25 gm/Dextrose 55 ml @ 110 mls/hr Q8H IV 07/08/17 00:00 07/15/17 00:00 07/09/17 00:09 Polyethylene Glycol (Miralax) 17 gm DAILYPRN PRN ORAL Constipation 07/07/17 22:15 08/06/17 22:14 Prednisone (predniSONE) 10 mg DAILY ORAL 07/09/17 09:00 08/08/17 08:59 Sennosides (Senokot) 8.6 mg DAILYPRN PRN ORAL Constipation 07/08/17 16:45 08/07/17 16:44 Sevelamer Carbonate (Renvela) 3,200 mg THREE TIMES A DAY ORAL 07/08/17 09:00 08/07/17 08:59 07/08/17 13:01 Sildenafil Citrate (Revatio) 10 mg THREE TIMES A DAY ORAL 07/08/17 18:00 08/07/17 17:59 07/08/17 18:33 Temazepam (Restoril) 15 mg HSPRN PRN ORAL Insomnia 07/07/17 22:15 07/14/17 22:14 Vancomycin HCl (Vanco rx to dose) 1 ea DAILY PRN MISC Per rx protocol 07/07/17 22:15 08/06/17 22:14 JOSS FLORES M.D. Jul 09, 2017 08:40
[2017-07-09] MEDS: Lisinopril 10mg tab ORAL SCH (08:59)
[2017-07-09] MEDS: Aspirin Baby 81mg ORAL SCH (09:00)
[2017-07-09] MEDS: Heparin 5000 units/ml inj SUBQ SCH ×2 (09:00→21:00)
[2017-07-09] MEDS: Docusate 100mg cap ORAL SCH ×3 (09:02→18:48)
[2017-07-09] MEDS: Revatio 20mg tab ORAL SCH ×3 (09:03→18:48)
[2017-07-09] MEDS: Carvedilol 25mg Tab ORAL SCH ×2 (09:03→21:45)
--- NOTE | 2017-07-09 11:57 | Diagnostic Imaging Report ---
APPROVED REPORT CPT Code: 35365 Present Symptoms Lower Extremity Pain: Bilateral Lower Extremity Edema: Bilateral Comments: R/O DVT BILATERAL: Imaging reveals a patent deep venous system bilaterally. There is no evidence of thrombus within the femoral, popliteal or tibial segments. The greater saphenous veins are also within normal limits. Doppler indicates normal spontaneous flow within these segments.
--- NOTE | 2017-07-09 11:57 | Diagnostic Imaging Report ---
APPROVED REPORT CPT Code: 38861 Present Symptoms Lower Extremity Pain: Bilateral Lower Extremity Edema: Bilateral Comments: R/O DVT BILATERAL: Imaging reveals a patent deep venous system bilaterally. There is no evidence of thrombus within the femoral, popliteal or tibial segments. The greater saphenous veins are also within normal limits. Doppler indicates normal spontaneous flow within these segments.
--- NOTE | 2017-07-09 11:57 | Diagnostic Imaging Report ---
APPROVED REPORT CPT Code: 35725 Present Symptoms Lower Extremity Pain: Bilateral Lower Extremity Edema: Bilateral Comments: R/O DVT BILATERAL: Imaging reveals a patent deep venous system bilaterally. There is no evidence of thrombus within the femoral, popliteal or tibial segments. The greater saphenous veins are also within normal limits. Doppler indicates normal spontaneous flow within these segments.
--- NOTE | 2017-07-09 11:58 | Diagnostic Imaging Report ---
APPROVED REPORT CPT Code: 22070 Present Symptoms Comments: INFECTION Evaluation of H/Dialysis ACC LEFT UPPER EXTREMITY: Imaging reveals patency of the brachial artery to cephalic vein dialysis access graft at the upper arm level. Velocities obtained from the graft are within normal limits in the proximal and distal anastomotic site. The venous outflow is widely patent. A hematoma noted in the left arm around fistula area measuring (0.5 cm x 0.82cm). There is no evidence of pseudo-aneurysm. Velocities were obtained from different levels are as follows: Proximal brachial artery: 120 cm/s Proximal anastomosis: 2.5 mm, 390 cm/s Brachial artery: distal 100 cm/s
--- NOTE | 2017-07-09 11:58 | Diagnostic Imaging Report ---
APPROVED REPORT CPT Code: 27017 Present Symptoms Comments: INFECTION Evaluation of H/Dialysis ACC LEFT UPPER EXTREMITY: Imaging reveals patency of the brachial artery to cephalic vein dialysis access graft at the upper arm level. Velocities obtained from the graft are within normal limits in the proximal and distal anastomotic site. The venous outflow is widely patent. A hematoma noted in the left arm around fistula area measuring (0.5 cm x 0.82cm). There is no evidence of pseudo-aneurysm. Velocities were obtained from different levels are as follows: Proximal brachial artery: 120 cm/s Proximal anastomosis: 2.5 mm, 390 cm/s Brachial artery: distal 100 cm/s
--- NOTE | 2017-07-09 11:58 | Diagnostic Imaging Report ---
APPROVED REPORT CPT Code: 51098 Present Symptoms Comments: INFECTION Evaluation of H/Dialysis ACC LEFT UPPER EXTREMITY: Imaging reveals patency of the brachial artery to cephalic vein dialysis access graft at the upper arm level. Velocities obtained from the graft are within normal limits in the proximal and distal anastomotic site. The venous outflow is widely patent. A hematoma noted in the left arm around fistula area measuring (0.5 cm x 0.82cm). There is no evidence of pseudo-aneurysm. Velocities were obtained from different levels are as follows: Proximal brachial artery: 120 cm/s Proximal anastomosis: 2.5 mm, 390 cm/s Brachial artery: distal 100 cm/s
[2017-07-09] MEDS ORDERED: Heparin 2000 units/Ns 1000ml INJ SCH (12:00)
[2017-07-09] MEDS ORDERED: Lidocaine 2% 20mg/ml/Epi 0.005mg/ml 20ml vial INJ SCH (12:00)
[2017-07-09] MEDS ORDERED: Heparin Sod 1000 units/ml 10ml INJ SCH (12:00)
--- NOTE | 2017-07-09 12:46 | Pulmonology Progress Note ---
Assessment/Plan Problems: (1) ESRF (end stage renal failure) (2) Anemia (3) Lupus (systemic lupus erythematosus) (4) Hemodialysis graft malfunction Assessment/Plan bonner culture getting perma cat HD by renal Subjective ROS Limited/Unobtainable: No Constitutional: Reports: no symptoms HEENT: Repors: no symptoms Gastrointestinal/Abdominal: Reports: no symptoms Allergies: Coded Allergies: SULFA (SULFONAMIDE ANTIBIOTICS) (Verified Allergy, Mild, 05/27/15) Objective Last 24 Hour Vital Signs Date Time Temp Pulse Resp B/P (MAP) Pulse Ox O2 Delivery O2 Flow Rate FiO2 07/09/17 12:30 80 21 137/95 98 Room Air 07/09/17 12:25 82 21 139/98 99 Room Air 07/09/17 12:20 84 16 139/96 100 Room Air 07/09/17 12:15 78 15 131/94 99 Room Air 07/09/17 12:10 76 16 131/88 98 Room Air 07/09/17 12:08 78 16 07/09/17 09:03 74 122/71 07/09/17 09:01 74 122/71 07/09/17 08:59 122/71 07/09/17 08:00 77 07/09/17 08:00 97.7 74 20 122/71 95 Room Air 07/09/17 05:54 136/94 07/09/17 04:00 82 07/09/17 04:00 98.4 84 18 140/91 98 Room Air 07/09/17 00:00 87 07/09/17 00:00 98.4 80 20 150/86 94 Room Air 07/08/17 21:24 188/128 07/08/17 21:15 97 188/128 07/08/17 20:00 97.9 97 20 188/128 98 Room Air 07/08/17 20:00 109 07/08/17 18:32 86 174/111 07/08/17 16:00 84 07/08/17 16:00 98.2 86 20 174/111 98 Room Air General Appearance: WD/WN HEENT: normocephalic, anicteric Respiratory/Chest: chest wall non-tender, lungs clear Breasts: no masses Cardiovascular: normal peripheral pulses Abdomen: normal bowel sounds, soft, non tender Genitourinary: normal external genitalia Extremities: no cyanosis Skin: no lesions 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 normal Microbiology Date/Time Source Procedure Growth Status 07/07/17 19:50 Blood Blood Culture - Preliminary NO GROWTH AFTER 24 HOURS Resulted 07/07/17 19:50 Blood Blood Culture - Preliminary NO GROWTH AFTER 24 HOURS Resulted Laboratory Tests 07/09/17 06:00: Sodium Level 137, Potassium Level 5.7H, Chloride Level 95L, Carbon Dioxide Level 29, Anion Gap 13, Blood Urea Nitrogen 69H, Creatinine 12.6H, Estimat Glomerular Filtration Rate 4.4, Glucose Level 80, Uric Acid 6.2, Calcium Level 9.5, Phosphorus Level 6.7H, Magnesium Level 2.1, Total Bilirubin 0.6, Gamma Glutamyl Transpeptidase 5, Aspartate Amino Transf (AST/SGOT) 30, Alanine Aminotransferase (ALT/SGPT) 13, Alkaline Phosphatase 102, Total Creatine Kinase 124, C-Reactive Protein, Quantitative 2.3H, Pro-B-Type Natriuretic Peptide 41372W, Total Protein 7.7, Albumin 3.2L, Globulin 4.5, Albumin/Globulin Ratio 0.7L, Triglycerides Level 246H, Cholesterol Level 213H, LDL Cholesterol 125H, HDL Cholesterol 35L, Cholesterol/HDL Ratio 6.1H, Thyroid Stimulating Hormone ( TSH) 0.505 07/09/17 07:45: White Blood Count 3.9L, Red Blood Count 4.12L, Hemoglobin 12.6, Hematocrit 40.6 , Mean Corpuscular Volume 98, Mean Corpuscular Hemoglobin 30.5, Mean Corpuscular Hemoglobin Concent 31.0L, Red Cell Distribution Width 24.1H, Platelet Count 147L, Mean Platelet Volume 9.8, Neutrophils (%) (Auto) 70.9, Lymphocytes (%) (Auto) 21.0, Monocytes (%) (Auto) 5.2, Eosinophils (%) (Auto) 2.2, Basophils (%) (Auto) 0.7, Prothrombin Time 10.1, Prothromb Time International Ratio 1.0, Activated Partial Thromboplast Time 29 Current Medications Medications (Trade) Dose Ordered Sig/Brad Route PRN Reason Start Time Stop Time Status Last Admin Dose Admin Acetaminophen (Tylenol) 650 mg Q4H PRN ORAL Fever 07/07/17 22:15 08/06/17 22:14 07/08/17 08:46 Albuterol/ Ipratropium (Albuterol/ Ipratropium) 3 ml Q4H PRN HHN Shortness of Breath 07/07/17 22:15 07/12/17 22:14 Aspirin (ASA) 162 mg DAILY ORAL 07/08/17 09:00 08/07/17 08:59 07/08/17 08:41 Carvedilol (Coreg) 25 mg EVERY 12 HOURS ORAL 07/08/17 21:00 08/07/17 20:59 07/09/17 09:03 Clonidine HCl (Catapres) 0.2 mg EVERY 8 HOURS ORAL 07/08/17 22:00 08/07/17 21:59 07/09/17 05:54 Dextrose (Dextrose 50%) STAT PRN IV Hypoglycemia 07/07/17 22:15 08/06/17 22:14 Diphenhydramine HCl (Benadryl) 25 mg Q4H PRN IVP Itching 07/08/17 14:15 08/07/17 14:14 07/08/17 21:51 Docusate Sodium (Colace) 100 mg TID ORAL 07/08/17 18:00 08/07/17 17:59 07/09/17 09:02 Heparin Sodium (Porcine) (Heparin 5000 units/ml) 5,000 units EVERY 12 HOURS SUBQ 07/08/17 09:00 08/07/17 08:59 07/08/17 08:44 Heparin Sodium (Porcine) (Heparin Sod 1000 units/ml 10ml) 2,000 unit ONCE INJ 07/09/17 12:00 07/09/17 21:00 Heparin Sodium/ Sodium Chloride (Heparin 2000 units/Ns 1000ml premix) 2,000 unit ONCE INJ 07/09/17 12:00 07/09/17 21:00 Hydralazine HCl (Apresoline) 25 mg Q4H PRN ORAL bp of 160 and abovse 07/08/17 16:30 08/07/17 16:29 Hydroxychloroquine Sulfate (Plaquenil) 200 mg DAILY ORAL 07/09/17 09:00 08/07/17 08:59 07/09/17 09:02 Lidocaine/ Epinephrine (Xylocaine 2%/ Epi MPF) 60 ml ONCE INJ 07/09/17 12:00 07/09/17 21:00 Lisinopril (Zestril) 10 mg DAILY ORAL 07/09/17 09:00 08/08/17 08:59 07/09/17 08:59 Morphine Sulfate (Morphine Sulfate) 4 mg Q4H PRN IVP For Pain 07/08/17 10:45 07/15/17 10:44 07/09/17 05:58 Nifedipine (Procardia XL) 60 mg DAILY ORAL 07/08/17 17:00 08/07/17 16:59 07/09/17 09:01 Ondansetron HCl (Zofran) 4 mg Q6H PRN IVP Nausea & Vomiting 07/07/17 22:15 08/06/17 22:14 07/08/17 21:31 Piperacillin Sod/ Tazobactam Sod 2.25 gm/Dextrose 55 ml @ 110 mls/hr Q8H IV 07/08/17 00:00 07/15/17 00:00 07/09/17 09:03 Polyethylene Glycol (Miralax) 17 gm DAILYPRN PRN ORAL Constipation 07/07/17 22:15 08/06/17 22:14 Prednisone (predniSONE) 10 mg DAILY ORAL 07/09/17 09:00 08/08/17 08:59 07/09/17 09:00 Sennosides (Senokot) 8.6 mg DAILYPRN PRN ORAL Constipation 07/08/17 16:45 08/07/17 16:44 Sevelamer Carbonate (Renvela) 3,200 mg THREE TIMES A DAY ORAL 07/08/17 09:00 08/07/17 08:59 07/08/17 13:01 Sildenafil Citrate (Revatio) 10 mg THREE TIMES A DAY ORAL 07/08/17 18:00 08/07/17 17:59 07/09/17 09:03 Temazepam (Restoril) 15 mg HSPRN PRN ORAL Insomnia 07/07/17 22:15 07/14/17 22:14 Vancomycin HCl (Vanco rx to dose) 1 ea DAILY PRN MISC Per rx protocol 07/07/17 22:15 08/06/17 22:14 PANCHITO BARBOSA Jul 09, 2017 12:46
--- NOTE | 2017-07-09 13:43 | General Progress Note ---
Progress Note Progress Note Patient seen and examined Consult dictated # [id number] GA DOTY Jul 09, 2017 13:43
--- NOTE | 2017-07-09 13:43 | General Progress Note ---
Progress Note Progress Note Patient seen and examined Consult dictated # [id number] GA DOTY Jul 09, 2017 13:43
--- NOTE | 2017-07-09 13:43 | General Progress Note ---
Progress Note Progress Note Patient seen and examined Consult dictated # [id number] GA DOTY Jul 09, 2017 13:43
[2017-07-09] MEDS: DiphenhydrAMINE 50mg/ml Inj IVP PRN ×2 (13:50→19:02)
--- NOTE | 2017-07-09 14:23 | Diagnostic Imaging Report ---
Indication: Patient requires long-term hemodialysis. Findings: After the indications, procedure, risks, complications, and alternatives of the procedure were explained, written informed consent was obtained. Patient was brought to the angio-fluoroscopic suite and placed supine on the table. All elements of maximum sterile barrier technique were followed including use of a cap and mask, sterile gown, sterile gloves, and a large sterile sheet. Alcohol used to prep the skin. 1% lidocaine was used to anesthetize the skin and subcutaneous tissue. Sonographic evaluation of the the right jugular vein was performed demonstrating a patent and compressible vein. Access using an 18 gauge needle was obtained under real-time ultrasound guidance and digital image was saved in archive. An 035 wire was then advanced into the vein and negotiated fluoroscopically into the inferior vena cava. Lidocaine infiltration of the right anterior chest wall was then performed followed by dermatotomy. A tunnel of lidocaine was then made between this site and the venous puncture site. A 14.5 mont[place] 19 cm dual-lumen catheter was then tunneled through the tract. The wire within the jugular vein was then exchanged for a dilator. Serial dilatations were performed. The catheter was then inserted into the last dilator/peel-away sheath such that the tip resides in the SVC. The dilator/peel-away sheath and wire were removed and the catheter was completely buried under the skin. Proximal portion of the catheter was secured to the skin using 2-0 Prolene suture. Both ports aspirate and flush easily. Both dermatotomy sites were closed with Dermabond. Total fluoroscopic time 1.1 minute. Impression: Successful placement of tunneled right jugular hemodialysis catheter. No complications.
--- NOTE | 2017-07-09 15:53 | General Progress Note ---
Assessment/Plan Status: unchanged Assessment/Plan status: ESRD Infected hematoma left arm around fistula HTN better controlled SLE Anemia Fibromyalgia HD today- was not done yesterday Vasc surgical eval- called adjust BP meds antibiotics Subjective ROS Limited/Unobtainable: No Constitutional: Reports: malaise, other - left arm pain Allergies: Coded Allergies: SULFA (SULFONAMIDE ANTIBIOTICS) (Verified Allergy, Mild, 05/27/15) Objective Last 24 Hour Vital Signs Date Time Temp Pulse Resp B/P (MAP) Pulse Ox O2 Delivery O2 Flow Rate FiO2 07/09/17 13:10 145/90 07/09/17 12:30 80 21 137/95 98 Room Air 07/09/17 12:25 82 21 139/98 99 Room Air 07/09/17 12:20 84 16 139/96 100 Room Air 07/09/17 12:15 78 15 131/94 99 Room Air 07/09/17 12:10 76 16 131/88 98 Room Air 07/09/17 12:08 78 16 07/09/17 12:00 80 07/09/17 09:03 74 122/71 07/09/17 09:01 74 122/71 07/09/17 08:59 122/71 07/09/17 08:00 77 07/09/17 08:00 97.7 74 20 122/71 95 Room Air 07/09/17 05:54 136/94 07/09/17 04:00 82 07/09/17 04:00 98.4 84 18 140/91 98 Room Air 07/09/17 00:00 87 07/09/17 00:00 98.4 80 20 150/86 94 Room Air 07/08/17 21:24 188/128 07/08/17 21:15 97 188/128 07/08/17 20:00 97.9 97 20 188/128 98 Room Air 07/08/17 20:00 109 07/08/17 18:32 86 174/111 07/08/17 16:00 84 07/08/17 16:00 98.2 86 20 174/111 98 Room Air Intake and Output 07/09/17 07/10/17 19:00 07:00 Intake Total 55 ml Balance 55 ml IV Total 55 ml Laboratory Tests 07/09/17 06:00: Sodium Level 137, Potassium Level 5.7H, Chloride Level 95L, Carbon Dioxide Level 29, Anion Gap 13, Blood Urea Nitrogen 69H, Creatinine 12.6H, Estimat Glomerular Filtration Rate 4.4, Glucose Level 80, Uric Acid 6.2, Calcium Level 9.5, Phosphorus Level 6.7H, Magnesium Level 2.1, Total Bilirubin 0.6, Gamma Glutamyl Transpeptidase 5, Aspartate Amino Transf (AST/SGOT) 30, Alanine Aminotransferase (ALT/SGPT) 13, Alkaline Phosphatase 102, Total Creatine Kinase 124, C-Reactive Protein, Quantitative 2.3H, Pro-B-Type Natriuretic Peptide 36850L, Total Protein 7.7, Albumin 3.2L, Globulin 4.5, Albumin/Globulin Ratio 0.7L, Triglycerides Level 246H, Cholesterol Level 213H, LDL Cholesterol 125H, HDL Cholesterol 35L, Cholesterol/HDL Ratio 6.1H, Thyroid Stimulating Hormone ( TSH) 0.505 07/09/17 07:45: White Blood Count 3.9L, Red Blood Count 4.12L, Hemoglobin 12.6, Hematocrit 40.6 , Mean Corpuscular Volume 98, Mean Corpuscular Hemoglobin 30.5, Mean Corpuscular Hemoglobin Concent 31.0L, Red Cell Distribution Width 24.1H, Platelet Count 147L, Mean Platelet Volume 9.8, Neutrophils (%) (Auto) 70.9, Lymphocytes (%) (Auto) 21.0, Monocytes (%) (Auto) 5.2, Eosinophils (%) (Auto) 2.2, Basophils (%) (Auto) 0.7, Prothrombin Time 10.1, Prothromb Time International Ratio 1.0, Activated Partial Thromboplast Time 29 Height (Feet): 5 Height (Inches): 7.00 Weight (Pounds): 135 General Appearance: no apparent distress Objective PE not changed JAMES MONTES Jul 09, 2017 15:53
--- NOTE | 2017-07-09 23:00 | Consultation ---
DATE OF CONSULTATION: 07/09/2017 VASCULAR SURGERY CONSULTATION CONSULTING PHYSICIAN: Addison Manuel M.D. REFERRING PHYSICIANS: Jason Wild M.D. and Elias Claros M.D. REASON FOR EVALUATION: AV shunt evaluation and pain. HISTORY OF PRESENT ILLNESS: The patient is a 27-year-old female who is well known to our Vascular Service. The patient has a history of left upper arm AV graft, which was placed earlier this year. The patient has been on dialysis without difficulty. The patient had her AV shunt infiltrated by dialysis nurse couple of days ago with subsequent pain and arian-shunt hematoma. Vascular Surgery was consulted for further evaluation. The patient remains afebrile with normal WBC with no erythema or edema. She continues to have pain. She does suffer from lupus and fibromyalgia. As mentioned above, the patient has end-stage renal disease, on hemodialysis, left upper arm AV graft, systemic lupus erythematosus, history of arthralgia, fibromyalgia, pulmonary hypertension, chronic anemia, history of left upper arm AV graft. MEDICATIONS: See attached MAR. ALLERGIES: Sulfa. SOCIAL HISTORY: Denies history of smoking, drugs, or alcohol abuse. FAMILY HISTORY: Unremarkable. REVIEW OF SYSTEMS: CARDIOVASCULAR: No history of chest pain or palpitations. PULMONARY: No cough. No hemoptysis. GASTROINTESTINAL: No history of abdominal pain, constipation, or diarrhea. GENITOURINARY: No urinary symptoms. NEUROLOGICAL: No history of stroke or seizures. PHYSICAL EXAMINATION: VITAL SIGNS: The patient is afebrile at 98.6 degrees, heart rate 85, blood pressure 176/100, respirations 20, and saturation 97% on room air. EXTREMITIES: She has a palpable left upper arm AV graft thrill. Skin is clean, dry, and intact. There is no drainage. There is minimal arian-AV graft ecchymosis suggestive of underlying small hematoma. There is no significant edema. She has well-perfused extremities with intact radial pulses. LUNGS: Clear to auscultation. HEART: Regular rate and rhythm. ABDOMEN: Soft and nontender. She has palpable femoral pulses. Feet are warm. Intact pedal Dopplers bilaterally. LABORATORY AND DIAGNOSTIC DATA: WBC of 6.1, hemiglobin is 11.6, and platelet count 157. Sodium 138, potassium 4.4, BUN is 68, creatinine is 10.2, and glucose is 94. Her AST is 18 and ALT is 11. IMPRESSION: 1. Tender left upper arm arteriovenous graft with arian-arteriovenous graft small access site hematoma with infiltration several days ago at dialysis center with no gross evidence of infection. 2. End-stage renal disease, on hemodialysis. 3. History of systemic lupus erythematosus with chronic pain syndrome. 4. Fibromyalgia. 5. Arthralgia. 6. Chronic anemia. 7. Hypertension. PLAN: 1. Left arm AV graft duplex was ordered and reviewed. 2. We will rest the left arm AV graft for 3 to 4 weeks for complete resolution of the AV shunt hematoma and edema. 3. The patient should have dialysis via tunneled PermCath catheter. 4. Continue antibiotics post dialysis for another week. 5. The patient is cleared for discharge from Vascular Surgery standpoint. 6. Lupus followup and renal transplantation assessment and followup as an outpatient. The above discussed at length with the patient and the nurse at bedside. Addison Manuel M.D. DR: ZACHERY JOB#: [id number] CC: Elias Claros M.D.; Fax#: [phone] Jason Wild M.D.
[2017-07-10] VITALS (8 sets, daily range): BP systolic 121–139; BP diastolic 67–85
[2017-07-10] MEDS: DiphenhydrAMINE 50mg/ml Inj IVP PRN ×3 (01:06→15:55)
[2017-07-10] MEDS: Zosyn 2.25 gm in D5W 55ml IV SCH ×3 (01:08→15:54)
[2017-07-10] MEDS: Morphine Sulfate 4mg/ml Inj IVP PRN ×4 (01:08→20:07)
[2017-07-10] MEDS: Aspirin Baby 81mg ORAL SCH (08:48)
[2017-07-10] MEDS: Docusate 100mg cap ORAL SCH ×3 (08:48→17:46)
[2017-07-10] MEDS: Revatio 20mg tab ORAL SCH ×3 (08:50→17:46)
[2017-07-10] MEDS: Carvedilol 25mg Tab ORAL SCH ×2 (08:50→20:07)
[2017-07-10] MEDS: Lisinopril 10mg tab ORAL SCH (08:52)
[2017-07-10] MEDS: Heparin 5000 units/ml inj SUBQ SCH ×2 (08:55→20:09)
[2017-07-10] MEDS ORDERED: Dyna-Hex 2% Top Sol 2oz TOPIC SCH (09:00)
--- NOTE | 2017-07-10 11:59 | Infectious Diseases Prog Note ---
Assessment/Plan Assessment/Plan A: 27 y/o F with Pain and TTP on L AVF site ( due to hematoma ) and probable infection infection Afebrile, no leukocytosis SP Perm Cath placement 06/11 SLE ESRD on HD 2ry to Lupus Nephritis HTN RA Fibromyalgia Pulm HTN Anemia Plan: -Continue IV Vanco # 4 / 10 , Zosyn # 3 / 10 , upon DC will cont pt on Vanco pharm to dose and amikacin 1gm post HD (until 07/16/17) 07/08 SP IV Amikacin #2 -Monitor CBC/BMP - monitor Cultures Subjective Constitutional: Denies: no symptoms, fever, chills, fatigue, anorexia, drenching sweats, other Allergies: Coded Allergies: SULFA (SULFONAMIDE ANTIBIOTICS) (Verified Allergy, Mild, 05/27/15) Objective Vital Signs Last 24 Hour Vital Signs Date Time Temp Pulse Resp B/P (MAP) Pulse Ox O2 Delivery O2 Flow Rate FiO2 07/10/17 10:09 98.1 07/10/17 08:52 124/78 07/10/17 08:52 72 124/78 07/10/17 08:50 72 124/78 07/10/17 08:00 73 07/10/17 08:00 98.5 72 20 124/78 96 Room Air 07/10/17 07:56 74 18 Room Air 21 07/10/17 05:53 123/66 07/10/17 04:00 76 07/10/17 04:00 98.1 77 20 124/72 99 Room Air 07/10/17 00:00 68 07/10/17 00:00 68 20 121/67 97 Room Air 07/09/17 21:55 119/62 07/09/17 21:45 73 119/62 07/09/17 20:00 98.1 83 20 110/55 97 Room Air 07/09/17 20:00 75 07/09/17 19:59 80 18 Room Air 21 07/09/17 16:00 72 07/09/17 16:00 97.9 80 20 117/73 97 Room Air 07/09/17 13:10 145/90 07/09/17 12:30 80 21 137/95 98 Room Air 07/09/17 12:25 82 21 139/98 99 Room Air 07/09/17 12:20 84 16 139/96 100 Room Air 07/09/17 12:15 78 15 131/94 99 Room Air 07/09/17 12:10 76 16 131/88 98 Room Air 07/09/17 12:08 78 16 07/09/17 12:00 80 Height (Feet): 5 Height (Inches): 7.00 Weight (Pounds): 130 HEENT: anicteric Respiratory/Chest: normal breath sounds Cardiovascular: regularly irregular Abdomen: no scars Microbiology Date/Time Source Procedure Growth Status 07/08/17 20:30 Blood Blood Culture - Preliminary NO GROWTH AFTER 24 HOURS Resulted 07/08/17 20:20 Blood Blood Culture - Preliminary NO GROWTH AFTER 24 HOURS Resulted 07/07/17 19:50 Blood Blood Culture - Preliminary NO GROWTH AFTER 48 HOURS Resulted 07/07/17 19:50 Blood Blood Culture - Preliminary NO GROWTH AFTER 48 HOURS Resulted 07/07/17 22:30 Nasal Nares MRSA Culture - Final NO METHICILLIN RESISTANT STAPH AUREUS... Complete 07/07/17 22:30 Rectum VRE Culture - Final NO VANCOMYCIN RESISTANT ENTEROCOCCUS ... Complete Laboratory Tests Test 07/10/17 06:10 Random Vancomycin Level 19.2 ug/mL Current Medications Medications (Trade) Dose Ordered Sig/Brad Route PRN Reason Start Time Stop Time Status Last Admin Dose Admin Acetaminophen (Tylenol) 650 mg Q4H PRN ORAL Fever 07/07/17 22:15 08/06/17 22:14 07/08/17 08:46 Albuterol/ Ipratropium (Albuterol/ Ipratropium) 3 ml Q4H PRN HHN Shortness of Breath 07/07/17 22:15 07/12/17 22:14 Aspirin (ASA) 162 mg DAILY ORAL 07/08/17 09:00 08/07/17 08:59 07/10/17 08:48 Carvedilol (Coreg) 25 mg EVERY 12 HOURS ORAL 07/08/17 21:00 08/07/17 20:59 07/10/17 08:50 Chlorhexidine Gluconate (Mariluz-Hex 2%) 1 applic DAILY TOPIC 07/10/17 09:00 08/09/17 08:59 07/10/17 08:53 Clonidine HCl (Catapres) 0.2 mg EVERY 8 HOURS ORAL 07/08/17 22:00 08/07/17 21:59 07/09/17 13:10 Dextrose (Dextrose 50%) STAT PRN IV Hypoglycemia 07/07/17 22:15 08/06/17 22:14 Diphenhydramine HCl (Benadryl) 25 mg Q4H PRN IVP Itching 07/08/17 14:15 08/07/17 14:14 07/10/17 09:40 Docusate Sodium (Colace) 100 mg TID ORAL 07/08/17 18:00 08/07/17 17:59 07/10/17 08:48 Heparin Sodium (Porcine) (Heparin 5000 units/ml) 5,000 units EVERY 12 HOURS SUBQ 07/08/17 09:00 08/07/17 08:59 07/10/17 08:55 Hydralazine HCl (Apresoline) 25 mg Q4H PRN ORAL bp of 160 and abovse 07/08/17 16:30 08/07/17 16:29 Hydroxychloroquine Sulfate (Plaquenil) 200 mg DAILY ORAL 07/09/17 09:00 08/07/17 08:59 07/10/17 08:50 Lisinopril (Zestril) 10 mg DAILY ORAL 07/09/17 09:00 08/08/17 08:59 07/10/17 08:52 Morphine Sulfate (Morphine Sulfate) 4 mg Q4H PRN IVP For Pain 07/08/17 10:45 07/15/17 10:44 07/10/17 09:39 Nifedipine (Procardia XL) 60 mg DAILY ORAL 07/08/17 17:00 08/07/17 16:59 07/10/17 08:52 Ondansetron HCl (Zofran) 4 mg Q6H PRN IVP Nausea & Vomiting 07/07/17 22:15 08/06/17 22:14 07/08/17 21:31 Piperacillin Sod/ Tazobactam Sod 2.25 gm/Dextrose 55 ml @ 110 mls/hr Q8H IV 07/08/17 00:00 07/15/17 00:00 07/10/17 08:48 Polyethylene Glycol (Miralax) 17 gm DAILYPRN PRN ORAL Constipation 07/07/17 22:15 08/06/17 22:14 Prednisone (predniSONE) 10 mg DAILY ORAL 07/09/17 09:00 08/08/17 08:59 07/10/17 08:51 Sennosides (Senokot) 8.6 mg DAILYPRN PRN ORAL Constipation 07/08/17 16:45 08/07/17 16:44 Sevelamer Carbonate (Renvela) 3,200 mg THREE TIMES A DAY ORAL 07/08/17 09:00 08/07/17 08:59 07/10/17 08:50 Sildenafil Citrate (Revatio) 10 mg THREE TIMES A DAY ORAL 07/08/17 18:00 08/07/17 17:59 07/10/17 08:50 Temazepam (Restoril) 15 mg HSPRN PRN ORAL Insomnia 07/07/17 22:15 07/14/17 22:14 Vancomycin HCl (Vanco rx to dose) 1 ea DAILY PRN MISC Per rx protocol 07/07/17 22:15 08/06/17 22:14 Vancomycin/Sodium Chloride 250 ml @ 166.667 mls/hr ONCE ONCE IVPB 07/10/17 18:00 07/10/17 19:29 JOSS FLORES M.D. Jul 10, 2017 11:59
--- NOTE | 2017-07-10 12:41 | General Progress Note ---
Assessment/Plan Status: stable Assessment/Plan status: ESRD Infected hematoma left arm around fistula HTN better controlled SLE Anemia Fibromyalgia HD in am and then DC Vasc surgical eval- called adjust BP meds antibiotics Subjective ROS Limited/Unobtainable: No Constitutional: Reports: malaise, other - feels better Allergies: Coded Allergies: SULFA (SULFONAMIDE ANTIBIOTICS) (Verified Allergy, Mild, 05/27/15) Objective Last 24 Hour Vital Signs Date Time Temp Pulse Resp B/P (MAP) Pulse Ox O2 Delivery O2 Flow Rate FiO2 07/10/17 10:09 98.1 07/10/17 08:52 124/78 07/10/17 08:52 72 124/78 07/10/17 08:50 72 124/78 07/10/17 08:00 73 07/10/17 08:00 98.5 72 20 124/78 96 Room Air 07/10/17 07:56 74 18 Room Air 21 07/10/17 05:53 123/66 07/10/17 04:00 76 07/10/17 04:00 98.1 77 20 124/72 99 Room Air 07/10/17 00:00 68 07/10/17 00:00 68 20 121/67 97 Room Air 07/09/17 21:55 119/62 07/09/17 21:45 73 119/62 07/09/17 20:00 98.1 83 20 110/55 97 Room Air 07/09/17 20:00 75 07/09/17 19:59 80 18 Room Air 21 07/09/17 16:00 72 07/09/17 16:00 97.9 80 20 117/73 97 Room Air 07/09/17 13:10 145/90 Intake and Output 07/10/17 07/11/17 19:00 07:00 Intake Total 55 ml Balance 55 ml IV Total 55 ml Current Medications Medications (Trade) Dose Ordered Sig/Brad Route PRN Reason Start Time Stop Time Status Last Admin Dose Admin Acetaminophen (Tylenol) 650 mg Q4H PRN ORAL Fever 07/07/17 22:15 08/06/17 22:14 07/08/17 08:46 Albuterol/ Ipratropium (Albuterol/ Ipratropium) 3 ml Q4H PRN HHN Shortness of Breath 07/07/17 22:15 07/12/17 22:14 Aspirin (ASA) 162 mg DAILY ORAL 07/08/17 09:00 08/07/17 08:59 07/10/17 08:48 Carvedilol (Coreg) 25 mg EVERY 12 HOURS ORAL 07/08/17 21:00 08/07/17 20:59 07/10/17 08:50 Chlorhexidine Gluconate (Mariluz-Hex 2%) 1 applic DAILY TOPIC 07/10/17 09:00 08/09/17 08:59 07/10/17 08:53 Clonidine HCl (Catapres) 0.2 mg EVERY 8 HOURS ORAL 07/08/17 22:00 08/07/17 21:59 07/09/17 13:10 Dextrose (Dextrose 50%) STAT PRN IV Hypoglycemia 07/07/17 22:15 08/06/17 22:14 Diphenhydramine HCl (Benadryl) 25 mg Q4H PRN IVP Itching 07/08/17 14:15 08/07/17 14:14 07/10/17 09:40 Docusate Sodium (Colace) 100 mg TID ORAL 07/08/17 18:00 08/07/17 17:59 07/10/17 08:48 Heparin Sodium (Porcine) (Heparin 5000 units/ml) 5,000 units EVERY 12 HOURS SUBQ 07/08/17 09:00 08/07/17 08:59 07/10/17 08:55 Hydralazine HCl (Apresoline) 25 mg Q4H PRN ORAL bp of 160 and abovse 07/08/17 16:30 08/07/17 16:29 Hydroxychloroquine Sulfate (Plaquenil) 200 mg DAILY ORAL 07/09/17 09:00 08/07/17 08:59 07/10/17 08:50 Lisinopril (Zestril) 10 mg DAILY ORAL 07/09/17 09:00 08/08/17 08:59 07/10/17 08:52 Morphine Sulfate (Morphine Sulfate) 4 mg Q4H PRN IVP For Pain 07/08/17 10:45 07/15/17 10:44 07/10/17 09:39 Nifedipine (Procardia XL) 60 mg DAILY ORAL 07/08/17 17:00 08/07/17 16:59 07/10/17 08:52 Ondansetron HCl (Zofran) 4 mg Q6H PRN IVP Nausea & Vomiting 07/07/17 22:15 08/06/17 22:14 07/08/17 21:31 Piperacillin Sod/ Tazobactam Sod 2.25 gm/Dextrose 55 ml @ 110 mls/hr Q8H IV 07/08/17 00:00 07/15/17 00:00 07/10/17 08:48 Polyethylene Glycol (Miralax) 17 gm DAILYPRN PRN ORAL Constipation 07/07/17 22:15 08/06/17 22:14 Prednisone (predniSONE) 10 mg DAILY ORAL 07/09/17 09:00 08/08/17 08:59 07/10/17 08:51 Sennosides (Senokot) 8.6 mg DAILYPRN PRN ORAL Constipation 07/08/17 16:45 08/07/17 16:44 Sevelamer Carbonate (Renvela) 3,200 mg THREE TIMES A DAY ORAL 07/08/17 09:00 08/07/17 08:59 07/10/17 08:50 Sildenafil Citrate (Revatio) 10 mg THREE TIMES A DAY ORAL 07/08/17 18:00 08/07/17 17:59 07/10/17 08:50 Temazepam (Restoril) 15 mg HSPRN PRN ORAL Insomnia 07/07/17 22:15 07/14/17 22:14 Vancomycin HCl (Vanco rx to dose) 1 ea DAILY PRN MISC Per rx protocol 07/07/17 22:15 08/06/17 22:14 Vancomycin/Sodium Chloride 250 ml @ 166.667 mls/hr ONCE ONCE IVPB 07/10/17 18:00 07/10/17 19:29 Laboratory Tests 07/10/17 06:10: Random Vancomycin Level 19.2 Height (Feet): 5 Height (Inches): 7.00 Weight (Pounds): 130 General Appearance: no apparent distress Cardiovascular: normal peripheral pulses Respiratory/Chest: lungs clear Abdomen: soft Extremities: other - left arm less swollen Objective PE not changed JAMES MONTES Jul 10, 2017 12:41
[2017-07-10] MEDS ORDERED: Vancomycin 750mg/NS 250ml IVPB ONE (18:00)
[2017-07-10] MEDS: Piperacillin/Tazobactam 2.25 GM in D5W 55 ML IV SCH (22:07)
[2017-07-10] MEDS: cloNIDine 0.2mg Tab ORAL SCH (22:07)
[2017-07-10] MEDS ORDERED: Albuterol/Ipratropium 3ml neb HHN PRN (22:15)
[2017-07-10] MEDS ORDERED: Miralax 17gm pkt ORAL PRN (22:15)
[2017-07-11] MEDS ORDERED: HydrALAZINE 25mg tab ORAL PRN (00:30)
[2017-07-11] MEDS: Morphine Sulfate 4mg/ml Inj IVP PRN ×3 (01:13→15:20)
[2017-07-11] MEDS: DiphenhydrAMINE 50mg/ml Inj IVP PRN ×3 (01:13→15:20)
[2017-07-11 04:00] VITALS: BP 135/78
[2017-07-11] MEDS: cloNIDine 0.2mg Tab ORAL SCH ×2 (05:13→14:00)
[2017-07-11 08:00] VITALS: BP 134/76
[2017-07-11] MEDS: Piperacillin/Tazobactam 2.25 GM in D5W 55 ML IV SCH ×2 (08:41→16:00)
[2017-07-11] MEDS: Docusate 100mg cap ORAL SCH ×2 (08:42→15:20)
[2017-07-11] MEDS: Revatio 20mg tab ORAL SCH ×2 (08:43→15:21)
[2017-07-11] MEDS ORDERED: Carvedilol 25mg Tab ORAL SCH (09:00)
[2017-07-11] MEDS ORDERED: Lisinopril 10mg tab ORAL SCH (09:00)
[2017-07-11] MEDS ORDERED: Heparin 5000 units/ml inj SUBQ SCH (09:00)
[2017-07-11] MEDS ORDERED: Aspirin Baby 81mg ORAL SCH (09:00)
--- NOTE | 2017-07-11 09:00 | General Progress Note ---
Assessment/Plan Status: stable Assessment/Plan status: ESRD Infected hematoma left arm around fistula HTN better controlled SLE Anemia Fibromyalgia HD today and then DC Vasc surgical eval- called adjust BP meds antibiotics Subjective ROS Limited/Unobtainable: No Allergies: Coded Allergies: SULFA (SULFONAMIDE ANTIBIOTICS) (Verified Allergy, Mild, 05/27/15) Objective Last 24 Hour Vital Signs Date Time Temp Pulse Resp B/P (MAP) Pulse Ox O2 Delivery O2 Flow Rate FiO2 07/11/17 08:44 98 135/78 07/11/17 08:44 135/78 07/11/17 08:42 98 135/78 07/11/17 08:25 98.4 07/11/17 05:13 135/78 07/11/17 04:00 98.4 98 18 135/78 95 Room Air 07/10/17 23:54 98.2 18 138/78 94 Room Air 07/10/17 22:07 139/85 07/10/17 20:07 78 139/85 07/10/17 20:00 98.2 92 18 139/85 92 Room Air 07/10/17 19:38 76 18 Room Air 07/10/17 16:00 99.1 73 20 129/76 92 Room Air 07/10/17 16:00 79 07/10/17 14:00 97.9 68 20 125/76 94 Room Air 07/10/17 14:00 125/76 07/10/17 12:00 72 07/10/17 12:00 97.9 68 20 125/76 94 Room Air 07/10/17 10:09 98.1 Height (Feet): 5 Height (Inches): 7.00 Weight (Pounds): 133 General Appearance: no apparent distress Objective PE not changed JAMES MONTES Jul 11, 2017 09:00
--- NOTE | 2017-07-11 11:50 | Infectious Diseases Prog Note ---
Assessment/Plan Assessment/Plan A: 27 y/o F with Pain and TTP on L AVF site ( due to hematoma ) and probable infection infection Afebrile, no leukocytosis SP Perm Cath placement 06/11 SLE ESRD on HD 2ry to Lupus Nephritis HTN RA Fibromyalgia Pulm HTN Anemia Plan: -Continue IV Vanco # 5 / 10 , Zosyn # 4 / 10 , upon DC will cont pt on Vanco pharm to dose and amikacin 1gm post HD (until 07/16/17) 07/08 SP IV Amikacin #2 -Monitor CBC/BMP - monitor Cultures Subjective Constitutional: Denies: no symptoms, fever, chills, fatigue, anorexia, drenching sweats, other Allergies: Coded Allergies: SULFA (SULFONAMIDE ANTIBIOTICS) (Verified Allergy, Mild, 05/27/15) Objective Vital Signs Last 24 Hour Vital Signs Date Time Temp Pulse Resp B/P (MAP) Pulse Ox O2 Delivery O2 Flow Rate FiO2 07/11/17 11:18 Room Air 21 07/11/17 11:07 Room Air 07/11/17 08:44 98 135/78 07/11/17 08:44 135/78 07/11/17 08:42 98 135/78 07/11/17 08:35 80 16 Room Air 07/11/17 08:25 98.4 07/11/17 08:00 98.1 90 18 134/76 95 Room Air 07/11/17 05:13 135/78 07/11/17 04:00 98.4 98 18 135/78 95 Room Air 07/10/17 23:54 98.2 18 138/78 94 Room Air 07/10/17 22:07 139/85 07/10/17 20:07 78 139/85 07/10/17 20:00 98.2 92 18 139/85 92 Room Air 07/10/17 19:38 76 18 Room Air 07/10/17 16:00 99.1 73 20 129/76 92 Room Air 07/10/17 16:00 79 07/10/17 14:00 97.9 68 20 125/76 94 Room Air 07/10/17 14:00 125/76 07/10/17 12:00 72 07/10/17 12:00 97.9 68 20 125/76 94 Room Air Height (Feet): 5 Height (Inches): 7.00 Weight (Pounds): 133 HEENT: anicteric Respiratory/Chest: normal breath sounds Cardiovascular: regular rhythm Abdomen: soft, non tender Microbiology Date/Time Source Procedure Growth Status 07/08/17 20:30 Blood Blood Culture - Preliminary NO GROWTH AFTER 48 HOURS Resulted 07/08/17 20:20 Blood Blood Culture - Preliminary NO GROWTH AFTER 48 HOURS Resulted Current Medications Medications (Trade) Dose Ordered Sig/Brad Route PRN Reason Start Time Stop Time Status Last Admin Dose Admin Acetaminophen (Tylenol) 650 mg Q4H PRN ORAL Fever 07/10/17 22:15 08/06/17 22:14 Albuterol/ Ipratropium (Albuterol/ Ipratropium) 3 ml Q4H PRN HHN Shortness of Breath 07/10/17 22:15 07/12/17 22:14 Aspirin (ASA) 162 mg DAILY ORAL 07/11/17 09:00 08/07/17 08:59 07/11/17 08:42 Carvedilol (Coreg) 25 mg EVERY 12 HOURS ORAL 07/11/17 09:00 08/07/17 20:59 07/11/17 08:42 Chlorhexidine Gluconate (Mariluz-Hex 2%) 1 applic DAILY@2000 TOPIC 07/11/17 20:00 08/10/17 19:59 Clonidine HCl (Catapres) 0.2 mg EVERY 8 HOURS ORAL 07/10/17 22:00 08/07/17 21:59 07/11/17 05:13 Dextrose (Dextrose 50%) STAT PRN IV Hypoglycemia 07/10/17 22:15 08/06/17 22:14 Diphenhydramine HCl (Benadryl) 25 mg Q4H PRN IVP Itching 07/10/17 22:15 08/07/17 14:14 07/11/17 07:54 Docusate Sodium (Colace) 100 mg TID ORAL 07/11/17 09:00 08/07/17 17:59 07/11/17 08:42 Heparin Sodium (Porcine) (Heparin 5000 units/ml) 5,000 units EVERY 12 HOURS SUBQ 07/11/17 09:00 08/07/17 08:59 Hydralazine HCl (Apresoline) 25 mg Q4H PRN ORAL bp of 160 and abovse 07/11/17 00:30 08/07/17 16:29 Hydroxychloroquine Sulfate (Plaquenil) 200 mg DAILY ORAL 07/11/17 09:00 08/07/17 08:59 07/11/17 08:43 Lisinopril (Zestril) 10 mg DAILY ORAL 07/11/17 09:00 08/08/17 08:59 07/11/17 08:44 Morphine Sulfate (Morphine Sulfate) 4 mg Q4H PRN IVP For Pain 07/10/17 22:45 07/15/17 10:44 07/11/17 07:55 Nifedipine (Procardia XL) 60 mg DAILY ORAL 07/11/17 09:00 08/07/17 16:59 07/11/17 08:44 Ondansetron HCl (Zofran) 4 mg Q6H PRN IVP Nausea & Vomiting 07/10/17 22:15 08/06/17 22:14 07/11/17 08:40 Piperacillin Sod/ Tazobactam Sod 2.25 gm/Dextrose 55 ml @ 110 mls/hr Q8H IV 07/11/17 00:00 07/15/17 00:00 07/11/17 08:41 Polyethylene Glycol (Miralax) 17 gm DAILYPRN PRN ORAL Constipation 07/10/17 22:15 08/06/17 22:14 Prednisone (predniSONE) 10 mg DAILY ORAL 07/11/17 09:00 08/08/17 08:59 07/11/17 08:44 Sennosides (Senokot) 8.6 mg DAILYPRN PRN ORAL Constipation 07/11/17 16:45 08/07/17 16:44 Sevelamer Carbonate (Renvela) 3,200 mg THREE TIMES A DAY ORAL 07/11/17 09:00 08/07/17 08:59 07/11/17 08:42 Sildenafil Citrate (Revatio) 10 mg THREE TIMES A DAY ORAL 07/11/17 09:00 08/07/17 17:59 07/11/17 08:43 Temazepam (Restoril) 15 mg HSPRN PRN ORAL Insomnia 07/10/17 22:15 07/14/17 22:14 Vancomycin HCl (Vanco rx to dose) 1 ea DAILY PRN MISC Per rx protocol 11/1/17 21:00 08/09/17 20:59 JOSS FLORES M.D. Jul 11, 2017 11:50
[2017-07-11 12:05] VITALS: BP 125/76
[2017-07-11 15:27] VITALS: BP 128/71
[2017-07-11] MEDS ORDERED: COREG25 MG ORAL (15:44)
[2017-07-11] MEDS ORDERED: ASPIR 8181 MG ORAL (15:46)
[2017-07-11] MEDS ORDERED: AMIKACIN S1000 MG/4 IVPB (15:51)
[2017-07-11] MEDS ORDERED: VANCOMYCIN1 GM/2502 IVPB (15:55)
[2017-07-11] MEDS ORDERED: Vancomycin 500 MG in NS 110 ML IVPB SCH (16:30)
[2017-07-11] MEDS ORDERED: Sennosides 8.6mg ORAL PRN (16:45)
--- NOTE | 2017-07-11 17:53 | General Progress Note ---
Assessment/Plan Status: stable Assessment/Plan Nephrology : status: ESRD Infected hematoma left arm around fistula HTN better controlled SLE Anemia Fibromyalgia HD today and then DC Vasc surgical eval- called adjust BP meds antibiotics Subjective ROS Limited/Unobtainable: No Allergies: Coded Allergies: SULFA (SULFONAMIDE ANTIBIOTICS) (Verified Allergy, Mild, 05/27/15) Objective Last 24 Hour Vital Signs Date Time Temp Pulse Resp B/P (MAP) Pulse Ox O2 Delivery O2 Flow Rate FiO2 07/11/17 15:50 97.9 07/11/17 15:27 97.9 73 20 128/71 Room Air 07/11/17 12:05 98.1 71 18 125/76 100 Room Air 07/11/17 11:18 Room Air 21 07/11/17 11:07 Room Air 07/11/17 08:44 98 135/78 07/11/17 08:44 135/78 07/11/17 08:42 98 135/78 07/11/17 08:35 80 16 Room Air 07/11/17 08:00 98.1 90 18 134/76 95 Room Air 07/11/17 05:13 135/78 07/11/17 04:00 98.4 98 18 135/78 95 Room Air 07/10/17 23:54 98.2 18 138/78 94 Room Air 07/10/17 22:07 139/85 07/10/17 20:07 78 139/85 07/10/17 20:00 98.2 92 18 139/85 92 Room Air 07/10/17 19:38 76 18 Room Air Intake and Output 07/11/17 07/12/17 19:00 07:00 Output Total 3000 ml Balance -3000 ml Output Hemodialysis UF 3000 ml Current Medications Medications (Trade) Dose Ordered Sig/Brad Route PRN Reason Start Time Stop Time Status Last Admin Dose Admin Acetaminophen (Tylenol) 650 mg Q4H PRN ORAL Fever 07/10/17 22:15 08/06/17 22:14 Albuterol/ Ipratropium (Albuterol/ Ipratropium) 3 ml Q4H PRN HHN Shortness of Breath 07/10/17 22:15 07/12/17 22:14 Aspirin (ASA) 162 mg DAILY ORAL 07/11/17 09:00 08/07/17 08:59 07/11/17 08:42 Carvedilol (Coreg) 25 mg EVERY 12 HOURS ORAL 07/11/17 09:00 08/07/17 20:59 07/11/17 08:42 Chlorhexidine Gluconate (Mariluz-Hex 2%) 1 applic DAILY@2000 TOPIC 07/11/17 20:00 08/10/17 19:59 Clonidine HCl (Catapres) 0.2 mg EVERY 8 HOURS ORAL 07/10/17 22:00 08/07/17 21:59 07/11/17 05:13 Dextrose (Dextrose 50%) STAT PRN IV Hypoglycemia 07/10/17 22:15 08/06/17 22:14 Diphenhydramine HCl (Benadryl) 25 mg Q4H PRN IVP Itching 07/10/17 22:15 08/07/17 14:14 07/11/17 15:20 Docusate Sodium (Colace) 100 mg TID ORAL 07/11/17 09:00 08/07/17 17:59 07/11/17 15:20 Heparin Sodium (Porcine) (Heparin 5000 units/ml) 5,000 units EVERY 12 HOURS SUBQ 07/11/17 09:00 08/07/17 08:59 Hydralazine HCl (Apresoline) 25 mg Q4H PRN ORAL bp of 160 and abovse 07/11/17 00:30 08/07/17 16:29 Hydroxychloroquine Sulfate (Plaquenil) 200 mg DAILY ORAL 07/11/17 09:00 08/07/17 08:59 07/11/17 08:43 Lisinopril (Zestril) 10 mg DAILY ORAL 07/11/17 09:00 08/08/17 08:59 07/11/17 08:44 Morphine Sulfate (Morphine Sulfate) 4 mg Q4H PRN IVP For Pain 07/10/17 22:45 07/15/17 10:44 07/11/17 15:20 Nifedipine (Procardia XL) 60 mg DAILY ORAL 07/11/17 09:00 08/07/17 16:59 07/11/17 08:44 Ondansetron HCl (Zofran) 4 mg Q6H PRN IVP Nausea & Vomiting 07/10/17 22:15 08/06/17 22:14 07/11/17 08:40 Piperacillin Sod/ Tazobactam Sod 2.25 gm/Dextrose 55 ml @ 110 mls/hr Q8H IV 07/11/17 00:00 07/15/17 00:00 07/11/17 08:41 Polyethylene Glycol (Miralax) 17 gm DAILYPRN PRN ORAL Constipation 07/10/17 22:15 08/06/17 22:14 Prednisone (predniSONE) 10 mg DAILY ORAL 07/11/17 09:00 08/08/17 08:59 07/11/17 08:44 Sennosides (Senokot) 8.6 mg DAILYPRN PRN ORAL Constipation 07/11/17 16:45 08/07/17 16:44 Sevelamer Carbonate (Renvela) 3,200 mg THREE TIMES A DAY ORAL 07/11/17 09:00 08/07/17 08:59 07/11/17 15:21 Sildenafil Citrate (Revatio) 10 mg THREE TIMES A DAY ORAL 07/11/17 09:00 08/07/17 17:59 07/11/17 15:21 Temazepam (Restoril) 15 mg HSPRN PRN ORAL Insomnia 07/10/17 22:15 07/14/17 22:14 Vancomycin HCl (Vanco rx to dose) 1 ea DAILY PRN MISC Per rx protocol 07/10/17 21:00 08/09/17 20:59 Vancomycin HCl 500 mg/Sodium Chloride 110 ml @ 110 mls/hr POSTHD IVPB 07/11/17 16:30 07/11/17 23:59 07/11/17 16:41 Height (Feet): 5 Height (Inches): 7.00 Weight (Pounds): 133 General Appearance: no apparent distress Objective PE not changed JAMES MONTES Jul 11, 2017 17:53
--- NOTE | 2017-07-11 18:01 | Cardiology Report ---
APPROVED REPORT EKG Measurement Heart [id number] [place] 128P34 [id number] Normal sinus rhythm Anterior infarct, age undetermined Abnormal ECG
--- NOTE | 2017-07-11 18:01 | Cardiology Report ---
APPROVED REPORT EKG Measurement Heart [id number] [place] 128P34 [id number] Normal sinus rhythm Anterior infarct, age undetermined Abnormal ECG
--- NOTE | 2017-07-11 18:01 | Cardiology Report ---
APPROVED REPORT EKG Measurement Heart [id number] [place] 128P34 [id number] Normal sinus rhythm Anterior infarct, age undetermined Abnormal ECG
--- NOTE | 2017-07-11 18:10 | Pulmonology Progress Note ---
Assessment/Plan Problems: (1) ESRF (end stage renal failure) (2) Anemia (3) Lupus (systemic lupus erythematosus) (4) Hemodialysis graft malfunction Assessment/Plan symptomatic treatment all consults reviewed HD by renal Subjective ROS Limited/Unobtainable: No Interval Events: late note for 07/10 Constitutional: Reports: no symptoms HEENT: Repors: no symptoms Respiratory: Reports: no symptoms Allergies: Coded Allergies: SULFA (SULFONAMIDE ANTIBIOTICS) (Verified Allergy, Mild, 05/27/15) Objective Last 24 Hour Vital Signs Date Time Temp Pulse Resp B/P (MAP) Pulse Ox O2 Delivery O2 Flow Rate FiO2 07/11/17 15:50 97.9 07/11/17 15:27 97.9 73 20 128/71 Room Air 07/11/17 12:05 98.1 71 18 125/76 100 Room Air 07/11/17 11:18 Room Air 21 07/11/17 11:07 Room Air 07/11/17 08:44 98 135/78 07/11/17 08:44 135/78 07/11/17 08:42 98 135/78 07/11/17 08:35 80 16 Room Air 07/11/17 08:00 98.1 90 18 134/76 95 Room Air 07/11/17 05:13 135/78 07/11/17 04:00 98.4 98 18 135/78 95 Room Air 07/10/17 23:54 98.2 18 138/78 94 Room Air 07/10/17 22:07 139/85 07/10/17 20:07 78 139/85 07/10/17 20:00 98.2 92 18 139/85 92 Room Air 07/10/17 19:38 76 18 Room Air Intake and Output 07/11/17 07/12/17 19:00 07:00 Intake Total 165 ml Output Total 3000 ml Balance -2835 ml IV Total 165 ml Output Hemodialysis UF 3000 ml General Appearance: no acute distress Respiratory/Chest: chest wall non-tender, lungs clear Breasts: no masses Cardiovascular: normal peripheral pulses Abdomen: normal bowel sounds, soft, non tender Genitourinary: normal external genitalia Extremities: no cyanosis Skin: no lesions 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
--- NOTE | 2017-07-11 18:13 | Pulmonology Progress Note ---
Assessment/Plan Problems: (1) ESRF (end stage renal failure) (2) Anemia (3) Lupus (systemic lupus erythematosus) (4) Hemodialysis graft malfunction Assessment/Plan symptomatic treatment all consults reviewed HD by renal Subjective ROS Limited/Unobtainable: No Constitutional: Reports: no symptoms HEENT: Repors: no symptoms Respiratory: Reports: no symptoms Allergies: Coded Allergies: SULFA (SULFONAMIDE ANTIBIOTICS) (Verified Allergy, Mild, 05/27/15) Objective Last 24 Hour Vital Signs Date Time Temp Pulse Resp B/P (MAP) Pulse Ox O2 Delivery O2 Flow Rate FiO2 07/11/17 15:50 97.9 07/11/17 15:27 97.9 73 20 128/71 Room Air 07/11/17 12:05 98.1 71 18 125/76 100 Room Air 07/11/17 11:18 Room Air 21 07/11/17 11:07 Room Air 07/11/17 08:44 98 135/78 07/11/17 08:44 135/78 07/11/17 08:42 98 135/78 07/11/17 08:35 80 16 Room Air 07/11/17 08:00 98.1 90 18 134/76 95 Room Air 07/11/17 05:13 135/78 07/11/17 04:00 98.4 98 18 135/78 95 Room Air 07/10/17 23:54 98.2 18 138/78 94 Room Air 07/10/17 22:07 139/85 07/10/17 20:07 78 139/85 07/10/17 20:00 98.2 92 18 139/85 92 Room Air 07/10/17 19:38 76 18 Room Air Intake and Output 07/11/17 07/12/17 19:00 07:00 Intake Total 165 ml Output Total 3000 ml Balance -2835 ml IV Total 165 ml Output Hemodialysis UF 3000 ml General Appearance: WD/WN HEENT: normocephalic, atraumatic, PERRL Respiratory/Chest: lungs clear Breasts: no masses Cardiovascular: normal peripheral pulses Abdomen: normal bowel sounds, soft, non tender Genitourinary: normal external genitalia Extremities: no clubbing 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
[2017-07-11] MEDS ORDERED: Dyna-Hex 2% Top Sol 2oz TOPIC SCH (20:00)
--- NOTE | 2017-07-12 13:59 | Discharge Summary ---
Discharge Summary Hospital Course Date of Admission Jul 07, 2017 at 21:26 Date of Discharge Jul 11, 2017 at 17:56 Admitting Diagnosis dialysis site infection HPI Denae Leonard is a 27 year old female who was admitted on Jul 07, 2017 at 21: 26 for Dialysis Site Infection Hospital Course [id number] Discharge Discharge Disposition Patient was discharged to Home (01) Discharge Diagnoses: Paula Hernandez NP Jul 12, 2017 13:59
--- NOTE | 2017-07-12 13:59 | Discharge Summary ---
Discharge Summary Hospital Course Date of Admission Jul 07, 2017 at 21:26 Date of Discharge Jul 11, 2017 at 17:56 Admitting Diagnosis dialysis site infection HPI Denae Leonard is a 27 year old female who was admitted on Jul 07, 2017 at 21: 26 for Dialysis Site Infection Hospital Course [id number] Discharge Discharge Disposition Patient was discharged to Home (01) Discharge Diagnoses: Paula Hernandez NP Jul 12, 2017 13:59
--- NOTE | 2017-07-12 13:59 | Discharge Summary ---
Discharge Summary Hospital Course Date of Admission Jul 07, 2017 at 21:26 Date of Discharge Jul 11, 2017 at 17:56 Admitting Diagnosis dialysis site infection HPI Denae Leonard is a 27 year old female who was admitted on Jul 07, 2017 at 21: 26 for Dialysis Site Infection Hospital Course [id number] Discharge Discharge Disposition Patient was discharged to Home (01) Discharge Diagnoses: Paula Hernandez NP Jul 12, 2017 13:59
--- NOTE | 2017-07-12 19:15 | Discharge Summary 2 SIG ---
DATE OF ADMISSION: 07/07/2017 DATE OF DISCHARGE: 07/11/2017 CONSULTANTS: 1. Jason Wild M.D. 2. Wan Gee M.D. 3. Addison Manuel M.D. BRIEF HOSPITAL COURSE: The patient is a 27-year-old female with history of SLE, end-stage renal failure on hemodialysis, hypertension, lupus, rheumatoid arthritis, fibromyalgia, pulmonary hypertension, and anemia was brought in by paramedics with complaints of pain to the hemodialysis site. On evaluation at ED, left upper arm AV fistula had palpable seal and unable to extend elbow due to pain. Blood work showed anemia. Creatinine was elevated at 10.2. Chest x-ray done showed bilateral basal atelectasis with no acute process otherwise. EKG was in normal sinus rhythm. She was started on antibiotic and was admitted for hemodialysis graft malfunction. She was started on IV vancomycin, Zosyn, and amikacin. Duplex scan of the left upper extremity showed patency of the brachial artery to cephalic vein, dialysis access graft at the upper arm level. Velocities are within normal limits in the proximal and distal anastomotic site and venous outflow is widely patent. There was a hematoma noted in the left arm around the fistula, however, there is no evidence of pseudoaneurysm. She was seen by Dr Manuel. Advised to rest the left AV arm for three to four weeks to complete resolution of the AV shunt hematoma and edema. A tunneled right jugular hemodialysis catheter was inserted on 07/09/2017. Dialysis to be done through tunneled Perma catheter. She was given antibiotics and upon discharge was advised to continue with vancomycin pharmacy to dose and amikacin 1 gram post dialysis until 07/16/2017. She was eventually discharged home to [facility] hemod[facility] at [facility] FINAL DIAGNOSES: 1. Pain and tenderness to palpation on left arteriovenous fistula site due to hematoma with probable infection. 2. Systemic lupus erythematosus. 3. 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 4. Hypertension. 5. Rheumatoid arthritis. 6. Fibromyalgia. 7. Pulmonary hypertension. 8. Anemia. 9. Hemodialysis graft malfunction. DISPOSITION: The patient was discharged home. FOLLOWUP: Continue antibiotics Vancomycin and amikacin post hemodialysis until 07/16/2017. Elias Claros M.D. I have been assigned to dictate discharge summary on this account and I was not involved in the patient's management. Paula Hernandez N.P. DR: Clari JOB#: [id number] CC: ROSIE
== END 2017-07-11 17:56 | disposition home or self-care (01) | DRG 314 ==
LOC: EMR 19:36 → EDBEDREQ 20:00 → 2E 21:26 → 4E 07-10 21:07
PROC: 5A1D70Z Performance of Urinary Filtration, Intermittent, Less than 6 Hours Per Day (ICD-10-PCS; principal; 2017-07-08)
PROC: 05HM33Z Insertion of Infusion Device into Right Internal Jugular Vein, Percutaneous Approach (ICD-10-PCS; 2017-07-09)
PROC: 0JH63XZ Insertion of Tunneled Vascular Access Device into Chest Subcutaneous Tissue and Fascia, Percutaneous Approach (ICD-10-PCS; 2017-07-09)
DX: T82.898A Other specified complication of vascular prosthetic devices, implants and grafts, initial encounter (principal); N18.6 End stage renal disease; I12.0 Hypertensive chronic kidney disease with stage 5 chronic kidney disease or end stage renal disease; T82.7XXA Infection and inflammatory reaction due to other cardiac and vascular devices, implants and grafts, initial encounter; M32.14 Glomerular disease in systemic lupus erythematosus; I27.20 Pulmonary hypertension, unspecified; Z99.2 Dependence on renal dialysis; Z88.2 Allergy status to sulfonamides; M79.7 Fibromyalgia; M06.9 Rheumatoid arthritis, unspecified; Y83.2 Surgical operation with anastomosis, bypass or graft as the cause of abnormal reaction of the patient, or of later complication, without mention of misadventure at the time of the procedure; D64.9 Anemia, unspecified
CPT/HCPCS: 36415; 71010; 76000; 80053; 80061; 80202; 82550; 82553; 82977; 83735; 83880; 84100; 84443; 84550; 85025; 85610; 85730; 86140; 87040; 87081; 93005; 93970; 93990; 94664; 99285; J2405

== ENCOUNTER 2017-07-22 16:54 | Emergency (ER) | payer MEDICARE, OTHER ==
[~2017-07-22] VITALS: Ht 170.2 cm; Wt 59.0 kg
[~2017-07-22 16:54] MED LIST changes: +AMIKACIN S1000 MG/4 IVPB; +ASPIR 8181 MG ORAL; +COREG25 MG ORAL; +VANCOMYCIN1 GM/2502 IVPB
[2017-07-22 17:14] VITALS: BP 160/90
[2017-07-22] MEDS ORDERED: Morphine Sulfate 4mg/ml Inj IVP ONE (17:30)
[2017-07-22 18:06] LABS: BASOPHILS % (AUTO) 0.9 % (0.0-2.0); EOSINOPHILS % (AUTO) 1.2 % (0.0-3.0); LYMPHOCYTES % (AUTO) 29.8 % (20.0-45.0); MEAN CORPUSCULAR HEMOGLOBIN 31.1 PG (27.0-31.0); MEAN CORPUSCULAR HGB CONC 29.5 G/DL (32.0-36.0); MEAN CORPUSCULAR VOLUME 106 FL (80-99); MEAN PLATELET VOLUME 7.2 FL (6.5-10.1); MONOCYTES % (AUTO) 4.1 % (1.0-10.0); PLATELET COUNT 226 K/UL (150-450); RED BLOOD COUNT 3.23 M/UL (4.20-5.40); RED CELL DISTRIBUTION WIDTH 22.8 % (11.6-14.8)
[2017-07-22 18:14] LABS: ANION GAP 7 mmol/L (5-15); CALCIUM 9.2 MG/DL (8.5-10.1); CARBON DIOXIDE 36 MMOL/L (21-32); CHLORIDE 96 MMOL/L (98-107); CREATININE 5.4 MG/DL (0.55-1.30); GLOMERULAR FILTRATION RATE 11.4 mL/min (>60); POTASSIUM 3.4 MMOL/L (3.5-5.1); SODIUM 139 MMOL/L (136-145)
[2017-07-22 18:20] LABS: ALANINE AMINOTRANSFERASE 13 U/L (12-78); ALBUMIN/GLOBULIN RATIO 0.8 (1.0-2.7); ASPARTATE AMINO TRANSFERASE 18 U/L (15-37); LIPASE 321 U/L (73-393); TOTAL PROTEIN 8.1 G/DL (6.4-8.2)
[2017-07-22] MEDS ORDERED: DiphenhydrAMINE 50mg/ml Inj IVP ONE (18:45)
[2017-07-22] MEDS ORDERED: ZOFRAN4 M3 ORAL (20:10)
[2017-07-22] MEDS ORDERED: NORCO 5-325 TA1 EAC1 ORAL (20:10)
[2017-07-22 20:15] VITALS: BP 151/99
--- NOTE | 2017-07-22 22:07 | Emergency Room Report ---
History of Present Illness General Chief Complaint: Flu Like Symptoms Source: Patient Present Illness [facility] The patient is a 24-year-old female presenting with total body pain for the past 2 weeks. She states that she has a history of end-stage renal disease on dialysis Saturday, fibromyalgia, rheumatoid arthritis, and lupus. she had full dialysis today. Pain is a 10 out of 10 dull ache primarily to the joints. She does state that her doctor has been tapering down her oral steroids and this may be a cause from that. No known provoking or relieving factors. She admits to nausea but denies vomiting. She denies other symptoms including fever, chills, abdominal pain, back pain. She does not produce any urine Allergies: Coded Allergies: SULFA (SULFONAMIDE ANTIBIOTICS) (Verified Allergy, Mild, 05/27/15) Patient History Past Medical History: see triage record Pertinent Family History: none Last Menstrual Period: 2012 Now: No Reviewed Nursing Documentation: PMH: Agreed, PSxH: Agreed Nursing Documentation-PMH Past Medical History: No History, Except For Hx Cardiac Problems: Yes - Raynaud's syndrome Hx Hypertension: Yes Hx Cancer: No Hx Gastrointestinal Problems: No Hx Dialysis: Yes - M-W-F Hx Neurological Problems: No Review of Systems All Other Systems: negative except mentioned in HPI Physical Exam Vital Signs Date Time Temp Pulse Resp B/P (MAP) Pulse Ox O2 Delivery O2 Flow Rate FiO2 07/22/17 17:04 99.0 92 18 155/101 98 Room Air Sp02 EP Interpretation: reviewed, normal General Appearance: no apparent distress, alert, GCS 15, non-toxic Head: normocephalic, atraumatic Eyes: bilateral eye normal inspection, bilateral eye PERRL ENT: hearing grossly normal, normal pharynx, no angioedema, normal voice Neck: full range of motion, supple/symm/no masses Respiratory: chest non-tender, lungs clear, normal breath sounds, speaking full sentences Cardiovascular #1: regular rate, rhythm, no edema Gastrointestinal: normal bowel sounds, soft, non-distended, no guarding, no rebound, tenderness - diffuse Musculoskeletal: normal inspection, back normal, gait/station normal, normal range of motion Neurologic: alert, oriented x3, responsive, motor strength/tone normal, sensory intact, speech normal Psychiatric: judgement/insight normal, memory normal, mood/affect normal, no suicidal/homicidal ideation Skin: normal color, no rash, warm/dry, well hydrated Medical Decision Making PA Attestation Dr. Blandon is my supervising physician. Patient management was discussed with my supervising physician Diagnostic Impression: Primary Impression: Arthritis, rheumatoid Qualified Codes: M06.9 - Rheumatoid arthritis, unspecified Additional Impressions: Lupus (systemic lupus erythematosus) Qualified Codes: M32.9 - Systemic lupus erythematosus, unspecified Generalized pain ER Course The patient is a 24-year-old female presenting with total body pain for the past 2 weeks Ddx considered include but not limited to Rheumatoid arthritis, lupus, chronic pain, URI, pneumonia, bronchitis, among others PE: Vitals Unremarkable. NAD. Head is normocephalic atraumatic. Oropharynx is patent. No tonsillar edema or erythema. No cervical lymphadenopathy RRR Lungs are clear to auscultation bilaterally Abdomen is soft. Nondistended. Diffuse tenderness to palpation There is diffuse tenderness to palpation over the skin, primarily joints. No obvious deformity. Full active range of motion Labs: Consistent with previous labs. No acute findings CT scan of abdomen shows no acute findings The patient is given pain medication and is feeling much better. To be discharged home. She is discharged with pain medication and needs to followup with her primary doctor and [employer]. ER precautions Laboratory Tests Test 07/22/17 17:50 White Blood Count 4.0 K/UL (4.8-10.8) L Red Blood Count 3.23 M/UL (4.20-5.40) L Hemoglobin 10.0 G/DL (12.0-16.0) L Hematocrit 34.1 % (37.0-47.0) L Mean Corpuscular Volume 106 FL (80-99) H Mean Corpuscular Hemoglobin 31.1 PG (27.0-31.0) H Mean Corpuscular Hemoglobin Concent 29.5 G/DL (32.0-36.0) L Red Cell Distribution Width 22.8 % (11.6-14.8) H Platelet Count 226 K/UL (150-450) Mean Platelet Volume 7.2 FL (6.5-10.1) Neutrophils (%) (Auto) 64.0 % (45.0-75.0) Lymphocytes (%) (Auto) 29.8 % (20.0-45.0) Monocytes (%) (Auto) 4.1 % (1.0-10.0) Eosinophils (%) (Auto) 1.2 % (0.0-3.0) Basophils (%) (Auto) 0.9 % (0.0-2.0) Sodium Level 139 MMOL/L (136-145) Potassium Level 3.4 MMOL/L (3.5-5.1) L Chloride Level 96 MMOL/L (98-107) L Carbon Dioxide Level 36 MMOL/L (21-32) H Anion Gap 7 mmol/L (5-15) Blood Urea Nitrogen 13 mg/dL (7-18) Creatinine 5.4 MG/DL (0.55-1.30) H Estimate Glomerular Filtration Rate 11.4 mL/min (>60) Glucose Level 97 MG/DL (74-106) Calcium Level 9.2 MG/DL (8.5-10.1) Total Bilirubin 0.3 MG/DL (0.2-1.0) Aspartate Amino Transferase (AST) 18 U/L (15-37) Alanine Aminotransferase (ALT) 13 U/L (12-78) Alkaline Phosphatase 107 U/L (46-116) Total Protein 8.1 G/DL (6.4-8.2) Albumin 3.6 G/DL (3.4-5.0) Globulin 4.5 g/dL Albumin/Globulin Ratio 0.8 (1.0-2.7) L Lipase 321 U/L (73-393) Human Chorionic Gonadotropin, Quant < 1 mIU/mL (1-6) L Lab Results Impression Consistent with previous labs. No acute findings CT/MRI/US Diagnostic Results CT/MRI/US Diagnostic Results : Imaging Test Ordered: CT abd/pelvis Impression No acute findings Last Vital Signs Date Time Temp Pulse Resp B/P (MAP) Pulse Ox O2 Delivery O2 Flow Rate FiO2 07/22/17 17:14 98.9 76 20 160/90 100 Room Air Status: improved Disposition: HOME, SELF-CARE Condition: Improved Scripts Ondansetron* (ZOFRAN*) 4 Mg Tablet 4 MG ORAL Q6H Y for Nausea & Vomiting, #15 TAB Prov: TERZIANTISH P.A. 07/22/17 Hydrocodone Bit/Acetaminophen 5-325* (NORCO 5-325 TABLET*) 1 Each Tablet 1 TAB ORAL Q6HR Y for For Pain, #12 TAB Prov: TISH LUIS 07/22/17 Patient Instructions: Systemic Lupus Erythematosus, Adult Additional Instructions: I discussed my findings with the patient. All questions and concerns have been answered. Treatment and medication compliance have been addressed. Return to ED if symptoms worsen, new symptoms arise, or if needed for any reason. Patient verbalized understanding of discharge instructions. I advised the patient she needs to followup with her [employer] and primary doctor as soon as possible. Return to emergency Department if pain continues, worsens, or you experience new symptoms such as fever, shortness of breath, nausea or vomiting TISH LUIS Jul 22, 2017 22:07
--- NOTE | 2017-07-23 08:50 | Diagnostic Imaging Report ---
Indication: PAIN abdominal pain Technique: Spiral acquisitions obtained through the abdomen and pelvis. No oral contrast utilized, per emergency room physician request No IV contrast utilized, per referring physician request.. Multiplanar reconstructions were generated. Total dose length product 476 mGycm. CTDIvol(s) 9 mGy. Dose reduction achieved using automated exposure control Comparison: None Findings: Lack of enteric contrast limits assessment of the GI tract. Considerable retained fecal material is seen throughout the colon, particularly proximally. The appendix is not definitely visualized, but there are no findings to suggest acute appendicitis. Small bowel loops are upper limits of normal in caliber and somewhat fluid-filled, but not frankly dilated. The distal esophagus is mildly dilated. The stomach demonstrates equivocal slight gastric wall thickening. The duodenum is mildly dilated. No free or loculated peritoneal air or fluid. There is a small umbilical hernia. There is mild edema of the subcutaneous fat. Lack of IV contrast limits assessment of solid organs. The gallbladder is nondistended. The liver is unremarkable. Bile ducts are unremarkable. The pancreas, spleen, adrenals are grossly unremarkable. The kidneys are somewhat atrophic, consistent with history of chronic renal disease. No retroperitoneal or mesenteric mass or adenopathy. No pelvic mass or adenopathy. Patchy areas of honeycombing and cystic spaces are seen at both lung bases. The tip of a dialysis catheter is seen in the right atrium. The heart is mildly enlarged. The bones are unremarkable. Impression: Evidence of constipation No acute process otherwise Mild distal esophageal, duodenal, gastric distention, suspect functional in nature Minimal anasarca Chronic appearing fibrotic changes at both lung bases Bilateral renal atrophy Cardiomegaly Incidental finding small umbilical hernia This agrees with the preliminary interpretation provided overnight by [facility] teleradiology [facility]. The CT scanner at [facility] is accredited by the [employer] and the scans are performed using protocols designed to limit radiation exposure to as low as reasonably achievable to attain images of sufficient resolution adequate for diagnostic evaluation.
== END 2017-07-22 20:15 | disposition home or self-care (01) ==
LOC: EMR 17:38
DX: M06.9 Rheumatoid arthritis, unspecified (principal); M32.9 Systemic lupus erythematosus, unspecified; R52 Pain, unspecified; I12.0 Hypertensive chronic kidney disease with stage 5 chronic kidney disease or end stage renal disease; N18.6 End stage renal disease; Z99.2 Dependence on renal dialysis; Z88.2 Allergy status to sulfonamides; I73.00 Raynaud's syndrome without gangrene
CPT/HCPCS: 36415; 74176; 80053; 83690; 84702; 85025; 96374; 96375; 99284; J1200; J2270; J2405

== ENCOUNTER 2017-08-19 18:09 | Emergency (ER) | payer MEDICARE, OTHER ==
[~2017-08-19] VITALS: Ht 170.2 cm; Wt 55.8 kg
[~2017-08-19 18:09] MED LIST changes: +NORCO 5-325 TA1 EAC1 ORAL; +ZOFRAN4 M3 ORAL
[2017-08-19] MEDS ORDERED: KEFLEX500 MG ORAL (18:30)
[2017-08-19] MEDS ORDERED: Ketorolac 60mg Inj IM ONE (18:30)
[2017-08-19] MEDS ORDERED: IBUPROFEN600 MG ORAL (18:30)
[2017-08-19] MEDS ORDERED: TYLENOL325 MG ORAL (18:32)
[2017-08-19 19:00] VITALS: BP 130/88
[2017-08-19 19:03] VITALS: BP 130/88
--- NOTE | 2017-08-19 19:30 | Emergency Room Report ---
History of Present Illness General Chief Complaint: Pain Source: Patient Present Illness HPI 27-year-old female with pain to right middle finger States pain with extending at the PIP joint for one to 2 days Associated with some pain and swelling around the cuticle Denies any trauma Denies any open wounds History of rheumatoid arthritis, on daily prednisone No fever chills Allergies: Coded Allergies: SULFA (SULFONAMIDE ANTIBIOTICS) (Verified Allergy, Mild, 05/27/15) Patient History Past Medical History: renal disease, dialysis, other - see history of present illness Past Surgical History: none Pertinent Family History: none Social History: Denies: smoking, alcohol use, drug use Last Menstrual Period: 2013 Now: No - "Since lupus diagnosis W/U done" Immunizations: UTD Reviewed Nursing Documentation: PMH: Agreed, PSxH: Agreed Nursing Documentation-PMH Hx Cardiac Problems: Yes - Raynaud's syndrome Hx Hypertension: Yes Hx Cancer: No Hx Gastrointestinal Problems: No Hx Dialysis: Yes - M-W-F Last dialyzed today Hx Neurological Problems: No Review of Systems All Other Systems: negative except mentioned in HPI Physical Exam Vital Signs Date Time Temp Pulse Resp B/P (MAP) Pulse Ox O2 Delivery O2 Flow Rate FiO2 08/19/17 18:11 99.0 99 16 130/88 95 Room Air Sp02 EP Interpretation: reviewed, normal General Appearance: normal inspection, well appearing, no apparent distress, alert, GCS 15, non-toxic Head: normocephalic, atraumatic ENT: normal ENT inspection, hearing grossly normal, normal voice Neck: normal inspection, full range of motion, supple, no bony tend Respiratory: normal inspection, lungs clear, normal breath sounds, no respiratory distress, no retraction, no wheezing Cardiovascular #1: regular rate, rhythm, no edema Gastrointestinal: normal inspection, normal bowel sounds, non tender, soft, no guarding, no hernia Genitourinary: no CVA tenderness Musculoskeletal: normal inspection, back normal, normal range of motion, Sharona' s Sign negative, other - right hand: right middle finger held in flexion at PIP. No diffuse swelling of finger, no tenderness to flexor sheath. Mild swelling around cuticle with some tenderness. No tenderness to distal pulp of middle finger. Neurologic: normal inspection, alert, oriented x3, responsive, speech normal Psychiatric: normal inspection, judgement/insight normal, mood/affect normal Skin: normal inspection, normal color, no rash Medical Decision Making Diagnostic Impression: Primary Impression: Finger pain, right ER Course 27-year-old female with pain and unable to extend right middle finger at PIP History of RA Low suspicion for tenosynovitis given no tenderness to flexor shaft, no obvious diffuse swelling of the digit, no erythema More likely RA exacerbation given PIP pain There is some swelling and tenderness along cuticle possible infection Will treat with antibiotics Recommended Tylenol only given history of CKD Advise close PMD followup for possible RA exacerbation, maybe needs additional steroids, or DMARDs ER course: Patient has remained stable during ED stay. Patient is to be discharged to home. Prescriptions given are tylenol, keflex Patient is instructed to follow up with their primary care doctor within 5 days. Strict return precautions discussed with patient such as fever, chills, worsening/severe pain, nausea, vomiting, which may indicate severe illness. Patient verbalizes understanding and agrees with plan. Please note that this Emergency Department Report was dictated using [employer] licensing analyst technology software, occasionally this can lead to erroneous entry secondary to interpretation by the dictation equipment Last Vital Signs Date Time Temp Pulse Resp B/P (MAP) Pulse Ox O2 Delivery O2 Flow Rate FiO2 08/19/17 19:03 99.0 80 16 130/88 95 Room Air Status: improved Disposition: HOME, SELF-CARE Condition: Improved Scripts Acetaminophen (Tylenol) 325 Mg Tablet 650 MG ORAL Q8H Y for Prn Pain/Headache/Temp > 101 for 7 Days, #30 TAB 0 Refills Prov: ALF LIMA M.D. 08/19/17 Cephalexin* (KEFLEX*) 500 Mg Capsule 500 MG ORAL Q6H for 7 Days, #28 CAP 0 Refills Prov: ALF LIMA M.D. 08/19/17 Referrals: [facility],REFERRING (PCP) Patient Instructions: Arthritis, [id number] Additional Instructions: - Take all antibiotics until finished - Take tylenol up to 3x a day with food for pain - Follow up with your doctor who treates your arthritis to see if they recommend increasing dose of steroids or other medications ALF LIMA M.D. Aug 19, 2017 19:30
== END 2017-08-19 19:04 | disposition home or self-care (01) ==
LOC: EMR 18:27
DX: M79.644 Pain in right finger(s) (principal); I73.00 Raynaud's syndrome without gangrene; Z88.2 Allergy status to sulfonamides; I12.0 Hypertensive chronic kidney disease with stage 5 chronic kidney disease or end stage renal disease; N18.6 End stage renal disease; Z99.2 Dependence on renal dialysis
CPT/HCPCS: 96372; 99284

== ENCOUNTER 2017-10-18 22:02 | Emergency (ER) | payer MEDICARE, OTHER ==
[~2017-10-18] VITALS: Ht 170.2 cm; Wt 55.8 kg
[~2017-10-18 22:02] MED LIST changes: +KEFLEX500 MG ORAL; +TYLENOL325 MG ORAL
[2017-10-18 22:30] VITALS: BP 184/115
[2017-10-18] MEDS ORDERED: Sodium Chloride 500ML 500 ML IV ONE (23:00)
[2017-10-18 23:30] LABS: HEMATOCRIT 24.8 % (37.0-47.0); HEMOGLOBIN 8.2 G/DL (12.0-16.0); MEAN CORPUSCULAR VOLUME 97 FL (80-99); PLATELET COUNT 251 K/UL (150-450); RED BLOOD COUNT 2.55 M/UL (4.20-5.40)
[2017-10-18 23:33] LABS: ANION GAP 5 mmol/L (5-15); BLOOD UREA NITROGEN 19 mg/dL (7-18); CALCIUM 10.1 MG/DL (8.5-10.1); CARBON DIOXIDE 40 MMOL/L (21-32); CHLORIDE 95 MMOL/L (98-107); CREATININE 5.6 MG/DL (0.55-1.30); POTASSIUM 2.8 MMOL/L (3.5-5.1); SODIUM 138 MMOL/L (136-145)
[2017-10-18 23:41] LABS: WHITE BLOOD COUNT 1.8 K/UL (4.8-10.8)
[2017-10-19] MEDS ORDERED: TRAZODONE HCL50 MG ORAL (00:02)
[2017-10-19] MEDS ORDERED: ADALAT10 MG ORAL (00:02)
[2017-10-19] MEDS ORDERED: AZATHIOPRINE50 MG PO (00:02)
[2017-10-19] MEDS ORDERED: CATAPRES0.2 MG ORAL (00:02)
[2017-10-19] MEDS ORDERED: FAMOTIDINE20 MG ORAL (00:02)
[2017-10-19] MEDS ORDERED: PANTOPRAZOLE SO40 MG ORAL (00:02)
[2017-10-19] MEDS ORDERED: HYDROmorphone 1mg/ml Carpuject IVP ONE (00:15)
[2017-10-19] MEDS ORDERED: HYDROCODON-ACE1 EA15 ORAL (00:36)
--- NOTE | 2017-10-19 00:36 | Emergency Room Report ---
History of Present Illness General Chief Complaint: Abnormal Labs Source: Patient Present Illness HPI Is a 27-year-old female with history renal failure on hemodialysis. Also history of arthritis. She presents with chief complaint of low hemoglobin. In dialysis, blood work was done showing hemoglobin of 6.2. She was sent here for transfusion. Patient also complained of generalized body pain and joint pain from her arthritis. Pain is 10 out of 10. No nausea no vomiting. No fever or chills. Denies any other complaint. Does have increasing weakness. Allergies: Coded Allergies: SULFA (SULFONAMIDE ANTIBIOTICS) (Verified Allergy, Mild, 05/27/15) Patient History Past Medical History: see triage record, old chart reviewed, renal disease, dialysis Past Surgical History: other Pertinent Family History: none Social History: Denies: smoking Last Menstrual Period: 2013 Now: No Immunizations: other Reviewed Nursing Documentation: PMH: Agreed, PSxH: Agreed Nursing Documentation-PMH Past Medical History: No History, Except For Hx Hypertension: Yes Hx Cancer: No Hx Gastrointestinal Problems: No Hx Dialysis: Yes - M-W-F Hx Neurological Problems: No Review of Systems Eye: Denies: eye pain, blurred vision ENT: Denies: ear pain, nose congestion, throat swelling Respiratory: Denies: cough, shortness of breath Cardiovascular: Denies: chest pain, palpitations Gastrointestinal: Denies: abdominal pain, diarrhea, nausea, vomiting Musculoskeletal: Reports: joint pain, Denies: back pain Skin: Denies: rash Neurological: Denies: headache, numbness Endocrine: Denies: increased thirst, increased urine Hematologic/Lymphatic: Denies: easy bruising All Other Systems: negative except mentioned in HPI Physical Exam Vital Signs Date Time Temp Pulse Resp B/P (MAP) Pulse Ox O2 Delivery O2 Flow Rate FiO2 10/18/17 22:23 98.6 114 17 184/115 97 Room Air 5 does with high blood pressure and tachycardia Sp02 EP Interpretation: reviewed, normal General Appearance: well appearing, no apparent distress, alert Head: normocephalic, atraumatic Eyes: bilateral eye PERRL, bilateral eye EOMI, bilateral eye other - pale conjunctiva ENT: hearing grossly normal, normal pharynx Neck: full range of motion, supple, no meningismus Respiratory: chest non-tender, lungs clear, normal breath sounds Cardiovascular #1: regular rate, rhythm, no murmur Gastrointestinal: normal bowel sounds, non tender, no mass, no organomegaly, no bruit, non-distended Musculoskeletal: back normal, gait/station normal, normal range of motion Neurologic: alert, oriented x3 Psychiatric: mood/affect normal Skin: warm/dry Medical Decision Making Diagnostic Impression: Primary Impression: Anemia Qualified Codes: D64.9 - Anemia, unspecified Additional Impression: Arthritis, rheumatoid Qualified Codes: M06.9 - Rheumatoid arthritis, unspecified ER Course Patient presents with loading globin. Bloodwork initial hemoglobin 8.2. Per Dr. Wild, this is her baseline and the last withdrawal. The globin of 6.2 was probably a lab error. Patient felt better now. We'll discharge home. Lab Results Impression labs with low hemoglobin Rhythm Strip Diag. Results EP Interpretation: yes Rate: 110 Rhythm: NSR, no PVC's, no ectopy Last Vital Signs Date Time Temp Pulse Resp B/P (MAP) Pulse Ox O2 Delivery O2 Flow Rate FiO2 10/18/17 22:30 98.6 17 184/115 97 Room Air 10/18/17 22:23 114 Status: improved Disposition: HOME, SELF-CARE Condition: Stable Scripts Hydrocodone/Acetaminophen 5-325* (HYDROCODONE/ACETAMINOPHEN 5-325*) 1 Each Tablet 1 TAB ORAL Q6H Y for For Pain, #30 TAB 0 Refills Prov: BELINDA ALDANA M.D. 10/19/17 Referrals: JAMES WILD (PCP) Additional Instructions: Followup with your DrSamantha in 2-3 days. Return worse. BELINDA ALDANA M.D. Oct 19, 2017 00:36
[2017-10-19 00:51] VITALS: BP 162/93
[2017-10-19 00:59] VITALS: BP 162/93
--- NOTE | 2017-10-20 15:10 | Cardiology Report ---
APPROVED REPORT EKG Measurement Heart [id number] Normal sinus rhythm Possible Left atrial enlargement Abnormal ECG
== END 2017-10-19 01:00 | disposition home or self-care (01) ==
LOC: EMR 22:43 → CANBEDREQ 10-19 00:32 → EMR 10-19 01:00
DX: D64.9 Anemia, unspecified (principal); I10 Essential (primary) hypertension; Z88.2 Allergy status to sulfonamides; Z99.2 Dependence on renal dialysis
CPT/HCPCS: 36415; 80048; 85007; 85025; 85610; 85730; 86850; 86870; 86880; 86900; 86901; 93005; 96361; 96374; 96375; 99284; J1170; J2405; J7040

== ENCOUNTER 2017-12-27 09:23 | Inpatient (IN) | payer MEDICARE, OTHER ==
[~2017-12-27] VITALS: Ht 170.2 cm; Wt 56.8 kg
[~2017-12-27 09:23] MED LIST changes: +ADALAT10 MG ORAL; +AZATHIOPRINE50 MG PO; +CATAPRES0.2 MG ORAL; +FAMOTIDINE20 MG ORAL; +HYDROCODON-ACE1 EA15 ORAL; +PANTOPRAZOLE SO40 MG ORAL; +TRAZODONE HCL50 MG ORAL
[2017-12-27 09:31] VITALS: BP 160/102
--- NOTE | 2017-12-27 09:43 | Emergency Room Report ---
History of Present Illness General Chief Complaint: Dizziness Source: Patient Present Illness HPI Patient had presented to her usual dialysis center at the usual time She has dialysis Saturday Patient reported feeling some dizziness Blood pressure was reported at 220 systolic at the facility and patient was referred to the emergency room Patient denies any chest pain She does have mild shortness of breath She has been off of her clonidine for the past 3 days Denies any back or flank pain dizziness is worse with standing and changing position Denies any focal visual change denies any neck pain denies any upper or lower extremity weakness Allergies: Coded Allergies: SULFA (SULFONAMIDE ANTIBIOTICS) (Verified Allergy, Mild, 05/27/15) Patient History Past Medical History: see triage record Pertinent Family History: none Reviewed Nursing Documentation: PMH: Agreed; PSxH: Agreed Nursing Documentation-PMH Hx Hypertension: Yes Hx Cancer: No Hx Gastrointestinal Problems: No Hx Dialysis: Yes - M-W-F Hx Neurological Problems: No Review of Systems All Other Systems: negative except mentioned in HPI Physical Exam Vital Signs Date Time Temp Pulse Resp B/P (MAP) Pulse Ox O2 Delivery O2 Flow Rate FiO2 12/27/17 09:26 98.0 78 20 160/102 99 Room Air 98.1 Sp02 EP Interpretation: reviewed, normal General Appearance: no apparent distress - However does feel dizzy Head: normocephalic, atraumatic Eyes: bilateral eye PERRL, bilateral eye EOMI ENT: hearing grossly normal, normal pharynx, TMs + canals normal, uvula midline Neck: full range of motion, supple, no meningismus, no bony tend Respiratory: no rhonchi, no respiratory distress, no retraction, no accessory muscle use, crackles - Fine crackles in both lower lobes Cardiovascular #1: normal peripheral pulses, regular rate, rhythm, no edema, no gallop, no JVD, no murmur Gastrointestinal: normal bowel sounds, non tender, soft, no mass, no organomegaly, non-distended, no guarding, no hernia, no pulsatile mass, no rebound Genitourinary: no CVA tenderness Musculoskeletal: normal inspection Neurologic: oriented x3, responsive, 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 as tested, motor strength/ tone normal, sensory intact Psychiatric: mood/affect normal Skin: normal color, no rash, warm/dry, palpation normal, other - AV fistula left upper arm Lymphatic: normal inspection, no adenopathy Medical Decision Making Diagnostic Impression: Primary Impression: ESRF (end stage renal failure) Additional Impressions: Lupus Hypertensive urgency, malignant ER Course Patient is a fairly complex patient with multiple differential to consideration including but not limited to cardiac cardiopulmonary and vascular emergencies Patient's blood pressure has done better throughout her stay However patient complains of pain diffusely in her joints Possible lupus flare up is also considered patient is given further pain medicine BUN/creatinine are significantly elevated patient will be evaluated for more urgent dialysis and admitted for further care Labs Test 12/27/17 09:50 White Blood Count 6.7 K/UL (4.8-10.8) Red Blood Count 3.93 M/UL (4.20-5.40) Hemoglobin 12.2 G/DL (12.0-16.0) Hematocrit 38.9 % (37.0-47.0) Mean Corpuscular Volume 99 FL (80-99) Mean Corpuscular Hemoglobin 31.0 PG (27.0-31.0) Mean Corpuscular Hemoglobin Concent 31.3 G/DL (32.0-36.0) Red Cell Distribution Width 20.3 % (11.6-14.8) Platelet Count 132 K/UL (150-450) Mean Platelet Volume 8.7 FL (6.5-10.1) Neutrophils (%) (Auto) % (45.0-75.0) Lymphocytes (%) (Auto) % (20.0-45.0) Monocytes (%) (Auto) % (1.0-10.0) Eosinophils (%) (Auto) % (0.0-3.0) Basophils (%) (Auto) % (0.0-2.0) Sodium Level 136 MMOL/L (136-145) Potassium Level 4.8 MMOL/L (3.5-5.1) Chloride Level 98 MMOL/L (98-107) Carbon Dioxide Level 28 MMOL/L (21-32) Anion Gap 10 mmol/L (5-15) Blood Urea Nitrogen 40 mg/dL (7-18) Creatinine 11.1 MG/DL (0.55-1.30) Estimat Glomerular Filtration Rate 5.0 mL/min (>60) Glucose Level 81 MG/DL (74-106) Calcium Level 9.7 MG/DL (8.5-10.1) Total Bilirubin 0.4 MG/DL (0.2-1.0) Aspartate Amino Transf (AST/SGOT) 20 U/L (15-37) Alanine Aminotransferase (ALT/SGPT) 7 U/L (12-78) Alkaline Phosphatase 205 U/L (46-116) Total Creatine Kinase 159 U/L (26-308) Creatine Kinase MB 3.8 NG/ML (0.0-3.6) Creatine Kinase MB Relative Index 2.3 Troponin I 0.046 ng/mL (0.000-0.056) Total Protein 10.0 G/DL (6.4-8.2) Albumin 3.6 G/DL (3.4-5.0) Globulin 6.4 g/dL Albumin/Globulin Ratio 0.6 (1.0-2.7) Human Chorionic Gonadotropin, Qual Negative EKG Diagnostic Results Rate: normal Rhythm: NSR ST Segments: no acute changes Rhythm Strip Diag. Results EP Interpretation: yes Rate: 66 Rhythm: NSR, no PVC's, no ectopy Chest X-Ray Diagnostic Results Chest X-Ray Diagnostic Results : Chest X-Ray Ordered: Yes # of Views/Limited/Complete: 1 View Indication: Chest Pain EP Interpretation: Yes Interpretation: no consolidation, no effusion, no pneumothorax Impression: No acute disease - Bilateral chronic atelectasis Electronically Signed by: Crystal Morris DO Last Vital Signs Date Time Temp Pulse Resp B/P (MAP) Pulse Ox O2 Delivery O2 Flow Rate FiO2 12/27/17 09:31 98.1 20 160/102 99 Room Air 98.1 12/27/17 09:26 78 Status: improved Disposition: ADMITTED INPATIENT Condition: Serious Crystal Morris DO Dec 27, 2017 09:43
[2017-12-27 09:58] VITALS: BP 152/103
[2017-12-27 10:22] LABS: HEMATOCRIT 38.9 % (37.0-47.0); HEMOGLOBIN 12.2 G/DL (12.0-16.0); MEAN CORPUSCULAR VOLUME 99 FL (80-99); PLATELET COUNT 132 K/UL (150-450); RED BLOOD COUNT 3.93 M/UL (4.20-5.40); RED CELL DISTRIBUTION WIDTH 20.3 % (11.6-14.8); WHITE BLOOD COUNT 6.7 K/UL (4.8-10.8)
[2017-12-27 10:38] LABS: ANION GAP 10 mmol/L (5-15); BLOOD UREA NITROGEN 40 mg/dL (7-18); CALCIUM 9.7 MG/DL (8.5-10.1); CARBON DIOXIDE 28 MMOL/L (21-32); CHLORIDE 98 MMOL/L (98-107); CREATININE 11.1 MG/DL (0.55-1.30); POTASSIUM 4.8 MMOL/L (3.5-5.1); SODIUM 136 MMOL/L (136-145)
[2017-12-27 10:56] LABS: ALANINE AMINOTRANSFERASE 7 U/L (12-78); ALBUMIN 3.6 G/DL (3.4-5.0); ALBUMIN/GLOBULIN RATIO 0.6 (1.0-2.7); ALKALINE PHOSPHATASE 205 U/L (46-116); ASPARTATE AMINO TRANSFERASE 20 U/L (15-37); BILIRUBIN,TOTAL 0.4 MG/DL (0.2-1.0); CKMB 3.8 NG/ML (0.0-3.6); CREATINE KINASE 159 U/L (26-308)
[2017-12-27] MEDS ORDERED: Morphine Sulfate 4mg/ml Inj IVP ONE (11:00)
[2017-12-27 11:17] VITALS: BP 148/106
[2017-12-27] MEDS ORDERED: Albuterol/Ipratropium 3ml neb HHN PRN (12:00)
[2017-12-27] MEDS ORDERED: Miralax 17gm pkt ORAL PRN (12:00)
[2017-12-27] MEDS: cloNIDine 0.2mg Tab ORAL SCH ×2 (12:47→17:13)
--- NOTE | 2017-12-27 12:51 | Diagnostic Imaging Report ---
Indication: Chest pain Technique: XRAY Chest 1v Comparison: 07/07/2017 Findings: Heart is enlarged but stable in size compared to prior exam. No acute osseous abnormality seen. There is unchanged linear atelectasis or scarring in the bilateral lung bases. No new focal consolidation. No large pleural effusion. No pneumothorax. Impression: Unchanged linear atelectasis or scarring in the lung bases. No new focal consolidation.
--- NOTE | 2017-12-27 13:04 | Consultation ---
Consult Note Assessment/Plan Renal consult dictated # [id number] ROSANNE JOHNSON Dec 27, 2017 13:03
[2017-12-27] MEDS: Norco 5mg/325mg tab ORAL PRN ×2 (14:36→21:25)
--- NOTE | 2017-12-27 15:08 | History and Physical ---
History of Present Illness General Date patient seen: Dec 27, 2017 Reason for Hospitalization: Dizziness Present Illness HPI 27 year old female with hx of SLE, ESRF, HTN presented to ER with CC of some dizziness her Blood pressure was reported at 220 systolic at the dialysis center and she was referred to the emergency room She does have mild shortness of breath. She has been off of her clonidine for the past 3 days She is admitted to telemetry for hypertensive emergency. Allergies: Coded Allergies: SULFA (SULFONAMIDE ANTIBIOTICS) (Verified Allergy, Mild, 05/27/15) Medication History Scheduled Azathioprine* (Imuran*), 150 MG PO DAILY, (Reported) Clonidine Hcl* (Catapres*), 0.2 MG ORAL Q6HR, (Reported) Famotidine (Famotidine), 20 MG ORAL DAILY, (Reported) Nifedipine (Nifedipine*), 30 MG ORAL DAILY, (Reported) Pantoprazole* (Pantoprazole*), 40 MG ORAL EVERY 12 HOURS, (Reported) Prednisone* (Prednisone*), 10 MG ORAL DAILY, (Reported) Sevelamer Carbonate (Renvela), 3,200 MG ORAL THREE TIMES A DAY Trazodone Hcl* (Desyrel*), Unknown Dose ORAL BEDTIME, (Reported) Scheduled PRN Hydrocodone/Acetaminophen 5-325* (Hydrocodone/Acetaminophen 5-325*), 1 TAB ORAL Q6H PRN for For Pain Patient History Healthcare decision maker Skylar Franco Resuscitation status Full Code Advanced Directive on File No Past Medical/Surgical History Past Medical/Surgical History: (1) ESRF (end stage renal failure) (2) Lupus (systemic lupus erythematosus) (3) Anemia Review of Systems All Other Systems: negative except mentioned in HPI Physical Exam General Appearance: WD/WN Lines, tubes and drains: peripheral HEENT: normocephalic, atraumatic Neck: non-tender, normal alignment Respiratory/Chest: chest wall non-tender, lungs clear Breasts: no masses Cardiovascular/Chest: normal peripheral pulses Abdomen: normal bowel sounds, non tender Genitourinary/Rectal: normal genital exam Extremities: normal range of motion Skin Exam: normal pigmentation 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 II-XII grossly normal Last 24 Hour Vital Signs Date Time Temp Pulse Resp B/P (MAP) Pulse Ox O2 Delivery O2 Flow Rate FiO2 12/27/17 12:47 148/106 12/27/17 12:25 98.1 79 18 148/106 100 Room Air 98.1 12/27/17 11:35 98.1 12/27/17 11:17 98.1 79 18 148/106 100 Room Air 98.1 12/27/17 11:17 98.1 12/27/17 09:58 98.1 70 18 152/103 100 Room Air 98.1 12/27/17 09:31 98.1 20 160/102 99 Room Air 98.1 12/27/17 09:26 98.0 78 20 160/102 99 Room Air 98.1 Laboratory Tests Test 12/27/17 09:50 12/27/17 12:00 White Blood Count 6.7 K/UL (4.8-10.8) Red Blood Count 3.93 M/UL (4.20-5.40) L Hemoglobin 12.2 G/DL (12.0-16.0) Hematocrit 38.9 % (37.0-47.0) Mean Corpuscular Volume 99 FL (80-99) Mean Corpuscular Hemoglobin 31.0 PG (27.0-31.0) Mean Corpuscular Hemoglobin Concent 31.3 G/DL (32.0-36.0) L Red Cell Distribution Width 20.3 % (11.6-14.8) H Platelet Count 132 K/UL (150-450) L Mean Platelet Volume 8.7 FL (6.5-10.1) Neutrophils (%) (Auto) % (45.0-75.0) Lymphocytes (%) (Auto) % (20.0-45.0) Monocytes (%) (Auto) % (1.0-10.0) Eosinophils (%) (Auto) % (0.0-3.0) Basophils (%) (Auto) % (0.0-2.0) Differential Total Cells Counted 100 Neutrophils % (Manual) 88 % (45-75) H Lymphocytes % (Manual) 10 % (20-45) L Monocytes % (Manual) 2 % (1-10) Eosinophils % (Manual) 0 % (0-3) Basophils % (Manual) 0 % (0-2) Band Neutrophils 0 % (0-8) Platelet Estimate Decreased L Platelet Morphology Normal Hypochromasia 1+ Anisocytosis 2+ Sodium Level 136 MMOL/L (136-145) Potassium Level 4.8 MMOL/L (3.5-5.1) Chloride Level 98 MMOL/L (98-107) Carbon Dioxide Level 28 MMOL/L (21-32) Anion Gap 10 mmol/L (5-15) Blood Urea Nitrogen 40 mg/dL (7-18) H Creatinine 11.1 MG/DL (0.55-1.30) H Estimat Glomerular Filtration Rate 5.0 mL/min (>60) Glucose Level 81 MG/DL (74-106) Calcium Level 9.7 MG/DL (8.5-10.1) Total Bilirubin 0.4 MG/DL (0.2-1.0) Aspartate Amino Transf (AST/SGOT) 20 U/L (15-37) Alanine Aminotransferase (ALT/SGPT) 7 U/L (12-78) L Alkaline Phosphatase 205 U/L (46-116) H Total Creatine Kinase 159 U/L (26-308) Creatine Kinase MB 3.8 NG/ML (0.0-3.6) H Creatine Kinase MB Relative Index 2.3 Troponin I 0.046 ng/mL (0.000-0.056) Total Protein 10.0 G/DL (6.4-8.2) H Albumin 3.6 G/DL (3.4-5.0) Globulin 6.4 g/dL Albumin/Globulin Ratio 0.6 (1.0-2.7) L Human Chorionic Gonadotropin, Qual Negative Urine HCG, Qualitative Negative (NEGATIVE) Urine Opiates Screen Negative (NEGATIVE) Urine Barbiturates Screen Negative (NEGATIVE) Phencyclidine (PCP) Screen Negative (NEGATIVE) Urine Amphetamines Screen Negative (NEGATIVE) Urine Benzodiazepines Screen Negative (NEGATIVE) Urine Cocaine Screen Negative (NEGATIVE) Urine Marijuana (THC) Screen Negative (NEGATIVE) Height (Feet): 5 Height (Inches): 7.00 Weight (Pounds): 123 Medications Current Medications Medications (Trade) Dose Ordered Sig/Brad Route PRN Reason Start Time Stop Time Status Last Admin Dose Admin Acetaminophen (Tylenol) 650 mg Q4H PRN ORAL Fever 12/27/17 12:00 01/26/18 11:59 Acetaminophen/ Hydrocodone Bitart ([place] 5/325) 1 tab Q6H PRN ORAL For Pain 12/27/17 12:00 01/03/18 11:59 12/27/17 14:36 Albuterol/ Ipratropium (Albuterol/ Ipratropium) 3 ml Q4H PRN HHN Shortness of Breath 12/27/17 12:00 01/01/18 11:59 Azathioprine (Imuran) 150 mg DAILY ORAL 12/28/17 09:00 01/27/18 08:59 Clonidine HCl (Catapres tab) 0.2 mg Q6HR ORAL 12/27/17 12:30 01/26/18 12:29 12/27/17 12:47 Dextrose (Dextrose 50%) STAT PRN IV Hypoglycemia 12/27/17 12:00 01/26/18 11:59 Heparin Sodium (Porcine) (Heparin 5000 units/ml) 5,000 units EVERY 12 HOURS SUBQ 12/27/17 21:00 01/26/18 20:59 Heparin Sodium (Porcine) (Heparin Sod 1000 units/ml 10ml) 2,000 unit ONCE IV 12/28/17 13:00 12/28/17 14:00 Nifedipine (Procardia XL) 30 mg DAILY ORAL 12/28/17 09:00 01/27/18 08:59 Ondansetron HCl (Zofran) 4 mg Q6H PRN IVP Nausea & Vomiting 12/27/17 12:00 01/26/18 11:59 Polyethylene Glycol (Miralax) 17 gm DAILYPRN PRN ORAL Constipation 12/27/17 12:00 01/26/18 11:59 Sevelamer Carbonate (Renvela) 3,200 mg THREE TIMES A DAY ORAL 12/27/17 13:00 01/26/18 12:59 12/27/17 12:46 Sodium Chloride 1,000 ml @ 500 mls/hr Q2H PRN IVLG sbp<90 during hd 12/28/17 12:57 01/27/18 12:56 Temazepam (Restoril) 15 mg HSPRN PRN ORAL Insomnia 12/27/17 12:00 01/03/18 11:59 Trazodone HCl (Desyrel) 50 mg BEDTIME ORAL 12/27/17 21:00 01/26/18 20:59 Assessment/Plan Problem List: (1) Hypertensive urgency, malignant ICD Codes: I16.0 - Hypertensive urgency SNOMED: 809730500 (2) ESRF (end stage renal failure) ICD Codes: N18.6 - End stage renal disease SNOMED: 09877496 (3) Lupus (systemic lupus erythematosus) ICD Codes: M32.9 - Systemic lupus erythematosus, unspecified SNOMED: 93678945, [id number] Assessment/Plan telemetry monitoring antihypertensive HD by nephrology. Elias Claros MD Dec 27, 2017 15:08
[2017-12-27 15:59] VITALS: BP 139/88
[2017-12-27] MEDS ORDERED: DiphenhydrAMINE 50mg/ml Inj IVP PRN (18:15)
[2017-12-27 20:00] VITALS: BP 165/104
[2017-12-27] MEDS: Heparin 5000 units/ml inj SUBQ SCH (21:00)
[2017-12-27] MEDS: TraZODone 50mg tab ORAL SCH (21:09)
--- NOTE | 2017-12-27 22:15 | Consultation ---
DATE OF CONSULTATION: 12/27/2017 NEPHROLOGY CONSULTATION CONSULTING PHYSICIAN: Davi Chris M.D. REFERRING PHYSICIAN: Elias Claros M.D. REASON FOR CONSULTATION: End-stage renal disease, requiring hemodialysis. HISTORY OF PRESENT ILLNESS: This is a 27-year-old female with some end-stage renal disease, on hemodialysis every Saturday, Saturday, and Saturday. The patient's sports health club membership advisors is Dr. Wild and I am doing this dictation on his behalf. The patient went to her dialysis unit at [facility]. She was complaining of dizziness and body aches and also vomiting. The check of blood pressure was very high and systolic more than 200 and she was sent to the emergency room and she was admitted. The patient ran out of her clonidine few days ago and has not been taking it. PAST MEDICAL HISTORY: The patient has history of lupus nephritis and has been on dialysis for about two years and history of hypertension. MEDICATIONS: Reviewed in the EMR. SOCIAL HISTORY: No history of smoking or alcohol abuse. The patient lives at home with daughter. ALLERGIES: Reported to sulfa. REVIEW OF SYSTEMS: As above. PHYSICAL EXAMINATION: GENERAL: The patient is a 27-year-old female, in no acute distress. VITAL SIGNS: Blood pressure 148/106, pulse 79, temperature 98.1, and respiratory rate is 18. HEENT: [place] conjunctivae. Anicteric sclerae. NECK: Supple. LUNGS: Clear to auscultation. HEART: S1, S2 without murmurs or rubs. ABDOMEN: Soft and nontender. EXTREMITIES: No cyanosis or edema. LABORATORY FINDINGS: The CBC shows a WBC of 6.7, hematocrit is 30.9, hemoglobin is 12.2, and platelets 132,000. Chemistry panel shows serum sodium 136, potassium 4.8, chloride 98, CO2 of 28, BUN is 40, and creatinine 11.1. ASSESSMENT: This is a 27-year-old female with history of end-stage renal disease as a result of lupus nephritis, on hemodialysis Saturday, Saturday, and Saturday, was admitted with dizziness, very high blood pressure, and likely this is rebound hypertension from not taking clonidine. PLAN: The patient received clonidine today. The blood pressure is better now. She will have dialysis today. The blood pressure medication will be adjusted. Thank you very much, Dr. Claros, for this consultation. Davi Chris M.D. DR: CAITLYN JOB#: [id number] CC:
[2017-12-28] VITALS: BP_SYST 142; BP_SYST 94; BP_DIAS 88; BP_DIAS 94
[2017-12-28] MEDS: cloNIDine 0.2mg Tab ORAL SCH ×4 (00:05→22:00)
[2017-12-28 04:00] VITALS: BP 134/82
[2017-12-28 07:23] LABS: BASOPHILS % (AUTO) 0.5 % (0.0-2.0); HEMATOCRIT 36.1 % (37.0-47.0); LYMPHOCYTES % (AUTO) 16.2 % (20.0-45.0); MEAN CORPUSCULAR VOLUME 100 FL (80-99); MONOCYTES % (AUTO) 5.8 % (1.0-10.0); NEUTROPHILS % (AUTO) 76.4 % (45.0-75.0); PLATELET COUNT 113 K/UL (150-450); RED CELL DISTRIBUTION WIDTH 19.8 % (11.6-14.8); WHITE BLOOD COUNT 5.1 K/UL (4.8-10.8)
[2017-12-28 07:37] LABS: ALBUMIN 3.2 G/DL (3.4-5.0); ANION GAP 10 mmol/L (5-15); BLOOD UREA NITROGEN 24 mg/dL (7-18); CARBON DIOXIDE 33 MMOL/L (21-32); CHLORIDE 96 MMOL/L (98-107); CREATININE 8.5 MG/DL (0.55-1.30); PHOSPHORUS 4.3 MG/DL (2.5-4.9); POTASSIUM 4.5 MMOL/L (3.5-5.1); SODIUM 139 MMOL/L (136-145)
[2017-12-28 08:00] VITALS: BP 120/84
[2017-12-28] MEDS: Norco 5mg/325mg tab ORAL PRN (08:29)
[2017-12-28] MEDS: Heparin 5000 units/ml inj SUBQ SCH (08:30)
[2017-12-28] MEDS ORDERED: azaTHIOprine 50 MG TAB ORAL SCH (09:00)
--- NOTE | 2017-12-28 09:01 | Pulmonology Progress Note ---
Assessment/Plan Problems: (1) Hypertensive urgency, malignant (2) ESRF (end stage renal failure) (3) Lupus (systemic lupus erythematosus) Assessment/Plan [place] for lower back pain, BP better got dialyzed last night. Subjective ROS Limited/Unobtainable: No Interval Events: c/o backpain, got dialyzed last night Allergies: Coded Allergies: SULFA (SULFONAMIDE ANTIBIOTICS) (Verified Allergy, Mild, 05/27/15) Objective Last 24 Hour Vital Signs Date Time Temp Pulse Resp B/P (MAP) Pulse Ox O2 Delivery O2 Flow Rate FiO2 12/28/17 08:29 98.2 12/28/17 08:28 77 120/84 12/28/17 08:00 98.2 77 18 120/84 98 Room Air 98.2 12/28/17 07:26 89 16 Room Air 21 12/28/17 05:54 134/82 12/28/17 04:00 75 12/28/17 04:00 99.4 86 18 134/82 98 Room Air 99.4 12/28/17 03:56 74 18 Room Air 12/28/17 00:05 145/88 12/28/17 00:00 98.4 63 20 142/94 100 Room Air 98.4 12/28/17 00:00 92 12/27/17 20:45 Room Air 12/27/17 20:00 76 12/27/17 20:00 97.5 63 20 165/104 93 Room Air 97.5 12/27/17 17:40 Room Air 12/27/17 17:13 139/88 12/27/17 16:00 64 12/27/17 15:59 97.7 63 21 139/88 97 Room Air 97.7 12/27/17 12:47 148/106 12/27/17 12:25 98.1 79 18 148/106 100 Room Air 98.1 12/27/17 11:35 98.1 12/27/17 11:17 98.1 79 18 148/106 100 Room Air 98.1 12/27/17 11:17 98.1 12/27/17 09:58 98.1 70 18 152/103 100 Room Air 98.1 12/27/17 09:31 98.1 20 160/102 99 Room Air 98.1 12/27/17 09:26 98.0 78 20 160/102 99 Room Air 98.1 Intake and Output 12/27/17 12/28/17 19:00 07:00 Intake Total 0 ml 120 ml Output Total 0 ml 2650 ml Balance 0 ml -2530 ml Intake Oral 0 ml 120 ml Output Urine Total 0 ml Hemodialysis UF 2650 ml General Appearance: WD/WN HEENT: normocephalic, atraumatic Respiratory/Chest: chest wall non-tender, lungs clear Cardiovascular: normal peripheral pulses, normal rate Abdomen: normal bowel sounds, soft, non tender Genitourinary: normal external genitalia Extremities: no clubbing Neurologic/Psychiatric: payment specialist II-XII grossly normal Laboratory Tests 12/27/17 09:50: White Blood Count 6.7, Red Blood Count 3.93L, Hemoglobin 12.2, Hematocrit 38.9, Mean Corpuscular Volume 99, Mean Corpuscular Hemoglobin 31.0, Mean Corpuscular Hemoglobin Concent 31.3L, Red Cell Distribution Width 20.3H, Platelet Count 132L , Mean Platelet Volume 8.7, Neutrophils (%) (Auto) , Lymphocytes (%) (Auto) , Monocytes (%) (Auto) , Eosinophils (%) (Auto) , Basophils (%) (Auto) , Differential Total Cells Counted 100, Neutrophils % (Manual) 88H, Lymphocytes % (Manual) 10L, Monocytes % (Manual) 2, Eosinophils % (Manual) 0, Basophils % ( Manual) 0, Band Neutrophils 0, Platelet Estimate DecreasedL, Platelet Morphology Normal, Hypochromasia 1+, Anisocytosis 2+, Sodium Level 136, Potassium Level 4.8, Chloride Level 98, Carbon Dioxide Level 28, Anion Gap 10, Blood Urea Nitrogen 40H, Creatinine 11.1H, Estimat Glomerular Filtration Rate 5.0, Glucose Level 81, Calcium Level 9.7, Total Bilirubin 0.4, Aspartate Amino Transf (AST/SGOT) 20, Alanine Aminotransferase (ALT/SGPT) 7L, Alkaline Phosphatase 205H, Total Creatine Kinase 159, Creatine Kinase MB 3.8H, Creatine Kinase MB Relative Index 2.3, Troponin I 0.046, Total Protein 10.0H, Albumin 3.6 , Globulin 6.4, Albumin/Globulin Ratio 0.6L, Human Chorionic Gonadotropin, Qual Negative 12/27/17 12:00: Urine HCG, Qualitative Negative, Urine Opiates Screen Negative, Urine Barbiturates Screen Negative, Phencyclidine (PCP) Screen Negative, Urine Amphetamines Screen Negative, Urine Benzodiazepines Screen Negative, Urine Cocaine Screen Negative, Urine Marijuana (THC) Screen Negative 12/28/17 06:00: White Blood Count [Pending], Red Blood Count [Pending], Hemoglobin [Pending], Hematocrit [Pending], Mean Corpuscular Volume [Pending], Mean Corpuscular Hemoglobin [Pending], Mean Corpuscular Hemoglobin Concent [Pending], Red Cell Distribution Width [Pending], Platelet Count [Pending], Mean Platelet Volume [ Pending], Neutrophils (%) (Auto) [Pending], Lymphocytes (%) (Auto) [Pending], Monocytes (%) (Auto) [Pending], Eosinophils (%) (Auto) [Pending], Basophils (%) (Auto) [Pending], Sodium Level 139, Potassium Level 4.5, Chloride Level 96L, Carbon Dioxide Level 33H, Anion Gap 10, Blood Urea Nitrogen 24H, Creatinine 8.5H , Estimat Glomerular Filtration Rate 6.8, Glucose Level 82, Calcium Level 10.0, Troponin I 0.036, Albumin 3.2L, Phosphorus Level 4.3 Current Medications Medications (Trade) Dose Ordered Sig/Brad Route PRN Reason Start Time Stop Time Status Last Admin Dose Admin Acetaminophen (Tylenol) 650 mg Q4H PRN ORAL Fever 12/27/17 12:00 01/26/18 11:59 Acetaminophen/ Hydrocodone Bitart ([place] 5/325) 1 tab Q6H PRN ORAL For Pain 12/27/17 12:00 01/03/18 11:59 12/28/17 08:29 Albuterol/ Ipratropium (Albuterol/ Ipratropium) 3 ml Q4H PRN HHN Shortness of Breath 12/27/17 12:00 01/01/18 11:59 Azathioprine (Imuran) 150 mg DAILY ORAL 12/28/17 09:00 01/27/18 08:59 Clonidine HCl (Catapres tab) 0.2 mg Q6HR ORAL 12/27/17 12:30 01/26/18 12:29 12/28/17 05:54 Dextrose (Dextrose 50%) STAT PRN IV Hypoglycemia 12/27/17 12:00 01/26/18 11:59 Diphenhydramine HCl (Benadryl) 25 mg Q6H PRN IVP Itching 12/27/17 18:15 01/26/18 18:14 12/27/17 18:11 Heparin Sodium (Porcine) (Heparin 5000 units/ml) 5,000 units EVERY 12 HOURS SUBQ 12/27/17 21:00 01/26/18 20:59 Heparin Sodium (Porcine) (Heparin Sod 1000 units/ml 10ml) 2,000 unit ONCE IV 12/28/17 13:00 12/28/17 14:00 Nifedipine (Procardia XL) 30 mg DAILY ORAL 12/28/17 09:00 01/27/18 08:59 12/28/17 08:28 Ondansetron HCl (Zofran) 4 mg Q6H PRN IVP Nausea & Vomiting 12/27/17 12:00 01/26/18 11:59 Polyethylene Glycol (Miralax) 17 gm DAILYPRN PRN ORAL Constipation 12/27/17 12:00 01/26/18 11:59 Sevelamer Carbonate (Renvela) 3,200 mg THREE TIMES A DAY ORAL 12/27/17 13:00 01/26/18 12:59 12/28/17 08:27 Sodium Chloride 1,000 ml @ 500 mls/hr Q2H PRN IVLG sbp<90 during hd 12/28/17 12:57 01/27/18 12:56 Temazepam (Restoril) 15 mg HSPRN PRN ORAL Insomnia 12/27/17 12:00 01/03/18 11:59 12/27/17 21:24 Trazodone HCl (Desyrel) 50 mg BEDTIME ORAL 12/27/17 21:00 01/26/18 20:59 12/27/17 21:09 Elias Claros MD Dec 28, 2017 09:01
[2017-12-28] MEDS ORDERED: DiphenhydrAMINE 50mg/ml Inj IVP SCH (09:30)
--- NOTE | 2017-12-28 09:33 | Nephrology Progress Note ---
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 Plan adjust BP meds- Pain meds- Dialyses late 12/27 Next HD Saturday 12/30 monitor labs DC planning in am if all ok Subjective ROS Limited/Unobtainable: No Constitutional: Reports: malaise, weakness, other - back pain Objective Objective Last 24 Hour Vital Signs Date Time Temp Pulse Resp B/P (MAP) Pulse Ox O2 Delivery O2 Flow Rate FiO2 12/28/17 08:29 98.2 12/28/17 08:28 77 120/84 12/28/17 08:00 98.2 77 18 120/84 98 Room Air 98.2 12/28/17 07:26 89 16 Room Air 21 12/28/17 05:54 134/82 12/28/17 04:00 75 12/28/17 04:00 99.4 86 18 134/82 98 Room Air 99.4 12/28/17 03:56 74 18 Room Air 12/28/17 00:05 145/88 12/28/17 00:00 98.4 63 20 142/94 100 Room Air 98.4 12/28/17 00:00 92 12/27/17 20:45 Room Air 12/27/17 20:00 76 12/27/17 20:00 97.5 63 20 165/104 93 Room Air 97.5 12/27/17 17:40 Room Air 12/27/17 17:13 139/88 12/27/17 16:00 64 12/27/17 15:59 97.7 63 21 139/88 97 Room Air 97.7 12/27/17 12:47 148/106 12/27/17 12:25 98.1 79 18 148/106 100 Room Air 98.1 12/27/17 11:35 98.1 12/27/17 11:17 98.1 79 18 148/106 100 Room Air 98.1 12/27/17 11:17 98.1 12/27/17 09:58 98.1 70 18 152/103 100 Room Air 98.1 12/27/17 09:31 98.1 20 160/102 99 Room Air 98.1 Intake and Output 12/27/17 12/28/17 19:00 07:00 Intake Total 0 ml 120 ml Output Total 0 ml 2650 ml Balance 0 ml -2530 ml Intake Oral 0 ml 120 ml Output Urine Total 0 ml Hemodialysis UF 2650 ml Laboratory Tests 12/27/17 09:50: White Blood Count 6.7, Red Blood Count 3.93L, Hemoglobin 12.2, Hematocrit 38.9, Mean Corpuscular Volume 99, Mean Corpuscular Hemoglobin 31.0, Mean Corpuscular Hemoglobin Concent 31.3L, Red Cell Distribution Width 20.3H, Platelet Count 132L , Mean Platelet Volume 8.7, Neutrophils (%) (Auto) , Lymphocytes (%) (Auto) , Monocytes (%) (Auto) , Eosinophils (%) (Auto) , Basophils (%) (Auto) , Differential Total Cells Counted 100, Neutrophils % (Manual) 88H, Lymphocytes % (Manual) 10L, Monocytes % (Manual) 2, Eosinophils % (Manual) 0, Basophils % ( Manual) 0, Band Neutrophils 0, Platelet Estimate DecreasedL, Platelet Morphology Normal, Hypochromasia 1+, Anisocytosis 2+, Sodium Level 136, Potassium Level 4.8, Chloride Level 98, Carbon Dioxide Level 28, Anion Gap 10, Blood Urea Nitrogen 40H, Creatinine 11.1H, Estimat Glomerular Filtration Rate 5.0, Glucose Level 81, Calcium Level 9.7, Total Bilirubin 0.4, Aspartate Amino Transf (AST/SGOT) 20, Alanine Aminotransferase (ALT/SGPT) 7L, Alkaline Phosphatase 205H, Total Creatine Kinase 159, Creatine Kinase MB 3.8H, Creatine Kinase MB Relative Index 2.3, Troponin I 0.046, Total Protein 10.0H, Albumin 3.6 , Globulin 6.4, Albumin/Globulin Ratio 0.6L, Human Chorionic Gonadotropin, Qual Negative 12/27/17 12:00: Urine HCG, Qualitative Negative, Urine Opiates Screen Negative, Urine Barbiturates Screen Negative, Phencyclidine (PCP) Screen Negative, Urine Amphetamines Screen Negative, Urine Benzodiazepines Screen Negative, Urine Cocaine Screen Negative, Urine Marijuana (THC) Screen Negative 12/28/17 06:00: White Blood Count 5.1, Red Blood Count 3.60L, Hemoglobin 12.0, Hematocrit 36.1L , Mean Corpuscular Volume 100H, Mean Corpuscular Hemoglobin 33.5H, Mean Corpuscular Hemoglobin Concent 33.3, Red Cell Distribution Width 19.8H, Platelet Count 113L, Mean Platelet Volume 8.2, Neutrophils (%) (Auto) 76.4H, Lymphocytes (%) (Auto) 16.2L, Monocytes (%) (Auto) 5.8, Eosinophils (%) (Auto) 1.0, Basophils (%) (Auto) 0.5, Sodium Level 139, Potassium Level 4.5, Chloride Level 96L, Carbon Dioxide Level 33H, Anion Gap 10, Blood Urea Nitrogen 24H, Creatinine 8.5H, Estimat Glomerular Filtration Rate 6.8, Glucose Level 82, Calcium Level 10.0, Troponin I 0.036, Albumin 3.2L, Phosphorus Level 4.3 Height (Feet): 5 Height (Inches): 7.00 Weight (Pounds): 118 General Appearance: moderate distress - due to back pain Cardiovascular: regular rhythm Respiratory/Chest: decreased breath sounds Abdomen: soft JAMES MONTES Dec 28, 2017 09:33
[2017-12-28] MEDS ORDERED: Eliquis 2.5mg tablet ORAL SCH (11:00)
[2017-12-28 12:00] VITALS: BP 130/82
[2017-12-28] MEDS ORDERED: Heparin Sod 1000 units/ml 10ml IV SCH (13:00)
[2017-12-28 16:00] VITALS: BP 119/73
[2017-12-28] MEDS: Eliquis 2.5mg tablet ORAL SCH (17:06)
[2017-12-28 20:00] VITALS: BP 121/70
[2017-12-28] MEDS: TraZODone 50mg tab ORAL SCH (21:05)
[2017-12-28] MEDS: DiphenhydrAMINE 50mg/ml Inj IVP PRN (21:05)
[2017-12-29] MEDS ORDERED: cloNIDine 0.2mg Tab ORAL SCH
[2017-12-29] MEDS ORDERED: DiphenhydrAMINE 50mg/ml Inj IVP PRN (00:15)
[2017-12-29 00:51] VITALS: BP 145/88
[2017-12-29] MEDS: DiphenhydrAMINE 50mg/ml Inj IVP PRN (02:15)
[2017-12-29 04:00] VITALS: BP 147/98
[2017-12-29] MEDS: cloNIDine 0.2mg Tab ORAL SCH (05:48)
[2017-12-29 08:00] VITALS: BP 143/92
[2017-12-29] MEDS: Eliquis 2.5mg tablet ORAL SCH (08:23)
[2017-12-29 08:24] VITALS: BP 143/92
--- NOTE | 2017-12-29 08:48 | Nephrology Progress Note ---
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 BP now stable- due routine HD in am Plan adjust BP meds- can DC if meds could be provided for her for next 48 h Pain meds- Dialyses late 12/27 Next HD Saturday 12/30 monitor labs DC planning in am if all ok Subjective ROS Limited/Unobtainable: No Objective Objective Last 24 Hour Vital Signs Date Time Temp Pulse Resp B/P (MAP) Pulse Ox O2 Delivery O2 Flow Rate FiO2 12/29/17 08:24 90 143/92 12/29/17 08:09 82 16 Room Air 21 12/29/17 05:48 147/98 12/29/17 04:00 98.8 95 20 147/98 100 Room Air 98.8 12/29/17 04:00 94 12/29/17 02:45 98.2 12/29/17 00:51 98.2 85 20 145/88 97 Room Air 98.2 12/29/17 00:00 84 12/28/17 22:00 121/70 12/28/17 20:00 81 12/28/17 20:00 99.7 82 20 121/70 98 Room Air 99.7 12/28/17 19:55 76 16 Room Air 21 12/28/17 16:00 74 12/28/17 16:00 98.2 73 18 119/73 98 Room Air 98.2 12/28/17 13:30 130/82 12/28/17 12:00 65 12/28/17 12:00 98.1 63 18 130/82 97 Room Air 98.1 Intake and Output 12/28/17 12/29/17 19:00 07:00 Intake Total 360 ml 120 ml Output Total 2650 ml Balance 360 ml -2530 ml Intake Oral 360 ml 120 ml Output Urine Total 0 ml Hemodialysis UF 2650 ml # Voids 1 # Bowel Movements 1 Current Medications Medications (Trade) Dose Ordered Sig/Brad Route PRN Reason Start Time Stop Time Status Last Admin Dose Admin Acetaminophen (Tylenol) 650 mg Q4H PRN ORAL Fever 12/27/17 12:00 01/26/18 11:59 Acetaminophen/ Hydrocodone Bitart ([place] 5/325) 1 tab Q6H PRN ORAL For Pain 12/27/17 12:00 01/03/18 11:59 12/28/17 08:29 Albuterol/ Ipratropium (Albuterol/ Ipratropium) 3 ml Q4H PRN HHN Shortness of Breath 12/27/17 12:00 01/01/18 11:59 Apixaban (Eliquis) 2.5 mg BID ORAL 12/28/17 18:00 01/27/18 17:59 12/29/17 08:23 Clonidine HCl (Catapres tab) 0.2 mg Q8HR ORAL 12/28/17 14:00 01/26/18 12:29 12/29/17 05:48 Dextrose (Dextrose 50%) STAT PRN IV Hypoglycemia 12/27/17 12:00 01/26/18 11:59 Diphenhydramine HCl (Benadryl) 25 mg Q4H PRN IVP Itching 12/28/17 19:45 01/27/18 19:44 12/29/17 02:15 Hydromorphone HCl (Dilaudid) 0.5 mg Q4H PRN IVP Mod-Severe Pain (SCALE 4-10) 12/28/17 18:45 01/04/18 18:44 12/29/17 02:15 Nifedipine (Procardia XL) 60 mg DAILY ORAL 12/29/17 09:00 01/27/18 08:59 UNV Ondansetron HCl (Zofran) 4 mg Q6H PRN IVP Nausea & Vomiting 12/27/17 12:00 01/26/18 11:59 Polyethylene Glycol (Miralax) 17 gm DAILYPRN PRN ORAL Constipation 12/27/17 12:00 01/26/18 11:59 Sevelamer Carbonate (Renvela) 3,200 mg THREE TIMES A DAY ORAL 12/27/17 13:00 01/26/18 12:59 12/29/17 08:23 Sodium Chloride 1,000 ml @ 500 mls/hr Q2H PRN IVLG sbp<90 during hd 12/28/17 12:57 01/27/18 12:56 Temazepam (Restoril) 15 mg HSPRN PRN ORAL Insomnia 12/27/17 12:00 01/03/18 11:59 12/27/17 21:24 Trazodone HCl (Desyrel) 50 mg BEDTIME ORAL 12/27/17 21:00 01/26/18 20:59 12/28/17 21:05 Laboratory Tests 12/29/17 07:30: Troponin I [Pending] Height (Feet): 5 Height (Inches): 7.00 Weight (Pounds): 125 General Appearance: no apparent distress Cardiovascular: regular rhythm Respiratory/Chest: lungs clear Abdomen: soft JAMES MONTES Dec 29, 2017 08:48
--- NOTE | 2017-12-31 16:41 | Discharge Summary ---
Discharge Summary Discharge Summary Discharge Summary DATE OF ADMISSION: 12/27/2017 DATE OF DISCHARGE: 12/29/2017 CONSULTANTS: Dr. Jason Wild BRIEF HOSPITAL COURSE: Patient is a 27-year-old female, with history of SLE, end-stage renal failure, hypertension, presented to ER with complaints of dizziness. Blood pressure was reported to be 220 systolic at the dialysis center. She was then referred to emergency room. She had mild shortness of breath and had been on and off her clonidine for the past 3 days. On evaluation at ED, blood pressure was 160/102. She complained of diffuse pain on her joints. Creatinine was elevated to 11, BUN was 14. Chest x-ray showed bilateral chronic atelectasis. EKG was in normal sinus rhythm with no acute changes. She was admitted for hypertensive urgency. She was given clonidine. She was given inpatient hemodialysis. She was given Dilaudid and [place] for back pain. Blood pressure eventually improved with Procardia, and clonidine. Blood pressure improved. She was eventually discharged home. FINAL DIAGNOSES: Hypertensive urgency End-stage renal failure Systemic lupus erythematosus Pain DISPOSITION: Patient was discharged home DISCHARGE MEDICATIONS: Refer to Discharge Medication List. DISCHARGE INSTRUCTIONS: Follow up with PCP in a week. I have been assigned to dictate discharge summary on this account, and I was not involved in the patient's management. Paula Hernandez NP Dec 31, 2017 16:41
== END 2017-12-29 10:57 | disposition home or self-care (01) | DRG 304 ==
LOC: EMR 09:52 → EDBEDREQ 09:58 → 2E 10:38 → EDBEDREQ 11:03 → 2E 12:31
DX: I16.0 Hypertensive urgency (principal); N18.6 End stage renal disease; J98.11 Atelectasis; I12.0 Hypertensive chronic kidney disease with stage 5 chronic kidney disease or end stage renal disease; M32.14 Glomerular disease in systemic lupus erythematosus; Z99.2 Dependence on renal dialysis; Z91.14 Patient's other noncompliance with medication regimen
CPT/HCPCS: 36415; 71045; 80048; 80053; 80069; 80307; 81025; 82550; 82553; 84484; 84703; 85007; 85025; 87081; 93005; 94664; 99285; J2405

== ENCOUNTER 2018-09-22 19:23 | Inpatient (IN) | payer MEDICARE, OTHER ==
[~2018-09-22] VITALS: Ht 172.7 cm; Wt 61.2 kg
[2018-09-22 19:52] VITALS: BP 189/128
--- NOTE | 2018-09-22 19:57 | NUR ---
ER Nurse Note: Pt came from home c/o shortness of breath for one hour and chest pain that started two weeks ago. Pt stated chest pain is in the medial chest, 10/10 non radiating. Pt stated the pain is worst today. Pt gets dialysis T,R,Sat on left upper arm; has a graft. Pt a&ox4, regular respirations, breathing heavy; RR at 22. Pt unable to provide urine. ERMD pt side; will continue to [facility].
[2018-09-22] MEDS ORDERED: Albuterol/Ipratropium 3ml neb HHN ONE (20:00)
[2018-09-22 21:17] LABS: BASOPHILS % (AUTO) 0.6 % (0.0-2.0); EOSINOPHILS % (AUTO) 0.7 % (0.0-3.0); HEMATOCRIT 31.7 % (37.0-47.0); HEMOGLOBIN 10.2 G/DL (12.0-16.0); LYMPHOCYTES % (AUTO) 15.6 % (20.0-45.0); MEAN CORPUSCULAR VOLUME 104 FL (80-99); NEUTROPHILS % (AUTO) 77.1 % (45.0-75.0); PLATELET COUNT 148 K/UL (150-450); RED BLOOD COUNT 3.06 M/UL (4.20-5.40); RED CELL DISTRIBUTION WIDTH 17.4 % (11.6-14.8); WHITE BLOOD COUNT 7.9 K/UL (4.8-10.8)
[2018-09-22 21:59] LABS: ANION GAP 16 mmol/L (5-15); BLOOD UREA NITROGEN 56 mg/dL (7-18); CALCIUM 10.2 MG/DL (8.5-10.1); CARBON DIOXIDE 24 MMOL/L (21-32); CHLORIDE 97 MMOL/L (98-107); CREATININE 12.3 MG/DL (0.55-1.30); POTASSIUM 5.1 MMOL/L (3.5-5.1); SODIUM 137 MMOL/L (136-145)
[2018-09-22 22:13] LABS: ALANINE AMINOTRANSFERASE 14 U/L (12-78); ALBUMIN/GLOBULIN RATIO 0.7 (1.0-2.7); ALKALINE PHOSPHATASE 219 U/L (46-116); ASPARTATE AMINO TRANSFERASE 22 U/L (15-37); BILIRUBIN,TOTAL 0.3 MG/DL (0.2-1.0); CKMB 5.3 NG/ML (0.0-3.6); CREATINE KINASE 375 U/L (26-308)
[2018-09-22] MEDS ORDERED: Morphine Sulfate 2mg/ml Inj IVP ONE (22:30)
[2018-09-22] MEDS ORDERED: Nitroglycerin Subl 0.4mg tab SL PRN (22:30)
[2018-09-22 22:50] VITALS: BP 176/113
--- NOTE | 2018-09-22 23:00 | NUR ---
ER Nurse Note: Pt a&ox4, BP elevated, ERMD made aware. Pt rates pain 7/10 to mid-chest, sharp pain, nonradiating. Medicated pt with pain meds and vasodilaters; will reassess. Daughter at bedside. Let annual greenhouse manager and 2E aware that daughter is with pt until transportation is avaliable around 0300. Will continue to monitor.
[2018-09-23] VITALS (8 sets, daily range): BP systolic 107–172; BP diastolic 64–121
[2018-09-23] MEDS ORDERED: Albuterol/Ipratropium 3ml neb HHN PRN
[2018-09-23] MEDS ORDERED: Minoxidil 2.5mg tab ORAL PRN
[2018-09-23] MEDS ORDERED: Miralax 17gm pkt ORAL PRN
[2018-09-23] MEDS ORDERED: cloNIDine 0.2mg Tab ORAL ONE (01:15)
[2018-09-23] MEDS: Nitroglycerin Patch 0.4mg TDERMAL SCH (01:55)
--- NOTE | 2018-09-23 02:30 | NUR ---
NURSE NOTES: NEW ADMISSION. Admitting Dx: chest pain and ESRD. Admitting Dr. Claros. Pt was c/o sob Pt arrived to floor via gurney at 0230. Pt was placed on site monitor. Pt is on room air with no sign of sob or resp distress. Addendum: 09/23/18 at 0642 by TAMARA RUIZ RN Pt c/o sob x1 hr and chest pain starting 2 weeks ago. Pt has ntg patch. Belongings were reviewed. Pt was oriented to room. Daughter at bedside. troponin 0.094 and to be repeated in the morning. Pt to have HD today 09/23 with [facility] nephrology. Bed in lowest locked position. Will continue with plan of care.
--- NOTE | 2018-09-23 02:30 | NUR ---
ER Nurse Note: Report given to OUMAR Deal in tele for continuity of care. Pt seen, treated, medically treated by ERMD for transfer. Pt a&ox4, no signs of distress. All belongings taken with pt; daughter at bedside.
[2018-09-23] MEDS: Norco 5mg/325mg tab ORAL PRN ×2 (03:05→21:41)
--- NOTE | 2018-09-23 05:00 | NUR ---
NURSE NOTES: Contacted [facility] Nephrology to advise pt is getting HD today s/w Jason [phone]. Order for HD placed by Torri 09/22 at 9843
[2018-09-23] MEDS: cloNIDine 0.2mg Tab ORAL SCH ×3 (05:54→20:53)
--- NOTE | 2018-09-23 06:44 | NUR ---
NURSE NOTES: Pt is c/o chest pain 06/18 and in tears. Contacted DR Claros for pain med. Morphine was d/c for pt. Only norco was ordered for pt and given a couple of hours ago with no improvement.
--- NOTE | 2018-09-23 07:13 | NUR ---
HAND-OFF: Report given to Kaleb OSEGUERA.
--- NOTE | 2018-09-23 07:34 | NUR ---
NURSE NOTES: Received report from OUMAR Deal. Patient is resting in bed, in stable condition. Patient noted to be vomiting and with elevated BP, per night nurse patient given clonidine and zofran, BP on reassessment 162/110. Patient is schedule for hemodialysis today with [facility] Nephrology, service is aware, per OUMAR Deal spoke with Jason. Bed is in lowest position, brakes engaged. Patient's daughter is at bedside. Call light is kept within easy reach. Will continue to monitor patient.
[2018-09-23 07:53] LABS: BASOPHILS % (AUTO) 0.5 % (0.0-2.0); EOSINOPHILS % (AUTO) 0.8 % (0.0-3.0); HEMATOCRIT 27.8 % (37.0-47.0); HEMOGLOBIN 8.8 G/DL (12.0-16.0); LYMPHOCYTES % (AUTO) 21.9 % (20.0-45.0); MEAN CORPUSCULAR VOLUME 104 FL (80-99); MONOCYTES % (AUTO) 5.2 % (1.0-10.0); NEUTROPHILS % (AUTO) 71.5 % (45.0-75.0); PLATELET COUNT 130 K/UL (150-450); RED BLOOD COUNT 2.67 M/UL (4.20-5.40); WHITE BLOOD COUNT 5.7 K/UL (4.8-10.8)
[2018-09-23 08:09] LABS: ALBUMIN 3.3 G/DL (3.4-5.0); ANION GAP 15 mmol/L (5-15); BLOOD UREA NITROGEN 60 mg/dL (7-18); CALCIUM 9.8 MG/DL (8.5-10.1); CARBON DIOXIDE 23 MMOL/L (21-32); CHLORIDE 98 MMOL/L (98-107); CREATININE 12.9 MG/DL (0.55-1.30); PHOSPHORUS 5.2 MG/DL (2.5-4.9); SODIUM 135 MMOL/L (136-145)
[2018-09-23 08:14] LABS: POTASSIUM 6.1 MMOL/L (3.5-5.1)
[2018-09-23] MEDS ORDERED: NIFEdipine 10mg cap ORAL SCH (09:00)
[2018-09-23] MEDS: NIFEdipine 10mg cap ORAL SCH ×2 (09:00→17:28)
[2018-09-23] MEDS: Docusate 100mg cap ORAL SCH ×3 (09:30→17:28)
[2018-09-23] MEDS: Eliquis 2.5mg tablet ORAL SCH ×2 (09:30→17:28)
[2018-09-23] MEDS ORDERED: DiphenhydrAMINE 50mg/ml Inj IVP PRN ×2 (09:45→11:30)
[2018-09-23] MEDS ORDERED: Hydromorphone 0.5mg/0.5ml inj IVP SCH (09:46)
--- NOTE | 2018-09-23 10:04 | NUR ---
Social Service Note ADONAY met with patient to assess for homelessness and to discuss options for care of dgt who is at bedside. Patient is alert, oriented and verbally responsive. Patient states she has become recently homeless and is now residing at [facility] with her dgt. [place] [id number] [address] [id number], . Patient states she has a behavioral health case manager at the retirement working with her to obtain fixed housing. Patient states she will be returning to this location upon discharge. Patient requested for SW to contact retirement to inform of hospitalization. ADONAY spoke with Mrs. Cabrera life skills worker at the retirement. Per Samantha Cabrera patient's bed will be held. Patient receives dialysis at [facility] [phone], T-TH-SAT at 345pm. ADONAY confirmed with Kwasi at the center patient is compliant with care. Patient's dgt will be picked up by patient's sister Skylar Franco [phone] and will be under her care until patient discharges. Patient doesn't have a DCFS case. Second emergency contact Jaisonitalia Jaison (cousin) [phone]. Patient will return to retirement via her [place] which [place] [facility] Will continue to monitor.
--- NOTE | 2018-09-23 10:57 | History and Physical ---
History of Present Illness General Date patient seen: Sep 23, 2018 Reason for Hospitalization: Dyspnea/Respdistress Present Illness HPI 28 year old female with hx of SLE, ESRF, HTN presented to ER with CC of SOB, She gets dialysis Tuesdays, and Saturdays. her Blood pressure was 202 systolic in the ER. She was put on BIPA. She received Clonidine and Nitro sublingual and admitted to telemetry. she is less short of breath now and looks comfortable. Allergies: Coded Allergies: SULFA (SULFONAMIDE ANTIBIOTICS) (Verified Allergy, Mild, 09/22/18) Medication History Scheduled Azathioprine* (Imuran*), 150 MG PO DAILY, (Reported) Clonidine Hcl* (Catapres*), 0.2 MG ORAL Q8HR, (Reported) Famotidine (Famotidine), 20 MG ORAL DAILY, (Reported) Nifedipine (Nifedipine*), 30 MG ORAL DAILY, (Reported) Pantoprazole* (Pantoprazole*), 40 MG ORAL EVERY 12 HOURS, (Reported) Prednisone* (Prednisone*), 10 MG ORAL DAILY, (Reported) Sevelamer Carbonate (Renvela), 3,200 MG ORAL THREE TIMES A DAY Trazodone Hcl* (Desyrel*), Unknown Dose ORAL BEDTIME, (Reported) Scheduled PRN Hydrocodone/Acetaminophen 5-325* (Hydrocodone/Acetaminophen 5-325*), 1 TAB ORAL Q6H PRN for For Pain Patient History Healthcare decision maker Resuscitation status Full Code Advanced Directive on File No Past Medical/Surgical History Past Medical/Surgical History: (1) Anemia (2) Scleroderma (3) Polyarticular arthritis (4) Arthritis, rheumatoid (5) Lupus (systemic lupus erythematosus) (6) ESRF (end stage renal failure) Review of Systems Constitutional: Reports: no symptoms Eye: Reports: no symptoms Hematologic/Lymphatic: Reports: no symptoms All Other Systems: negative except mentioned in HPI Physical Exam General Appearance: WD/WN Lines, tubes and drains: peripheral HEENT: normocephalic, atraumatic Neck: non-tender, normal alignment Respiratory/Chest: chest wall non-tender, rhonchi - left, rhonchi - right Cardiovascular/Chest: normal peripheral pulses Abdomen: normal bowel sounds Genitourinary/Rectal: normal genital exam Extremities: normal range of motion Last 24 Hour Vital Signs Date Time Temp Pulse Resp B/P (MAP) Pulse Ox O2 Delivery O2 Flow Rate FiO2 09/23/18 08:24 Room Air 09/23/18 08:00 97.7 83 20 146/90 (108) 99 09/23/18 06:57 162/110 (127) 09/23/18 05:54 170/121 09/23/18 04:00 97.7 80 20 170/121 (137) 92 09/23/18 04:00 72 09/23/18 02:30 99.0 78 18 172/96 100 Nasal Cannula 2.0 09/23/18 01:58 99.2 82 20 172/100 100 09/23/18 01:55 181/109 09/23/18 01:53 181/109 09/23/18 01:53 181/109 09/23/18 01:38 Nasal Cannula 4.0 09/23/18 00:25 85 32 100 Facial 60 09/22/18 23:14 83 19 100 Facial 80 09/22/18 23:03 99.2 09/22/18 23:03 99.2 09/22/18 22:50 99.3 78 24 176/113 98 09/22/18 22:33 175/113 09/22/18 22:32 175/113 09/22/18 21:33 69 20 99 Room Air 09/22/18 21:28 67 20 97 Room Air 09/22/18 21:27 67 20 Room Air 09/22/18 19:52 99.7 94 22 189/128 97 09/22/18 19:52 94 22 09/22/18 19:29 99.7 106 208/128 97 Intake and Output 09/22/18 09/23/18 19:00 07:00 Intake Total 230 ml Balance 230 ml Intake Oral 230 ml Laboratory Tests Test 09/22/18 20:50 09/23/18 06:10 White Blood Count 7.9 K/UL (4.8-10.8) 5.7 K/UL (4.8-10.8) Red Blood Count 3.06 M/UL (4.20-5.40) L 2.67 M/UL (4.20-5.40) L Hemoglobin 10.2 G/DL (12.0-16.0) L 8.8 G/DL (12.0-16.0) L Hematocrit 31.7 % (37.0-47.0) L 27.8 % (37.0-47.0) L Mean Corpuscular Volume 104 FL (80-99) H 104 FL (80-99) H Mean Corpuscular Hemoglobin 33.3 PG (27.0-31.0) H 32.9 PG (27.0-31.0) H Mean Corpuscular Hemoglobin Concent 32.1 G/DL (32.0-36.0) 31.7 G/DL (32.0-36.0) L Red Cell Distribution Width 17.4 % (11.6-14.8) H 18.0 % (11.6-14.8) H Platelet Count 148 K/UL (150-450) L 130 K/UL (150-450) L Mean Platelet Volume 9.1 FL (6.5-10.1) 8.6 FL (6.5-10.1) Neutrophils (%) (Auto) 77.1 % (45.0-75.0) H 71.5 % (45.0-75.0) Lymphocytes (%) (Auto) 15.6 % (20.0-45.0) L 21.9 % (20.0-45.0) Monocytes (%) (Auto) 6.0 % (1.0-10.0) 5.2 % (1.0-10.0) Eosinophils (%) (Auto) 0.7 % (0.0-3.0) 0.8 % (0.0-3.0) Basophils (%) (Auto) 0.6 % (0.0-2.0) 0.5 % (0.0-2.0) Prothrombin Time 10.7 SEC (9.30-11.50) Prothromb Time International Ratio 1.0 (0.9-1.1) Activated Partial Thromboplast Time 32 SEC (23-33) D-Dimer 1.43 mg/L FEU (0.00-0.49) H Sodium Level 137 MMOL/L (136-145) 135 MMOL/L (136-145) L Potassium Level 5.1 MMOL/L (3.5-5.1) 6.1 MMOL/L (3.5-5.1) *H Chloride Level 97 MMOL/L (98-107) L 98 MMOL/L (98-107) Carbon Dioxide Level 24 MMOL/L (21-32) 23 MMOL/L (21-32) Anion Gap 16 mmol/L (5-15) H 15 mmol/L (5-15) Blood Urea Nitrogen 56 mg/dL (7-18) H 60 mg/dL (7-18) H Creatinine 12.3 MG/DL (0.55-1.30) H 12.9 MG/DL (0.55-1.30) H Estimat Glomerular Filtration Rate 4.4 mL/min (>60) 4.1 mL/min (>60) Glucose Level 77 MG/DL (74-106) 70 MG/DL (74-106) L Calcium Level 10.2 MG/DL (8.5-10.1) H 9.8 MG/DL (8.5-10.1) Total Bilirubin 0.3 MG/DL (0.2-1.0) Aspartate Amino Transf (AST/SGOT) 22 U/L (15-37) Alanine Aminotransferase (ALT/SGPT) 14 U/L (12-78) Alkaline Phosphatase 219 U/L (46-116) H Total Creatine Kinase 375 U/L (26-308) H Creatine Kinase MB 5.3 NG/ML (0.0-3.6) H Creatine Kinase MB Relative Index 1.4 Troponin I 0.094 ng/mL (0.000-0.056) 0.063 ng/mL (0.000-0.056) Pro-B-Type Natriuretic Peptide 60074 pg/mL (0-125) H Total Protein 10.1 G/DL (6.4-8.2) H Albumin 4.0 G/DL (3.4-5.0) 3.3 G/DL (3.4-5.0) L Globulin 6.1 g/dL Albumin/Globulin Ratio 0.7 (1.0-2.7) L Lipase 281 U/L (73-393) Phosphorus Level 5.2 MG/DL (2.5-4.9) H Height (Feet): 5 Height (Inches): 8.00 Weight (Pounds): 130 Medications Current Medications Medications (Trade) Dose Ordered Sig/Brad Route PRN Reason Start Time Stop Time Status Last Admin Dose Admin Acetaminophen (Tylenol) 650 mg Q4H PRN ORAL Fever 09/23/18 00:00 10/23/18 00:00 Acetaminophen/ Hydrocodone Bitart ([place] 5/325) 1 tab Q6H PRN ORAL For Pain 09/22/18 23:45 09/29/18 23:44 09/23/18 03:05 Albuterol/ Ipratropium (Albuterol/ Ipratropium) 3 ml EVERY 4 HOURS PRN HHN Shortness of Breath 09/23/18 00:00 09/28/18 00:00 Apixaban (Eliquis) 2.5 mg BID ORAL 09/23/18 09:00 10/23/18 08:59 09/23/18 09:30 Clonidine HCl (Catapres tab) 0.2 mg Q8HR ORAL 09/23/18 06:00 10/23/18 05:59 09/23/18 05:54 Dextrose (Dextrose 50%) 25 ml Q30M PRN IV Hypoglycemia 09/23/18 00:00 10/23/18 00:00 Dextrose (Dextrose 50%) 50 ml Q30M PRN IV Hypoglycemia 09/23/18 00:00 10/23/18 00:00 Diphenhydramine HCl (Benadryl) 25 mg DAILYPRN PRN IVP Itching for HD ONLY 09/23/18 09:45 10/23/18 09:44 Docusate Sodium (Colace) 100 mg TID ORAL 09/23/18 09:00 10/23/18 08:59 09/23/18 09:30 Minoxidil (Loniten) 2.5 mg Q4H PRN ORAL bp over 165 syst 09/23/18 00:00 10/23/18 00:00 Nifedipine (Adalat) 60 mg BID ORAL 09/23/18 09:00 10/23/18 08:59 Nitroglycerin (Ntg) 0.4 mg Q5M PRN SL Prn Chest Pain 09/22/18 22:30 10/22/18 22:29 09/22/18 22:32 Nitroglycerin (Ntg) 1 patch Q24H TDERMAL 09/23/18 00:00 10/23/18 00:00 09/23/18 01:55 Ondansetron HCl (Zofran) 4 mg Q6H PRN IVP Nausea & Vomiting 09/23/18 00:00 10/23/18 00:00 09/23/18 06:58 Pantoprazole (Protonix) 40 mg EVERY 12 HOURS ORAL 09/23/18 09:00 10/23/18 08:59 09/23/18 09:30 Polyethylene Glycol (Miralax) 17 gm DAILYPRN PRN ORAL Constipation 09/23/18 00:00 10/23/18 00:00 Sevelamer Carbonate (Renvela) 3,200 mg THREE TIMES A DAY ORAL 09/23/18 09:00 10/23/18 08:59 09/23/18 09:30 Temazepam (Restoril) 15 mg HSPRN PRN ORAL Insomnia 09/23/18 00:00 09/30/18 00:00 Trazodone HCl (Desyrel) 50 mg BEDTIME ORAL 09/23/18 21:00 10/23/18 20:59 Assessment/Plan Problem List: (1) Acute respiratory failure ICD Codes: J96.00 - Acute respiratory failure, unspecified whether with hypoxia or hypercapnia SNOMED: 77871752 (2) Hypertensive urgency ICD Codes: I16.0 - Hypertensive urgency SNOMED: 209475315 (3) Lupus (systemic lupus erythematosus) ICD Codes: M32.9 - Systemic lupus erythematosus, unspecified SNOMED: 10761103, 949942557 (4) ESRF (end stage renal failure) ICD Codes: N18.6 - End stage renal disease SNOMED: 98139193 (5) Anemia ICD Codes: D64.9 - Anemia SNOMED: 726891684 Assessment/Plan pt is off bipap now. use bipap prn Monitor BP HD by nephrology check electrolytes symptomatic treatment Elias Claros MD Sep 23, 2018 10:57
--- NOTE | 2018-09-23 11:02 | Diagnostic Imaging Report ---
Indication: Dyspnea Comparison: 12/27/2017 A single view chest radiograph was obtained. Findings: Basilar densities demonstrated likely atelectasis or scarring appearing similarly on the prior occasion. Cardiomegaly is also noted. Left upper extremity stent demonstrated. IMPRESSION: Basilar atelectasis
--- NOTE | 2018-09-23 12:41 | Consultation ---
Consult Note Consult Note 28 year old female with hx of SLE, ESRF, HTN presented to ER with CC of SOB, She gets dialysis Tuesdays, and Saturdays. her Blood pressure was 202 systolic in the ER. She was put on BIPA. She received Clonidine and Nitro sublingual and admitted to telemetry. she is less short of breath now and looks comfortable. Allergies: Coded Allergies: SULFA (SULFONAMIDE ANTIBIOTICS) (Verified Allergy, Mild, 09/22/18) PH ESRD on HD, HTN, SLE, RA, fibromyalgia, pulm HTN, anemia Assessment/Plan Acute respiratory distress likely due to HTN Urgency ESRD HTN OOC SLE Anemia Fibromyalgia elevated troponin BP Meds Dialysis today with UF EPO Nitrates SS eval per orders Jason Wild MD Sep 23, 2018 12:41
[2018-09-23] MEDS ORDERED: Imdur 30mg tab ORAL SCH (12:45)
[2018-09-23 13:21] LABS: FERRITIN 1353 NG/ML (8-388)
[2018-09-23 13:35] LABS: % IRON SATURATION 20 % (15-50); IRON 30 ug/dL (50-175); TOTAL IRON BINDING CAPACITY 150 ug/dL (250-450)
--- NOTE | 2018-09-23 15:36 | NUR ---
CASE MANAGEMENT:REVIEW 28YR OLD FEMALE PRESENTED TO ER CC: SOB, CHEST PAIN AND COUGH PMH: ESRD ON DIALYSIS. LUPUS. SCLERODERMA SI: DYSPNEA. RESPIRATORY DISTRESS 99.67 106 208/128 97% ON RA D-DIMER+1.43 IS: PLACED ON BIPAP DUONEB HHN CLONIDINE PO IV MORPHINE CXR TYPE AND CROSS : TO TELEMETRY INTERQUAL CRITERIA MET
--- NOTE | 2018-09-23 17:17 | Cardiology Report ---
APPROVED REPORT EKG Measurement Heart [id number] VA 126P35 [id number] Normal sinus rhythm Possible Left atrial enlargement Septal infarct, age undetermined Abnormal ECG Chris lateral t inversion consider ischemia
--- NOTE | 2018-09-23 18:04 | NUR ---
NURSE NOTES: Dr. Wild aware of potassium level of 6.1, patient received hemodialysis today. No new orders given at this time. Will continue to monitor patient.
--- NOTE | 2018-09-23 19:30 | NUR ---
HAND-OFF: Report given to OUMAR Deal.
--- NOTE | 2018-09-23 20:00 | NUR ---
NURSE NOTES: recvd pt. Pt is awake and alert AOX4. Pt is on room air with no sign of sob or resp distress. Pt c/o pain contacted Dr Claros regarding new pain med as pt is refusing norco, makes her nauseous. Will continue with plan of care
[2018-09-23] MEDS ORDERED: TraZODone 50mg tab ORAL SCH (21:00)
[2018-09-23] MEDS ORDERED: Morphine Sulfate 4mg/ml Inj (IV/IM USE ONLY) IVP PRN (23:00)
[2018-09-24] MEDS: Nitroglycerin Patch 0.4mg TDERMAL SCH
[2018-09-24 07:05] VITALS: BP 128/87
[2018-09-24] MEDS: cloNIDine 0.2mg Tab ORAL SCH (07:05)
--- NOTE | 2018-09-24 07:39 | NUR ---
HAND-OFF: Report given to Vinny OSEGUERA.
--- NOTE | 2018-09-24 07:54 | NUR ---
NURSE NOTES: pt awake alert, no distress. no sob. denies pain. +thrill +bruit on lue shunt. call light within reach.
[2018-09-24 07:59] VITALS: BP 123/70
[2018-09-24] MEDS: Docusate 100mg cap ORAL SCH ×2 (08:09→12:17)
[2018-09-24] MEDS: NIFEdipine 10mg cap ORAL SCH (08:09)
[2018-09-24] MEDS: Eliquis 2.5mg tablet ORAL SCH (08:09)
[2018-09-24] MEDS ORDERED: Imdur 30mg tab ORAL SCH (09:00)
--- NOTE | 2018-09-24 10:30 | NUR ---
Social Service Note ADONAY spoke with Ms. Cabrera [phone] ok for patient to return today to [facility] via her private vehicle. ADONAY spoke with Kwasi at [facility] to inform him patient will resume service tomorrow on schedule day and time. Patient information faxed [phone]. ADONAY discussed with primary nurse. Homeless check list completed.
--- NOTE | 2018-09-24 11:12 | NUR ---
NURSE NOTES: upon dc pt is to go to [facility] [id number] [id number] Mrs Cabrera accepted pt 09/23/18. pt has her own vehicle. med reconciliation upon dc to be determined. pt has adequate clothing for weather. no vaccines indicated at this time. follow up behavioral health care is not needed. pt was referred to follow up medical caer with [facility] [phone], [phone] [place], [phone]
--- NOTE | 2018-09-24 11:21 | Nephrology Progress Note ---
Assessment/Plan Problem List: (1) ESRF (end stage renal failure) (2) Hypertensive urgency (3) Acute respiratory failure (4) Lupus (systemic lupus erythematosus) Assessment Acute respiratory distress likely due to HTN Urgency ESRD HTN OOC SLE Anemia Fibromyalgia elevated troponin Plan BP Meds adjusted Dialysis yesterday done EPO Nitrates SS eval per orders Dc home , HD in am as OP Subjective ROS Limited/Unobtainable: No Constitutional: Reports: other - wants to go home Objective Objective Last 24 Hour Vital Signs Date Time Temp Pulse Resp B/P (MAP) Pulse Ox O2 Delivery O2 Flow Rate FiO2 09/24/18 08:09 123/70 09/24/18 08:09 80 123/70 09/24/18 07:59 97.0 80 17 123/70 (87) 97 09/24/18 07:57 Room Air 09/24/18 07:55 63 18 Room Air 21 09/24/18 07:41 90 09/24/18 07:34 97.0 09/24/18 07:05 128/87 09/24/18 07:05 97.0 103 17 128/87 (101) 97 09/24/18 04:00 96 09/24/18 00:00 89 09/24/18 00:00 107/64 09/23/18 23:57 98.9 95 17 107/64 (78) 97 09/23/18 22:51 Room Air 09/23/18 22:11 99.2 09/23/18 20:53 124/85 09/23/18 20:36 73 18 Room Air 21 09/23/18 20:00 108 09/23/18 20:00 99.2 105 17 124/85 (98) 95 09/23/18 17:28 81 145/89 09/23/18 16:00 88 09/23/18 16:00 98.4 94 20 140/77 (98) 92 09/23/18 14:54 140/77 09/23/18 14:54 140/77 09/23/18 12:00 97.9 73 20 142/91 (108) 98 09/23/18 12:00 77 Intake and Output 09/23/18 09/24/18 19:00 07:00 Intake Total 560 ml Output Total 3000 ml Balance -2440 ml Intake Oral 560 ml Output Hemodialysis UF 3000 ml # Voids 1 Current Medications Medications (Trade) Dose Ordered Sig/Brad Route PRN Reason Start Time Stop Time Status Last Admin Dose Admin Acetaminophen (Tylenol) 650 mg Q4H PRN ORAL Fever 09/23/18 00:00 10/23/18 00:00 Acetaminophen/ Hydrocodone Bitart ([place] 5/325) 1 tab Q6H PRN ORAL For Pain 09/22/18 23:45 09/29/18 23:44 09/23/18 21:41 Albuterol/ Ipratropium (Albuterol/ Ipratropium) 3 ml EVERY 4 HOURS PRN HHN Shortness of Breath 09/23/18 00:00 09/28/18 00:00 Apixaban (Eliquis) 2.5 mg BID ORAL 09/23/18 09:00 10/23/18 08:59 09/24/18 08:09 Clonidine HCl (Catapres tab) 0.2 mg Q8HR ORAL 09/23/18 06:00 10/23/18 05:59 09/24/18 07:05 Dextrose (Dextrose 50%) 25 ml Q30M PRN IV Hypoglycemia 09/23/18 00:00 10/23/18 00:00 Dextrose (Dextrose 50%) 50 ml Q30M PRN IV Hypoglycemia 09/23/18 00:00 10/23/18 00:00 Diphenhydramine HCl (Benadryl) 50 mg DAILYPRN PRN IVP Itching for HD ONLY 09/23/18 11:30 10/23/18 09:44 09/23/18 12:09 Docusate Sodium (Colace) 100 mg TID ORAL 09/23/18 09:00 10/23/18 08:59 09/24/18 08:09 Epoetin Pelon (Procrit (for ESRD on dialysis)) 10,000 units MON-WED-SAT SUBQ 09/24/18 21:00 10/24/18 20:59 Isosorbide Mononitrate (Imdur) 30 mg DAILY ORAL 09/24/18 09:00 10/24/18 08:59 09/24/18 08:09 Minoxidil (Loniten) 2.5 mg Q4H PRN ORAL bp over 165 syst 09/23/18 00:00 10/23/18 00:00 Morphine Sulfate (Morphine Sulfate) 2 mg Q4H PRN IVP For Pain 09/23/18 23:00 09/30/18 22:59 09/24/18 07:04 Nifedipine (Adalat) 60 mg BID ORAL 09/23/18 09:00 10/23/18 08:59 09/24/18 08:09 Nitroglycerin (Ntg) 0.4 mg Q5M PRN SL Prn Chest Pain 09/22/18 22:30 10/22/18 22:29 09/22/18 22:32 Nitroglycerin (Ntg) 1 patch Q24H TDERMAL 09/23/18 00:00 10/23/18 00:00 09/23/18 01:55 Ondansetron HCl (Zofran) 4 mg Q6H PRN IVP Nausea & Vomiting 09/23/18 00:00 10/23/18 00:00 09/23/18 21:41 Pantoprazole (Protonix) 40 mg EVERY 12 HOURS ORAL 09/23/18 09:00 10/23/18 08:59 09/24/18 08:09 Polyethylene Glycol (Miralax) 17 gm DAILYPRN PRN ORAL Constipation 09/23/18 00:00 10/23/18 00:00 Sevelamer Carbonate (Renvela) 3,200 mg THREE TIMES A DAY ORAL 09/23/18 09:00 10/23/18 08:59 09/24/18 08:09 Temazepam (Restoril) 15 mg HSPRN PRN ORAL Insomnia 09/23/18 00:00 09/30/18 00:00 Trazodone HCl (Desyrel) 50 mg BEDTIME ORAL 09/23/18 21:00 10/23/18 20:59 09/23/18 20:53 Height (Feet): 5 Height (Inches): 8.00 Weight (Pounds): 135 General Appearance: no apparent distress Cardiovascular: normal rate Respiratory/Chest: lungs clear Abdomen: soft Jason Wild MD Sep 24, 2018 11:21
[2018-09-24] MEDS ORDERED: ELIQUIS2.5 MG ORAL (11:24)
[2018-09-24] MEDS ORDERED: ACETAMINOPHEN325 M1 ORAL (11:24)
[2018-09-24] MEDS ORDERED: ADALAT10 MG ORAL (11:24)
[2018-09-24] MEDS ORDERED: ISOSORBIDE MONO30 M1 ORAL (11:24)
--- NOTE | 2018-09-24 11:25 | Discharge Instructions ---
Discharge Instructions Discharge Instructions Follow up with: PMD , DIalysis Janay Contreras Sat Diet: other - renal Special Instructions fu with PMD For Congestive Heart Failure Reminder Report to your physician any weight gain of 5 pounds or more in one week. Jason Wild MD Sep 24, 2018 11:25
[2018-09-24 12:44] VITALS: BP 115/66
--- NOTE | 2018-09-24 12:47 | NUR ---
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 arm band removed, iv removed from rfa no bleeding, pt tolerated well. shunt on lue is clean and dry +thrill +bruit belongings all with the patient, dc instructions rendered w verbalized understanding.
--- NOTE | 2018-09-24 13:05 | NUR ---
NURSE NOTES: pt left in stable condition, w all her belongings, pt aware of appt [phone]
--- NOTE | 2018-09-24 18:03 | Emergency Room Report ---
History of Present Illness General Chief Complaint: Dyspnea/Respdistress Source: Patient Present Illness HPI Patient is a 28-year-old female presented after increased chest discomfort as well as shortness of breath. Patient had prior history of end-stage renal disease. She had been on dialysis normally Saturday and Saturday. Patient stated she was last dialyzed on Saturday. She reports of increased sharp chest discomfort associated with some shortness of breath. She denies any productive cough. Pain is worse with inspiration and deep breaths. She had similar symptoms in the past. Patient reports having prior history of autoimmune disease. patient denies any fever or productive cough. Allergies: Coded Allergies: SULFA (SULFONAMIDE ANTIBIOTICS) (Verified Allergy, Mild, 09/22/18) Patient History Past Medical History: see triage record Last Menstrual Period: none sinxce 2013 Now: No Reviewed Nursing Documentation: PMH: Agreed; PSxH: Agreed Nursing Documentation-PMH Hx Cardiac Problems: Yes Hx Hypertension: Yes Hx Pacemaker: No Hx Asthma: Yes Hx COPD: No Hx Diabetes: Yes Hx Cancer: No Hx Gastrointestinal Problems: No Hx Dialysis: Yes History Of Psychiatric Problem: No Hx Neurological Problems: No Hx Cerebrovascular Accident: No Hx Seizures: No Physical Exam Vital Signs Date Time Temp Pulse Resp B/P (MAP) Pulse Ox O2 Delivery O2 Flow Rate FiO2 09/22/18 19:29 99.7 106 208/128 97 09/22/18 19:52 22 09/22/18 21:27 Room Air 09/22/18 23:14 80 09/23/18 01:38 4.0 Sp02 EP Interpretation: reviewed, normal General Appearance: normal inspection, well appearing, no apparent distress, alert, GCS 15, Chronically Ill Head: atraumatic ENT: normal ENT inspection, hearing grossly normal, normal voice Neck: normal inspection, full range of motion, supple, no bony tend Respiratory: normal inspection, no respiratory distress, no retraction, rhonchi Cardiovascular #1: regular rate, rhythm, no edema Gastrointestinal: normal inspection, normal bowel sounds, non tender, soft, no guarding, no hernia Genitourinary: no CVA tenderness Musculoskeletal: normal inspection, back normal, normal range of motion Neurologic: normal inspection, alert, oriented x3, responsive, field hockey coach III-XII nml as tested, speech normal Psychiatric: normal inspection, judgement/insight normal, mood/affect normal Skin: normal inspection, normal color, no rash Medical Decision Making Diagnostic Impression: Primary Impression: Dyspnea Additional Impressions: Respiratory distress Lupus (systemic lupus erythematosus) Hypertensive urgency ESRF (end stage renal failure) ER Course Patient presented for chest pain. Differential diagnosis included but was not limited to acute coronary syndrome, pulmonary embolism, pneumonia, aortic dissection, shingles, pneumothorax, aortic dissection, esophageal rupture, pericarditis. Because of complexity of patient's case laboratory testing and imaging studies were ordered. EKG interpreted by me showed normal sinus rhythm without acute ST or T wave changes. Patient was noted to have some wheezing and crackles on lung exam. She was given breathing treatment. Patient was noted to have some evidence of volume overload and hypertension which is likely the reason for the patient's chest discomfort. Patient does not have any leg pain or swelling consistent with pulmonary embolism. chest x-ray 1 view interpreted by me showed bilateral mild atelectasis without evidence of cardiomegaly. Patient was given clonidine for elevated blood pressure. Patient was given IV pain medications. She was started on BiPAP due to likely fluid overload. Patient's laboratory testing was notable for market elevation of her BUN creatinine consistent with chronic end-stage renal disease and likely need for dialysis. Patient will be admitted for further respiratory treatments and dialysis. Laboratory Tests Test 09/22/18 20:50 White Blood Count 7.9 K/UL (4.8-10.8) Red Blood Count 3.06 M/UL (4.20-5.40) L Hemoglobin 10.2 G/DL (12.0-16.0) L Hematocrit 31.7 % (37.0-47.0) L Mean Corpuscular Volume 104 FL (80-99) H Mean Corpuscular Hemoglobin 33.3 PG (27.0-31.0) H Mean Corpuscular Hemoglobin Concent 32.1 G/DL (32.0-36.0) Red Cell Distribution Width 17.4 % (11.6-14.8) H Platelet Count 148 K/UL (150-450) L Mean Platelet Volume 9.1 FL (6.5-10.1) Neutrophils (%) (Auto) 77.1 % (45.0-75.0) H Lymphocytes (%) (Auto) 15.6 % (20.0-45.0) L Monocytes (%) (Auto) 6.0 % (1.0-10.0) Basophils (%) (Auto) 0.6 % (0.0-2.0) Prothrombin Time 10.7 SEC (9.30-11.50) Prothrombin Time INR 1.0 (0.9-1.1) PTT 32 SEC (23-33) D-Dimer 1.43 mg/L FEU (0.00-0.49) H Sodium Level 137 MMOL/L (136-145) 1 Potassium Level 5.1 MMOL/L (3.5-5.1) Chloride Level 97 MMOL/L (98-107) L Carbon Dioxide Level 24 MMOL/L (21-32) Anion Gap 16 mmol/L (5-15) H Blood Urea Nitrogen 56 mg/dL (7-18) H Creatinine 12.3 MG/DL (0.55-1.30) H Estimate Glomerular Filtration Rate 4.4 mL/min (>60) Glucose Level 77 MG/DL (74-106) Calcium Level 10.2 MG/DL (8.5-10.1) H Total Bilirubin 0.3 MG/DL (0.2-1.0) Aspartate Amino Transferase (AST) 22 U/L (15-37) Alanine Aminotransferase (ALT) 14 U/L (12-78) Alkaline Phosphatase 219 U/L (46-116) H Total Creatine Kinase 375 U/L (26-308) H Creatine Kinase MB 5.3 NG/ML (0.0-3.6) H Creatine Kinase MB Relative Index 1.4 Troponin I 0.094 ng/mL (0.000-0.056) Pro-B-Type Natriuretic Peptide 39875 pg/mL (0-125) H Total Protein 10.1 G/DL (6.4-8.2) H Albumin 4.0 G/DL (3.4-5.0) Globulin 6.1 g/dL Albumin/Globulin Ratio 0.7 (1.0-2.7) L Lipase 281 U/L (73-393) Phosphorus Level Iron Level Total Iron Binding Capacity Percent Iron Saturation Unsaturated Iron Binding Ferritin Vitamin B12 Level Folate Thyroid Stimulating Hormone (TSH) EKG Diagnostic Results Rate: normal Rhythm: NSR ST Segments: no acute changes Last Vital Signs Date Time Temp Pulse Resp B/P (MAP) Pulse Ox O2 Delivery O2 Flow Rate FiO2 09/24/18 12:44 97.0 79 17 115/66 (82) 97 09/24/18 07:57 Room Air 09/24/18 07:55 21 09/23/18 02:30 2.0 Status: unchanged Disposition: ADMITTED INPATIENT Condition: Serious Scripts Acetaminophen* (ACETAMINOPHEN 325MG TABLET*) 325 Mg Tablet 650 MG ORAL Q4H PRN for 30 Days, TAB Prov: Jason Wild MD 09/24/18 Isosorbide Mononitrate (ISOSORBIDE MONONITRATE ER) 30 Mg Tab.er.24h 30 MG ORAL DAILY for 30 Days, TAB Prov: Jason Wild MD 09/24/18 Nifedipine (Nifedipine*) 10 Mg Capsule 60 MG ORAL BID for 30 Days, CAP Prov: Jason Wild MD 09/24/18 Apixaban (ELIQUIS) 2.5 Mg Tablet 2.5 MG ORAL BID for 30 Days, TAB Prov: Jason Wild MD 09/24/18 Referrals: Jason Wild MD (PCP) Bernardo Krishnan MD Sep 24, 2018 18:03
[2018-09-24] MEDS ORDERED: Epogen (for ESRD on dialysis) SUBQ SCH (21:00)
--- NOTE | 2018-09-25 09:51 | Discharge Summary ---
Discharge Summary Discharge Summary _ DATE OF ADMISSION: 09/22/2018 DATE OF DISCHARGE: 09/24/2018 ADMITTING MD: Dr. Elias Claros DISCHARGED BY: Dr. Jason Wild JANITORIAL SUPERVISOR: Dr. Jason Wild BRIEF HOSPITAL COURSE: Patient is a 28-year-old female, who presented to ED after increased chest discomfort as well as shortness of breath. Patient has history of lupus, fibromyalgia, end-stage renal disease, on hemodialysis every Saturday, and Saturday. She had her usual dialysis, however reported increased sharp chest discomfort associated with shortness of breath. She denied any productive cough. Pain was worse with inspiration and deep breaths. She had similar symptoms in the past. She denied any fever. On evaluationa at ED, blood pressure was elevated to 208/128. EKG showed normal sinus rhythm without acute ST to T wave changes. She was noted to have wheezing and crackles on lung examination. She was given breathing treatment. Patient was noted by ED physician to have evidence of volume overload and hypertension, which is likely reason for patient's chest discomfort. She did not have any leg pain or swelling consistent with pulmonary embolism. Chest x- ray done showed bilateral mild atelectasis without evidence of cardiomegaly. She was given clonidine for elevated blood pressure. She was given IV pain medications. She was started on BiPAP due to fluid overload. Blood work showed elevated BUN 16 creatinine 12.3. ProBNP was 10,516. Troponin was 0.094. She was admitted for evaluation respiratory failure, renal failure, hypertensive urgency and lupus. She was given nifedipine 60 mg daily, clonidine 0.2 mg and minoxidil 2.5 every 4 hours as needed. She was given gastric support and was given Protonix.. She was given inpatient hemodialysis. She was continued on Eliquis 2.5 mg BID. She was noted to have anemia and was given Epogen. She was eventually taken off BiPAP support. She was saturating well on room air. Imdur was added to her regimen for better blood pressure control. Troponin level down trended. Blood pressure normalized. Breathing improved. She was cleared for discharge home. FINAL DIAGNOSES: Acute respiratory failure due to hypertensive urgency, requiring BiPAP, resolved Hypertensive urgency End-stage renal failure on hemodialysis Systemic lupus erythromatosus Fibromyalgia Elevated troponin DISPOSITION: Patient was discharged home. DISCHARGE MEDICATIONS: Refer to Discharge Medication List. DISCHARGE INSTRUCTIONS: Follow-up in a week. I have been assigned to dictate discharge summary on this account, and I was not involved in the patient's management. Paula Hernandez NP Sep 25, 2018 09:51
== END 2018-09-24 13:06 | disposition home or self-care (01) | DRG 304 ==
LOC: EMR 19:49 → EDBEDREQSVC 22:43 → 2E 22:51 → EDBEDREQ 23:47 → EDBEDREQSVC 23:47 → EDBEDREQ 09-23 00:31 → 2E 09-23 02:22
PROC: 5A1D70Z Performance of Urinary Filtration, Intermittent, Less than 6 Hours Per Day (ICD-10-PCS; principal; 2018-09-22)
DX: I16.0 Hypertensive urgency (principal); N18.6 End stage renal disease; J96.00 Acute respiratory failure, unspecified whether with hypoxia or hypercapnia; I12.0 Hypertensive chronic kidney disease with stage 5 chronic kidney disease or end stage renal disease; M32.9 Systemic lupus erythematosus, unspecified; Z99.2 Dependence on renal dialysis; M79.7 Fibromyalgia; R74.8 Abnormal levels of other serum enzymes; Z88.2 Allergy status to sulfonamides; D64.9 Anemia, unspecified
CPT/HCPCS: 36415; 71045; 80048; 80053; 80069; 82550; 82553; 82607; 82728; 82746; 83540; 83550; 83690; 83880; 84443; 84484; 85025; 85379; 85610; 85730; 86850; 86870; 86900; 86901; 87081; 93005; 94640; 94660; 94664; 96374; 99285; J2405; J7620

== ENCOUNTER 2019-04-14 05:23 | Inpatient (IN) | payer MEDICARE, OTHER ==
[~2019-04-14] VITALS: Ht 167.6 cm; Wt 66.2 kg
--- NOTE | 2019-04-14 05:21 | NUR ---
ED Nurse Note: [facility], due to SOB prior to dialysis at 0430. pt was unable to be dialysed. pt's dialysis schedule is . pt has a graft on the left upper arm
[~2019-04-14 05:23] MED LIST changes: +ACETAMINOPHEN325 M1 ORAL; +ELIQUIS2.5 MG ORAL; +ISOSORBIDE MONO30 M1 ORAL
[2019-04-14 05:24] VITALS: BP 174/108
[2019-04-14] MEDS ORDERED: Nitroglycerin Subl 0.4mg tab SL ONE (05:30)
--- NOTE | 2019-04-14 05:31 | Emergency Room Report ---
History of Present Illness General Chief Complaint: Dyspnea/Respdistress Source: Patient, Medical Record, EMS Present Illness HPI This is a 29-year-old female with history of renal failure on hemodialysis. Her dialysis days are Saturday, , and Saturday. She presents with chief complaint shortness of breath. She has been short of breath for about a day. She went to dialysis today and unable to tolerate it. They tried to do dialysis but because of her dyspnea they called 911. Patient was hypoxic per EMS. Blood pressure was elevated. Similar symptom in the past. She is been admitted for this in the past. Worse with exertion. Worse with lying flat. Denies any nausea or vomiting. No fever chills. Allergies: Coded Allergies: SULFA (SULFONAMIDE ANTIBIOTICS) (Verified Allergy, Mild, 09/22/18) VANCOMYCIN (Unverified Allergy, Unknown, 04/14/19) Patient History Past Medical History: see triage record, old chart reviewed, DM, HTN, renal disease, dialysis Past Surgical History: other Pertinent Family History: none Social History: Denies: smoking Last Menstrual Period: na Now: No Immunizations: other Reviewed Nursing Documentation: PMH: Agreed; PSxH: Agreed Nursing Documentation-PMH Hx Cardiac Problems: Yes Hx Hypertension: Yes Hx Pacemaker: No Hx Asthma: Yes Hx COPD: No Hx Diabetes: Yes Hx Cancer: No Hx Gastrointestinal Problems: No Hx Dialysis: Yes Hx Neurological Problems: No Hx Cerebrovascular Accident: No Hx Seizures: No Review of Systems Eye: Denies: eye pain, blurred vision ENT: Denies: ear pain, nose congestion, throat swelling Respiratory: Reports: shortness of breath; Denies: cough Cardiovascular: Denies: chest pain, palpitations Gastrointestinal: Denies: abdominal pain, diarrhea, nausea, vomiting Musculoskeletal: Denies: back pain, joint pain Skin: Denies: rash Neurological: Denies: headache, numbness Endocrine: Denies: increased thirst, increased urine Hematologic/Lymphatic: Denies: easy bruising All Other Systems: negative except mentioned in HPI Physical Exam Vital Signs Date Time Temp Pulse Resp B/P (MAP) Pulse Ox O2 Delivery O2 Flow Rate FiO2 04/14/19 05:17 98.6 121 22 174/108 (130) 93 Simple Mask 15.0 Vitals with tachycardia, hypoxia and high blood pressure Sp02 EP Interpretation: reviewed, abnormal General Appearance: alert, severe distress, Chronically Ill Head: normocephalic, atraumatic Eyes: bilateral eye PERRL, bilateral eye EOMI ENT: hearing grossly normal, normal pharynx Neck: full range of motion, supple, no meningismus Respiratory: chest non-tender, respiratory distress, decreased breath sounds, accessory muscle use, rales Cardiovascular #1: regular rate, rhythm, no murmur, tachycardia Gastrointestinal: normal bowel sounds, non tender, no mass, no organomegaly, no bruit, non-distended Musculoskeletal: back normal, gait/station normal, normal range of motion Psychiatric: mood/affect normal Procedures Critical Care Time Critical Care Time Critical care is mandated in this patient who presented with respiratory failure secondary to pulmonary edema. Patient require my urgent intervention to attenuate the risks of respiratory collapse which may lead to cardiovascular collapse and . Critical care time is 35 minutes excluding any reportable procedure. Critical care time included evaluation, multiple reevaluation, looking at old charts, interpreting laboratory and diagnostic data, discussing case with patient and family and consultants, and charting. Medical Decision Making Diagnostic Impression: Primary Impression: Acute respiratory failure Qualified Codes: J96.01 - Acute respiratory failure with hypoxia Additional Impressions: Pulmonary edema Qualified Codes: J81.0 - Acute pulmonary edema Hypertensive urgency Anemia in chronic kidney disease Qualified Codes: N18.6 - End stage renal disease; D63.1 - Anemia in chronic kidney disease; Z99.2 - Dependence on renal dialysis Hyperkalemia ER Course Patient presents with acute respiratory failure secondary to pulmonary edema. She will require dialysis. She is comfortable on BiPAP. Potassium is elevated but no EKG changes. Her PTT is elevated because she probably got a bolus of heparin from dialysis. Patient will be admitted for dialysis. I contacted Dr. Claros who will admit. Lab Results Impression labs with hyperkalemia EKG Diagnostic Results Rate: normal Rhythm: NSR ST Segments: no acute changes Rhythm Strip Diag. Results EP Interpretation: yes Rate: 110 Rhythm: NSR, no PVC's, no ectopy Chest X-Ray Diagnostic Results Chest X-Ray Diagnostic Results : Chest X-Ray Ordered: Yes # of Views/Limited/Complete: 1 View Indication: Shortness of Breath EP Interpretation: Yes Interpretation: no consolidation, no pneumothorax, other - pulm edema to lower lobes Impression: Other - chf Electronically Signed by: Skip Medel MD Last Vital Signs Date Time Temp Pulse Resp B/P (MAP) Pulse Ox O2 Delivery O2 Flow Rate FiO2 04/14/19 05:24 137 20 04/14/19 05:24 98.6 174/108 93 Simple Mask 15.0 Status: improved Disposition: ADMITTED INPATIENT Condition: Critical Skip Medel MD Apr 14, 2019 05:31
[2019-04-14] MEDS ORDERED: NEPHROVITE1 TAB ORAL (05:44)
[2019-04-14] MEDS ORDERED: VIAGRA100 MG PO (05:44)
[2019-04-14] MEDS ORDERED: TRAZODONE HCL50 MG ORAL (05:44)
[2019-04-14] MEDS ORDERED: CATAPRES0.1 MG ORAL (05:44)
[2019-04-14] MEDS ORDERED: DOCUSATE SODIU100 MG ORAL (05:44)
[2019-04-14] MEDS ORDERED: PANTOPRAZOLE SO40 MG ORAL (05:44)
[2019-04-14] MEDS ORDERED: REVATIO20 MG ORAL (05:44)
[2019-04-14] MEDS ORDERED: CARAFATE1 G1 ORAL (05:44)
[2019-04-14] MEDS ORDERED: ELIQUIS5 MG PO (05:44)
[2019-04-14] MEDS ORDERED: SENSIPAR30 MG ORAL (05:44)
[2019-04-14] MEDS ORDERED: SENNA8.6 M2 PO (05:44)
[2019-04-14] MEDS ORDERED: FAMOTIDINE20 MG ORAL (05:44)
[2019-04-14] MEDS ORDERED: RENVELA0.8 GM ORAL (05:44)
[2019-04-14] MEDS ORDERED: LISINOPRIL20 MG ORAL (05:44)
[2019-04-14] MEDS ORDERED: HYDROXYCHLOROQ200 M1 PO (05:44)
[2019-04-14] MEDS ORDERED: WARFARIN SODIU2.5 MG ORAL (05:44)
[2019-04-14] MEDS ORDERED: CARVEDILOL6.25 MG ORAL (05:44)
[2019-04-14 05:51] LABS: BASOPHILS % (AUTO) 0.6 % (0.0-2.0); EOSINOPHILS % (AUTO) 2.7 % (0.0-3.0); HEMATOCRIT 30.4 % (37.0-47.0); HEMOGLOBIN 9.2 G/DL (12.0-16.0); LYMPHOCYTES % (AUTO) 12.3 % (20.0-45.0); MEAN CORPUSCULAR VOLUME 101 FL (80-99); MONOCYTES % (AUTO) 4.5 % (1.0-10.0); NEUTROPHILS % (AUTO) 79.9 % (45.0-75.0); PLATELET COUNT 181 K/UL (150-450); RED CELL DISTRIBUTION WIDTH 22.1 % (11.6-14.8); WHITE BLOOD COUNT 13.7 K/UL (4.8-10.8)
--- NOTE | 2019-04-14 06:00 | NUR ---
ED Nurse Note: xray at bedside
--- NOTE | 2019-04-14 06:05 | NUR ---
ED Nurse Note: xray completed
--- NOTE | 2019-04-14 06:11 | NUR ---
ED Nurse Note: PT REFUSED VRE/CRE SWAB
[2019-04-14 06:18] VITALS: BP 173/119
--- NOTE | 2019-04-14 06:20 | NUR ---
ED Nurse Note: PER PT "I RECEIVE 50MG IV PREDNISONE PRIOR TO MY DIALYSIS"
[2019-04-14 06:28] LABS: ALANINE AMINOTRANSFERASE 23 U/L (12-78); ALBUMIN 3.5 G/DL (3.4-5.0); ALBUMIN/GLOBULIN RATIO 0.6 (1.0-2.7); ALKALINE PHOSPHATASE 238 U/L (46-116); ANION GAP 10 mmol/L (5-15); ASPARTATE AMINO TRANSFERASE 46 U/L (15-37); BILIRUBIN,TOTAL 0.4 MG/DL (0.2-1.0); CALCIUM 9.3 MG/DL (8.5-10.1); CARBON DIOXIDE 27 MMOL/L (21-32); CHLORIDE 103 MMOL/L (98-107); CKMB 7.8 NG/ML (0.0-3.6); CREATINE KINASE 425 U/L (26-308); CREATININE 9.6 MG/DL (0.55-1.30); SODIUM 139 MMOL/L (136-145)
[2019-04-14 06:31] LABS: POTASSIUM 6.5 MMOL/L (3.5-5.1)
[2019-04-14 06:32] LABS: INR 1.2 (0.9-1.1)
[2019-04-14 06:33] LABS: PARTIAL THROMBOPLASTIN TIME > 150 SEC (23-33)
[2019-04-14] MEDS ORDERED: Calcium Gluconate 1gm/10ml vial IVP ONE (06:45)
[2019-04-14] MEDS ORDERED: Insulin Human Regular 100units/ml 3ml IV ONE (06:45)
[2019-04-14 06:52] LABS: BLOOD UREA NITROGEN 80 mg/dL (7-18)
--- NOTE | 2019-04-14 07:11 | NUR ---
ED Nurse Note: telephone report given to pablo RN
--- NOTE | 2019-04-14 07:11 | NUR ---
NURSE NOTES: Received telephone report from Vani OSEGUERA.
--- NOTE | 2019-04-14 07:12 | NUR ---
HAND-OFF: Report given to OUMAR Nichols.
--- NOTE | 2019-04-14 07:15 | NUR ---
ED Nurse Note: REPORT RECEIVED FROM OUMAR PERERA. REPORT ALREADY GIVEN TO SDU. SDU REQUESTING PT BE TAKEN UP AT 0730. PT WILL BE TAKEN UP AT THAT TIME.
--- NOTE | 2019-04-14 07:29 | NUR ---
ED Nurse Note: PT TAKEN UP TO SDU ON SWITCHBOARD AND CONTROL ROOM OPERATOR WITH ALL BELONGINGS ACCOMPANIED BY PRIMARY RN AND EMT. VSS.
--- NOTE | 2019-04-14 07:40 | NUR ---
NURSE NOTES: Pt. on the unit at room 235-2. Pt. a/o x 4. On Bipap 15/5 setting. Pt. appears to be restless. O2 sat 95%. C/O gen. mild pain. IV at right FA #20g. in placed patent/intact SL. Bed in low position, locked. Call light within reach. Will cont. to monitor.
[2019-04-14 08:00] VITALS: BP 157/109
--- NOTE | 2019-04-14 08:55 | NUR ---
NURSE NOTES: Pre-dialysis procedure. Consent signed by pt. (self-responsible).
[2019-04-14] MEDS ORDERED: Albuterol/Ipratropium 3ml neb HHN PRN (09:15)
[2019-04-14] MEDS ORDERED: TraZODone 50mg tab ORAL SCH (09:15)
[2019-04-14] MEDS ORDERED: Miralax 17gm pkt ORAL PRN (09:15)
--- NOTE | 2019-04-14 10:12 | Consultation ---
Consult Note Consult Note 29 year old female with hx of SLE, ESRF, HTN presented to ER with CC of SOB, She gets dialysis Tuesdays, and Saturdays. When in dialysis unit compalined of SOB , and she was sent to [facility] by 911 ! [facility] HD 3 days ago on Saturday. her Blood pressure was High in the ER. She was put on BIPAP She is now in [facility] on BIPAP she is less short of breath now Allergies: Coded Allergies: SULFA (SULFONAMIDE ANTIBIOTICS) (Verified Allergy, Mild, 09/22/18) PH ESRD on HD, HTN, SLE, RA, fibromyalgia, pulm HTN, anemia examined data reviewed Assessment/Plan Acute respiratory distress duee to volume over load HTN OOC ESRD High K on presentation SLE Anemia Fibromyalgia elevated troponin BP Meds Dialysis today with [facility] MARICEL EPO Nitrates SS eval per orders discussed with Jason Palmer MD Apr 14, 2019 10:12
--- NOTE | 2019-04-14 10:24 | Diagnostic Imaging Report ---
Indication: Dyspnea Comparison: 09/22/2018 A single view chest radiograph was obtained. Findings: Pulmonary vascular congestion demonstrated. Consolidative opacities at both lung bases noted with obscuring of the costophrenic angle. Right permacath noted. Tip is projected over the right atrium. Left axillary/subclavian stent demonstrated. IMPRESSION: CHF Basilar atelectasis. Pneumonia is possible as well. Correlate clinically.
[2019-04-14] MEDS ORDERED: HYDROcodone/Acetamin 5/325 tab ORAL PRN (10:30)
[2019-04-14] MEDS: Imdur 30mg tab ORAL SCH (10:30)
--- NOTE | 2019-04-14 11:35 | Consultation ---
History of Present Illness General Chief Complaint: Dyspnea/Respdistress Present Illness HPI 29-year-old female with history of renal failure on hemodialysis. Her dialysis days are Saturday, , and Saturday. She presents with chief complaint shortness of breath. She has been short of breath for about a day. She went to dialysis today and unable to tolerate it. They tried to do dialysis but because of her dyspnea they called 911. Patient was hypoxic per EMS. Blood pressure was elevated. Similar symptom in the past. She is been admitted for this in the past. Worse with exertion. Worse with lying flat. Denies any nausea or vomiting. No fever chills. Allergies: Coded Allergies: SULFA (SULFONAMIDE ANTIBIOTICS) (Verified Allergy, Mild, 09/22/18) VANCOMYCIN (Unverified Allergy, Unknown, 04/14/19) Medication History Scheduled Apixaban (Eliquis), 2.5 MG ORAL BID Apixaban (Eliquis), 5 MG PO BID, (Reported) Azathioprine* (Imuran*), 150 MG PO DAILY, (Reported) Carvedilol* (Carvedilol*), 6.25 MG ORAL EVERY 12 HOURS, (Reported) Cinacalcet* (Sensipar*), 60 MG ORAL BEDTIME, (Reported) Clonidine Hcl* (Catapres*), 0.2 MG ORAL Q8HR, (Reported) Clonidine Hcl* (Catapres*), 0.1 MG ORAL Q8H, (Reported) Docusate Sodium* (Docusate Sodium*), 100 MG ORAL TWICE A DAY, (Reported) Famotidine (Famotidine), 20 MG ORAL DAILY, (Reported) Famotidine (Famotidine), 20 MG ORAL DAILY, (Reported) Hydroxychloroquine Sulfate (Hydroxychloroquine Sulfate), 200 MG PO DAILY, ( Reported) Isosorbide Mononitrate (Isosorbide Mononitrate Er), 30 MG ORAL DAILY Lisinopril (Lisinopril*), 20 MG ORAL BID, (Reported) Nifedipine (Nifedipine*), 30 MG ORAL DAILY, (Reported) Nifedipine (Nifedipine*), 60 MG ORAL BID Pantoprazole* (Pantoprazole*), 40 MG ORAL EVERY 12 HOURS, (Reported) Pantoprazole* (Pantoprazole*), 40 MG ORAL EVERY 12 HOURS, (Reported) Prednisone* (Prednisone*), 10 MG ORAL DAILY, (Reported) Sennosides (Senna), 8.6 MG PO DAILY, (Reported) Sevelamer Carbonate (Renvela), 3,200 MG ORAL THREE TIMES A DAY Sevelamer Carbonate* (Renvela*), 750 MG ORAL DAILY, (Reported) Sildenafil Citrate (Viagra), 10 MG PO TID, (Reported) Sildenafil Citrate (Revatio), 10 MG ORAL THREE TIMES A DAY, (Reported) Sucralfate* (Carafate*), 1 GM ORAL THREE TIMES A DAY, (Reported) Trazodone Hcl* (Desyrel*), Unknown Dose ORAL BEDTIME, (Reported) Trazodone Hcl* (Desyrel*), 12.2 MG ORAL PRN, (Reported) Vitamin B Cmplx/Vit C/Folic AC (Nephro-Vini Tablet), 1 TAB ORAL DAILY, (Reported ) Warfarin Sod* (Warfarin Sod*), 2.5 MG ORAL BID, (Reported) Scheduled PRN Acetaminophen* (Acetaminophen 325MG Tablet*), 650 MG ORAL Q4H PRN Hydrocodone/Acetaminophen 5-325* (Hydrocodone/Acetaminophen 5-325*), 1 TAB ORAL Q6H PRN for For Pain Patient History Healthcare decision maker Resuscitation status Full Code Advanced Directive on File Past Medical/Surgical History Past Medical/Surgical History: (1) Scleroderma (2) Secondary hyperparathyroidism (of renal origin) (3) Polyarticular arthritis (4) Arthritis, rheumatoid (5) Hypertensive urgency (6) ESRF (end stage renal failure) Review of Systems All Other Systems: negative except mentioned in HPI Physical Exam General Appearance: WD/WN, mild distress Lines, tubes and drains: central line HEENT: normocephalic, atraumatic Neck: non-tender, normal alignment Respiratory/Chest: chest wall non-tender, lungs clear Breasts: no masses Cardiovascular/Chest: normal peripheral pulses Abdomen: normal bowel sounds Genitourinary/Rectal: normal genital exam, heme negative stool Extremities: normal range of motion Last 24 Hour Vital Signs Date Time Temp Pulse Resp B/P (MAP) Pulse Ox O2 Delivery O2 Flow Rate FiO2 04/14/19 08:35 83 33 97 Facial 50 04/14/19 08:17 Nasal Cannula 4.0 04/14/19 08:17 124 04/14/19 08:00 98.2 124 24 157/109 (125) 95 04/14/19 07:52 79 37 99 Facial 50 04/14/19 07:11 98.9 113 31 169/108 100 Bi-pap 15.0 50 04/14/19 06:18 98.8 119 22 173/119 100 Bi-pap 15.0 50 04/14/19 05:38 174/108 04/14/19 05:31 130 24 99 Facial 50 04/14/19 05:24 137 20 04/14/19 05:24 98.6 137 20 174/108 93 Simple Mask 15.0 04/14/19 05:17 98.6 121 22 174/108 (130) 93 Simple Mask 15.0 Intake and Output 04/13/19 04/14/19 19:00 07:00 Output Total 0 ml Balance 0 ml Output Urine Total 0 ml Laboratory Tests Test 04/14/19 05:35 White Blood Count 13.7 K/UL (4.8-10.8) H Red Blood Count 3.00 M/UL (4.20-5.40) L Hemoglobin 9.2 G/DL (12.0-16.0) L Hematocrit 30.4 % (37.0-47.0) L Mean Corpuscular Volume 101 FL (80-99) H Mean Corpuscular Hemoglobin 30.7 PG (27.0-31.0) Mean Corpuscular Hemoglobin Concent 30.3 G/DL (32.0-36.0) L Red Cell Distribution Width 22.1 % (11.6-14.8) H Platelet Count 181 K/UL (150-450) Mean Platelet Volume 6.6 FL (6.5-10.1) Neutrophils (%) (Auto) 79.9 % (45.0-75.0) H Lymphocytes (%) (Auto) 12.3 % (20.0-45.0) L Monocytes (%) (Auto) 4.5 % (1.0-10.0) Eosinophils (%) (Auto) 2.7 % (0.0-3.0) Basophils (%) (Auto) 0.6 % (0.0-2.0) Prothrombin Time 12.3 SEC (9.30-11.50) H Prothromb Time International Ratio 1.2 (0.9-1.1) H Activated Partial Thromboplast Time > 150 SEC (23-33) *H Sodium Level 139 MMOL/L (136-145) Potassium Level 6.5 MMOL/L (3.5-5.1) *H Chloride Level 103 MMOL/L (98-107) Carbon Dioxide Level 27 MMOL/L (21-32) Anion Gap 10 mmol/L (5-15) Blood Urea Nitrogen 80 mg/dL (7-18) H Creatinine 9.6 MG/DL (0.55-1.30) H Estimat Glomerular Filtration Rate 5.8 mL/min (>60) Glucose Level 87 MG/DL (74-106) Calcium Level 9.3 MG/DL (8.5-10.1) Total Bilirubin 0.4 MG/DL (0.2-1.0) Aspartate Amino Transf (AST/SGOT) 46 U/L (15-37) H Alanine Aminotransferase (ALT/SGPT) 23 U/L (12-78) Alkaline Phosphatase 238 U/L (46-116) H Total Creatine Kinase 425 U/L (26-308) H Creatine Kinase MB 7.8 NG/ML (0.0-3.6) H Creatine Kinase MB Relative Index 1.8 Troponin I 0.116 ng/mL (0.000-0.056) Pro-B-Type Natriuretic Peptide 42509 pg/mL (0-125) H Total Protein 9.4 G/DL (6.4-8.2) H Albumin 3.5 G/DL (3.4-5.0) Globulin 5.9 g/dL Albumin/Globulin Ratio 0.6 (1.0-2.7) L Height (Feet): 5 Height (Inches): 6.00 Weight (Pounds): 68 Medications Current Medications Medications (Trade) Dose Ordered Sig/Brad Route PRN Reason Start Time Stop Time Status Last Admin Dose Admin Acetaminophen (Tylenol) 650 mg Q4H PRN ORAL Fever 04/14/19 09:15 05/14/19 09:14 Acetaminophen/ Hydrocodone Bitart ([place] 5/325) 1 tab Q6H PRN ORAL For Pain 04/14/19 10:30 04/21/19 10:29 Albuterol/ Ipratropium (Albuterol/ Ipratropium) 3 ml EVERY 4 HOURS PRN HHN Shortness of Breath 04/14/19 09:15 04/19/19 09:14 Apixaban (Eliquis) 2.5 mg BID ORAL 04/14/19 18:00 05/14/19 17:59 Azathioprine (Imuran) 150 mg DAILY ORAL 04/15/19 09:00 05/15/19 08:59 Carvedilol (Coreg) 6.25 mg EVERY 12 HOURS ORAL 04/14/19 21:00 05/14/19 20:59 Cinacalcet (Sensipar) 60 mg BEDTIME ORAL 04/14/19 21:00 05/14/19 20:59 Clonidine HCl (Catapres Tab) 0.1 mg Q4H PRN ORAL bp 160 syst and above 04/14/19 10:15 05/14/19 10:14 Dextrose (Dextrose 50%) 25 ml Q30M PRN IV Hypoglycemia 04/14/19 09:15 05/14/19 09:14 Dextrose (Dextrose 50%) 50 ml Q30M PRN IV Hypoglycemia 04/14/19 09:15 05/14/19 09:14 Docusate Sodium (Colace) 100 mg THREE TIMES A DAY ORAL 04/14/19 13:00 05/14/19 12:59 Isosorbide Mononitrate (Imdur) 30 mg DAILY ORAL 04/14/19 10:30 05/14/19 10:29 Lisinopril (Prinivil) 20 mg BID ORAL 04/14/19 18:00 05/14/19 17:59 Nifedipine (Adalat) 60 mg BID ORAL 04/14/19 18:00 05/15/19 08:59 Ondansetron HCl (Zofran) 4 mg Q6H PRN IVP Nausea & Vomiting 04/14/19 09:15 05/14/19 09:14 Pantoprazole (Protonix) 40 mg EVERY 12 HOURS ORAL 04/14/19 21:00 05/14/19 20:59 Polyethylene Glycol (Miralax) 17 gm DAILYPRN PRN ORAL Constipation 04/14/19 09:15 05/14/19 09:14 Sennosides (Senokot) 8.6 mg DAILY ORAL 04/15/19 09:00 05/15/19 08:59 Sevelamer Carbonate (Renvela) 3,200 mg THREE TIMES A DAY ORAL 04/14/19 13:00 05/14/19 12:59 Temazepam (Restoril) 15 mg HSPRN PRN ORAL Insomnia 04/14/19 09:15 04/21/19 09:14 Assessment/Plan Problem List: (1) Acute respiratory failure ICD Codes: J96.00 - Acute respiratory failure, unspecified whether with hypoxia or hypercapnia SNOMED: 39975534 Qualifiers: Qualified Codes: J96.01 - Acute respiratory failure with hypoxia (2) ESRF (end stage renal failure) ICD Codes: N18.6 - End stage renal disease SNOMED: 53667336 (3) Anemia in chronic kidney disease ICD Codes: N18.9 - Chronic kidney disease, unspecified; D63.1 - Anemia in chronic kidney disease SNOMED: 312378095 Qualifiers: Qualified Codes: N18.6 - End stage renal disease; D63.1 - Anemia in chronic kidney disease; Z99.2 - Dependence on renal dialysis (4) Lupus (systemic lupus erythematosus) ICD Codes: M32.9 - Systemic lupus erythematosus, unspecified SNOMED: 92299725, 587066629 (5) Arthritis, rheumatoid ICD Codes: M06.9 - Rheumatoid arthritis, unspecified SNOMED: 54259062 Assessment/Plan: HD' f/u nephrology recommendations. Elias Claros MD Apr 14, 2019 11:35
[2019-04-14] MEDS: DiphenhydrAMINE 50mg/ml Inj IVP PRN (11:51)
[2019-04-14 12:00] VITALS: BP 138/100
--- NOTE | 2019-04-14 12:30 | NUR ---
NURSE NOTES: S/P HD 3L out. Procedure tolerated well. V/S WNL. Pt. on 4LPM via NC sating at 95-96%.
--- NOTE | 2019-04-14 13:20 | NUR ---
NITRATE OPERATORTUBE DISPATCHER 29 YO FEMALE BIBA FROM HD CENTER TO ER CC SOB DURING HD, O2 SAT IN 80'S NRM SI: PULMONARY EDEMA T. 98.6 HR 137 RR 22 B/P 174/108 WBC 13.7 K 6.5 AST 46 ALK PHOS 238 TROP 0.116 BNP 40717 PT 12.3 INR 1.2 PTT>150 CXR= CHF IS: LASIX IV NTG SL ADMITTED TO STEP DOWN @ 0731 STEP DOWN STATUS DCP PENDING HOSPITAL STAY
[2019-04-14] MEDS: Docusate 100mg cap ORAL SCH ×2 (13:49→18:08)
[2019-04-14 16:00] VITALS: BP 149/97
[2019-04-14] MEDS ORDERED: NIFEdipine 10mg cap ORAL SCH (18:00)
[2019-04-14] MEDS: NIFEdipine 10mg cap ORAL SCH (18:08)
[2019-04-14] MEDS: Eliquis 2.5mg tablet ORAL SCH (18:08)
[2019-04-14] MEDS: Lisinopril 20mg tab ORAL SCH (18:08)
--- NOTE | 2019-04-14 18:46 | Cardiology Report ---
APPROVED REPORT EXAM: Two-dimensional and M-mode echocardiogram with Doppler and color Doppler. INDICATION Congestive Heart Failure M-Mode DIMENSIONS IVSd1.2 (0.7-1.1cm)Left Atrium (MM)4.7 (1.6-4.0cm) LVDd5.5 (3.5-5.6cm)Aortic Root2.9 (2.0-3.7cm) PWd1.3 (0.7-1.1cm)Aortic Cusp Exc.1.9 (1.5-2.0cm) IVSs1.7 cm LVDs4.2 (2.5-4.0cm) PWs1.5 cm Normal left ventricular chamber size, systolic function and wall motion . Left ventricular ejection fraction estimated to be 60-65%. Mild left ventricular hypertrophy by 2-D. Anterior Echo-free space, may be due to pericardial fat or effusion. All other cardiac chamber sizes are within normal limits. Aortic valve calcification with normal cusp excursion . Mildly thickened mitral valve leaflets with normal excursion. Mild mitral annulus and aortic root calcification. Pulmonic valve not well visualized. IVC at normal size with physiologic collapse . A color flow and spectral Doppler study was performed and revealed: No aortic insufficiency . Mitral inflow difficult to assess due to E/A wave fusion Mild to Moderate mitral regurgitation. Mild tricuspid regurgitation. Tricuspid systolic velocities suggests peak right ventricular systolic pressure of 49mmHg.consistent with mild pulmonary HTN .
--- NOTE | 2019-04-14 19:23 | NUR ---
HAND-OFF: Report given to Li OSEGUERA. Pt. remain stable.
--- NOTE | 2019-04-14 19:24 | NUR ---
NURSE NOTES: Received bedside report from OUMAR Harvey.Patient stable,no c/o respiratory distress tolerated 4 L/min N/C well,A&O x4,ST on hall monitor,BS active in all quadrants,HD on T-Th-Sat,3 L out today,perma cath on RU chest intact,IV asymptomatic,intact on R f/arm 20 G SL,bed secured in a low safety position,call light within a reach,will continue to monitor and follow POC
[2019-04-14] MEDS ORDERED: ACETAMINOPHEN500 M3 ORAL (19:52)
[2019-04-14 20:00] VITALS: BP 154/100
[2019-04-14] MEDS: Carvedilol 6.25mg Tab ORAL SCH (20:27)
[2019-04-14] MEDS ORDERED: Sensipar 30mg Tab ORAL SCH (21:00)
[2019-04-15 04:00] VITALS: BP 149/106
--- NOTE | 2019-04-15 07:04 | NUR ---
HAND-OFF: Report given to OUMAR Morillo.Patient stable,sleeping.
--- NOTE | 2019-04-15 07:05 | NUR ---
NURSE NOTES: Received report from OUMAR Jefferson. Patient asleep, arousable to verbal stimuli. On O2 4L via NC, no respiratory distress noted. Right upper chest HD access clean and intact. Right forearm 20g saline lock intact and patent. Safety precautions in place, bed locked, alarmed, and in lowest position, side rails up x3, and call left within reach. Instructed to call for assistance, verbalized understanding. Pt denies pain/discomfort at this time, will continue to monitor and will continue with plan of care.
[2019-04-15 08:00] VITALS: BP 148/98
[2019-04-15] MEDS: Imdur 30mg tab ORAL SCH (08:13)
[2019-04-15] MEDS: Carvedilol 6.25mg Tab ORAL SCH (08:13)
[2019-04-15] MEDS: Docusate 100mg cap ORAL SCH ×3 (08:13→17:26)
[2019-04-15] MEDS: Lisinopril 20mg tab ORAL SCH ×2 (08:14→17:26)
[2019-04-15] MEDS: NIFEdipine 10mg cap ORAL SCH ×2 (08:15→17:28)
[2019-04-15] MEDS: Eliquis 2.5mg tablet ORAL SCH ×2 (08:15→17:26)
[2019-04-15 08:45] LABS: BASOPHILS % (AUTO) 0.6 % (0.0-2.0); EOSINOPHILS % (AUTO) 4.3 % (0.0-3.0); HEMATOCRIT 27.4 % (37.0-47.0); HEMOGLOBIN 8.3 G/DL (12.0-16.0); LYMPHOCYTES % (AUTO) 16.4 % (20.0-45.0); MEAN CORPUSCULAR VOLUME 101 FL (80-99); MONOCYTES % (AUTO) 5.9 % (1.0-10.0); NEUTROPHILS % (AUTO) 72.8 % (45.0-75.0); PLATELET COUNT 149 K/UL (150-450); RED BLOOD COUNT 2.71 M/UL (4.20-5.40); RED CELL DISTRIBUTION WIDTH 22.4 % (11.6-14.8); WHITE BLOOD COUNT 4.6 K/UL (4.8-10.8)
[2019-04-15] MEDS ORDERED: azaTHIOprine 50 MG TAB ORAL SCH (09:00)
[2019-04-15] MEDS ORDERED: NIFEdipine 10mg cap ORAL SCH (09:00)
[2019-04-15] MEDS ORDERED: Sennosides 8.6mg tab ORAL SCH (09:00)
[2019-04-15 09:02] LABS: % IRON SATURATION 13 % (15-50); IRON 17 ug/dL (50-175); TOTAL IRON BINDING CAPACITY 129 ug/dL (250-450)
[2019-04-15 09:10] LABS: GAMMA GLUTAMYL TRANSPEPTIDASE 85 U/L (5-85); PHOSPHORUS 3.7 MG/DL (2.5-4.9)
[2019-04-15 09:14] LABS: ALANINE AMINOTRANSFERASE 23 U/L (12-78); ALBUMIN 2.7 G/DL (3.4-5.0); ALKALINE PHOSPHATASE 179 U/L (46-116); ANION GAP 10 mmol/L (5-15); ASPARTATE AMINO TRANSFERASE 28 U/L (15-37); BILIRUBIN,TOTAL 2.5 MG/DL (0.2-1.0); BLOOD UREA NITROGEN 56 mg/dL (7-18); CALCIUM 8.2 MG/DL (8.5-10.1); CARBON DIOXIDE 29 MMOL/L (21-32); CHLORIDE 102 MMOL/L (98-107); CHOLESTEROL 127 MG/DL (< 200); CREATININE 8.4 MG/DL (0.55-1.30); FERRITIN 638 NG/ML (8-388); HDL CHOLESTEROL 39 MG/DL (40-60); POTASSIUM 4.7 MMOL/L (3.5-5.1); SODIUM 141 MMOL/L (136-145); TRIGLYCERIDES 188 MG/DL (30-150)
[2019-04-15] MEDS ORDERED: HYDROmorphone 1mg/ml Carpuject IVP SCH (09:45)
[2019-04-15 09:46] LABS: BILIRUBIN,DIRECT 0.1 MG/DL (0.0-0.3)
--- NOTE | 2019-04-15 10:03 | NUR ---
NURSE NOTES: Received order from Dr Wild for patient to be dialyzed today. [facility] was called and spoke with Devin, awaiting for call back confirmation.
--- NOTE | 2019-04-15 10:32 | NUR ---
Social Work This Sw received a consult to assist due to patient has been staying in a halfway. This Sw met with patient who explains she lives with her 10 year old daughter in a halfway at the following location: [place] [address] [facility] [phone] patient is planning to return to this halfway upon discharge (explains her daughter is temporarily staying with her cousin until she is discharged). Patient is receiving the following income: $750.00 SSI, $830.00 (daughters benefits) and has section 8 housing approval (pending which location at this time). Patient has transportation to/from her dialysis clinic: [facility] ([facility]). Makenzie, Homeless Coordinator aware to follow. This SW provided contact information for Mallorie Mayes and [facility] housing program.
--- NOTE | 2019-04-15 10:36 | Pulmonology Progress Note ---
Assessment/Plan Problems: (1) Acute respiratory failure (2) ESRF (end stage renal failure) (3) Anemia in chronic kidney disease (4) Lupus (systemic lupus erythematosus) (5) Arthritis, rheumatoid Assessment/Plan got dialyzed yesterday will get dialyzed today consider venofer for iron deficiency if renal agrees dc home after HD Subjective ROS Limited/Unobtainable: No Constitutional: Reports: no symptoms HEENT: Repors: no symptoms Respiratory: Reports: no symptoms Allergies: Coded Allergies: SULFA (SULFONAMIDE ANTIBIOTICS) (Verified Allergy, Mild, 09/22/18) VANCOMYCIN (Unverified Allergy, Unknown, 04/14/19) Objective Last 24 Hour Vital Signs Date Time Temp Pulse Resp B/P (MAP) Pulse Ox O2 Delivery O2 Flow Rate FiO2 04/15/19 09:19 98 Nasal Cannula 3.0 36 04/15/19 08:15 99 149/98 04/15/19 08:14 149/98 04/15/19 08:13 149/98 04/15/19 08:13 99 149/98 04/15/19 08:00 98.9 99 20 148/98 (115) 95 04/15/19 08:00 Nasal Cannula 4.0 04/15/19 08:00 4.0 04/15/19 07:52 103 04/15/19 04:00 Nasal Cannula 4.0 04/15/19 04:00 4.0 04/15/19 04:00 99.0 108 20 149/106 (120) 97 04/15/19 03:23 110 04/15/19 01:00 Nasal Cannula 4.0 04/14/19 23:25 117 04/14/19 20:27 125 154/100 04/14/19 20:00 Nasal Cannula 4.0 04/14/19 20:00 99.5 125 20 154/100 (118) 94 04/14/19 20:00 4.0 04/14/19 19:24 124 04/14/19 19:05 95 Nasal Cannula 3.0 36 04/14/19 18:08 98 149/97 04/14/19 18:08 149/97 04/14/19 16:00 Nasal Cannula 4.0 04/14/19 16:00 4.0 04/14/19 16:00 97.5 98 17 149/97 (114) 94 04/14/19 15:27 106 04/14/19 13:22 95 21 98 Facial 50 04/14/19 12:00 99.0 105 26 138/100 (113) 97 04/14/19 12:00 Nasal Cannula 4.0 04/14/19 12:00 4.0 04/14/19 11:43 105 04/14/19 11:34 114 31 99 Facial 50 Intake and Output 04/14/19 04/15/19 19:00 07:00 Intake Total 300 ml Output Total 0 ml 3 ml Balance 0 ml 297 ml Intake Oral 300 ml Output Urine Total 0 ml Hemodialysis UF 3 ml # Bowel Movements 1 General Appearance: WD/WN HEENT: normocephalic Respiratory/Chest: chest wall non-tender, lungs clear Breasts: no masses Cardiovascular: normal peripheral pulses, regularly irregular Abdomen: normal bowel sounds, no organomegaly Extremities: no clubbing Skin: no lesions Neurologic/Psychiatric: visual effects editor II-XII grossly normal Laboratory Tests 04/14/19 13:35: Troponin I 0.087H, Hepatitis B Surface Antigen Negative 04/15/19 07:45: Troponin I 0.081H, White Blood Count 4.6#L, Red Blood Count 2.71L, Hemoglobin 8.3L, Hematocrit 27.4L, Mean Corpuscular Volume 101H, Mean Corpuscular Hemoglobin 30.7, Mean Corpuscular Hemoglobin Concent 30.5L, Red Cell Distribution Width 22.4H, Platelet Count 149L, Mean Platelet Volume 7.0, Neutrophils (%) (Auto) 72.8, Lymphocytes (%) (Auto) 16.4L, Monocytes (%) (Auto) 5.9, Eosinophils (%) (Auto) 4.3H, Basophils (%) (Auto) 0.6, Sodium Level 141, Potassium Level 4.7, Chloride Level 102, Carbon Dioxide Level 29, Anion Gap 10, Blood Urea Nitrogen 56H, Creatinine 8.4H, Estimat Glomerular Filtration Rate 6.8 , Glucose Level 85, Uric Acid 4.9, Calcium Level 8.2L, Phosphorus Level 3.7, Magnesium Level 1.6L, Iron Level 17L, Total Iron Binding Capacity 129L, Percent Iron Saturation 13L, Unsaturated Iron Binding 112, Ferritin 638H, Total Bilirubin 2.5H, Direct Bilirubin 0.1, Gamma Glutamyl Transpeptidase 85, Aspartate Amino Transf (AST/SGOT) 28, Alanine Aminotransferase (ALT/SGPT) 23, Alkaline Phosphatase 179H, C-Reactive Protein, Quantitative 8.2H, Pro-B-Type Natriuretic Peptide 24848G, Total Protein 8.0, Albumin 2.7L, Globulin 5.3, Triglycerides Level 188H, Cholesterol Level 127, LDL Cholesterol 52, HDL Cholesterol 39L, Cholesterol/HDL Ratio 3.3, Vitamin B12 Level 855, Folate 9.2, Thyroid Stimulating Hormone (TSH) 0.423 Current Medications Medications (Trade) Dose Ordered Sig/Brad Route PRN Reason Start Time Stop Time Status Last Admin Dose Admin Acetaminophen (Tylenol) 650 mg Q4H PRN ORAL Fever 04/14/19 09:15 05/14/19 09:14 Acetaminophen/ Hydrocodone Bitart ([place] 5/325) 1 tab Q6H PRN ORAL For Pain 04/14/19 10:30 04/21/19 10:29 Albuterol/ Ipratropium (Albuterol/ Ipratropium) 3 ml EVERY 4 HOURS PRN HHN Shortness of Breath 04/14/19 09:15 04/19/19 09:14 Apixaban (Eliquis) 2.5 mg BID ORAL 04/14/19 18:00 05/14/19 17:59 04/15/19 08:15 Azathioprine (Imuran) 150 mg DAILY ORAL 04/15/19 09:00 05/15/19 08:59 04/15/19 08:14 Carvedilol (Coreg) 6.25 mg EVERY 12 HOURS ORAL 04/14/19 21:00 05/14/19 20:59 04/15/19 08:13 Cinacalcet (Sensipar) 60 mg BEDTIME ORAL 04/14/19 21:00 05/14/19 20:59 04/14/19 20:27 Clonidine HCl (Catapres Tab) 0.1 mg Q4H PRN ORAL bp 160 syst and above 04/14/19 10:15 05/14/19 10:14 Dextrose (Dextrose 50%) 25 ml Q30M PRN IV Hypoglycemia 04/14/19 09:15 05/14/19 09:14 Dextrose (Dextrose 50%) 50 ml Q30M PRN IV Hypoglycemia 04/14/19 09:15 05/14/19 09:14 Diphenhydramine HCl (Benadryl) 50 mg Q6H PRN IVP Itching 04/14/19 11:45 05/14/19 11:44 04/14/19 11:51 Docusate Sodium (Colace) 100 mg THREE TIMES A DAY ORAL 04/14/19 13:00 05/14/19 12:59 04/15/19 08:13 Hydromorphone HCl (Dilaudid) 0.5 mg ONCE IVP 04/15/19 09:45 04/15/19 10:45 04/15/19 09:50 Isosorbide Mononitrate (Imdur) 30 mg DAILY ORAL 04/14/19 10:30 05/14/19 10:29 04/15/19 08:13 Lisinopril (Prinivil) 20 mg BID ORAL 04/14/19 18:00 05/14/19 17:59 04/15/19 08:14 Nifedipine (Adalat) 60 mg BID ORAL 04/14/19 18:00 05/15/19 08:59 04/15/19 08:15 Ondansetron HCl (Zofran) 4 mg Q6H PRN IVP Nausea & Vomiting 04/14/19 09:15 05/14/19 09:14 Pantoprazole (Protonix) 40 mg EVERY 12 HOURS ORAL 04/14/19 21:00 05/14/19 20:59 04/15/19 08:20 Polyethylene Glycol (Miralax) 17 gm DAILYPRN PRN ORAL Constipation 04/14/19 09:15 05/14/19 09:14 Sennosides (Senokot) 8.6 mg DAILY ORAL 04/15/19 09:00 05/15/19 08:59 04/15/19 08:14 Sevelamer Carbonate (Renvela) 3,200 mg THREE TIMES A DAY ORAL 04/14/19 13:00 05/14/19 12:59 04/15/19 08:15 Temazepam (Restoril) 15 mg HSPRN PRN ORAL Insomnia 04/14/19 09:15 04/21/19 09:14 04/14/19 20:28 Elias Claros MD Apr 15, 2019 10:36
[2019-04-15] MEDS ORDERED: Hydromorphone 0.5mg/0.5ml inj IVP PRN (11:00)
--- NOTE | 2019-04-15 11:00 | Nephrology Progress Note ---
Assessment/Plan Problem List: (1) ESRF (end stage renal failure) (2) Hypertensive urgency (3) Anemia in chronic kidney disease (4) Acute respiratory failure Assessment Acute respiratory distress duee to volume over load HTN OOC ESRD High K on presentation SLE Anemia Fibromyalgia elevated troponin Plan dialysed yesterday still appears overload- will dialyse again BP controlled per orders BP Meds further adjustment Dialysis today again with UF EPO Nitrates SS eval per orders discussed with RN Subjective ROS Limited/Unobtainable: No Constitutional: Reports: malaise Objective Objective Last 24 Hour Vital Signs Date Time Temp Pulse Resp B/P (MAP) Pulse Ox O2 Delivery O2 Flow Rate FiO2 04/15/19 09:19 98 Nasal Cannula 3.0 36 04/15/19 08:15 99 149/98 04/15/19 08:14 149/98 04/15/19 08:13 149/98 04/15/19 08:13 99 149/98 04/15/19 08:00 98.9 99 20 148/98 (115) 95 04/15/19 08:00 Nasal Cannula 4.0 04/15/19 08:00 4.0 04/15/19 07:52 103 04/15/19 04:00 Nasal Cannula 4.0 04/15/19 04:00 4.0 04/15/19 04:00 99.0 108 20 149/106 (120) 97 04/15/19 03:23 110 04/15/19 01:00 Nasal Cannula 4.0 04/14/19 23:25 117 04/14/19 20:27 125 154/100 04/14/19 20:00 Nasal Cannula 4.0 04/14/19 20:00 99.5 125 20 154/100 (118) 94 04/14/19 20:00 4.0 04/14/19 19:24 124 04/14/19 19:05 95 Nasal Cannula 3.0 36 04/14/19 18:08 98 149/97 04/14/19 18:08 149/97 04/14/19 16:00 Nasal Cannula 4.0 04/14/19 16:00 4.0 04/14/19 16:00 97.5 98 17 149/97 (114) 94 04/14/19 15:27 106 04/14/19 13:22 95 21 98 Facial 50 04/14/19 12:00 99.0 105 26 138/100 (113) 97 04/14/19 12:00 Nasal Cannula 4.0 04/14/19 12:00 4.0 04/14/19 11:43 105 04/14/19 11:34 114 31 99 Facial 50 Intake and Output 04/14/19 04/15/19 19:00 07:00 Intake Total 300 ml Output Total 0 ml 3 ml Balance 0 ml 297 ml Intake Oral 300 ml Output Urine Total 0 ml Hemodialysis UF 3 ml # Bowel Movements 1 Laboratory Tests 04/14/19 13:35: Troponin I 0.087H, Hepatitis B Surface Antigen Negative 04/15/19 07:45: Troponin I 0.081H, White Blood Count 4.6#L, Red Blood Count 2.71L, Hemoglobin 8.3L, Hematocrit 27.4L, Mean Corpuscular Volume 101H, Mean Corpuscular Hemoglobin 30.7, Mean Corpuscular Hemoglobin Concent 30.5L, Red Cell Distribution Width 22.4H, Platelet Count 149L, Mean Platelet Volume 7.0, Neutrophils (%) (Auto) 72.8, Lymphocytes (%) (Auto) 16.4L, Monocytes (%) (Auto) 5.9, Eosinophils (%) (Auto) 4.3H, Basophils (%) (Auto) 0.6, Sodium Level 141, Potassium Level 4.7, Chloride Level 102, Carbon Dioxide Level 29, Anion Gap 10, Blood Urea Nitrogen 56H, Creatinine 8.4H, Estimat Glomerular Filtration Rate 6.8 , Glucose Level 85, Uric Acid 4.9, Calcium Level 8.2L, Phosphorus Level 3.7, Magnesium Level 1.6L, Iron Level 17L, Total Iron Binding Capacity 129L, Percent Iron Saturation 13L, Unsaturated Iron Binding 112, Ferritin 638H, Total Bilirubin 2.5H, Direct Bilirubin 0.1, Gamma Glutamyl Transpeptidase 85, Aspartate Amino Transf (AST/SGOT) 28, Alanine Aminotransferase (ALT/SGPT) 23, Alkaline Phosphatase 179H, C-Reactive Protein, Quantitative 8.2H, Pro-B-Type Natriuretic Peptide 31720Q, Total Protein 8.0, Albumin 2.7L, Globulin 5.3, Triglycerides Level 188H, Cholesterol Level 127, LDL Cholesterol 52, HDL Cholesterol 39L, Cholesterol/HDL Ratio 3.3, Vitamin B12 Level 855, Folate 9.2, Thyroid Stimulating Hormone (TSH) 0.423 Height (Feet): 5 Height (Inches): 6.00 Weight (Pounds): 135 General Appearance: no apparent distress, other - on cannula EENT: other - periorbital swelling Cardiovascular: tachycardia Respiratory/Chest: decreased breath sounds Abdomen: soft Jason Wild MD Apr 15, 2019 11:00
[2019-04-15] MEDS ORDERED: Imdur 30mg tab ORAL SCH (11:15)
[2019-04-15 12:00] VITALS: BP 131/78
[2019-04-15] MEDS: DiphenhydrAMINE 50mg/ml Inj IVP PRN (12:21)
--- NOTE | 2019-04-15 12:22 | History & Physical ---
History and Physical History & Physicial CC: 29 YO F admitted with shortness of Breath. HPI: Patient at dialysis yesterday, 04/14/19. Became short of breath. Admitted to [facility] for SOB. Code Status: Full Code AD Forms/Documents Completed: Deferred A total of 31 minutes was spent on this discussion, including counseling, answering questions, and completing, if any, pertinent advanced care planning forms/documents. General: alert, cooperative, no distress, appears stated age Head: normocephalic, without obvious abnormality, atraumatic Eyes: conjunctivae/corneas clear. PERRL, EOM's intact Throat: lips, mucosa, and tongue normal. MMM Neck: supple, symmetrical, trachea midline, and no JVD Lungs: clear to auscultation bilaterally Heart: regular rate and rhythm, S1, S2 normal, no murmur, click, rub or gallop Abdomen: soft, non-tender, non-distended, bowel sounds normal; no masses or organomegaly Extremities: extremities normal, atraumatic, no cyanosis or edema Pulses: 2+ and symmetric Skin: skin color, texture, turgor normal; no rashes or lesions Neurologic: grossly normal, no focal deficits Assesment: 1. Dyspnea 2. ESRD on HD 3. Hypertension 3. SLE 4. Anemia renal dis 5. Scleroderma 6. Fibromyalgia 7. Rheum Arthritis 8. [facility] status dictated for Int Med-Salazar Red MD Apr 15, 2019 12:22
--- NOTE | 2019-04-15 14:05 | NUR ---
NURSE NOTES: Dialysis completed with reported 3L output. Patient in stable condition.
[2019-04-15 16:00] VITALS: BP 146/103
--- NOTE | 2019-04-15 16:10 | NUR ---
NURSE NOTES: Spoke with Jasmyne Arnold Business Process Expert for placement/discharge for patient; was referred to Makenzie Cardona, senior program planner.
--- NOTE | 2019-04-15 16:15 | NUR ---
NURSE NOTES: Makenzie, account planner at bedside. Patient states she will go back to [facility]. Patient on RA at this time, saturating 96%.
[2019-04-15 17:28] VITALS: BP 146/103
--- NOTE | 2019-04-15 17:50 | NUR ---
NURSE NOTES: Patient discharged to [facility] via taxi, voucher provided. monitor and storage bin tender, IV, and ID band removed prior to discharge. Discharge instructions given, patient is aaox4, verbalized understanding. Patient is ambulatory and in stable condition.
--- NOTE | 2019-04-15 18:25 | Cardiology Report ---
APPROVED REPORT EKG Measurement Heart [id number] Sinus tachycardia Possible Left atrial enlargement Low voltage QRS Septal infarct, age undetermined Abnormal ECG
[2019-04-15] MEDS ORDERED: Carvedilol 12.5mg tab ORAL SCH (21:00)
--- NOTE | 2019-04-15 21:00 | History and Physical Report ---
DATE OF ADMISSION: 04/14/2019 CHIEF COMPLAINT: The patient is a 29-year-old female, who presents with a chief complaint of shortness of breath. HISTORY OF PRESENT ILLNESS: The patient was in dialysis on Sunday, April 14, 2019. She became short of breath. She was not able to complete dialysis. The patient was transported to [place] emergency room. The patient was found to have congestive heart failure. The patient is admitted with congestive heart failure and probable volume overload. REVIEW OF SYSTEMS: CONSTITUTIONAL: The patient denies weight loss or weight gain. The patient denies fevers or chills. HEENT: The patient denies ear or throat pain. The patient denies headache. CARDIOVASCULAR: The patient denies palpitations or chest pain. CHEST: The patient complains of shortness of breath as above. The patient denies wheezes. ABDOMEN: The patient denies nausea, vomiting, diarrhea, or constipation. GENITOURINARY: The patient denies dysuria or increased frequency of urination. NEUROMUSCULAR: The patient denies seizures or generalized weakness. PAST MEDICAL HISTORY: Significant for: 1. End-stage renal disease, on hemodialysis every Saturday, , and Saturday. 2. Uncontrolled hypertension. 3. Systemic lupus erythematosus. 4. Anemia of chronic renal failure. 5. Scleroderma. 6. Fibromyalgia. 7. Rheumatoid arthritis. PAST SURGICAL HISTORY: Significant for: 1. Port-A-Cath placement in the right chest. 2. Arteriovenous graft for dialysis in the left upper arm. CURRENT MEDICATIONS: 1. Tylenol 500 mg one tab p.o. q.4 hours p.r.n. 2. Apixaban 5 mg p.o. twice daily. 3. Imuran 50 mg p.o. daily. 4. Carvedilol 6.25 mg p.o. twice daily. 5. Sensipar 60 mg p.o. at bedtime. 6. Famotidine 20 mg p.o. daily. 7. Hydroxychloroquine 200 mg p.o. daily. 8. Isosorbide mononitrate 30 mg p.o. daily. 9. Lisinopril 20 mg p.o. twice daily. 10. Nifedipine 10 mg p.o. daily. 11. Pantoprazole 40 mg p.o. daily. 12. Prednisone 10 mg p.o. daily. 13. Renvela 0.8 grams p.o. daily. 14. Sildenafil 20 mg p.o. 3 times daily. 15. Carafate 1 g p.o. 3 times daily. 16. Trazodone 50 mg p.o. at bedtime. ALLERGIES: 1. Sulfa. 2. Vancomycin. SOCIAL HISTORY: The patient is single and lives with her daughter. The patient denies tobacco or alcohol use. The patient is disabled. PHYSICAL EXAMINATION: VITAL SIGNS: Temperature 98.8, respirations 33, pulse 83, and blood pressure 138/100. GENERAL: The patient is a well-developed and well-nourished female, in no apparent distress. HEENT: Eyes, pupils are equal and responsive to light and accommodation. Extraocular movements are intact. NECK: Supple without lymphadenopathy. CHEST: Lungs are clear to auscultation bilaterally without wheezes or rales. CARDIOVASCULAR: Regular rhythm and rate. S1 and S2 are normal without murmurs, rubs, or gallops. ABDOMEN: Soft, nontender, and nondistended. Positive bowel sounds. No evidence of hepatosplenomegaly. Currently, no rebound or guarding noted. EXTREMITIES: Negative for clubbing, cyanosis, or edema. RECTAL/GENITAL: Not performed. NEUROLOGIC: Cranial nerves II through XII are grossly intact without focal deficits. Motor strength is 5/5 bilaterally. Deep tendon reflexes are 2+ plantar. LABORATORY STUDIES: WBC 13.7, hemoglobin 9.2, hematocrit 30.4, and platelets 181,000. Sodium 141, potassium 4.7, chloride 102, CO2 29, BUN 56, creatinine 8.4, and glucose 85. BNP elevated at 21,442. Troponin elevated at 0.016. Chest x-ray was reported as right basilar atelectasis. An echocardiogram is pending. ASSESSMENT: This is a 29-year-old female. 1. Shortness of breath. 2. End-stage renal disease. 3. Hypertension. 4. Systemic lupus erythematosus. 5. Anemia of chronic renal disease. 6. Scleroderma. 7. Fibromyalgia. 8. Rheumatoid arthritis. TREATMENT: 1. Shortness of breath. A Pulmonary consultation has been obtained with Dr. Elias Claros. The patient was initially placed on BiPAP. The patient has received diuresis with hemodialysis. The patient is not the nasal cannula. We will follow recommendations of Pulmonary. 2. End-stage renal disease. The patient is currently on hemodialysis. The patient did not receive dialysis yesterday, April 14, 2019. The patient is scheduled for dialysis today, April 15, [address] Wild. 3. Congestive heart failure. Cardiology consultation is pending with Dr. Lamont Thomas. Congestive heart failure may be secondary to volume overload secondary to not having dialysis. We will follow recommendation of Cardiology. 4. Hypertension. Continue lisinopril and carvedilol as above. 5. Systemic lupus erythematosus. Current prednisone and hydroxychloroquine as above. 6. Anemia of chronic renal failure. 7. Scleroderma. 8. Fibromyalgia. 9. Rheumatoid arthritis. Salazar Mar M.D. DR: RIVER JOB#: [id number] CC:
--- NOTE | 2019-04-16 07:43 | Discharge Summary ---
Discharge Summary Discharge Summary _ DATE OF ADMISSION: 04/13/2019 DATE OF DISCHARGE: 04/15/2019 DISCHARGED BY: Dr. Patel REASON FOR ADMISSION: 29 years old female with past medical history of end-stage renal disease, on hemodialysis, asthma, hypertension, fibromyalgia, systemic lupus erythematosus , presented with chief complaint of shortness of breath for about a day. Patient missed one of the dialysis, because they were unable to accommodate her . Due to dyspnea 911 was called . Per EMS patient was hypoxic . Blood pressure was elevated. Shortness of breath worse with lying flat and with exertion. No nausea ,no vomiting. No fever, no chills. Upon evaluation patient was tachycardic with heart rate 121 and blood pressure 174/108 Patient was also hypoxic and required simple mask to reach pulse oximetry of 93% . Laboratory work-up revealed leukocytosis WBC 13.7, hemoglobin 9.2, hematocrit 30.4. Potassium 6.5. BUN 80, creatinine 9.6. Glucose 87. Troponin - 0.116. Pro-BNP 51357. EKG revealed sinus tachycardia, no acute ischemic changes. Chest x-ray demonstrated congestive heart failure. Basilar atelectasis. Patient was placed on the BiPAP and appeared to be comfortable with the BiPAP. Patient admitted to [facility] for urgent hemodialysis and further management. CONSULTANTS: pulmonary/critical care Dr. Claros corn shucker Dr. Wild HOSPITAL COURSE: Patient admitted to direct observational unit. Fire Systems Inspector consulted for urgent hemodialysis. Hemodialysis with ultrafiltration provided for 2days : day to day. Volumes, renal parameters and electrolytes were closely monitored. Sensipar continued. Blood pressure was optimized as per corn shucker and included multiply antihypertensive regimen including beta-scooby, nifedipine, MEGHAN inhibitor and hematuria. Clonidine was on board as needed. Blood pressure improved. Echocardiogram revealed preserved ejection fraction of 60 to 65% with mild left ventricular hypertrophy. No evidence of wall motion abnormality. Right ventricular systolic pressure of 49 consistent with a mild pulmonary hypertension. Mild to moderate mitral regurgitation. Supplemental oxygen titrated to keep pulse oximetry above 92%. Pulmonary toilet with bronchodilator provided. Patient was able after hemodialysis to be weaned from BiPAP to nasal cannula and then subsequently to room air. Serial troponin trending down, levels flat. Mild elevation likely due to renal failure. No complaint of chest pain, no changes in EKG. Eliquis continued. No evidence of bleeding. Lipid panel revealed elevated triglycerides. Patient was educated on low-fat low-cholesterol diet. TSH within normal limits. Hepatitis B surface antigen negative. Anemia work-up revealed evidence of anemia of chronic disease. Ferritin elevated 638. Patient received Epogen. GI prophylaxis provided. Bowel regimen instituted. Home medication continued. Patient clinically stabilized and was ready for discharge home. vamp cut out worker met with patient. Patient was willing to return back to senior living. Patient had transportation to outpatient hemodialysis already in place. Due to rapid and unexpected improvement in patient condition, patient was discharged in 1 day. FINAL DIAGNOSES: Acute respiratory failure due to volume overload, requiring BiAP - resolved End-stage renal disease , on hemodialysis Hypertensive urgency, present on admission Elevated troponin Anemia of chronic kidney disease Hyperkalemia-resolved Systemic lupus erythematosus Fibromyalgia DISCHARGE MEDICATIONS: See Medication Reconciliation list. DISCHARGE INSTRUCTIONS: Patient was discharged to senior living. Follow up with primary care provider in one week. I have been assigned to dictate discharge summary for this account. I was not involved in the patient's management. Zoe Lora NP Apr 16, 2019 07:43
[2019-04-16] MEDS ORDERED: Imdur 30mg tab ORAL SCH (09:00)
--- NOTE | 2019-04-17 17:59 | NUR ---
HOMELESS COORDINATOR HC spoke with patient and patient is alert and oriented. Patient does have a contact number . Patient states she is chronically homeless and is staying at [facility] [address] [place] [address]. Patient states she has been homeless since November 2018 and contributes her homelessness to landlord wasn't understanding and had a misunderstanding that lead to court. Patient has a toy trains and accessories salesperson, Skylar Franco (sister) [phone]. Patient states she is receiving $735 in SSI. Patients daughter is receiving $840 in SSI as well. Patient has no substance abuse or mental health illness. Patient states she will return to [facility] upon discharge. Patient states she will make her own follow up appointment and would like a taxi voucher. HC provided Community Clinic list and Housing Placement resources for patients with income upon discharge.
== END 2019-04-15 17:49 | disposition home or self-care (01) | DRG 291 ==
LOC: EDBD 05:23 → EMR 05:40 → EDBEDREQ 06:08 → 2W 06:18 → EDBEDREQ 07:08 → 2W 07:11
DX: I13.2 Hypertensive heart and chronic kidney disease with heart failure and with stage 5 chronic kidney disease, or end stage renal disease (principal); J96.00 Acute respiratory failure, unspecified whether with hypoxia or hypercapnia; N18.6 End stage renal disease; J81.0 Acute pulmonary edema; I50.9 Heart failure, unspecified; Z99.2 Dependence on renal dialysis; I16.0 Hypertensive urgency; E87.5 Hyperkalemia; Z88.2 Allergy status to sulfonamides; M32.9 Systemic lupus erythematosus, unspecified; D63.1 Anemia in chronic kidney disease; M34.9 Systemic sclerosis, unspecified; M79.7 Fibromyalgia; M06.9 Rheumatoid arthritis, unspecified; I34.0 Nonrheumatic mitral (valve) insufficiency; I27.20 Pulmonary hypertension, unspecified; Z88.1 Allergy status to other antibiotic agents; Z59.0 Homelessness
CPT/HCPCS: 36415; 71045; 80053; 80061; 82248; 82550; 82553; 82607; 82728; 82746; 82977; 83540; 83550; 83735; 83880; 84100; 84443; 84484; 84550; 85025; 85610; 85730; 86140; 86706; 87081; 93005; 93306; 94660; 96374; 96375; 99291

== ENCOUNTER 2019-07-16 13:03 | Inpatient (IN) | payer MEDICARE, OTHER ==
[~2019-07-16] VITALS: Ht 170.2 cm; Wt 59.0 kg
[~2019-07-16 13:03] MED LIST changes: +ACETAMINOPHEN500 M3 ORAL; +CARAFATE1 G1 ORAL; +CARVEDILOL6.25 MG ORAL; +CATAPRES0.1 MG ORAL; +DOCUSATE SODIU100 MG ORAL; +ELIQUIS5 MG PO; +LISINOPRIL20 MG ORAL; +NEPHROVITE1 TAB ORAL; +RENVELA0.8 GM ORAL; +REVATIO20 MG ORAL; +SENNA8.6 M2 PO; +SENSIPAR30 MG ORAL; +VIAGRA100 MG PO; +WARFARIN SODIU2.5 MG ORAL
--- NOTE | 2019-07-16 13:20 | NUR ---
ED Nurse Note: Patient arrived to ED by car from home. She stated that she has been feeling weak and having chest pain since she had dialysis this AM. Chest pain is 7/10, does not radiate, and feels sharp. No shortness of breath. Patient hypertensive at baseline. Patient on the laboratory monitor, bed in lowest position.
--- NOTE | 2019-07-16 13:48 | Emergency Room Report ---
History of Present Illness General Chief Complaint: Dyspnea/Respdistress Source: Patient, Medical Record Present Illness HPI Patient presents with dyspnea and fatigue. She had dialysis earlier this morning. She did have any problems with dialysis. When she is gotten this way she knows there is some other problem. She has very complex medical history. In the past certain things have happened to cause her to feel this way. Specifically she had pulmonary embolus but she is on Eliquis at this time. In addition she has had anemia. Denies any fevers or chills. There is no productive cough at this time. She has had a use of beta agents in the past for asthma but has not heard herself wheezing. She does have a history of lupus. She has had flares on and off. She does not believe that this is the problem at this time. She is not taking prednisone at this time. No fevers, chills, sore throat, palpitations, nausea, vomiting, diarrhea, abdominal pain, rashes, anxiety, visual changes, dizziness, headache. Patient last admitted in April. Discharge diagnoses: Acute respiratory failure due to volume overload, requiring BiAP - resolved End-stage renal disease , on hemodialysis Hypertensive urgency, present on admission Elevated troponin Anemia of chronic kidney disease Hyperkalemia-resolved Systemic lupus erythematosus Fibromyalgia Allergies: Coded Allergies: SULFA (SULFONAMIDE ANTIBIOTICS) (Verified Allergy, Mild, 09/22/18) VANCOMYCIN (Unverified Allergy, Unknown, 04/14/19) Patient History Past Medical History: see triage record, old chart reviewed Past Surgical History: other - Dialysis fistula and stents Social History: Denies: smoking, alcohol use, drug use Social History Narrative With her daughter Last Menstrual Period: menopause Reviewed Nursing Documentation: PMH: Agreed; PSxH: Agreed Nursing Documentation-PMH Past Medical History: No History, Except For Hx Cardiac Problems: Yes Hx Hypertension: Yes Hx Pacemaker: No Hx Asthma: Yes Hx COPD: No Hx Diabetes: Yes Hx Cancer: No Hx Gastrointestinal Problems: No Hx Dialysis: Yes - Q T// Hx Neurological Problems: No Hx Cerebrovascular Accident: No Hx Seizures: No Review of Systems All Other Systems: negative except mentioned in HPI Physical Exam Vital Signs Date Time Temp Pulse Resp B/P (MAP) Pulse Ox O2 Delivery O2 Flow Rate FiO2 07/16/19 13:05 98.6 116 18 165/106 (125) 95 Room Air Sp02 EP Interpretation: reviewed, abnormal - Interpreted as low by me General Appearance: no apparent distress, non-toxic, Chronically Ill Head: normocephalic, atraumatic Eyes: bilateral eye PERRL, bilateral eye conjunctivae pale ENT: moist mucus membranes Neck: full range of motion, supple Respiratory: decreased breath sounds, crackles Cardiovascular #1: no edema, tachycardia Cardiovascular #2: 2+ radial (L) - Dialysis fistula Gastrointestinal: non tender, soft, no mass Genitourinary: no CVA tenderness Musculoskeletal: normal range of motion, no calf tenderness, Sharona's Sign negative Neurologic: alert, oriented x3, grossly normal Psychiatric: no suicidal/homicidal ideation, depressed affect Skin: warm/dry, pallor Medical Decision Making Diagnostic Impression: Primary Impression: Profound anemia Qualified Codes: D64.9 - Anemia, unspecified Additional Impressions: Dyspnea Qualified Codes: R06.00 - Dyspnea, unspecified ESRD (end stage renal disease) Elevated troponin Scleroderma Lupus (systemic lupus erythematosus) Qualified Codes: M32.9 - Systemic lupus erythematosus, unspecified ER Course Chronic dialysis patient with history of lupus and scleroderma presents with chest pain and dyspnea with fatigue. Differential includes acute myocardial infarctions, pulmonary embolism, occult infection, pneumonia, anemia, exacerbation of lupus amongst others. This is a very complex patient. Evaluation with EKG, chest x-ray and labs. Patient will be treated with morphine. The fact she is on Eliquis pulmonary embolism is left less likely however CTA may need to be done. Evaluated by Dr. Wild here. Based on x-ray and presentation pulmonary angiogram is ordered. Minimally elevated troponin. As patient on Eliquis, aspirin held. H/H low. Blood ordered. Called by blood bank - antibody present. Went to CTA. CTA without pulmonary embolism. Patient still complaining about chest pain. Dilaudid ordered. Blood transfusion ordered. Laboratory Tests Test 07/16/19 14:30 07/17/19 06:20 White Blood Count 5.2 K/UL (4.8-10.8) 3.7 K/UL (4.8-10.8) L Red Blood Count 2.26 M/UL (4.20-5.40) L 2.42 M/UL (4.20-5.40) L Hemoglobin 6.6 G/DL (12.0-16.0) *L 7.3 G/DL (12.0-16.0) L Hematocrit 21.3 % (37.0-47.0) L 22.6 % (37.0-47.0) L Mean Corpuscular Volume 95 FL (80-99) 93 FL (80-99) Mean Corpuscular Hemoglobin 29.2 PG (27.0-31.0) 30.3 PG (27.0-31.0) Mean Corpuscular Hemoglobin Concent 30.9 G/DL (32.0-36.0) L 32.4 G/DL (32.0-36.0) Red Cell Distribution Width 19.0 % (11.6-14.8) H 19.1 % (11.6-14.8) H Platelet Count 169 K/UL (150-450) 150 K/UL (150-450) Mean Platelet Volume 8.4 FL (6.5-10.1) 8.4 FL (6.5-10.1) Neutrophils (%) (Auto) % (45.0-75.0) % (45.0-75.0) Lymphocytes (%) (Auto) % (20.0-45.0) % (20.0-45.0) Monocytes (%) (Auto) % (1.0-10.0) % (1.0-10.0) Eosinophils (%) (Auto) % (0.0-3.0) % (0.0-3.0) Basophils (%) (Auto) % (0.0-2.0) % (0.0-2.0) Differential Total Cells Counted 100 100 Neutrophils % (Manual) 72 % (45-75) 71 % (45-75) Lymphocytes % (Manual) 21 % (20-45) 17 % (20-45) L Monocytes % (Manual) 6 % (1-10) 8 % (1-10) Eosinophils % (Manual) 1 % (0-3) 4 % (0-3) H Basophils % (Manual) 0 % (0-2) 0 % (0-2) Band Neutrophils 0 % (0-8) 0 % (0-8) Platelet Estimate Adequate Adequate Platelet Morphology Normal Normal Hypochromasia 2+ 3+ Anisocytosis 1+ 2+ Prothrombin Time 11.0 SEC (9.30-11.50) Prothrombin Time INR 1.0 (0.9-1.1) PTT 28 SEC (23-33) Sodium Level 139 MMOL/L (136-145) 135 MMOL/L (136-145) L Potassium Level 4.4 MMOL/L (3.5-5.1) 5.3 MMOL/L (3.5-5.1) H Chloride Level 98 MMOL/L (98-107) 98 MMOL/L (98-107) Carbon Dioxide Level 30 MMOL/L (21-32) 29 MMOL/L (21-32) Anion Gap 11 mmol/L (5-15) 9 mmol/L (5-15) Blood Urea Nitrogen 17 mg/dL (7-18) 25 mg/dL (7-18) H Creatinine 6.0 MG/DL (0.55-1.30) H 8.0 MG/DL (0.55-1.30) H Estimate Glomerular Filtration Rate 9.9 mL/min (>60) 7.2 mL/min (>60) Glucose Level 77 MG/DL (74-106) 85 MG/DL (74-106) Calcium Level 9.3 MG/DL (8.5-10.1) 8.3 MG/DL (8.5-10.1) L Total Bilirubin 0.3 MG/DL (0.2-1.0) 0.3 MG/DL (0.2-1.0) Aspartate Amino Transferase (AST) 30 U/L (15-37) 25 U/L (15-37) Alanine Aminotransferase (ALT) 20 U/L (12-78) 17 U/L (12-78) Alkaline Phosphatase 264 U/L (46-116) H 254 U/L (46-116) H Total Creatine Kinase 551 U/L (26-308) H Troponin I 0.081 ng/mL (0.000-0.056) 0.046 ng/mL (0.000-0.056) Pro-B-Type Natriuretic Peptide > 55911 pg/mL (0-125) H > 37422 pg/mL (0-125) H Total Protein 9.5 G/DL (6.4-8.2) H 8.4 G/DL (6.4-8.2) H Albumin 3.4 G/DL (3.4-5.0) 3.1 G/DL (3.4-5.0) L Globulin 6.1 g/dL 5.3 g/dL Albumin/Globulin Ratio 0.6 (1.0-2.7) L 0.6 (1.0-2.7) L Spherocytes 1+ Uric Acid 3.3 MG/DL (2.6-7.2) Phosphorus Level 3.6 MG/DL (2.5-4.9) Magnesium Level 1.8 MG/DL (1.8-2.4) Iron Level 42 ug/dL (50-175) L Total Iron Binding Capacity 179 ug/dL (250-450) L Percent Iron Saturation 23 % (15-50) Unsaturated Iron Binding 137 ug/dL (112-346) Ferritin 1558 NG/ML (8-388) H Gamma Glutamyl Transpeptidase 38 U/L (5-85) C-Reactive Protein, Quantitative 1.2 mg/dL (0.00-0.90) H Triglycerides Level 169 MG/DL (30-150) H Cholesterol Level 147 MG/DL (< 200) LDL Cholesterol 77 mg/dL (<100) HDL Cholesterol 32 MG/DL (40-60) L Cholesterol/HDL Ratio 4.6 (3.3-4.4) H Vitamin B12 Level 1364 PG/ML (193-986) H Folate 11.8 NG/ML (8.6-58.9) Thyroid Stimulating Hormone (TSH) 1.119 uiU/mL (0.358-3.740) EKG Diagnostic Results Rate: tachycardiac Rhythm: NSR ST Segments: no acute changes Rhythm Strip Diag. Results EP Interpretation: yes Rhythm: no PVC's, no ectopy, other - Sinus tachycardia Chest X-Ray Diagnostic Results Chest X-Ray Diagnostic Results : Chest X-Ray Ordered: Yes # of Views/Limited/Complete: 1 View Indication: Other EP Interpretation: Yes Interpretation: no effusion, no pneumothorax, other - Elective cyst bilateral bases left worse than right, vascular stent Impression: Other Electronically Signed by: Electronically signed by Alexi Peres MD CT/MRI/US Diagnostic Results CT/MRI/US Diagnostic Results : Imaging Test Ordered: CTA chest Impression Impression: Negative for evidence of pulmonary embolus or other acute thoracic vascular pathology Cardiomegaly with evidence of left ventricular hypertrophy Honeycombing, subpleural blebs, and cystic spaces, with a basilar predominance, consistent with end-stage fibrotic change. This appears to be progressive since prior abdomen pelvis CT scan of 2017 Borderline enlarged bilateral hilar nodes. Infiltration of the mediastinal fat with numerous prominent nodes as well is borderline bilateral axillary lymphadenopathy. This could indicate a lymphoproliferative disorder or systemic inflammatory disease or correlate with clinical history Other findings as noted, including mild bilateral renal atrophy, left axillary venous stents Last Vital Signs Date Time Temp Pulse Resp B/P (MAP) Pulse Ox O2 Delivery O2 Flow Rate FiO2 07/17/19 09:00 Room Air 07/17/19 08:41 120/74 07/17/19 08:00 98.2 62 20 94 07/17/19 07:50 21 Status: improved Disposition: ADMITTED INPATIENT Condition: Serious Alexi Peres MD Jul 16, 2019 13:48
[2019-07-16] MEDS ORDERED: Albuterol/Ipratropium 3ml neb HHN ONE (14:00)
--- NOTE | 2019-07-16 14:41 | Diagnostic Imaging Report ---
Indication: Dyspnea Technique: One view of the chest Comparison: 04/14/2019 Findings: There is some atelectasis at both lung bases. Previously demonstrated bibasilar consolidation is not evident, however. There is mild interstitial congestion, similar to previous. Previously demonstrated right jugular tunneled dialysis catheter is no longer present. Vascular stents are seen in the left axilla. The heart is borderline enlarged. Impression: Correlate cardiomegaly with mild interstitial congestion Bilateral basilar atelectasis Other findings as noted
[2019-07-16] MEDS ORDERED: Albuterol/Ipratropium 3ml neb HHN PRN (15:00)
[2019-07-16] MEDS ORDERED: Omnipaue 350mg/ml 100ml vial INJ PRN (15:00)
[2019-07-16] MEDS ORDERED: Morphine Sulfate 4mg/ml Inj (IV USE ONLY) IVP ONE (15:00)
[2019-07-16] MEDS ORDERED: Miralax 17gm pkt ORAL PRN (15:00)
[2019-07-16 15:06] LABS: HEMATOCRIT 21.3 % (37.0-47.0); MEAN CORPUSCULAR VOLUME 95 FL (80-99); PLATELET COUNT 169 K/UL (150-450); RED BLOOD COUNT 2.26 M/UL (4.20-5.40); WHITE BLOOD COUNT 5.2 K/UL (4.8-10.8)
[2019-07-16 15:16] LABS: HEMOGLOBIN 6.6 G/DL (12.0-16.0)
[2019-07-16 15:31] LABS: ANION GAP 11 mmol/L (5-15); BLOOD UREA NITROGEN 17 mg/dL (7-18); CALCIUM 9.3 MG/DL (8.5-10.1); CARBON DIOXIDE 30 MMOL/L (21-32); CHLORIDE 98 MMOL/L (98-107); POTASSIUM 4.4 MMOL/L (3.5-5.1); SODIUM 139 MMOL/L (136-145)
[2019-07-16 15:44] LABS: ALANINE AMINOTRANSFERASE 20 U/L (12-78); ALBUMIN 3.4 G/DL (3.4-5.0); ALBUMIN/GLOBULIN RATIO 0.6 (1.0-2.7); ALKALINE PHOSPHATASE 264 U/L (46-116); ASPARTATE AMINO TRANSFERASE 30 U/L (15-37); BILIRUBIN,TOTAL 0.3 MG/DL (0.2-1.0); CREATINE KINASE 551 U/L (26-308)
[2019-07-16 15:45] VITALS: BP 162/102
[2019-07-16] MEDS ORDERED: Hydromorphone 0.5mg/0.5ml inj IVP ONE (15:45)
[2019-07-16] MEDS ORDERED: DiphenhydrAMINE 50mg/ml Inj IVP ONE (15:45)
[2019-07-16] MEDS ORDERED: DiphenhydrAMINE 50mg/ml Inj ONE (16:29)
--- NOTE | 2019-07-16 16:57 | Diagnostic Imaging Report ---
ndication: Chest pain, 7 out of 10 Technique: IV administration nonionic contrast. Spiral acquisitions obtained from the lung bases to the lung apices. Multiplanar and 3-D reconstructions were generated. Total dose length product 401 mGycm. CTDIvol(s) 32, 15, 9 mGy. Dose reduction achieved using automated exposure control Comparison: none Findings: Pulmonary arteries are well-opacified. No intraluminal filling defects or other findings to suggest acute pulmonary embolus demonstrated. Normal caliber pulmonary arteries. No evidence of thoracic aortic aneurysm or dissection. No evidence of right ventricular dilatation. There is four-chamber cardiomegaly, as well as evidence of left ventricular muscular hypertrophy. There is variant branching anatomy of the great neck vessels, with separate origin of the vertebral artery off of the aortic arch. Normal caliber neck vessels. The lungs demonstrate subpleural blebs and small bullae in the bilateral upper lobe periphery. Subpleural blebs and lida bullous changes are seen in the bilateral lower lobes. Honeycombing is seen in the inferior bilateral lower lobes as well as the right middle lobe and to a slight extent the inferior lingula. Groundglass opacity is seen elsewhere. No definite infiltrates, effusions, masses, or nodules. The parenchymal changes are more extensive than that demonstrated at the lung bases on prior abdomen pelvis CT of 07/22/2017. There is minimal anterior wall pericardial thickening versus fluid. Prominent bilateral hilar nodes are demonstrated. The anterior mediastinal fat demonstrates numerous prominent nodes as well as infiltration by reticular and nodular opacity. Bilateral axillary nodes are abundant and prominent. The thyroid is unremarkable. The included upper abdominal anatomy demonstrates mild bilateral renal atrophy. The bones are unremarkable. Vascular stents are seen in the left axilla. Impression: Negative for evidence of pulmonary embolus or other acute thoracic vascular pathology Cardiomegaly with evidence of left ventricular hypertrophy Honeycombing, subpleural blebs, and cystic spaces, with a basilar predominance, consistent with end-stage fibrotic change. This appears to be progressive since prior abdomen pelvis CT scan of 2017 Borderline enlarged bilateral hilar nodes. Infiltration of the mediastinal fat with numerous prominent nodes as well is borderline bilateral axillary lymphadenopathy. This could indicate a lymphoproliferative disorder or systemic inflammatory disease or correlate with clinical history Other findings as noted, including mild bilateral renal atrophy, left axillary venous stents The CT scanner at [facility] is accredited by the [employer] and the scans are performed using protocols designed to limit radiation exposure to as low as reasonably achievable to attain images of sufficient resolution adequate for diagnostic evaluation.
[2019-07-16] MEDS ORDERED: cloNIDine 0.2mg Tab ORAL SCH (17:30)
[2019-07-16] MEDS ORDERED: Minoxidil 2.5mg tab ORAL PRN (17:45)
[2019-07-16] MEDS ORDERED: Lisinopril 20mg tab ORAL SCH (18:00)
[2019-07-16] MEDS: Docusate 100mg cap ORAL SCH (18:00)
[2019-07-16] MEDS ORDERED: Renvela 800mg Pkt ORAL SCH ×2 (18:00)
--- NOTE | 2019-07-16 18:10 | NUR ---
ED Nurse Note: Blood bank stated that unit of blood will take 2 more hours too prepare due to the patient's blood having an antibody. Tele unit Charge Nurse Andrés OSEGUERA aware, patient updated on the delay of blood transfusion. Patient stable, resting in bed. Andrés OSEGUERA stated the patient will receive transfusion once the blood bank prepares the blood.
--- NOTE | 2019-07-16 18:30 | NUR ---
NURSE NOTES: Patient arrived from ER. Patient is AAO x4. Patient states she teena itchy. Patient is breathing even and unlabored on room air. electronic device monitor is applied. 174/120 bp, 111 hr, 18resp, pulse ox unable to be read on finger. Daughter at bedside. Belonging checklist completed. Will follow up with blood transfusion order and vitals.
--- NOTE | 2019-07-16 19:10 | NUR ---
HAND-OFF: Report given to OUMAR Jackson. Patient is resting in bed. Endorsed about call to Dr. Wild for orders.
--- NOTE | 2019-07-16 19:30 | NUR ---
NURSE NOTES: Received report from OUMAR Beltran. Patient is awake and responsive, A/O x4. Breathing regular with no acute distress noted at this time. Patient was C/O pain, medications given by previous nurse. Iv is intact and saline locked at the moment. Patient's bed is in lowest position, breaks engaged, call light within reach. Will continue to monitor.
[2019-07-16] MEDS: Lisinopril 20mg tab ORAL SCH (19:33)
--- NOTE | 2019-07-16 19:39 | NUR ---
NURSE NOTES: Called Dr. Wild in regards for patient feeling itchy and has temperature of 99.4. Blood transfusion is ready and pending. Awaiting call back, endorsed to table games shift manager.
[2019-07-16 20:00] VITALS: BP 145/98
[2019-07-16] MEDS ORDERED: DiphenhydrAMINE 50mg/ml Inj IVP SCH (20:12)
[2019-07-16] MEDS ORDERED: Sensipar 30mg Tab ORAL SCH (21:00)
[2019-07-16] MEDS: Heparin 5000 units/ml inj SUBQ SCH (21:00)
[2019-07-16] MEDS ORDERED: TraZODone 50mg tab ORAL SCH (21:00)
[2019-07-16] MEDS: Carvedilol 6.25mg Tab ORAL SCH (21:40)
--- NOTE | 2019-07-16 21:59 | NUR ---
NURSE NOTES: Patient requested Tylenol for a headache. Will administer as needed.
--- NOTE | 2019-07-16 22:30 | NUR ---
NURSE NOTES: At 2145 initiated blood transfusion. Will monitor for any reactions.
[2019-07-16] MEDS: cloNIDine 0.2mg Tab ORAL SCH (23:05)
[2019-07-17] VITALS: BP 136/95
--- NOTE | 2019-07-17 02:12 | NUR ---
NURSE NOTES: Blood transfusion completed at 0145. Patient tolerated well with no adverse reactions noted. Patient is now comfortably resting in bed, asleep. Will continue to monitor.
--- NOTE | 2019-07-17 03:05 | NUR ---
NURSE NOTES: Called [facility] to confirm that patient will be having hemodialysis procedure later today. Was told, "we'll have the dialysis nurse call you back as soon as possible."
[2019-07-17 04:00] VITALS: BP 116/67
[2019-07-17] MEDS: cloNIDine 0.2mg Tab ORAL SCH ×3 (05:19→14:00)
[2019-07-17 06:50] LABS: HEMATOCRIT 22.6 % (37.0-47.0); HEMOGLOBIN 7.3 G/DL (12.0-16.0); MEAN CORPUSCULAR VOLUME 93 FL (80-99); PLATELET COUNT 150 K/UL (150-450); RED BLOOD COUNT 2.42 M/UL (4.20-5.40); RED CELL DISTRIBUTION WIDTH 19.1 % (11.6-14.8); WHITE BLOOD COUNT 3.7 K/UL (4.8-10.8)
--- NOTE | 2019-07-17 06:58 | NUR ---
HAND-OFF: Report given to OUMAR Beltran. Patient in stable condition. Plan of care endorsed.
--- NOTE | 2019-07-17 07:15 | NUR ---
NURSE NOTES: Received report from OUMAR Jackson. Patient is awake and responsive, A/O x4. Breathing regular with no acute distress noted at this time. Iv is intact and saline locked at the moment. Patient's bed is in lowest position, breaks engaged, call light within reach. Will continue to monitor.
[2019-07-17 07:19] LABS: % IRON SATURATION 23 % (15-50); IRON 42 ug/dL (50-175); TOTAL IRON BINDING CAPACITY 179 ug/dL (250-450)
[2019-07-17 07:38] LABS: ALANINE AMINOTRANSFERASE 17 U/L (12-78); ALBUMIN 3.1 G/DL (3.4-5.0); ALBUMIN/GLOBULIN RATIO 0.6 (1.0-2.7); ALKALINE PHOSPHATASE 254 U/L (46-116); ANION GAP 9 mmol/L (5-15); ASPARTATE AMINO TRANSFERASE 25 U/L (15-37); BILIRUBIN,TOTAL 0.3 MG/DL (0.2-1.0); BLOOD UREA NITROGEN 25 mg/dL (7-18); CALCIUM 8.3 MG/DL (8.5-10.1); CARBON DIOXIDE 29 MMOL/L (21-32); CHLORIDE 98 MMOL/L (98-107); CHOLESTEROL 147 MG/DL (< 200); HDL CHOLESTEROL 32 MG/DL (40-60); PHOSPHORUS 3.6 MG/DL (2.5-4.9); POTASSIUM 5.3 MMOL/L (3.5-5.1); SODIUM 135 MMOL/L (136-145); TRIGLYCERIDES 169 MG/DL (30-150)
[2019-07-17 07:50] LABS: FERRITIN 1558 NG/ML (8-388); GAMMA GLUTAMYL TRANSPEPTIDASE 38 U/L (5-85)
[2019-07-17 08:00] VITALS: BP 120/74
[2019-07-17] MEDS: Docusate 100mg cap ORAL SCH ×2 (08:41→13:00)
[2019-07-17] MEDS: Lisinopril 20mg tab ORAL SCH (08:41)
[2019-07-17] MEDS: Heparin 5000 units/ml inj SUBQ SCH (08:43)
[2019-07-17] MEDS: Carvedilol 6.25mg Tab ORAL SCH (08:56)
[2019-07-17] MEDS: Renvela 800mg Pkt ORAL SCH ×2 (09:00→13:00)
[2019-07-17] MEDS ORDERED: NIFEdipine 10mg cap ORAL SCH (09:00)
[2019-07-17] MEDS ORDERED: Imdur 30mg tab ORAL SCH (09:00)
[2019-07-17] MEDS ORDERED: Renvela 800mg Pkt ORAL SCH (09:00)
--- NOTE | 2019-07-17 10:29 | NUR ---
Social Work This Sw received a consult due to homeless. This patient is known to this SW from previous admissions. Patient lives at [facility] (with her 10 year old daughter, Latanya) and plans to return there upon discharge (will need a cab voucher). Patient denied any history of substance abuse or mental health concerns, denied depression or suicidal ideations. Resources were provided to patient last admission; patient explains that she has not further needs or concerns at this time.
--- NOTE | 2019-07-17 10:37 | Consultation ---
Consult Note Consult Note Patient 29 y old- under my care for her dialysis related issues seen yesterday at [facility] patient Anemic with accelerated HTN and SOB sent to ER [facility] ESRD on HD, HTN, SLE, RA, fibromyalgia, pulm HTN, anemia She gets dialysis Tuesdays, and Saturdays. her Blood pressure was High in the ER. She was put on BIPAP She is now in Tele she is less short of breath now Allergies: SULFA (SULFONAMIDE ANTIBIOTICS) (Verified Allergy, Mild, 09/22/18) examined data reviewed Assessment/Plan Acute respiratory distress due to HTN OOC and Anemia HTN OOC ESRD SLE Anemia severe Fibromyalgia elevated troponin BP Meds transfuse one unit 07/16 next today Dialysis today with [facility] per orders discussed with Jason Pamler MD Jul 17, 2019 10:37
[2019-07-17] MEDS ORDERED: DiphenhydrAMINE 50mg/ml Inj IVP SCH (10:45)
--- NOTE | 2019-07-17 11:08 | Consultation ---
History of Present Illness General Date patient seen: Jul 17, 2019 Chief Complaint: Dyspnea/Respdistress Present Illness HPI 29-year-old female with hx of ESRF, HTN, on HD presented to ED with CC of shortness of breath She gets dialysis T// go dialysis yesterday before presentation to ER. Her hemoglobin was apparently low. Denies chest pain. She has received one unit of PRBC yesterday and is planned to get another one today Allergies: Coded Allergies: SULFA (SULFONAMIDE ANTIBIOTICS) (Verified Allergy, Mild, 09/22/18) VANCOMYCIN (Unverified Allergy, Unknown, 04/14/19) Medication History Scheduled Apixaban (Eliquis), 5 MG PO BID, (Reported) Azathioprine* (Imuran*), 50 MG PO DAILY, (Reported) Carvedilol* (Carvedilol*), 6.25 MG ORAL EVERY 12 HOURS, (Reported) Cinacalcet* (Sensipar*), 60 MG ORAL BEDTIME, (Reported) Famotidine (Famotidine), 20 MG ORAL DAILY, (Reported) Hydroxychloroquine Sulfate (Hydroxychloroquine Sulfate), 200 MG PO DAILY, ( Reported) Isosorbide Mononitrate (Isosorbide Mononitrate Er), 30 MG ORAL DAILY Lisinopril (Lisinopril*), 20 MG ORAL BID, (Reported) Nifedipine (Nifedipine*), 10 MG ORAL DAILY, (Reported) Pantoprazole* (Pantoprazole*), 40 MG ORAL DAILY, (Reported) Prednisone* (Prednisone*), 10 MG ORAL DAILY, (Reported) Sevelamer Carbonate* (Renvela*), 0.8 GM ORAL DAILY, (Reported) Sildenafil Citrate (Revatio), 10 MG ORAL THREE TIMES A DAY, (Reported) Sucralfate* (Carafate*), 1 GM ORAL THREE TIMES A DAY, (Reported) Trazodone Hcl* (Desyrel*), 50 MG ORAL BEDTIME, (Reported) Vitamin B Cmplx/Vit C/Folic AC (Nephro-Vini Tablet), 1 TAB ORAL DAILY, (Reported ) Miscellaneous Medications Acetaminophen* (Acetaminophen Extra Strength*), 500 MG ORAL, (Reported) Patient History Healthcare decision maker Resuscitation status Full Code Advanced Directive on File Past Medical/Surgical History Past Medical/Surgical History: (1) ESRF (end stage renal failure) (2) Lupus (systemic lupus erythematosus) (3) Arthritis, rheumatoid (4) Secondary hyperparathyroidism (of renal origin) (5) ESRD (end stage renal disease) Review of Systems All Other Systems: negative except mentioned in HPI Physical Exam General Appearance: WD/WN Lines, tubes and drains: peripheral HEENT: normocephalic, atraumatic Neck: non-tender, normal alignment Respiratory/Chest: chest wall non-tender, lungs clear Breasts: no masses Cardiovascular/Chest: normal peripheral pulses Abdomen: normal bowel sounds, non tender Genitourinary/Rectal: normal genital exam, normal rectal exam Extremities: normal range of motion, non-tender Last 24 Hour Vital Signs Date Time Temp Pulse Resp B/P (MAP) Pulse Ox O2 Delivery O2 Flow Rate FiO2 07/17/19 09:00 Room Air 07/17/19 08:41 120/74 07/17/19 08:00 98.2 62 20 120/74 (89) 94 07/17/19 07:50 64 17 95 Room Air 21 07/17/19 07:36 75 07/17/19 05:19 116/67 07/17/19 04:00 76 07/17/19 04:00 98.6 78 18 116/67 (83) 97 07/17/19 00:00 78 07/17/19 00:00 98.6 97 16 136/95 (109) 97 07/16/19 23:08 Room Air 07/16/19 23:05 113/72 07/16/19 21:40 95 125/78 07/16/19 20:00 103 07/16/19 20:00 98.9 102 16 145/98 (114) 96 07/16/19 19:33 170/120 07/16/19 19:33 172/120 07/16/19 18:44 105 17 162/102 98 Room Air 07/16/19 18:43 108 17 Room Air 07/16/19 17:03 98.8 07/16/19 15:45 98.8 108 18 162/102 100 Room Air 07/16/19 15:25 98.8 07/16/19 14:15 108 18 99 Room Air 100 07/16/19 14:10 106 18 98 Room Air 21 106 18 99 07/16/19 13:05 98.6 116 18 165/106 (125) 95 Room Air Intake and Output 07/16/19 07/17/19 18:59 06:59 Intake Total 120 ml 300 ml Balance 120 ml 300 ml Intake Oral 120 ml 300 ml # Voids 1 Laboratory Tests Test 07/16/19 14:30 07/17/19 06:20 White Blood Count 5.2 K/UL (4.8-10.8) 3.7 K/UL (4.8-10.8) L Red Blood Count 2.26 M/UL (4.20-5.40) L 2.42 M/UL (4.20-5.40) L Hemoglobin 6.6 G/DL (12.0-16.0) *L 7.3 G/DL (12.0-16.0) L Hematocrit 21.3 % (37.0-47.0) L 22.6 % (37.0-47.0) L Mean Corpuscular Volume 95 FL (80-99) 93 FL (80-99) Mean Corpuscular Hemoglobin 29.2 PG (27.0-31.0) 30.3 PG (27.0-31.0) Mean Corpuscular Hemoglobin Concent 30.9 G/DL (32.0-36.0) L 32.4 G/DL (32.0-36.0) Red Cell Distribution Width 19.0 % (11.6-14.8) H 19.1 % (11.6-14.8) H Platelet Count 169 K/UL (150-450) 150 K/UL (150-450) Mean Platelet Volume 8.4 FL (6.5-10.1) 8.4 FL (6.5-10.1) Neutrophils (%) (Auto) % (45.0-75.0) % (45.0-75.0) Lymphocytes (%) (Auto) % (20.0-45.0) % (20.0-45.0) Monocytes (%) (Auto) % (1.0-10.0) % (1.0-10.0) Eosinophils (%) (Auto) % (0.0-3.0) % (0.0-3.0) Basophils (%) (Auto) % (0.0-2.0) % (0.0-2.0) Differential Total Cells Counted 100 100 Neutrophils % (Manual) 72 % (45-75) 71 % (45-75) Lymphocytes % (Manual) 21 % (20-45) 17 % (20-45) L Monocytes % (Manual) 6 % (1-10) 8 % (1-10) Eosinophils % (Manual) 1 % (0-3) 4 % (0-3) H Basophils % (Manual) 0 % (0-2) 0 % (0-2) Band Neutrophils 0 % (0-8) 0 % (0-8) Platelet Estimate Adequate Adequate Platelet Morphology Normal Normal Hypochromasia 2+ 3+ Anisocytosis 1+ 2+ Prothrombin Time 11.0 SEC (9.30-11.50) Prothromb Time International Ratio 1.0 (0.9-1.1) Activated Partial Thromboplast Time 28 SEC (23-33) Sodium Level 139 MMOL/L (136-145) 135 MMOL/L (136-145) L Potassium Level 4.4 MMOL/L (3.5-5.1) 5.3 MMOL/L (3.5-5.1) H Chloride Level 98 MMOL/L (98-107) 98 MMOL/L (98-107) Carbon Dioxide Level 30 MMOL/L (21-32) 29 MMOL/L (21-32) Anion Gap 11 mmol/L (5-15) 9 mmol/L (5-15) Blood Urea Nitrogen 17 mg/dL (7-18) 25 mg/dL (7-18) H Creatinine 6.0 MG/DL (0.55-1.30) H 8.0 MG/DL (0.55-1.30) H Estimat Glomerular Filtration Rate 9.9 mL/min (>60) 7.2 mL/min (>60) Glucose Level 77 MG/DL (74-106) 85 MG/DL (74-106) Calcium Level 9.3 MG/DL (8.5-10.1) 8.3 MG/DL (8.5-10.1) L Total Bilirubin 0.3 MG/DL (0.2-1.0) 0.3 MG/DL (0.2-1.0) Aspartate Amino Transf (AST/SGOT) 30 U/L (15-37) 25 U/L (15-37) Alanine Aminotransferase (ALT/SGPT) 20 U/L (12-78) 17 U/L (12-78) Alkaline Phosphatase 264 U/L (46-116) H 254 U/L (46-116) H Total Creatine Kinase 551 U/L (26-308) H Troponin I 0.081 ng/mL (0.000-0.056) 0.046 ng/mL (0.000-0.056) Pro-B-Type Natriuretic Peptide > 03677 pg/mL (0-125) H > 46576 pg/mL (0-125) H Total Protein 9.5 G/DL (6.4-8.2) H 8.4 G/DL (6.4-8.2) H Albumin 3.4 G/DL (3.4-5.0) 3.1 G/DL (3.4-5.0) L Globulin 6.1 g/dL 5.3 g/dL Albumin/Globulin Ratio 0.6 (1.0-2.7) L 0.6 (1.0-2.7) L Spherocytes 1+ Uric Acid 3.3 MG/DL (2.6-7.2) Phosphorus Level 3.6 MG/DL (2.5-4.9) Magnesium Level 1.8 MG/DL (1.8-2.4) Iron Level 42 ug/dL (50-175) L Total Iron Binding Capacity 179 ug/dL (250-450) L Percent Iron Saturation 23 % (15-50) Unsaturated Iron Binding 137 ug/dL (112-346) Ferritin 1558 NG/ML (8-388) H Gamma Glutamyl Transpeptidase 38 U/L (5-85) C-Reactive Protein, Quantitative 1.2 mg/dL (0.00-0.90) H Triglycerides Level 169 MG/DL (30-150) H Cholesterol Level 147 MG/DL (< 200) LDL Cholesterol 77 mg/dL (<100) HDL Cholesterol 32 MG/DL (40-60) L Cholesterol/HDL Ratio 4.6 (3.3-4.4) H Vitamin B12 Level 1364 PG/ML (193-986) H Folate 11.8 NG/ML (8.6-58.9) Thyroid Stimulating Hormone (TSH) 1.119 uiU/mL (0.358-3.740) Height (Feet): 5 Height (Inches): 7.00 Weight (Pounds): 130 Medications Current Medications Medications (Trade) Dose Ordered Sig/Brad Route PRN Reason Start Time Stop Time Status Last Admin Dose Admin Acetaminophen (Tylenol) 650 mg Q4H PRN ORAL Fever 07/16/19 15:00 08/15/19 14:59 07/16/19 22:04 Albuterol/ Ipratropium (Albuterol/ Ipratropium) 3 ml Q4H PRN HHN Shortness of Breath 07/16/19 15:00 07/21/19 14:59 Carvedilol (Coreg) 6.25 mg EVERY 12 HOURS ORAL 07/16/19 21:00 08/15/19 20:59 07/16/19 21:40 Cinacalcet (Sensipar) 60 mg BEDTIME ORAL 07/16/19 21:00 08/15/19 20:59 07/16/19 21:40 Clonidine HCl (Catapres tab) 0.1 mg EVERY 8 HOURS ORAL 07/17/19 09:00 08/15/19 08:59 Dextrose (Dextrose 50%) 25 ml Q30M PRN IV Hypoglycemia 07/16/19 15:00 08/15/19 14:59 Dextrose (Dextrose 50%) 50 ml Q30M PRN IV Hypoglycemia 07/16/19 15:00 08/15/19 14:59 Diphenhydramine HCl (Benadryl) 50 mg ONCE IVP 07/17/19 10:45 07/17/19 12:00 07/17/19 10:52 Docusate Sodium (Colace) 100 mg THREE TIMES A DAY ORAL 07/16/19 18:00 08/15/19 17:59 Heparin Sodium (Porcine) (Heparin 5000 units/ml) 5,000 units EVERY 12 HOURS SUBQ 07/16/19 21:00 08/15/19 20:59 Iohexol (Omnipaque) 100 mg NOW PRN INJ Radiology Procedure 07/16/19 15:00 07/18/19 14:49 Isosorbide Mononitrate (Imdur) 30 mg DAILY ORAL 07/17/19 09:00 08/16/19 08:59 Lisinopril (Prinivil) 20 mg BID ORAL 07/16/19 18:00 08/15/19 17:59 07/16/19 19:33 Minoxidil (Loniten) 2.5 mg Q4H PRN ORAL bp over 160 syst 07/16/19 17:45 08/15/19 17:44 Ondansetron HCl (Zofran) 4 mg Q6H PRN IVP Nausea & Vomiting 07/16/19 15:00 08/15/19 14:59 Pantoprazole (Protonix) 40 mg EVERY 12 HOURS ORAL 07/16/19 21:00 08/15/19 20:59 07/17/19 09:00 Polyethylene Glycol (Miralax) 17 gm DAILYPRN PRN ORAL Constipation 07/16/19 15:00 08/15/19 14:59 Sevelamer Carbonate (Renvela) 800 mg TID ORAL 07/17/19 09:00 08/16/19 08:59 Temazepam (Restoril) 15 mg HSPRN PRN ORAL Insomnia 07/16/19 15:00 07/23/19 14:59 Trazodone HCl (Desyrel) 50 mg BEDTIME ORAL 07/16/19 21:00 08/15/19 20:59 07/16/19 21:40 Assessment/Plan Problem List: (1) Profound anemia ICD Codes: D64.9 - Anemia, unspecified SNOMED: 860510922 (2) ESRD (end stage renal disease) ICD Codes: N18.6 - End stage renal disease SNOMED: 44265635 (3) Arthritis, rheumatoid ICD Codes: M06.9 - Rheumatoid arthritis, unspecified SNOMED: 32950509 (4) Lupus (systemic lupus erythematosus) ICD Codes: M32.9 - Systemic lupus erythematosus, unspecified SNOMED: 05264338, 757748996 (5) ESRF (end stage renal failure) ICD Codes: N18.6 - End stage renal disease SNOMED: 90336504 Assessment/Plan: prbc prn watch bp HD by nephrology symptomatic treatment Elias Claros MD Jul 17, 2019 11:08
[2019-07-17 12:00] VITALS: BP 120/74
[2019-07-17 14:00] VITALS: BP 120/74
--- NOTE | 2019-07-17 15:00 | NUR ---
CASE MANAGEMENT:INITIAL REVIEW 29 YR OLD FEMALE FROM HOME CC: DYSPNEA/ RESP DISTRESS PMH: HD SI: ESRD; CHF; PROFOUND ANEMIA 98.6 116 18 165/106 95% ON RA RBC 2.26; H/H 6.6/21.3; CREAT 6.0; CK 551 IS: ALBUTEROL HHN X1 HD CTA CHEST BLOOD TX : 2E TELE UNIT
[2019-07-17] MEDS ORDERED: Tubing IV Blood Pump IV ONE (15:14)
[2019-07-17] MEDS ORDERED: NS 275ml ONE (15:14)
--- NOTE | 2019-07-17 15:46 | NUR ---
Homeless Discharge: Patient is being discharged from medical care. Awake, alert and oriented x 4. After care instructions, including referral to community resources were given. Patient verbalized understanding of After care instructions; at this time patient does not request medications, equipment or placement. Patient signed patient consent in the medical record for patient destination upon discharge. All medical devices such as IV, heart monitor, and ID band were removed. Patient ambulated out with all personal belongings with steady gait to taxi cab with taxi voucher to [facility].
--- NOTE | 2019-07-17 16:17 | NUR ---
HOMELESS COORDINATOR HC spoke with patient and patient is alert and oriented. Patient with a previous visit 04/2019. Patient does not have a contact number Patient states she is chronically homeless. Patient refuses resources all resources. Patient states she is currently staying at [facility] [address] [address] and returned to previous living conditions. Patient has no substance abuse or mental health illness. Patient states she is receiving $800 in SSI and waiting for her housing deposit to be paid so she can move in. Patient states she will make her own follow up appointment and would like a taxi voucher. HC provided Community [facility] list and Housing Placement resources for patients with income upon discharge. Patient continues to require medical intervention. Will continue to monitor and assist as needed.
--- NOTE | 2019-07-18 15:32 | Cardiology Report ---
APPROVED REPORT EKG Measurement Heart [id number] Sinus tachycardia Cannot rule out Anterior infarct, age undetermined T wave abnormality, consider inferolateral ischemia Abnormal ECG
--- NOTE | 2019-07-19 13:34 | Discharge Summary ---
Discharge Summary Discharge Summary _ DATE OF ADMISSION: DATE OF DISCHARGE: 07/17/2019 ADMITTING MD: Dr. Eliezer Patel DISCHARGED BY: Dr. Elias Claros CONSULTANTS: Dr. Elias Wild BRIEF HOSPITAL COURSE: Patient is a 49-year-old female, who presented to ED for evaluation of dyspnea and fatigue. Patient has history of end-stage renal disease on hemodialysis. She had dialysis on the day of admission. Patient did not feel well. She had similar symptoms before where she had pulmonary emboli and was eventually started on Eliquis. She also has medical history of anemia. She denies any fever or chills. Denies productive cough. She has history of lupus with flares on and off. She is not currently taking prednisone. She denies any chills, sore throat, palpitation, no nausea vomiting or diarrhea. Denies any abdominal pain dizziness or headache. She was admitted in April for respiratory failure due to volume overload. Upon evaluation at the ED, blood pressure was elevated to 165/106, pulse rate 116. She was saturating 95% on room air. Blood work did not show any leukocytosis. Hemoglobin was 6.6. Hematocrit 21.3. Electrolytes showed normal potassium. BUN was 17, creatinine 6.0. Troponin was 0.0 81. Patient wason Eliquis. Patient was not given aspirin. Chest x-ray showed cardiomegaly with mild interstitial congestion. CTA did not show any pulmonary embolism or any other acute thoracic vascular pathology. Cardiomegaly with evidence of left ventricular hypertrophy. Honeycombing, subpleural bleb, with basilar prominence, consistent with end-stage fibrotic change, appeared progressive since prior CT scan in 2017. Bilateral enlarged hilar nodes. She was given pain management. Blood transfusion was ordered. She was then admitted for evaluation of anemia, dyspnea and elevated troponin with underlying history of scleroderma and lupus. She was admitted to monitored floor. She received 2 units packed RBC blood transfusion. She was given imdur, nifedipine, clonidine, and carvedilol and lisinopril for blood pressure control. Anemia work-up showed elevated ferritin with low iron stores. Repeat troponin level normalized. Thyroid function was normal. Lipid panel was acceptable. Magnesium was normal. Hemoglobin level increased posttransfusion. There was no active bleeding. Patient was eventually cleared for discharge. Social service was consulted to aid with discharge. FINAL DIAGNOSES: Profound anemia requiring blood transfusion Accelerated hypertension Anemia of chronic kidney disease End-stage renal disease on hemodialysis Rheumatoid arthritis Lupus Pulmonary hypertension DISPOSITION: The treating physician assessed that the patient is medically stable for discharge to an outstretched disposition. DISCHARGE INSTRUCTIONS: Follow-up in a week. I have been assigned to complete a discharge summary on this account, I was not involved with the patient's management.--ANTONI Quispe Jacqueline Robles NP Jul 19, 2019 13:34
== END 2019-07-17 15:15 | disposition home or self-care (01) | DRG 811 ==
LOC: EMR 13:30 → EDBEDREQ 13:37 → 2E 14:21 → EDBEDREQ 14:41 → 2E 22:27
PROC: 30233N1 Transfusion of Nonautologous Red Blood Cells into Peripheral Vein, Percutaneous Approach (ICD-10-PCS; principal; 2019-07-16)
PROC: 5A1D70Z Performance of Urinary Filtration, Intermittent, Less than 6 Hours Per Day (ICD-10-PCS; 2019-07-17)
DX: D64.9 Anemia, unspecified (principal); N18.6 End stage renal disease; I12.0 Hypertensive chronic kidney disease with stage 5 chronic kidney disease or end stage renal disease; Z88.1 Allergy status to other antibiotic agents; Z88.2 Allergy status to sulfonamides; Z86.711 Personal history of pulmonary embolism; Z79.01 Long term (current) use of anticoagulants; M79.7 Fibromyalgia; M32.9 Systemic lupus erythematosus, unspecified; Z99.2 Dependence on renal dialysis; M06.9 Rheumatoid arthritis, unspecified; I27.20 Pulmonary hypertension, unspecified; R06.03 Acute respiratory distress
CPT/HCPCS: 36415; 71045; 71275; 80053; 80061; 80069; 82550; 82607; 82728; 82746; 82977; 83540; 83550; 83735; 83880; 84443; 84484; 84550; 85007; 85025; 85610; 85730; 86140; 86850; 86900; 86901; 86920; 87081; 93005; 94640; 94664; 96374; 96375; 99285; J2405; J7620